=== PATIENT | female | born 1985 | race African-American/Black ===

== ENCOUNTER → 2016-09-26 11:26 | Outpatient (CLI) | payer OTHER ==
[2015-06-19 09:25] VITALS: BMI 24.8
[~2016-09-26 11:26] MED LIST: ACETAMINOPHEN325 MG PO; ADVAIR 250/501 DISK INH; ALBUTEROL2.5 MG/3 M INH; CHRONULAC30 ML PO; CLEOCIN HCL300 MG PO; CO Q-10100 MG PO; COUMADIN5 MG PO; COUMADIN7.5 MG GT; COUMADIN7.5 MG PO; CYMBALTA30 MG PO; DULCOLAX5 MG PO; GABAPENTIN100 MG PO; GENTAMICIN PREM80 M1 IVPB; GENTAMICIN SULFATE IV; HYDROCODONE-APA1 TAB PO; IPRAT-ALBUT 0.5-3 ML UPD; LACTINEX GRANUL1 PCK PO; LANOXIN125 MCG PO; LASIX20 MG PO; LASIX40 MG PO; LOVENOX40 MG/0.4 SC; MERREM 1 GM/NS 11 G1 IV; METOPROLOL TART50 MG PO; MUCINEX DM ER1 EAC1 PO; MYCELEX TROCHE10 MG PO; ONDANSETRON4 MG/2 M3 IV; PREDNISONE10 MG PO; PROTONIX40 MG PO; SALINE NASAL SP45 ML NS; SINGULAIR10 MG PO; TOPROL XL50 MG PO; VANCOMYCIN 1 GM/1 G1 IV; VITAMIN B-121000 MCG PO; VITAMIN D50000 UNIT PO; XANAX0.5 MG PO; ZANAFLEX4 MG PO
== END | disposition home or self-care (01) ==
LOC: D.RT 08-20 11:00 → D.RAD 08-20 11:00 → D.RT 11:26
DX: Z02.71 Encounter for disability determination (principal)

== ENCOUNTER → 2017-02-20 08:16 | Outpatient (CLI) | payer OTHER ==
[2015-06-19 09:25] VITALS: BMI 24.8
== END | disposition home or self-care (01) ==
LOC: D.RT 08:00
DX: Z02.71 Encounter for disability determination (principal)

== ENCOUNTER 2017-03-05 17:15 | Inpatient (IN) | payer OTHER ==
[2017-03-05] VITALS (8 sets, daily range): BP systolic 110–122; BP diastolic 77–87; BMI 32.2
[~2017-03-05] VITALS: Ht 180.3 cm; Wt 107.5 kg
--- NOTE | 2017-03-05 17:41 | NUR ---
1700- REC'D TO ICU FROM EMS. ALL CARDIAC RESP EQUIPMENT ATTACHED AND ALARMS SET. PT SOB AND ON 6LNC. ALERT AND ORIENTED ASKING FOR . BP 115/83, SR ON CM, 90% SPO2 ON 2LNC.
[2017-03-05] MEDS ORDERED: XANAX0.5 MG PO (17:47)
[2017-03-05] MEDS ORDERED: POTASSIUM CHLO10 ME1 PO (17:48)
[2017-03-05] MEDS ORDERED: LASIX40 MG PO (17:48)
[2017-03-05] MEDS ORDERED: IPRAT-ALBUT 0.5-3 ML UPD (17:51)
[2017-03-05] MEDS ORDERED: PROVENTIL/2.5 MG/3 M INH (17:51)
[2017-03-05] MEDS ORDERED: LOPRESSOR25 MG PO (17:52)
[2017-03-05] MEDS ORDERED: ADVAIR 250/501 DISK INH (17:53)
[2017-03-05] MEDS ORDERED: ELIQUIS2.5 MG PO (17:53)
[2017-03-05] MEDS ORDERED: SINGULAIR10 MG PO (17:54)
[2017-03-05] MEDS ORDERED: HYDROCODONE-APA1 TAB PO (17:56)
[2017-03-05 18:06] LABS: BASOPHILS 0.3 % (0-2); EOSINOPHILS 0.3 % (0-7); HEMATOCRIT 35.6 % (36.0-48.0); HEMOGLOBIN 11.6 g/dL (12-16); IMMATURE GRANULOCYTES 0.3 % (0-5); LYMPHOCYTES 20.6 % (15-50); MCH 27.5 pg (26.0-34.0); MCHC 32.6 g/dL (31.0-37.0); MCV 84.4 fL (80.0-100.0); MEAN PLATELET VOLUME 11.2 fL (7.4-10.4); NEUTROPHILS 70.5 % (40-80); PLATELET COUNT 234 10x3/uL (130-400); RBC 4.22 10x6/uL (4.00-5.40); RDW 17.8 % (11.5-14.5); WBC 5.7 10x3/uL (4.8-10.8)
[2017-03-05 18:13] LABS: ALBUMIN 2.7 g/dL (3.4-5.0); ALKALINE PHOSPHATASE 115 U/L (46-116); ALT (SGPT) 7 U/L (10-68); BILIRUBIN - TOTAL 1.77 mg/dL (0.2-1.3); CALC OSMOLALITY 271 mosm/kg (275-300); CALCIUM 8.5 mg/dL (8.5-10.1); CARBON DIOXIDE 28.9 mmol/L (21.0-32.0); CHLORIDE - SERUM 100 mmol/L (98-107); CREATININE - SERUM 0.9 mg/dL (0.6-1.3); GLUCOSE 89 mg/dL (74-106); POTASSIUM - SERUM 3.8 mmol/L (3.5-5.1); SODIUM 138 mmol/L (136-145); UREA NITROGEN 5 mg/dL (7-18); eGFR NON AFRICAN AMERICAN 78 mL/min (90-120)
[2017-03-05 18:24] LABS: CKMB 0.2 U/L (0.0-3.6); CREATINE KINASE 54 UL (21-215)
[2017-03-05 18:25] LABS: TROPONIN-I < 0.017 ng/mL (0.000-0.060)
[2017-03-06] VITALS (25 sets, daily range): BP systolic 89–121; BP diastolic 40–109; Ht 180.3 cm; Wt 107.5 kg
--- NOTE | 2017-03-06 04:00 | NUR ---
IV STARTED IN RIGHT WRIST AFTER MULTIPLE ATTEMPTS. PT IS AWAKE AND ALERT. BREATHING AND EDEMA IS IMPROVED.
[2017-03-06 05:04] LABS: BASOPHILS 0 % (0-2); EOSINOPHILS 0 % (0-7); HEMATOCRIT 36.8 % (36.0-48.0); IMMATURE GRANULOCYTES 0.2 % (0-5); LYMPHOCYTES 19.9 % (15-50); MCHC 32.6 g/dL (31.0-37.0); MCV 85.8 fL (80.0-100.0); MEAN PLATELET VOLUME 10.9 fL (7.4-10.4); MONOCYTES 2.2 % (2-11); NEUTROPHILS 77.7 % (40-80); PLATELET COUNT 234 10x3/uL (130-400); RBC 4.29 10x6/uL (4.00-5.40); WBC 6.4 10x3/uL (4.8-10.8)
[2017-03-06 05:20] LABS: ALBUMIN 2.7 g/dL (3.4-5.0); ANION GAP 14.8 mmol/L (8-16); BILIRUBIN - TOTAL 1.52 mg/dL (0.2-1.3); CALCIUM 8.5 mg/dL (8.5-10.1); CARBON DIOXIDE 29.4 mmol/L (21.0-32.0); MAGNESIUM - SERUM 1.8 mg/dL (1.8-2.4); POTASSIUM - SERUM 4.2 mmol/L (3.5-5.1); PROTEIN - SERUM 8.2 g/dL (6.4-8.2)
--- NOTE | 2017-03-06 13:26 | NUR ---
* Is the patient Alert and Oriented? Yes 0 * How many steps to enter\exit or inside your home? 4-5 0 * PCP Dr. Hammond 0 * Pharmacy [facility] 0 * Preadmission Environment Home with Family 0 * ADLs Partial Dependent 0 * Partial ADLs (Assistance needed) Ambulation 0 * Equipment Nebulizer Rolling Walker Wheelchair 0 * List name and contact numbers for known caregivers / representatives who currently or will assist patient after discharge: Spouse - Raina Zarate [phone] 0 * Additional services required to return to the preadmission environment? Yes 0 * Can the patient safely return to the preadmission environment? Yes 0 * Has this patient been hospitalized within the prior 30 days at any hospital? No Patient Name: FRANKI ZARATE Admission Status: Elective Accout number: [id number] Admission Date: 03-05-2017 : 1985 Admission Diagnosis:SHORTNESS OF BREATH Attending: VINEET LIN Current LOS: 1 Anticipated DC Date: 03-09-2017 Planned Disposition: Home Primary Insurance: [employer] [place] MEDICA[place] Discharge Planning Comments: CM met with patient to assess dc plans/needs. Patient states she lives at home with her , Raina. She states she has a nebulizer, and borrowed walker & WC. She does not have home O2. She states she had home health services approximately 2 years ago but unable to recall which agency. At dc, she may benefit from home O2 & home health. CM will follow & assist as needed. Expander Machine Operator: Aleah Anderson
--- NOTE | 2017-03-06 21:00 | NUR ---
FAMILY AT BEDSIDE, UPDATE PROVIDED AND QUESTOINS ANSWERED. DENIES NEEDS AT THIS TIME. VSS, CALL LIGHT WITHIN PT REACH. CPOC.
--- NOTE | 2017-03-06 23:00 | NUR ---
REASSESSMENT COMPLETE, NO NEW CHANGES AT THIS TIME. PT AOX4. VSS, SPO2 94. PT REPOSITIONED FOR COMFORT. FRESH WATER AT BEDSIDE. DENIES FURTHER NEEDS AT THIS TIME. CALL LIGHT WITHIN PT REACH. CPOC.
[2017-03-07] VITALS (16 sets, daily range): BP systolic 101–140; BP diastolic 72–884
--- NOTE | 2017-03-07 01:00 | NUR ---
PT RESTING QUIETLY, SPO2 94. PARTIAL LINEN CHANGE PROVIDED. PT REPOSITIONED FOR COMFORT. DENIES NEEDS AT THIS TIME. CALL LIGHT WITHIN PT REACH. CPOC.
--- NOTE | 2017-03-07 03:59 | NUR ---
REASSESSMENT COMPLETE, SEE FLOWSHEET FOR ALL FINDINGS. NO CHANGES NOTED AT THIS TIME. VSS, SPO2 94, 6L O2 VIA NC. PARTIAL LINEN CHANGE PROVIDED. DENIES FURTHER NEEDS AT THIS TIME. CALL LIGHT AND BEDSIDE TABLE WITHIN PT REACH. CPOC.
[2017-03-07 04:39] LABS: BASOPHILS 0 % (0-2); EOSINOPHILS 0 % (0-7); HEMATOCRIT 34.3 % (36.0-48.0); IMMATURE GRANULOCYTES 0.3 % (0-5); LYMPHOCYTES 6.7 % (15-50); MCH 27.5 pg (26.0-34.0); MCHC 32.1 g/dL (31.0-37.0); MCV 85.8 fL (80.0-100.0); MEAN PLATELET VOLUME 11.3 fL (7.4-10.4); MONOCYTES 3.7 % (2-11); NEUTROPHILS 89.3 % (40-80); PLATELET COUNT 236 10x3/uL (130-400); RDW 17.7 % (11.5-14.5); WBC 15.8 10x3/uL (4.8-10.8)
[2017-03-07 04:56] LABS: ALBUMIN 2.6 g/dL (3.4-5.0); ALKALINE PHOSPHATASE 111 U/L (46-116); ALT (SGPT) 10 U/L (10-68); BILIRUBIN - TOTAL 0.93 mg/dL (0.2-1.3); CALC OSMOLALITY 276 mosm/kg (275-300); CALCIUM 8.1 mg/dL (8.5-10.1); CARBON DIOXIDE 30.5 mmol/L (21.0-32.0); CHLORIDE - SERUM 100 mmol/L (98-107); CREATININE - SERUM 0.9 mg/dL (0.6-1.3); GLUCOSE 132 mg/dL (74-106); MAGNESIUM - SERUM 1.7 mg/dL (1.8-2.4); POTASSIUM - SERUM 4.2 mmol/L (3.5-5.1); PROTEIN - SERUM 7.5 g/dL (6.4-8.2); SODIUM 138 mmol/L (136-145); eGFR NON AFRICAN AMERICAN 78 mL/min (90-120)
[2017-03-07 04:59] LABS: UREA NITROGEN 11 mg/dL (7-18)
--- NOTE | 2017-03-07 05:23 | NUR ---
PT SLEEPING QUIETLY AT THIS TIME WITH UNLABORED RESPIRATIONS. SPO2 95, 6L O2 VIA NC. NO S/S OF PAIN AT THIS TIME. CALL LIGHT WITHIN PT REACH. PT ALLOWED TO CONTINUE SLEEPING UNDISTURBED AT THIS TIME. CPOC.
--- NOTE | 2017-03-07 16:05 | NUR ---
REPORT CALLED TO FLOOR NURSE
--- NOTE | 2017-03-07 16:23 | NUR ---
PT AOX4 RESP EVEN AND NONLABORED PT DENIES NEEDS AT THIS TIME IV TO LEFT FOREARM PATENT AND INTACT AT THIS TIME SRX2 BED IN LOWEST SETTING CALL LIGHT WITHIN REACH WILL CONTINUE TO MONITOR
--- NOTE | 2017-03-07 20:00 | NUR ---
REC'D IN BED WITH EYES CLOSED EASILY AROUSED WHEN NAME IS CALLED. RESP EVEN AND UNLABORED WITH NO DISTRESS NOTED. HAS O2 IN USE VIA N/C @ 5 L/M. ASSESSMENT COMPLETED. CL IN REACH AT BEDSIDE.
--- NOTE | 2017-03-07 22:39 | NUR ---
WAS MEDICATED WITH NORCO AT THIS TIME FOR C/O PAIN. C/L UIN REACH AT BEDSIDE.
--- NOTE | 2017-03-07 22:47 | NUR ---
WAS MEDICATED WITH NORCO PER ORDER FOR C/O GENERALIZED PAIN RATING 10/10 ON PAIN.
[2017-03-08 00:03] VITALS: BP 103/77
--- NOTE | 2017-03-08 01:52 | NUR ---
PT AWAKE EATING SANDWICH. BROUGHT ORANGE JUICE OVER ICE. NO OTHER NEEDS. NO DISTRESS NOTED. CONTINUE MASON HELPER'S PLAN OF CARE.
--- NOTE | 2017-03-08 03:07 | NUR ---
RESTING WELL AT THIS TIME NO CO NOTED OR VOICED. C/L AND AT BEDSIDE.
[2017-03-08 03:30] VITALS: BP 110/75
[2017-03-08 04:38] LABS: BASOPHILS 0 % (0-2); EOSINOPHILS 0 % (0-7); HEMATOCRIT 32.3 % (36.0-48.0); HEMOGLOBIN 10.6 g/dL (12-16); IMMATURE GRANULOCYTES 0.2 % (0-5); LYMPHOCYTES 4.8 % (15-50); MCH 28.3 pg (26.0-34.0); MCHC 32.8 g/dL (31.0-37.0); MCV 86.1 fL (80.0-100.0); MEAN PLATELET VOLUME 10.6 fL (7.4-10.4); MONOCYTES 4.5 % (2-11); NEUTROPHILS 90.5 % (40-80); PLATELET COUNT 222 10x3/uL (130-400); RBC 3.75 10x6/uL (4.00-5.40); RDW 17.7 % (11.5-14.5); WBC 15.2 10x3/uL (4.8-10.8)
[2017-03-08 04:49] LABS: ALBUMIN 2.6 g/dL (3.4-5.0); ANION GAP 10.5 mmol/L (8-16); BILIRUBIN - TOTAL 0.97 mg/dL (0.2-1.3); CALCIUM 7.9 mg/dL (8.5-10.1); CARBON DIOXIDE 31.4 mmol/L (21.0-32.0); MAGNESIUM - SERUM 1.8 mg/dL (1.8-2.4); POTASSIUM - SERUM 3.9 mmol/L (3.5-5.1); PROTEIN - SERUM 7.9 g/dL (6.4-8.2)
--- NOTE | 2017-03-08 07:30 | NUR ---
PT AOX4 RESP EVEN AND NONLABORED PT DENIES NEEDS AT THIS TIME SRX2 BED AT LOWEST SETTING CALL LIGHT WITHIN REACH WILL CONTINUE TO MONITOR
[2017-03-08 09:36] VITALS: BP 111/74
[2017-03-08 15:51] VITALS: BP 110/64
[2017-03-08 20:00] VITALS: BP 117/70
--- NOTE | 2017-03-08 20:00 | NUR ---
REC'D IN ROOM AWAKE AND ALERT. RESP EVEN AND UNLABORED WITH NO DISTRESS NOTED. CAN EXPRESS NEEDS AND WANTS. C/O PAIN RATING 10/10 ON PAIN SCALE. ASSESSMENT COMPLETED. AT BEDSIDE. C/L IN REACH AT BEDSIDE.
--- NOTE | 2017-03-08 21:04 | NUR ---
PT C/O PAIN RATIN 04/07 ON PAIN SCSLE WAS MEDICATEDWITH NORCO PER ORDERS.
[2017-03-09] VITALS: BP 106/64
--- NOTE | 2017-03-09 01:00 | NUR ---
PT RESTING EYES, CLOSED. RESP EVEN UNLABORED. NO DISTRESS NOTED. CONTINUE SLAT BASKET TOP MAKER'S PLAN OF CARE.
[2017-03-09 04:00] VITALS: BP 100/69
[2017-03-09 05:39] LABS: BASOPHILS 0 % (0-2); EOSINOPHILS 0 % (0-7); HEMATOCRIT 33.7 % (36.0-48.0); HEMOGLOBIN 10.8 g/dL (12-16); IMMATURE GRANULOCYTES 0.2 % (0-5); LYMPHOCYTES 5.1 % (15-50); MCH 27.9 pg (26.0-34.0); MCV 87.1 fL (80.0-100.0); MEAN PLATELET VOLUME 11.4 fL (7.4-10.4); MONOCYTES 4.6 % (2-11); NEUTROPHILS 90.1 % (40-80); PLATELET COUNT 246 10x3/uL (130-400); RBC 3.87 10x6/uL (4.00-5.40); RDW 17.7 % (11.5-14.5); WBC 13.2 10x3/uL (4.8-10.8)
[2017-03-09 06:29] LABS: ALBUMIN 2.8 g/dL (3.4-5.0); ALKALINE PHOSPHATASE 167 U/L (46-116); BILIRUBIN - TOTAL 1.01 mg/dL (0.2-1.3); CALC OSMOLALITY 280 mosm/kg (275-300); CALCIUM 8.3 mg/dL (8.5-10.1); CARBON DIOXIDE 32.2 mmol/L (21.0-32.0); CHLORIDE - SERUM 99 mmol/L (98-107); CREATININE - SERUM 0.9 mg/dL (0.6-1.3); GLUCOSE 117 mg/dL (74-106); MAGNESIUM - SERUM 1.7 mg/dL (1.8-2.4); POTASSIUM - SERUM 3.9 mmol/L (3.5-5.1); SODIUM 138 mmol/L (136-145); UREA NITROGEN 24 mg/dL (7-18); eGFR NON AFRICAN AMERICAN 78 mL/min (90-120)
[2017-03-09 06:40] LABS: ALT (SGPT) 18 U/L (10-68)
--- NOTE | 2017-03-09 07:30 | NUR ---
ASSESSMENT PER FLOW SHEET.PT WITHOUT DISTRESS.DENIES NEEDS.PAIN MEDS ORDERED PER MAR.MONITOR FOR NEEDS
[2017-03-09 08:54] VITALS: BP 114/76
--- NOTE | 2017-03-09 14:54 | NUR ---
OUT IN WHEELCHAIR EARLIER TODAY.SHE REMAINS WITHOUT DISTRESS.PAIN MEDS ORDERED PER MAR EARLIER.MONITOR
--- NOTE | 2017-03-09 19:15 | NUR ---
RECIEVED SHIFT REPORT. PT IS LYING IN BED. ALERT AND ORIENTED AND ABLE TO VERBALIZE NEEDS. IV IS PATENT AND FLUIDS ARE RUNNING PER ORDER. O2 @ 4 PER NASAL CANNULA. PT IS AMBULATORY WITH ASSISTANCE. PT STATES PAIN IS 10/10. NO NEEDS ARE VERBALIZED AT THIS TIME. WILL CONTINUE TO MONITOR. VISITOR IS AT THE BEDSIDE. SIDE RAILS ARE UP X 2. BED IS IN LOWEST POSITION. CALL LIGHT IS WITHIN REACH.
--- NOTE | 2017-03-09 19:20 | NUR ---
REMAINS WITHOUT NEEDS,WITHOUT CHNAGE.CONT PLAN OF CARE
[2017-03-09 20:00] VITALS: BP 110/75
--- NOTE | 2017-03-09 20:41 | NUR ---
SHIFT ASSESSMENT COMPLETED. NIGHT MEDS GIVEN WITH NO PROBLEMS. NO NEEDS ARE VOICED. WILL MONITOR. VISITOR AT BEDSIDE. SIDE RAILS X 2. BED LOW. CALL LIGHT IN REACH.
[2017-03-10] VITALS: BP 102/72
[2017-03-10 05:20] LABS: BASOPHILS 0.1 % (0-2); EOSINOPHILS 0 % (0-7); HEMATOCRIT 30.4 % (36.0-48.0); HEMOGLOBIN 9.8 g/dL (12-16); IMMATURE GRANULOCYTES 0.3 % (0-5); LYMPHOCYTES 7.7 % (15-50); MCH 27.6 pg (26.0-34.0); MCHC 32.2 g/dL (31.0-37.0); MCV 85.6 fL (80.0-100.0); MEAN PLATELET VOLUME 11.1 fL (7.4-10.4); MONOCYTES 5.9 % (2-11); PLATELET COUNT 250 10x3/uL (130-400); RBC 3.55 10x6/uL (4.00-5.40); WBC 13.1 10x3/uL (4.8-10.8)
[2017-03-10 05:37] LABS: ALBUMIN 2.6 g/dL (3.4-5.0); ANION GAP 11.2 mmol/L (8-16); BILIRUBIN - TOTAL 1.02 mg/dL (0.2-1.3); CALCIUM 8.1 mg/dL (8.5-10.1); MAGNESIUM - SERUM 1.6 mg/dL (1.8-2.4); POTASSIUM - SERUM 4.2 mmol/L (3.5-5.1); PROTEIN - SERUM 7.3 g/dL (6.4-8.2)
--- NOTE | 2017-03-10 08:00 | NUR ---
ASSESSMENT PER FLOW SHEET.PT WITHOUT DISRESS.DENIES NEEDS.CALL LIGHT IN REACH
[2017-03-10 09:18] VITALS: BP 103/71
[2017-03-10 10:46] VITALS: BP 110/69
--- NOTE | 2017-03-10 18:41 | NUR ---
REMAINS WITHOUT DISTRESS.DENIES NEEDS AT PRESENT.WITHOUT CHANGE FROM INITIAL SHIFT ASSESSMENT.CONT PLAN OF CARE
--- NOTE | 2017-03-10 19:25 | NUR ---
RECIEVED SHIFT REPORT. PT IS LYING IN BED. ALERT AND ORIENTED AND ABLE TO VERBALIZE NEEDS. IV IS PATENT AND FLUIDS ARE RUNNING PER ORDER. O2 @ 4 PER NASAL CANNULA. PT IS AMBULATORY WITH ASSISTANCE. PT STATES PAIN IS 8/10. NO NEEDS ARE VERBALIZED AT THIS TIME. WILL CONTINUE TO MONITOR. VISITOR IS AT THE BEDSIDE. SIDE RAILS ARE UP X 2. BED IS IN LOWEST POSITION. CALL LIGHT IS WITHIN REACH.
[2017-03-10 20:00] VITALS: BP 114/67
--- NOTE | 2017-03-10 20:55 | NUR ---
SHIFT ASSESSMENT COMPLETED. NIGHT MEDS GIVEN WITH NO PROBLEMS. PT C/O PAIN 04/07. ADMINISTERED PRESCRIBED PRN NORCO PER ORDER. NO FURTHER NEEDS ARE VOICED. WILL MONITOR. VISITOR AT BEDSIDE. SIDE RAILS X 2. BED LOW. CALL LIGHT IN REACH.
[2017-03-11 04:00] VITALS: BP 109/73
[2017-03-11 05:18] LABS: BASOPHILS 0 % (0-2); EOSINOPHILS 0 % (0-7); HEMATOCRIT 29.2 % (36.0-48.0); HEMOGLOBIN 9.8 g/dL (12-16); IMMATURE GRANULOCYTES 0.6 % (0-5); LYMPHOCYTES 10.3 % (15-50); MCH 28.2 pg (26.0-34.0); MCHC 33.6 g/dL (31.0-37.0); MCV 83.9 fL (80.0-100.0); MEAN PLATELET VOLUME 10.7 fL (7.4-10.4); MONOCYTES 10.8 % (2-11); NEUTROPHILS 78.3 % (40-80); PLATELET COUNT 271 10x3/uL (130-400); RBC 3.48 10x6/uL (4.00-5.40); RDW 17.1 % (11.5-14.5)
[2017-03-11 05:47] LABS: ALBUMIN 2.7 g/dL (3.4-5.0); ALKALINE PHOSPHATASE 143 U/L (46-116); ALT (SGPT) 21 U/L (10-68); CALC OSMOLALITY 288 mosm/kg (275-300); CALCIUM 8.9 mg/dL (8.5-10.1); CARBON DIOXIDE 34.5 mmol/L (21.0-32.0); CHLORIDE - SERUM 102 mmol/L (98-107); CREATININE - SERUM 0.8 mg/dL (0.6-1.3); GLUCOSE 114 mg/dL (74-106); PHOSPHOROUS 3.1 mg/dL (2.5-4.9); POTASSIUM - SERUM 4.2 mmol/L (3.5-5.1); SODIUM 141 mmol/L (136-145); UREA NITROGEN 31 mg/dL (7-18); eGFR NON AFRICAN AMERICAN 89 mL/min (90-120)
--- NOTE | 2017-03-11 07:23 | NUR ---
BACK ON UNIT FROM WHEELCHAIR RIDE.
[2017-03-11 08:18] VITALS: BP 100/65
--- NOTE | 2017-03-11 10:33 | EC ---
PATIENT:FRANKI ZARATE DATE OF SERVICE: 03/05/17 SEX: F MEDICAL RECORD: [id number] DATE OF : [birth year] LOCATION:[facility] AGE OF PATIENT: 31 ADMISSION DATE: 03/05/17 REFERRING PHYSICIAN: INTERPRETING PHYSICIAN: YINKA JONES MD ECHOCARDIOGRAM REPORT ECHO CHARGES 4 ECHO COMPLETE CLINICAL DIAGNOSIS: CHF ? - TVR ECHOCARDIOGRAPHIC MEASUREMENTS (adult normal given) AC root (d.<3.7cm) 2.3 cm LV Septum d (<1.2 cm> 0.9 cm Valve Excursion 1.8 cm LV Septum (systole) 1.1 cm Left Atria (s.<4.0cm> 5.1 cm LVPW d(<1.2cm) 0.9 cm RV (d.<2.3cm) 3.9 cm LVPW (sytole) 1.5 cm LV diastole(<5.6CM) 4.8 cm MV E-F(>70mm/sec) cm LV systole 2.9 cm LVOT Diameter 1.6 cm MV exc.(>10mm) cm Est.ejection fraction (50-75%) % Pericardial Effusion N DOPPLER: LVIT cm/sec A 45.0 cm/sec E 147 cm/sec LA cm/sec RVSP 21.2 mmHg LVOT 93.0 cm/sec AOP1/2T m/s Asc. Ao 154 cm/sec RVOT 87.0 cm/sec RA cm/sec PA 61.0 cm/sec AV Gradient Peak 9.5 mmHg AV Mean 3.6 mmHg AV Area 1.4 cm MV Gradient Peak 10.0 mmHg MV Mean 3.7 mmHg MV Area cm COMMENTS: Paid Search Manager: Tika GILLOE E Commerce Manager: 3 Dr. Hawk TAPE# PACS DATE OF SERVICE: 03/09/2017 Adequate 2D echo, color flow, spectral Doppler and M-mode. No LVH. LV internal dimensions are normal. Wall motion is normal. EF is greater than or equal to 55%. Aortic valve opens adequately, no significant AI. Left atrium is dilated at 5.1 cm. Mitral valve is mildly thickened. Moderate MR. Right-sided chamber is grossly normal. Severe TR. TRANSINT:[id number] Voice Confirmation ID: [id number] DOCUMENT ID: [id number] ECHOCARDIOGRAM REPORT [id number] FRANKI ZARATE GREGORY A MD at 1033 CC: [id number] DICTATION DATE: 03/09/17 1434 POLITICAL SCIENTIST: 03/09/17 2230 ADM IN [facility] [address] [id number]
--- NOTE | 2017-03-11 10:59 | NUR ---
NUTRITION F/U CHART REVIEWED. PT TOLERATING REG GOPAL DIET WITH 100% INTAKE BREAKFAST. CONTINUES TO BE ASSESSED AT LOW NUTRITIONAL RISK. RD FOLLOWING
[2017-03-11 14:24] VITALS: BP 112/71
[2017-03-11] MEDS ORDERED: LASIX40 MG PO (14:31)
[2017-03-11] MEDS ORDERED: ELIQUIS5 MG PO (14:31)
[2017-03-11] MEDS ORDERED: PULMICORT0.5 MG/21 UPD (14:32)
[2017-03-11] MEDS ORDERED: PREDNISONE10 MG PO (14:33)
[2017-03-11] MEDS ORDERED: LEVAQUIN750 MG PO (14:42)
--- NOTE | 2017-03-11 16:18 | NUR ---
PATIENT DISCHARGING TODAY WITH [facility] AND HOME O2. SENT ORDER TO [facility] WITH [facility] AND TO [facility]. AT BEDSIDE TO DRIVE HOME PATIENT HAD NO OTHER NEEDS FOR DISCHARGE
[2017-03-11 17:13] VITALS: BP 100/66
--- NOTE | 2017-03-11 18:48 | NUR ---
IV DCD WITH CATH INTACCT.DISCHARGE INSTRUCTIONS,STATES UNDERSTANDING.
--- NOTE | 2017-03-11 18:56 | NUR ---
LEFT UNIT VIA WHEELCHAIR
--- NOTE | 2017-03-17 16:50 | CN ---
PATIENT NAME:FRANKI ZARATE MEDICAL RECORD: [id number] : [birth year] LOCATION:D[facility] ADMIT DATE: 03/05/17 ACCOUNT: [id number] CONSULTING PHYSICIAN: ASTER MOTA MD REFERRING PHYSICIAN: BO DOCKERY MD DATE OF CONSULTATION: 03/06/2017 CONSULT REQUESTING PHYSICIAN: Bo Dockery MD. REASON FOR CONSULTATION: Worsening shortness of breath, pulmonary edema, acute flare of congestive heart failure. HISTORY OF PRESENT ILLNESS: Ms. Zarate is a 31-year-old -German female, very well known to us. According to the patient, she had worsening shortness of breath for the last couple of weeks. She has worsening swelling of the lower extremities. She was off of her diuretic for the last few weeks. She was also off of her blood thinner, Eliquis, for more than a month. She has orthopnea and PND. Also, she hears herself wheezing. REVIEW OF SYSTEMS: As in history of present illness. PAST MEDICAL HISTORY: 1. History of asthma. 2. History of bacterial endocarditis. 3. 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 The workup for coagulopathy was negative in the past by Dr. De La Torre. 4. Cardiomyopathy with ejection fraction of 35%. 5. Positive rheumatoid factor. 6. History of spontaneous pneumothorax in the past. 7. Bipolar disorder. 8. Seizure disorder. PAST SURGICAL HISTORY: 1. Appendectomy. 2. Mitral valve replacement at the [facility] in [place]. 3. Status post chest tube placement for pneumothorax in the past. ALLERGIES: SHE IS ALLERGIC TO ERYTHROMYCIN, CLINDAMYCIN, AMOXICILLIN, PENICILLIN, MORPHINE, MEPERIDINE AND SULFA. PRESENT MEDICATIONS: On plistatech was reviewed. PERSONAL AND SOCIAL HISTORY: The patient has a history of abusing recreational drugs in the past. She is not an IV drug user. FAMILY HISTORY: Significant for cardiovascular disease and cancer. PHYSICAL EXAMINATION: GENERAL: Now, the patient is lying comfortably. She is not in acute distress. VITAL SIGNS: The blood pressure is 116/77, pulse is 101, respiration is 20, temperature is 98.1, and SpO2 is 97% on 5 liters nasal cannula. HEENT: Conjunctivae are pink. Sclerae nonicteric. NECK: Supple. There is elevated JVD. CHEST: There are bilateral crackles. Decreased breath sounds at the bases. HEART: Rate and rhythm regular with grade II/ systolic murmur. CONSULT REPORT [id number] FRANKI ZARATE ABDOMEN: Soft, bowel sounds present. No hepatosplenomegaly. RECTAL: Deferred. EXTREMITIES: No cyanosis, no clubbing. There is 3+ pedal edema. SKIN: Warm, normal turgor. CENTRAL NERVOUS SYSTEM: The patient is awake and alert. There is no obvious cranial nerve abnormality. The gait was not tested. IMAGING: Chest radiograph: There are bilateral pleural effusions, right more than the left. There is a huge cardiomegaly. There is also a lower lobe atelectasis. LABORATORY DATA: CBC: WBC 5.7, hemoglobin 11.6, hematocrit 35.6, the platelet count 234. Chemistry: Sodium is 139, potassium is 4.2, carbon dioxide 29.4, BUN is 6, creatinine is 1. D-dimer is 6.27. IMPRESSION: 1. Acute hypoxic respiratory failure, which is multifactorial. A. Pulmonary edema. B. Bilateral pleural effusions. C. Possible underlying pneumonia and atelectasis. 2. Congestive heart failure with chronic systolic dysfunction with cardiomyopathy. 3. Asthma acute exacerbation secondary to #4. 4. History of pulmonary embolism and deep venous thrombosis. Now, she has elevated D-dimer, rule out PTE. RECOMMENDATION: 1. I will increase the Eliquis to 5 mg b.i.d. Increase methylprednisolone IV, albuterol/ipratropium nebulizer, Brovana, budesonide nebulizer, Singulair 10 mg a day. 2. Check ultrasound of the lower extremity to rule out DVT. Continue Lasix. Continue Levaquin IV for empiric antibiotic coverage. Dr. Dockery, thank you for involving me in the care of Ms. Zarate. The critical care time is 45 minutes. TRANSINT:[id number] Voice Confirmation ID: [id number] DOCUMENT ID: [id number] ASTER MOTA MD at 1650 CC: FABIO JORDAN M.D. [id number] DICTATION DATE: 03/06/17 1115 FIBER PICKER: 03/06/17 1244 DIS IN 03/11/[address] [id number] [facility], [place] [address]
== END 2017-03-11 18:56 | disposition home health service (06) | DRG 291 ==
LOC: D.MS 17:15 → D.ICU 17:15 → D.MS 03-07 16:05
PROVIDERS: Family Medicine; Family Medicine Adult Medicine; Internal Medicine Pulmonary Disease; ADMIT Emergency Medicine
DX: I13.0 Hypertensive heart and chronic kidney disease with heart failure and stage 1 through stage 4 chronic kidney disease, or unspecified chronic kidney disease (principal); J18.1 Lobar pneumonia, unspecified organism; I50.43 Acute on chronic combined systolic (congestive) and diastolic (congestive) heart failure; J96.01 Acute respiratory failure with hypoxia; J44.0 Chronic obstructive pulmonary disease with (acute) lower respiratory infection; J44.1 Chronic obstructive pulmonary disease with (acute) exacerbation; I42.9 Cardiomyopathy, unspecified; Z79.01 Long term (current) use of anticoagulants; Z95.2 Presence of prosthetic heart valve; F41.9 Anxiety disorder, unspecified; Z72.0 Tobacco use; D69.6 Thrombocytopenia, unspecified; E83.42 Hypomagnesemia; N18.9 Chronic kidney disease, unspecified

== ENCOUNTER → 2017-03-23 12:35 | Outpatient (CLI) | payer OTHER ==
[2017-03-06 09:06] VITALS: BMI 32.2
[~2017-03-23 12:35] MED LIST changes: +ELIQUIS2.5 MG PO; +ELIQUIS5 MG PO; +LEVAQUIN750 MG PO; +LOPRESSOR25 MG PO; +POTASSIUM CHLO10 ME1 PO; +PROVENTIL/2.5 MG/3 M INH; +PULMICORT0.5 MG/21 UPD
[2017-03-23 14:16] LABS: CALC OSMOLALITY 263 mosm/kg (275-300); CALCIUM 8.4 mg/dL (8.5-10.1); CARBON DIOXIDE 25.5 mmol/L (21.0-32.0); CHLORIDE - SERUM 100 mmol/L (98-107); CREATININE - SERUM 0.8 mg/dL (0.6-1.3); GLUCOSE 66 mg/dL (74-106); POTASSIUM - SERUM 4.1 mmol/L (3.5-5.1); PRO BNP 1076 pg/mL (0-125); SODIUM 133 mmol/L (136-145); UREA NITROGEN 13 mg/dL (7-18); eGFR NON AFRICAN AMERICAN 89 mL/min (90-120)
== END | disposition home or self-care (01) ==
LOC: D.LABREF 12:35
PROVIDERS: Family Medicine
DX: J44.9 Chronic obstructive pulmonary disease, unspecified (principal); I50.9 Heart failure, unspecified

== ENCOUNTER 2017-03-30 15:21 | Inpatient (IN) | payer MEDICAID ==
[2017-03-30 16:03] LABS: ALBUMIN 2.4 g/dL (3.4-5.0); ANION GAP 16.7 mmol/L (8-16); BILIRUBIN - TOTAL 1.62 mg/dL (0.2-1.3); CALCIUM 8.5 mg/dL (8.5-10.1); CARBON DIOXIDE 21.6 mmol/L (21.0-32.0); CREATININE - SERUM 1.1 mg/dL (0.6-1.3); MAGNESIUM - SERUM 2.3 mg/dL (1.8-2.4); POTASSIUM - SERUM 4.3 mmol/L (3.5-5.1); PROTEIN - SERUM 6.1 g/dL (6.4-8.2)
[2017-03-30 16:10] LABS: BASOPHILS 0.4 % (0-2); EOSINOPHILS 1.5 % (0-7); IMMATURE GRANULOCYTES 0.1 % (0-5); LYMPHOCYTES 29.1 % (15-50); MCH 23.6 pg (26.0-34.0); MCHC 27.9 g/dL (31.0-37.0); MCV 84.6 fL (80.0-100.0); MEAN PLATELET VOLUME 10.5 fL (7.4-10.4); MONOCYTES 10.8 % (2-11); NEUTROPHILS 58.1 % (40-80); PLATELET COUNT 252 10x3/uL (130-400); RDW 20.9 % (11.5-14.5); WBC 7.1 10x3/uL (4.8-10.8)
[2017-03-30 16:17] LABS: APTT 41.5 SECONDS (22.8-39.4); INR 2.84 (0.85-1.17)
[2017-03-30 16:36] LABS: HEMATOCRIT 10.4 % (36.0-48.0); HEMOGLOBIN 2.9 g/dL (12-16); RBC 1.23 10x6/uL (4.00-5.40)
[2017-03-30 17:08] LABS: APPEARANCE CLEAR (CLEAR); COLOR YELLOW (YELLOW)
[2017-03-30 17:09] LABS: BILIRUBIN NEGATIVE (NEGATIVE); GLUCOSE NEGATIVE (NEGATIVE); KETONE NEGATIVE (NEGATIVE); NITRITE NEGATIVE (NEGATIVE); PROTEIN TRACE mg/dL (NEGATIVE); UROBILINOGEN NORMAL (NORMAL)
[2017-03-30 17:18] LABS: UDS - AMPHET NEGATIVE QUAL (NEGATIVE); UDS - BARB NEGATIVE QUAL (NEGATIVE); UDS - BENZO POSITIVE QUAL (NEGATIVE); UDS - COCAINE NEGATIVE QUAL (NEGATIVE); UDS - OPIATE POSITIVE QUAL (NEGATIVE); UDS - PCP NEGATIVE QUAL (NEGATIVE); UDS - THC POSITIVE QUAL (NEGATIVE)
--- NOTE | 2017-03-30 19:05 | NUR ---
PATIENT RECEIVED VIA STRETCHER AND MOVED OVER TO BED 2301. PATIENT IS ALERT AND ORIENTED, AND COMMUNICATES NEEDS WELL.
--- NOTE | 2017-03-30 19:15 | NUR ---
PT LAYING IN BED AWAKE AND ALERT, IS AT BEDSIDE. SECOND UNIT OF PRBC'S ADMINISTERED VIA RT EXTERNAL JUGULAR PIV. DENIES NEEDS AT THIS TIME. CALL LIGHT WITHIN REACH. WILL CONTINUE TO MONITOR.
[2017-03-30 20:00] VITALS: BP 102/66
[2017-03-30 20:17] VITALS: BP 112/96; BMI 27.6
--- NOTE | 2017-03-30 20:17 | NUR ---
ADMISSION ASSESSMENT COMPLETED PER FLOW SHEET. PT LAYING IN BED, AT BEDSIDE. PT ALERT AND ORIENTED, BUT IS LETHARGIC. SPEECH IS CLEAR. RADIAL AND PEDAL PULSES WEAK TO PALPATION BILAT. S1S2 PRESENT. SCAR NOTED TO CHEST MIDLINE. BRUISES NOTED TO ARMS BILAT. 3 L 02 VIA NC. BREATHING IS SHALLOW AND TACHYPNEIC. LT EXTERNAL JUGULAR PIV INFUSING PRBC'S. LT WRIST PIV INFUSING NS. SEE FLOW SHEET FOR DETAILS. PT DENIES NEEDS. CALL LIGHT WITHIN REACH. BED IN LOWEST POSITION. WILL CONTINUE TO MONITOR.
[2017-03-30 21:00] VITALS: BP 98/64
--- NOTE | 2017-03-30 21:00 | NUR ---
AND SISTER AT BEDSIDE. VSS. ICE CHIPS PROVIDED. DENIES FURTHER NEEDS. CALL LIGHT WITHIN REACH. BED IN LOWEST POSITION. WILL CONTINUE TO MONITOR.
[2017-03-30 22:00] VITALS: BP 122/78; BP 91/60
--- NOTE | 2017-03-30 22:30 | NUR ---
SECOND UNIT OF PRBC'S ADMINISTERED. WILL CONTINUE TO MONITOR FOR TRANSFUSION REACTIONS. CALL LIGHT WITHIN REACH. BED IN LOWEST POSITION.
[2017-03-30 23:00] VITALS: BP 104/67
--- NOTE | 2017-03-30 23:00 | NUR ---
REASSESSMENT COMPLETED PER FLOW SHEET, SEE FOR DETAILS. NO ACUTE CHANGES NOTED. PT STILL LETHARGIC. SPEECH IS CLEAR. PT IS ALERT AND ORIENTED. DENIES NEEDS AT THIS TIME. CALL LIGHT WITHIN REACH. BED IN LOWEST POSITION. WILL CONTINUE TO MONITOR.
--- NOTE | 2017-03-30 23:45 | NUR ---
UPDATE GIVEN TO DR. BILLY, NEW ORDERS RECIEVED,
[2017-03-31] VITALS (23 sets, daily range): BP systolic 94–121; BP diastolic 65–84; BMI 28.2
--- NOTE | 2017-03-31 01:00 | NUR ---
PT LAYING IN BED, RESTING. LETHARGIC. SPEECH IS CLEAR. DENIES NEEDS AT THIS TIME. CALL LIGHT WITHIN REACH. BED IN LOWEST POSITION. WILL CONTINUE TO MONITOR.
--- NOTE | 2017-03-31 01:30 | NUR ---
FOURTH UNIT OF PRBC'S ADMINISTERED VIA LT EXTERNAL JUGULAR PIV. WILL CONTINUE TO MONITOR FOR TRANSFUSION REACTION. PT DENIES NEEDS AT THIS TIME. CALL LIGHT WITHIN REACH. BED IN LOWEST POSITION. WILL CONTINUE TO MONITOR.
--- NOTE | 2017-03-31 03:00 | NUR ---
REASSESSMENT COMPLETED PER FLOW SHEET, SEE FOR DETAILS. PT LAYING IN BED, IS MORE CONVERSANT, APPEARS LESS LETHARGIC. SPEECH IS CLEAR. DENIES NEEDS AT THIS TIME. CALL LIGHT WITHIN REACH. BED IN LOWEST POSITION. WILL CONTINUE TO MONITOR.
--- NOTE | 2017-03-31 04:20 | NUR ---
PT STARTED HAVING EXPIRATORY WHEEZING, DR. AGUSTIN LOUIE. O2 SAT IS 97 AT 3 L 02 VIA NC. RR IS 28. REPORTS NO INCREASED DIFFICULTY BREATHING. STATES THAT THE COLD AIR IS THE CAUSE OF HER WHEEZING. WILL CONTINUE TO MONITOR.
--- NOTE | 2017-03-31 04:50 | NUR ---
CHRIS BECKWITH [place] REPRESENTATIVE FOR DR. VELEZ, NEW ORDERS RECEIVED.
--- NOTE | 2017-03-31 05:30 | NUR ---
PT AWAKE, CONVERSANT, DENIES NEEDS AT THIS TIME. CALL LIGHT WITHIN REACH. BED IN LOWEST POSITION. WILL CONTINUE TO MONITOR.
[2017-03-31 06:50] LABS: BASOPHILS 0.1 % (0-2); EOSINOPHILS 1.6 % (0-7); IMMATURE GRANULOCYTES 0.1 % (0-5); LYMPHOCYTES 23.9 % (15-50); MCH 27.2 pg (26.0-34.0); MCHC 32.6 g/dL (31.0-37.0); MCV 83.7 fL (80.0-100.0); MEAN PLATELET VOLUME 11.2 fL (7.4-10.4); MONOCYTES 9.8 % (2-11); NEUTROPHILS 64.5 % (40-80); RDW 17.1 % (11.5-14.5)
[2017-03-31 07:00] LABS: HEMATOCRIT 21.5 % (36.0-48.0); PLATELET COUNT 200 10x3/uL (130-400); RBC 2.57 10x6/uL (4.00-5.40)
[2017-03-31 07:08] LABS: ALBUMIN 2.4 g/dL (3.4-5.0); ALKALINE PHOSPHATASE 100 U/L (46-116); ALT (SGPT) 21 U/L (10-68); BILIRUBIN - TOTAL 4.17 mg/dL (0.2-1.3); CALC OSMOLALITY 272 mosm/kg (275-300); CALCIUM 8.2 mg/dL (8.5-10.1); CARBON DIOXIDE 24.5 mmol/L (21.0-32.0); CHLORIDE - SERUM 101 mmol/L (98-107); CREATININE - SERUM 0.7 mg/dL (0.6-1.3); GLUCOSE 82 mg/dL (74-106); POTASSIUM - SERUM 4.1 mmol/L (3.5-5.1); PROTEIN - SERUM 5.9 g/dL (6.4-8.2); SODIUM 136 mmol/L (136-145); UREA NITROGEN 18 mg/dL (7-18); eGFR NON AFRICAN AMERICAN > 90 mL/min (90-120)
--- NOTE | 2017-03-31 07:15 | NUR ---
ASSESSMENT COMPLETED, VSS, CONSENTS FOR EGD WITH TIVA SIGNED ON CHART, SPOKE WITH DR HARRISON NEW ORDERS FOR TWO UNITS OF BLOOD, SPOKE WITH BLOOD BANK, WILL CALL WHEN BLOOD IS READY, PIV TO LEFT WRIST AND LEFT NECK, 3L O2 VIA NC, DENIES PAIN, WILL CONTINUE TO MONITOR
--- NOTE | 2017-03-31 07:50 | NUR ---
GI TEAM IN ROOM AND WILL BEGIN EGD
--- NOTE | 2017-03-31 08:15 | NUR ---
INFUSION OF PRBCS STARTED, PT AFEBRILE,
--- NOTE | 2017-03-31 09:00 | NUR ---
WHEN INTUBATED, SOFT WRIST RESTRAINTS INITIATED
--- NOTE | 2017-03-31 09:00 | NUR ---
DURING EGD PT SPO2 DROPPED AND WAS INTUBATED BY ANESTHESIA, CONSULTED DR MOTA, SPOKE WITH DR MOTA, NEW ORDERS PER MAR, IN WAITING ROOM, SPOKE WITH DR HARRISON, OGT PLACED, AT BEDSIDE, VSS, WILL CONTINUE TO MONITOR
--- NOTE | 2017-03-31 11:00 | NUR ---
SPOKE WITH DR GALO ABOUT PLACING A CENTRAL LINE, NEW ORDERS FOR PICC LINE PLACEMENT, SPOKE WITH VASCULAR ACCESS NURSE CLAYTON TELEPHNE CONSENT GIVEN BY , NO NEEDS NOTED AT THIS TIME, VSS, WILL CONTIUE TO MONITOR
[2017-03-31 11:01] LABS: HEMATOCRIT 24.3 % (36.0-48.0); HEMOGLOBIN 7.9 g/dL (12-16)
--- NOTE | 2017-03-31 13:03 | NUR ---
SECOND UNIT OF BLOOD INFUSING, PT TOLERATING WELL, NO TEMP THROUGOUT INFUSION, VSS, NO SIGNS OF PAIN, CONTINUES ON VENT, WILL CONTINUE TO MONITOR
--- NOTE | 2017-03-31 15:01 | NUR ---
PT HAD TOTAL BED BATH AND LINEN CHANGE, VSS, NO SIGNS OF PAIN, RESPIRATORY CULTURE COLLECTED, WILL CONTINUE TO MONITOR
--- NOTE | 2017-03-31 16:42 | NUR ---
PAGED DR HARRISON ABOUT HIS NOTE TO CONTINUE PROTONIX DRIP THOUGH THERE IS NO ORDER FOR A PROTONIX DRIP.
--- NOTE | 2017-03-31 17:15 | NUR ---
PT REPOSITIONED, VSS, NO SIGNS OF PAIN, DECREASED DIPROVAN TO 65MCG, WILL CONTINUE TO MONITOR
[2017-03-31 18:27] LABS: HEMATOCRIT 26.3 % (36.0-48.0); HEMOGLOBIN 8.9 g/dL (12-16)
--- NOTE | 2017-03-31 19:30 | NUR ---
REPORT RECEIVED. SHIFT ASSESSMENT COMPLETED PER FLOW SHEET. PT LAYING IN BED, SEDATED ON VENT. ETT TUBE AT 22 CM LT LIP LINE. PUPILS 3 MM BRISK REACTION. WITHDRAWS TO PAIN. OGT TO LIWS, DARK BROWN SPUTUM NOTED IN CANISTER. OGT PLACEMENT VERIFIED VIA AUSCULTATION. S1S2 PRESENT. TELEMETRY MONITORING HR OF 111. RADIAL PULSES PALP. PEDAL PULSES WEAK TO PALPATION. BS HYPOACTIVE X4. ABDOMEN SOFT TO PALPATION. COHEN CATHETER TO GRAVITY, SECURED, DRAINING CLEAR YELLOW URINE. MUCOUS MEMBRANES MOIST. SKIN WARM AND DRY. SCAR NOTED TO MIDLINE CHEST. BRUISES NOTED IN ARMS BILAT. LT NECK PIV, SALINE LOCKED. LT WRIST PIV INFUSING NS AT 10 MLS/HR AND DIPRIVAN AT 60 MCG/KG/MIN. LT UPPER ARM PICC, DRESSING CDI. SEE FLOW SHEET FOR COMPLETE ASSESSMENT. BED IN LOWEST POSITION. WILL CONTINUE TO MONITOR.
--- NOTE | 2017-03-31 21:00 | NUR ---
AND SISTER AT BEDSIDE, REPORT GIVEN, QUESTIONS ANSWERED. NO PT DISTRESS NOTED AT THIS TIME. WILL CONTINUE TO MONITOR.
--- NOTE | 2017-03-31 23:00 | NUR ---
REASSESSMENT COMPLETED PER FLOW SHEET, NO ACUTE CHANGES NOTED. SEE FLOW SHEET FOR DETAILS. SEDATED ON VENT. REPOSITIONED FOR COMFORT. ORAL CARE PROVIDED. WILL CONTINUE TO MONITOR. BED IN LOWEST POSITION.
[2017-04-01] VITALS (24 sets, daily range): BP systolic 102–189; BP diastolic 70–93
--- NOTE | 2017-04-01 01:00 | NUR ---
BED BATH GIVEN, REPOSITIONED FOR COMFORT. ORAL CARE PROVIDED. BED IN LOWEST POSITION. NO DISTRESS NOTED. WILL CONTINUE TO MONITOR.
--- NOTE | 2017-04-01 01:30 | NUR ---
REPORT GIVEN TO MARTITA ROGERS
--- NOTE | 2017-04-01 03:00 | NUR ---
REASSESSMENT COMPLETE. NO ACUTE CHANGES FROM PREVIOUS ASSESSMENT. VSS. NO DISTRESS NOTED. WILL CONTINUE TO MONITOR.
[2017-04-01 05:06] LABS: BASOPHILS 0.3 % (0-2); EOSINOPHILS 0.6 % (0-7); HEMATOCRIT 26.1 % (36.0-48.0); HEMOGLOBIN 8.9 g/dL (12-16); IMMATURE GRANULOCYTES 0.4 % (0-5); LYMPHOCYTES 14.8 % (15-50); MCHC 34.1 g/dL (31.0-37.0); MCV 82.1 fL (80.0-100.0); MEAN PLATELET VOLUME 10.8 fL (7.4-10.4); NEUTROPHILS 74.9 % (40-80); RDW 16.6 % (11.5-14.5); WBC 7.8 10x3/uL (4.8-10.8)
[2017-04-01 05:07] LABS: PLATELET COUNT 153 10x3/uL (130-400); RBC 3.18 10x6/uL (4.00-5.40)
[2017-04-01 05:40] LABS: ALBUMIN 2.4 g/dL (3.4-5.0); ALKALINE PHOSPHATASE 87 U/L (46-116); ALT (SGPT) 17 U/L (10-68); CALC OSMOLALITY 280 mosm/kg (275-300); CALCIUM 7.8 mg/dL (8.5-10.1); CARBON DIOXIDE 24.7 mmol/L (21.0-32.0); CHLORIDE - SERUM 104 mmol/L (98-107); CREATININE - SERUM 0.8 mg/dL (0.6-1.3); GLUCOSE 98 mg/dL (74-106); PHOSPHOROUS 2.7 mg/dL (2.5-4.9); PROTEIN - SERUM 5.8 g/dL (6.4-8.2); SODIUM 140 mmol/L (136-145); UREA NITROGEN 17 mg/dL (7-18); eGFR NON AFRICAN AMERICAN 89 mL/min (90-120)
[2017-04-01 05:51] LABS: MAGNESIUM - SERUM 1.7 mg/dL (1.8-2.4)
[2017-04-01 05:52] LABS: POTASSIUM - SERUM 2.4 mmol/L (3.5-5.1)
--- NOTE | 2017-04-01 06:00 | NUR ---
FAMILY AT BEDSIDE. UPDATE GIVEN. QUESTIONS ANSWERED. WANTS TO SPEAK WITH DR IN WAITING ROOM. PASSED MESSAGE TO NEXT SHIFT.
--- NOTE | 2017-04-01 07:15 | NUR ---
PT SEDATED ON VENT, VSS, PIV SALINE LOCKED TO LEFT WRIST AND LEFT NECK, PICC TO LEFT UPPER ARM WITH PROPOFOL AT 45MCG, MAG AND POTASSIUM PER ELECTROLYTE PROTOCOL, OGT TO LIS, IN PLACE PER AUSCULTATION, COHEN DRAINING CLEAR YELLOW URINE, NO SIGNS OF PAIN, REPOSITIONED, WILL CONTINUE TO MONITOR
--- NOTE | 2017-04-01 09:17 | NUR ---
IN ROOM FOR VISITATION, DISCUSSED PT CONDITION AND ALL QUESTIONS ANSWERED, VSS, NO SIGNS OF PAIN, REPOSITIONED, WILL CONTINUE TO MONITOR
[2017-04-01 10:31] LABS: HEMATOCRIT 27.6 % (36.0-48.0); HEMOGLOBIN 9.3 g/dL (12-16)
--- NOTE | 2017-04-01 10:37 | NUR ---
PATIENT IS ON THE VENT AND UNABLE TO ANSWER QUESTIONS. I HAVE NOT SEEN ANY FAMILY HERE TO INTERVIEW REGARDING DISCHARGE PLANNING.
--- NOTE | 2017-04-01 11:31 | NUR ---
PT REPOSITIONED, VSS, WILL CONTINUE TO MONITOR
--- NOTE | 2017-04-01 12:02 | NUR ---
AT BEDSIDE FOR VISITAION, AWARE OF VENT WEANING, SEDATION DECREASED THEN STOPPED, WILL CONTINUE TO MONITOR
--- NOTE | 2017-04-01 13:21 | NUR ---
PT WILL HAVE EGD TOMORROW, CONSENTS SIGNED BY , DR MOTA AWARE, WANTS TO DO CPAP TRIALS TODAY, RT AWARE
--- NOTE | 2017-04-01 15:00 | NUR ---
PT REPOSITTIONED, ORAL CARE PROVIDED, VSS, WILL CONTINUE TO MONITOR
--- NOTE | 2017-04-01 17:34 | NUR ---
PICC LINE DRESSING CHANGED, VSS, REPOSITIONED, PT ABLE TO FOLLOW COMMANDS AND ANSWER YES AND NO QUESTIONS BY SHAKING HEAD, DENIES PAIN, CONINUES ON CPAP TRIALS, WILL CONTINUE TO MONITOR
[2017-04-01 18:07] LABS: HEMATOCRIT 26.5 % (36.0-48.0); HEMOGLOBIN 8.8 g/dL (12-16)
--- NOTE | 2017-04-01 19:30 | NUR ---
SHIFT ASSESSMENT COMPLETE. PT IS AWAKE AND ABLE TO FOLLOW SIMPLE COMMANDS. CPAP TRIAL, PT IS AGITATED AT THIS TIME. S1S2 AUDIBLE HR 101, SINUS TACH. RR EVEN, CLEAR LUNG SOUNDS THROUGHOUT ALL LOBES. ABD IS FLAT, HYPOACTIVE BS X4. RADIAL AND PEDAL PULSES PALP. COMPLETE LINEN CHANGE AND BED BATH. ORAL CARE PROVIDED. REPOSITIONED FOR COMFORT. BED IN LOWEST POSITION. WILL CONT WITH POC.
--- NOTE | 2017-04-01 21:00 | NUR ---
PT IS BECOMING MORE AGITATED AND RR IS GOING UP. RT AT BEDSIDE. RESTARTED PROPOFOL @ 30 MCG/KG/MIN. VENT SETTINGS: SIMV, RATE 12, PRESSURE SUPPORT 10, FI02 40%, PEEP 5.0, TIDAL VOLUME 600. O2 SAT 99% ORAL CARE PROVIDED. REPOSITIONED FOR COMFORT. WILL CONT WITH POC.
--- NOTE | 2017-04-01 23:00 | NUR ---
ORAL CARE PROVIDED. REPOSITIONED FOR COMFORT. SERUM K+ REDRAW PER PROTOCOL. 2340: K+ 2.5 RESTARTING ELECTROLYTE PROTOCOL.
[2017-04-02] VITALS (26 sets, daily range): BP systolic 88–115; BP diastolic 52–84
--- NOTE | 2017-04-02 01:00 | NUR ---
REPOSITIONED FOR COMOFRT. ORAL CARE PROVIDED. PT IS RESTING PEACEFULLY WITH NO SIGNS OF ACUTE DISTRESS NOTED. VSS. WILL CONT TO MONITOR.
--- NOTE | 2017-04-02 03:00 | NUR ---
REASSESSMENT COMPLETE. NO CHANGES NOTED AT THIS TIME. STARTING TO WEAN OFF SEDATION. PROPOFOL INFUSING @ 30 MCG/KG/MIN. ORAL CARE PROVIDED. BED IN LOWEST POSITION. WILL CONT WITH POC.
[2017-04-02 04:46] LABS: BASOPHILS 0.2 % (0-2); EOSINOPHILS 0.9 % (0-7); HEMATOCRIT 27.2 % (36.0-48.0); IMMATURE GRANULOCYTES 0.3 % (0-5); LYMPHOCYTES 18.3 % (15-50); MCH 27.7 pg (26.0-34.0); MCHC 33.1 g/dL (31.0-37.0); MCV 83.7 fL (80.0-100.0); MEAN PLATELET VOLUME 11.5 fL (7.4-10.4); MONOCYTES 11.8 % (2-11); NEUTROPHILS 68.5 % (40-80); PLATELET COUNT 156 10x3/uL (130-400); RBC 3.25 10x6/uL (4.00-5.40); RDW 17.5 % (11.5-14.5); WBC 8.8 10x3/uL (4.8-10.8)
--- NOTE | 2017-04-02 05:00 | NUR ---
REPOSITOINED FOR COMFORT.DECREASED PROPOFOL TO 20 MCG/KG/MIN. ORAL CARE PROVIDED. REPOSITIONED FOR COMFORT. VSS. WILL CONT WITH POC.
[2017-04-02 05:13] LABS: ALBUMIN 2.4 g/dL (3.4-5.0); ALKALINE PHOSPHATASE 86 U/L (46-116); ALT (SGPT) 16 U/L (10-68); CALCIUM 8.1 mg/dL (8.5-10.1); CARBON DIOXIDE 27.3 mmol/L (21.0-32.0); CHLORIDE - SERUM 108 mmol/L (98-107); CREATININE - SERUM 0.8 mg/dL (0.6-1.3); GLUCOSE 96 mg/dL (74-106); PROTEIN - SERUM 5.9 g/dL (6.4-8.2); SODIUM 144 mmol/L (136-145); eGFR NON AFRICAN AMERICAN 89 mL/min (90-120)
[2017-04-02 05:14] LABS: CALC OSMOLALITY 285 mosm/kg (275-300); UREA NITROGEN 11 mg/dL (7-18)
[2017-04-02 05:15] LABS: POTASSIUM - SERUM 3.4 mmol/L (3.5-5.1)
--- NOTE | 2017-04-02 06:41 | NUR ---
NEW SUCTION SET UP IN ROOM. CHLORHEXIDINE BATH GIVEN. WILL CONT WITH POC.
--- NOTE | 2017-04-02 07:00 | NUR ---
REC'D REPORT AND RESUMED CARE, ETT TO VENTILATION AND SECURED, FIO2 AT 40%, SAT 98%, LEFT EJ SL, LEFT UPPER ARM PICC WITH MANIFOLD ATTACHED, PROTONIX GTT INFUSING, NS AT KVO, PROPOFAL AT 30 MCG, LEFT HAND PIV SL, COHEN TO GRAVITY WITH CLEAR YELLOW DRAINAGE TO BAG, OPENS EYES TO SPEECH, FOLLOWS COMMANDS, NODS HEAD NO TO PAIN QUESTION, ASSESSMENT COMPLETE PER FLOWSHEET
--- NOTE | 2017-04-02 07:40 | NUR ---
EGD BY DR HARRISON, PROPOFAL TITRATED TO 45 MCG, PER ORDER
[2017-04-02 07:44] LABS: INR 1.68 (0.85-1.17); PROTIME 19.8 SECONDS (11.6-15.0)
--- NOTE | 2017-04-02 08:10 | NUR ---
CPAP STARTED PROPOFAL TITRATED TO 20 MCG
--- NOTE | 2017-04-02 09:36 | NUR ---
NUTRITION F/U CHART REVIEWED. GI REC'S NOTED. WILL PROVIDE DIET WHEN STARTED. MONITOR PO INTAKE. RD FOLLOWING
[2017-04-02 10:53] LABS: HEMATOCRIT 27.3 % (36.0-48.0); HEMOGLOBIN 8.9 g/dL (12-16)
--- NOTE | 2017-04-02 11:00 | NUR ---
NO ACUTE CHANGE FROM PREVIOUS ASSESSMENT, VSS, WILL CONTINUE WITH POC
[2017-04-02 11:11] LABS: VANCOMYCIN - TROUGH 20.9 ug/mL (10.0-20.0)
[2017-04-02 11:14] LABS: POTASSIUM - SERUM 2.9 mmol/L (3.5-5.1)
--- NOTE | 2017-04-02 12:40 | NUR ---
NIF AND VC COMPLETED BY RT RESULTS GIVEN TO DR MOTA, ORDER GIVEN TO RT TO EXTUBATE
--- NOTE | 2017-04-02 12:45 | NUR ---
EXTUBATED TO 2L NC, TOLERATED WITHOUT DIFFICULTY
--- NOTE | 2017-04-02 15:00 | NUR ---
NO ACUTE CHANGE FROM PREVIOUS ASSESSMENT, VSS, ORAL CARE AND SUCTION COMPLETED, SPOUSE AT BEDSIDE, STATUS UPDATE, VOICES NO NEEDS AT THIS TIME
--- NOTE | 2017-04-02 18:00 | NUR ---
FAMILY AT BEDSIDE, STATUS UPDATED, VOICES NO NEEDS AT THIS TIME, PATIENT, LETHARGIC, SPEAKS IN A WHISPER, DENIES PAIN, WILL CONITNUE WITH POC
--- NOTE | 2017-04-02 19:20 | NUR ---
SHIFT ASSESSMENT COMPLETE. PT IS A&O X4. SPEECH IS SOFT AND GARBLED AT TIMES. PERRLA, 3 MM, BRISK REACTION TO LIGHT. V/S HR 99 NORMAL SINUS, BP 93/68, TEMP 97.5 ORAL, O2 SAT 100% NC @ 2 L/MIN, RR 16 BREATHS/MIN. S1S2 AUDIBLE, MURMUR HEARD. RR SHALLOW, CLEAR THROUGHOUT ALL LOBES. ORAL CARE PROVIDED. ABD IS FLAT AND NON TENDER TO TOUCH. BS HYPOACTIVE IN ALL QUADS. FOELY CATH INTACT DRAINING CLEAR YELLOW URINE. EMPTIED 1800 CC OF URINE. DEPENDENT EDEMA NOTED. RADIAL AND PEDAL PULSES PALP. REPOSITIONED FOR COMFORT. CALL LIGHT IN REACH. BED IN LOWEST POSITION. WILL CONT WITH POC.
[2017-04-02 20:11] LABS: HEMATOCRIT 26.8 % (36.0-48.0); HEMOGLOBIN 8.6 g/dL (12-16)
--- NOTE | 2017-04-02 21:00 | NUR ---
FAMILY AT BEDSIDE. REPOSITIONED FOR COMFORT. ICE CHIPS AT BEDSIDE. SHE STATES THAT SHE IS FEELING BETTER AND IS TALKING MORE CLEAR AT THIS TIME. VSS. WILL CONT WITH POC.
--- NOTE | 2017-04-02 23:30 | NUR ---
REASSESSMENT COMPLETE. ORAL CARE PROVIDED. ICE CHIPS DELIVERED TO BEDSIDE. VSS. SPEECH IS CLEAR. A&O X4. SHE DENIES ANY FURTHER REQUESTS. CALL LIGHT IN REACH. BED IN LOWEST POSITION. WILL CONT WITH POC.
[2017-04-03] VITALS (25 sets, daily range): BP systolic 88–105; BP diastolic 53–74
--- NOTE | 2017-04-03 01:20 | NUR ---
REPOSITIONED FOR COMFORT. ORAL CARE PROVIDED. ICE CHIPS DELIVERED PER REQUEST. CALL LIGHT IN REACH. BED IN LOWEST POSITION. WILL CONT TO MONITOR.
--- NOTE | 2017-04-03 03:00 | NUR ---
REASSESSMENT COMPLETE. NO CHANGES NOTED AT THIS TIME. PT STATES THAT SHE IS THIRSTY. GAVE SMALL SIP OF WATER, TOLERATED WELL. VSS. ORAL CARE PROVIDED. PARTIAL LINEN CHANGE. REPOSITIONED FOR COMFORT. SHE DENIES ANY FURTHER REQUESTS. WILL CONT WITH POC.
--- NOTE | 2017-04-03 05:00 | NUR ---
NO REQUESTS AT THIS TIME. PT IS A&O X4, VOICE IS MUCH STRONGER THIS MORNING. SHE STATES THAT SHE IS FEELING BETTER. CALL LIGHT IN REACH. SUCTION IN HAND. SHE IS COUGHING UP A THICK, SILVESTRE FILM. NO FURTHER CHANGES. WILL CONT WTIH POC.
--- NOTE | 2017-04-03 06:00 | NUR ---
COHEN CARE PROVIDED. WILL CONT WITH POC.
[2017-04-03 06:16] LABS: ALBUMIN 2.2 g/dL (3.4-5.0); ALKALINE PHOSPHATASE 72 U/L (46-116); ALT (SGPT) 15 U/L (10-68); CALC OSMOLALITY 276 mosm/kg (275-300); CALCIUM 8.2 mg/dL (8.5-10.1); CARBON DIOXIDE 27.8 mmol/L (21.0-32.0); CHLORIDE - SERUM 109 mmol/L (98-107); CREATININE - SERUM 0.7 mg/dL (0.6-1.3); GLUCOSE 83 mg/dL (74-106); PROTEIN - SERUM 5.6 g/dL (6.4-8.2); SODIUM 140 mmol/L (136-145); UREA NITROGEN 9 mg/dL (7-18); eGFR NON AFRICAN AMERICAN > 90 mL/min (90-120)
[2017-04-03 06:17] LABS: POTASSIUM - SERUM 3.9 mmol/L (3.5-5.1)
[2017-04-03 06:26] LABS: BASOPHILS 0.2 % (0-2); EOSINOPHILS 1.2 % (0-7); HEMATOCRIT 26.7 % (36.0-48.0); HEMOGLOBIN 8.4 g/dL (12-16); IMMATURE GRANULOCYTES 0.2 % (0-5); LYMPHOCYTES 20.8 % (15-50); MCH 27.5 pg (26.0-34.0); MCHC 31.5 g/dL (31.0-37.0); MEAN PLATELET VOLUME 12.3 fL (7.4-10.4); MONOCYTES 11.6 % (2-11); PLATELET COUNT 152 10x3/uL (130-400); RBC 3.06 10x6/uL (4.00-5.40); RDW 18.4 % (11.5-14.5); WBC 8.7 10x3/uL (4.8-10.8)
[2017-04-03 06:27] LABS: MCV 87.3 fL (80.0-100.0)
--- NOTE | 2017-04-03 07:10 | NUR ---
DR. HITCHCOCK IN TO SEE PATIENT.
--- NOTE | 2017-04-03 09:00 | NUR ---
PATIENT IS RESTING QUIETLY AT THIS TIME. CALL LIGHT WITHIN REACH, BED IN LOW POSITION.
--- NOTE | 2017-04-03 10:50 | NUR ---
PATIENT REFUSES THE CEFIPIME THAT SHE HAS BEEN ON SINCE ADMIT. TRIED TO EXPLAIN TO PATIENT THAT SHE HAS BEEN TAKING MED. PATIENT STATES SHE HASNT AND DOES NOT WANT MED. PATIENT STATES SHE HAS RIGHTS AND DOESNT HAVE TO TAKE MED.
--- NOTE | 2017-04-03 12:00 | NUR ---
PATIENT IS RESTING QUIETLY, DENIES ANY NEEDS AT THIS TIME. CALL LIGHT WITHIN REACH AND BED IN LOW POSITION. PATIENT IS TOLERATING WATER AND ICE CHIPS WELL. PATIENT IS STILL REFUSING IV ANTIBIOTIC. DR. VELEZ SPOKE WITH PATIENT ABOUT ANTIBIOTIC, BUT PATIENT DENIES THAT SHE WAS IN THERE.
--- NOTE | 2017-04-03 13:13 | NUR ---
PATIENT STILL DECLINES ANTIBIOTIC AT THIS TIME WILL TRY AGAIN LATER.
--- NOTE | 2017-04-03 13:45 | NUR ---
PATIENT STATES SHE WILL TAKE THE ANTIBIOTIC AFTER BEING ASKED AGAIN. ANTIBIOTIC STARTED AT THIS TIME.
--- NOTE | 2017-04-03 15:15 | NUR ---
SPOKE WITH PATIENT'S SISTER IN WAITING ROOM AWAY FROM PATIENT. PATIENT'S SISTER STATES THAT SHE IS CONFUSED AND MAKING INAPPROPRIATE STATEMENTS. SHE REPEATEDLY TELLS SISTER TO GO HOME.
--- NOTE | 2017-04-03 16:57 | NUR ---
DR. MCMANUS NOTIFIED FOR CENTRAL LINE PLACEMENT.
--- NOTE | 2017-04-03 17:45 | NUR ---
SPOKE WITH PATIENT SHE IS PARANOID THAT THE NURSES ARE TALKING ABOUT HER, AND THAT HER NAME IS UP ON A COMPUTER. PATIENT STATES SHE CAN SEE THE COMPUTER WITH HER NAME ON IT BECAUSE SHE HAS 20/21 VISION. TRIED TO REASSURE PATIENT THAT WE WERE JUST HERE TO TAKE CARE OF HER, PATIENT IS ORIENTED TO SURROUNDINGS, TIME, PRESIDENT, AND PERSON.
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
--- NOTE | 2017-04-03 20:49 | NUR ---
PT CALLED ME INTO ROOM, STATED HER PAIN IN HER BACK WAS 15/10. SHE STARTED ASKING TO BUY PAIN MEDS FROM HER. INFORMED HER SHE COULD NOT BUY THEM HERE AND WOULD CHECK HER MED LIST TO SEE IF SHE HAD ANY. UPON INSPECTION, NO PAIN MEDS ON FILE. WILL PAGE AGENCY SALES DIRECTOR MD TO ASK FOR SOME.
--- NOTE | 2017-04-03 20:51 | NUR ---
DR VELEZ PAGED VIA [employer] SERVICE.
--- NOTE | 2017-04-03 21:07 | NUR ---
REPAGED DR VELEZ.
--- NOTE | 2017-04-03 21:10 | NUR ---
DR VELEZ CALLED BACK, ORDERS RECIEVED.
--- NOTE | 2017-04-03 23:00 | NUR ---
REASSESSMENT COMPLETE, PLEASE SEE FLOW SHEETS FOR DETAILS. PT DENIES PAIN/NEEDS ATT. VSS, BED LOW AND LOCKED, CALL LIGHT IN REACH. SEEMS CONFUSED, THOUGH CAN ANSWER QUESTIONS APPROPRIATELY. WILL CPOC.
[2017-04-04] VITALS (18 sets, daily range): BP systolic 89–111; BP diastolic 59–89
--- NOTE | 2017-04-04 01:00 | NUR ---
SLEEPING, VSS, BED LOW AND LOCKED, CALL LIGHT IN REACH. WILL CPOC.
--- NOTE | 2017-04-04 02:31 | NUR ---
REASSESSMENT COMPLETE, PLEASE SEE FLOW SHEETS FOR DETAILS. FOELY CARE PROVIDED ATT. DENIES ANY PAIN/NEEDS ATT. BED LOW AND LOCKED, CALL LIGHT IN REACH. VSS, WILL CPOC.
--- NOTE | 2017-04-04 05:00 | NUR ---
COHEN CARE PROVIDED. DENIES PAIN/NEEDS ATT. BED LOW AND LOCKED, CALL LIGHT IN REACH. VSS, WILL CPOC.
[2017-04-04 05:24] LABS: BASOPHILS 0.2 % (0-2); EOSINOPHILS 1.9 % (0-7); HEMATOCRIT 29.4 % (36.0-48.0); HEMOGLOBIN 9.1 g/dL (12-16); IMMATURE GRANULOCYTES 0.1 % (0-5); MCH 26.9 pg (26.0-34.0); MEAN PLATELET VOLUME 11.7 fL (7.4-10.4); MONOCYTES 13.3 % (2-11); NEUTROPHILS 53.5 % (40-80); PLATELET COUNT 176 10x3/uL (130-400); RBC 3.38 10x6/uL (4.00-5.40); RDW 18.4 % (11.5-14.5); WBC 8.3 10x3/uL (4.8-10.8)
[2017-04-04 05:51] LABS: ALBUMIN 2.2 g/dL (3.4-5.0); ALKALINE PHOSPHATASE 82 U/L (46-116); ALT (SGPT) 12 U/L (10-68); BILIRUBIN - TOTAL 2.21 mg/dL (0.2-1.3); CALC OSMOLALITY 265 mosm/kg (275-300); CALCIUM 8.2 mg/dL (8.5-10.1); CARBON DIOXIDE 28.2 mmol/L (21.0-32.0); CHLORIDE - SERUM 99 mmol/L (98-107); CREATININE - SERUM 0.7 mg/dL (0.6-1.3); GLUCOSE 78 mg/dL (74-106); POTASSIUM - SERUM 4.1 mmol/L (3.5-5.1); PROTEIN - SERUM 6.2 g/dL (6.4-8.2); SODIUM 134 mmol/L (136-145); UREA NITROGEN 9 mg/dL (7-18); eGFR NON AFRICAN AMERICAN > 90 mL/min (90-120)
--- NOTE | 2017-04-04 07:15 | NUR ---
ASSESSMENT COMPLETE - PT SPEAKING IN VERY SOFT TONE OF VOICE - THIS RN ASKED SERVERAL TIMES TO REPEAT STATEMTENTS. CPOC
--- NOTE | 2017-04-04 10:30 | NUR ---
BATHED PT, CHANGED LINENS AND BED CLOTHES - PT ASKED TO HAVE COHEN REMOVED
--- NOTE | 2017-04-04 11:30 | NUR ---
ASSESSMENT COMPLETE - PT UP WITH PHYSICAL THERAPY AMBULATING - REMOVED COHEN PER MD ORDERED - PT TOLERATED PROCEDURE WELL. PT UP TO CHAIR AT BEDSDIE TO EAT LUNCH
--- NOTE | 2017-04-04 12:00 | NUR ---
REC'D ROOM NUMBER TO TRANSFERR 2215 - INFORMED PT - PT'S SISTER AT WAITING ROOM DOOR WAY CONCERNED ABOUT PT SEEING HER. (REPORTS YESTERDAY PT STATED TO 'GET THE F--- OUT OF HER ROOM'. SISTER RECEIEVED PASSWORD FROM SPOUSE - DISCUSSED PLAN OF CARE WITH SISTER - ASKED PT IF SHE WOULD LIKE TO SEE HER SISTER. PT AGREED - ESCORTED SISTER TO PT'S ROOM PT USED BED SIDE COMMODE - STATED SHE HAD LIQUID STOOL - CLEAR LIQUID IN BSC - PT INSISTED SHE HAD LIQUID STOOL. CPOC
--- NOTE | 2017-04-04 13:24 | NUR ---
REPORT GIVEN TO SUE MUSE PT TO BE TRANSFERRED TO ROOM 2211.
--- NOTE | 2017-04-04 14:12 | NUR ---
RECEIVED TO ROOM 1111 VIA WC FROM ICU. A/O X3. NO C/O AT THIS TIME. DENIES NEEDS.
--- NOTE | 2017-04-04 19:15 | NUR ---
RECEIVED CARE FROM DAY NURSE. PT UP TO BSC. SPOUSE AT SIDE. REPORTS NO NEEDS. IV INFUSING TO LEFT PICC.
--- NOTE | 2017-04-05 01:45 | NUR ---
PATIENT RESTING IN BED WITH GUEST AT BEDSIDE AND DENIES NEEDS AT THIS TIME. BED IN LOWEST POSITION AND CALL LIGHT WITHIN REACH. ENCOURAGED THE PATIENT TO CALL IF SHE HAS NEEDS.
--- NOTE | 2017-04-05 03:11 | NUR ---
PT RESTING QUITLY IN BED WITH SPOUSE. RESP EVEN AND UNLABORED. CALL LIGHT AT SIDE.
[2017-04-05 04:00] VITALS: BP 82/41
[2017-04-05 05:41] LABS: BASOPHILS 0.1 % (0-2); EOSINOPHILS 1.6 % (0-7); HEMATOCRIT 26.8 % (36.0-48.0); HEMOGLOBIN 8.6 g/dL (12-16); IMMATURE GRANULOCYTES 0.3 % (0-5); LYMPHOCYTES 34.1 % (15-50); MCH 27.9 pg (26.0-34.0); MCHC 32.1 g/dL (31.0-37.0); MEAN PLATELET VOLUME 11.4 fL (7.4-10.4); MONOCYTES 14.5 % (2-11); NEUTROPHILS 49.4 % (40-80); PLATELET COUNT 168 10x3/uL (130-400); RBC 3.08 10x6/uL (4.00-5.40); RDW 18.2 % (11.5-14.5); WBC 7.3 10x3/uL (4.8-10.8)
[2017-04-05 06:18] LABS: ALKALINE PHOSPHATASE 84 U/L (46-116); ALT (SGPT) 13 U/L (10-68); BILIRUBIN - TOTAL 1.78 mg/dL (0.2-1.3); CALC OSMOLALITY 271 mosm/kg (275-300); CALCIUM 8.1 mg/dL (8.5-10.1); CARBON DIOXIDE 29.7 mmol/L (21.0-32.0); CHLORIDE - SERUM 100 mmol/L (98-107); CREATININE - SERUM 0.7 mg/dL (0.6-1.3); GLUCOSE 80 mg/dL (74-106); PROTEIN - SERUM 5.8 g/dL (6.4-8.2); SODIUM 137 mmol/L (136-145); UREA NITROGEN 10 mg/dL (7-18); eGFR NON AFRICAN AMERICAN > 90 mL/min (90-120)
[2017-04-05 06:19] LABS: POTASSIUM - SERUM 2.8 mmol/L (3.5-5.1)
--- NOTE | 2017-04-05 07:30 | NUR ---
RECIEVED PT DURING WALKING ROUNDS, PT RESTING IN BED WITH NO COMPLAINTS OF PAIN OR DISCOMFORT AT THIS TIME. ASSESSMENT DONE PER FLOWSHEET. BED IN LOW POSITION AND CALL LIGHT WITHIN REACH. WILL CONTINUE TO MONITOR
[2017-04-05 08:10] VITALS: BP 94/66
--- NOTE | 2017-04-05 08:26 | NUR ---
SECOND POTASSIUM RIDER STARTED AT THIS TIME PER PROTOCOL. PT RESTING IN BED. CALL LIGHT WITHIN REACH. WILL CONTINUE TO MONITOR.
[2017-04-05 11:52] VITALS: BP 113/71
--- NOTE | 2017-04-05 12:00 | NUR ---
STOOL SAMPLE COLLECTED PER ORDER AT THIS TIME.
[2017-04-05 16:13] VITALS: BP 89/50
--- NOTE | 2017-04-05 20:05 | NUR ---
PATIENT RESTING IN BED AND DENIES NEEDS AT THIS TIME. NOTIFIED PATIENT THAT WE WOULD BE SWITCHING HER TO A NEW ROOM WHEN IT WAS CLEAN. PATIENT VERBALIZED UNDERSTANDING. BED IN LOWEST POSITION AND CALL LIGHT WITHIN REACH. ENCOURAGED THE PATIENT TO CALL IF SHE HAS OTHER NEEDS.
[2017-04-05 21:22] VITALS: BP 87/55
[2017-04-06] VITALS: BP 98/61
[2017-04-06 06:05] LABS: BASOPHILS 0.3 % (0-2); EOSINOPHILS 1.4 % (0-7); HEMATOCRIT 25.2 % (36.0-48.0); HEMOGLOBIN 7.7 g/dL (12-16); IMMATURE GRANULOCYTES 0.3 % (0-5); LYMPHOCYTES 33.9 % (15-50); MCH 26.5 pg (26.0-34.0); MCHC 30.6 g/dL (31.0-37.0); MCV 86.6 fL (80.0-100.0); MEAN PLATELET VOLUME 11.6 fL (7.4-10.4); MONOCYTES 18.7 % (2-11); NEUTROPHILS 45.4 % (40-80); PLATELET COUNT 151 10x3/uL (130-400); RBC 2.91 10x6/uL (4.00-5.40); RDW 18.3 % (11.5-14.5); WBC 6.9 10x3/uL (4.8-10.8)
[2017-04-06 08:30] VITALS: BP 90/55
--- NOTE | 2017-04-06 09:56 | NUR ---
PRN PAIN MEDICATIN GIVEN FOR HEADACHE AND SOME BACK PAIN
--- NOTE | 2017-04-06 11:23 | NUR ---
BLOOD FOR LAB DRAWN FRO PICC LINE WITHOUT DIFFICULTY
[2017-04-06 11:29] LABS: ALBUMIN 2.2 g/dL (3.4-5.0); ALKALINE PHOSPHATASE 91 U/L (46-116); ALT (SGPT) 14 U/L (10-68); BILIRUBIN - TOTAL 1.53 mg/dL (0.2-1.3); CALC OSMOLALITY 267 mosm/kg (275-300); CALCIUM 7.9 mg/dL (8.5-10.1); CARBON DIOXIDE 25.9 mmol/L (21.0-32.0); CHLORIDE - SERUM 100 mmol/L (98-107); CREATININE - SERUM 0.8 mg/dL (0.6-1.3); GLUCOSE 103 mg/dL (74-106); SODIUM 135 mmol/L (136-145); UREA NITROGEN 8 mg/dL (7-18); eGFR NON AFRICAN AMERICAN 89 mL/min (90-120)
[2017-04-06 13:09] VITALS: BP 85/41
--- NOTE | 2017-04-06 14:08 | NUR ---
Patient Name: FRANKI ZARATE Admission Status: ER Accout number: [id number] Admission Date: 03-30-2017 : 1985 Admission Diagnosis:GASTROINTESTINAL HEMORRHAGE, UNSPECIFIED Attending: EDUIN VELEZ Current LOS: 7 Anticipated DC Date: 04-09-2017 Planned Disposition: Home with Home Health Primary Insurance: MEDICAID [place] Discharge Planning Comments: CM MET WITH PATIENT REGARDING D/C NEEDS AND PLANS. PATIENT STATED SHE LIVES WITH HER (BRIAN ZARATE) AND SHE WILL DRIVE HER HOME AT DISCHARGE. PATIENT HAS 6 STEPS TO ENTER HOME AND NO STAIRS INSIDE. SHE IS HAVING A RAMP INSTALLED. PATIENT IS PARTIAL DEPENDENT WITH HER CARE AND HAS A WALKER, OXYGEN, NEBULIZER, PORT O2, SHOWER CHAIR, AND ELEV. T SEAT AT HOME. PATIENT IS CURRENT WITH [facility]. PATIENTS PCP IS DR. JORDAN AND PHARMACY IS [facility]. CM WILL CONTINUE TO FOLLOW PATIENT WITH D/C NEEDS AND PLANS. PCP DR[facility]ORDAN [facility] [phone] [facility]- [phone] BRIAN ZARATE () [phone] Guard Supervisor: Rosy Eckert Is the patient Alert and Oriented? Yes 0 * How many steps to enter\exit or inside your home? 6 0 * PCP DR. JORDAN 0 * Pharmacy [facility] 0 * Preadmission Environment Home with Family 0 * ADLs Partial Dependent 0 * Partial ADLs (Assistance needed) Ambulation Bathing Dressing Medication Management Toileting Transfers 0 * Equipment Elevated [place] Seat Nebulizer Oxygen Shower Chair Walker 0 * List name and contact numbers for known caregivers / representatives who currently or will assist patient after discharge: BRIAN ZARATE () [phone] 0 * Community resources currently utilized [facility] 0 * Please name any agencies selected above. [place] 0 * Additional services required to return to the preadmission environment? Yes 0 * Can the patient safely return to the preadmission environment? Yes 0 * Has this patient been hospitalized within the prior 30 days at any hospital? Yes 0 Grand Total: 0
--- NOTE | 2017-04-06 14:11 | NUR ---
PHYSICAL THERAPIST WALKING PATIENT AROUND UNIT.
[2017-04-06] MEDS ORDERED: CARAFATE1 G/10 ML PO (14:44)
--- NOTE | 2017-04-06 14:45 | NUR ---
PATIENT ALERT IN BED. NO SIGNS OF DISTRESS NOTED. DENIES NEEDS. REFUSES FLU VACCINE AT THIS TIME. WANTS TO SPEAK WITH FAMILY FIRST. SIDE RAILS UP X2. BED IN LOW POSITION. CALL LIGHT IN REACH.
[2017-04-06] MEDS ORDERED: PROTONIX40 MG PO (14:52)
--- NOTE | 2017-04-06 15:03 | NUR ---
CM REASSESSMENT NOTE: PATIENT IS DISCHARGING HOME TODAY / IS DRIVING HER. [facility] NOTIFIED. PATIENT HAD NO OTHER NEEDS FOR DISCHARGE.
--- NOTE | 2017-04-06 16:17 | NUR ---
PATIENT GIVEN DISCHARGE INSTRUCTIONS. YOUTH LIAISON OFFICER CALLED TO PULL PICC LINE. YOUTH LIAISON OFFICER TOLD THIS NURSE TO CALL [facility]ULAR NURSE PAGED
--- NOTE | 2017-04-06 16:55 | NUR ---
PICC LINE IN LEFT AC PULLED BY [facility] NURSE WITHOUT DIFFICULTY.
--- NOTE | 2017-04-06 17:11 | NUR ---
PATIENT DISCHARGED TO HOME. STAFF HELP PATIENT OUT TO HER CAR.
--- NOTE | 2017-04-13 11:43 | CN ---
PATIENT NAME:FRANKI ZARATE MEDICAL RECORD: [id number] : [birth year] LOCATION:[facility] [id number] ADMIT DATE: 03/30/17 ACCOUNT: [id number] CONSULTING PHYSICIAN: ASTER MOTA MD REFERRING PHYSICIAN: LORA VELEZ MD DATE OF CONSULTATION: 03/31/2017 CONSULT REQUESTING PHYSICIAN: Lora Velez MD REASON FOR CONSULTATION: Vent management. HISTORY OF PRESENT ILLNESS: Ms. Zarate is a 31-year-old -Welsh female, very well known to our service. The patient has history of DVT, PE and coagulopathy. She is also having mitral valve replacement. The patient on Eliquis, came in to the ER with severe anemia with hemoglobin of 2.9. Under EGD, the patient become dyspneic and the patient was intubated for the procedure. Now, the patient is orally intubated and sedated. The history was taken by reviewing the patient's note as well as talking to the nursing staff. REVIEW OF SYSTEMS: Mainly in the history of present illness. PAST MEDICAL HISTORY: 1. Asthma. 2. History of bacterial endocarditis. 3. History of deep venous thrombosis and pulmonary embolism. 4. Cardiomyopathy with ejection fraction of 35 percent. 5. Positive rheumatoid factor. 6. Bipolar disorder. 7. Seizure disorder. 8. History of spontaneous pneumothorax in the past. PAST SURGICAL HISTORY: 1. Mitral valve replacement at the [facility] in [place]. 2. Appendectomy. 3. Status post chest tube placement for pneumothorax in the past. ALLERGIES: SHE IS ALLERGIC TO ERYTHROMYCIN, CLINDAMYCIN, AMOXICILLIN, PENICILLIN, MORPHINE, MEPERIDINE, SULFA. PRESENT MEDICATIONS: On [employer] is reviewed. She is on Eliquis. 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 She is not using IV drugs. FAMILY HISTORY: Significant for cardiovascular diseases and cancer. PHYSICAL EXAMINATION: GENERAL: Now, the patient is now orally intubated and sedated. VITAL SIGNS: The blood pressure is 117/79, pulse is 102, respiration is 30, temperature is 98, SPO2 is 97 percent. She is on mechanical ventilation. HEENT: Conjunctiva is pale. Sclerae is not icteric. Pupils are equal, round and reactive. NECK: Supple, no JVD. CHEST: There are bilateral crackles. No wheezing. HEART: Rate and rhythm regular with grade II/ systolic murmur. CONSULT REPORT [id number] FRANKI ZARATE ABDOMEN: Soft. Bowel sounds present. No hepatosplenomegaly. RECTAL: Deferred. EXTREMITIES: No cyanosis, no clubbing. There are 2+ pedal edema. SKIN: Warm, normal turgor. CENTRAL NERVOUS SYSTEM: The patient is orally intubated and sedated. LABORATORY DATA: CBC, the WBC is 7.1, hemoglobin of 2.9, hematocrit is 10.4, the platelet count is 252. Posttransfusion, the hemoglobin is 7, hematocrit 21.5. Chemistry; sodium 136, potassium 4.1, BUN is 18, creatinine 0.7. ABG; the pH is 7.43, pCO2 is 35.4, pO2 is 65. CHEST RADIOGRAPH: There is increased interstitial infiltrate. There is infiltrate in right mid lung region. There is cardiomegaly. The ET tube is in good position. IMPRESSION: 1. Acute hypoxic respiratory failure post-procedure. 2. Pulmonary edema. 3. Pneumonia, most likely left lower lobe pneumonia. 4. Acute anemia secondary to upper gastrointestinal bleed. 5. History of asthma. 6. Congestive heart failure with cardiomyopathy with ejection fraction of 30 percent. 7. History of bacterial endocarditis. 8. History of pulmonary embolism and deep venous thrombosis in the past. RECOMMENDATION: 1. We will continue the mechanical ventilation, adjust the setting. 2. Gastrointestinal bleed and deep vein thrombosis prophylaxis. 3. Start her on cefepime and vancomycin to cover for gram-negative hali as well as questionable methicillin-resistant Staphylococcus aureus for hospital-acquired pneumonia with the patient's recent hospitalization. 4. Followup of labs and chest radiograph. 5. Sputum for culture and sensitivity. Discussed with RN and RT. The critical care time is 50 minutes. TRANSINT:[id number] Voice Confirmation ID: [id number] DOCUMENT ID: [id number] ASTER MOTA MD at 1143 CC: LORA VELEZ MD [id number] DICTATION DATE: 03/31/17 1019 ELECTRONICS HARDWARE DESIGN ENGINEER: 03/31/17 1216 DIS IN 04/06/17 [place] [id number]
== END 2017-04-06 17:16 | disposition home health service (06) | DRG 377 ==
LOC: D.ER 15:21 → D.ICU 18:15 → D.MS 04-04 14:08
PROVIDERS: Family Medicine; Internal Medicine Gastroenterology; Nurse Practitioner Acute Care; ADMIT Family Medicine
PROC: 02HV33Z Insertion of Infusion Device into Superior Vena Cava, Percutaneous Approach (ICD-10-PCS; 2017-03-31)
PROC: B548ZZA Ultrasonography of Superior Vena Cava, Guidance (ICD-10-PCS; 2017-03-31)
PROC: 0BH17EZ Insertion of Endotracheal Airway into Trachea, Via Natural or Artificial Opening (ICD-10-PCS; 2017-03-31)
PROC: 5A1945Z Respiratory Ventilation, 24-96 Consecutive Hours (ICD-10-PCS; 2017-03-31)
PROC: 0DJ08ZZ Inspection of Upper Intestinal Tract, Via Natural or Artificial Opening Endoscopic (ICD-10-PCS; principal; 2017-03-31 09:00)
PROC: 0DJ08ZZ Inspection of Upper Intestinal Tract, Via Natural or Artificial Opening Endoscopic (ICD-10-PCS; 2017-04-02)
DX: K29.01 Acute gastritis with bleeding (principal); J95.821 Acute postprocedural respiratory failure; J18.9 Pneumonia, unspecified organism; I50.32 Chronic diastolic (congestive) heart failure; D62 Acute posthemorrhagic anemia; I42.9 Cardiomyopathy, unspecified; Z79.01 Long term (current) use of anticoagulants; I11.0 Hypertensive heart disease with heart failure; J44.9 Chronic obstructive pulmonary disease, unspecified; F41.9 Anxiety disorder, unspecified; I07.9 Rheumatic tricuspid valve disease, unspecified; K21.9 Gastro-esophageal reflux disease without esophagitis; Z86.711 Personal history of pulmonary embolism; E87.6 Hypokalemia

== ENCOUNTER 2017-04-30 15:08 | Inpatient (IN) | payer MEDICAID ==
[~2017-04-30] VITALS: Ht 170.2 cm; Wt 81.6 kg
[~2017-04-30 15:08] MED LIST changes: +CARAFATE1 G/10 ML PO
[2017-04-30 15:53] LABS: BASOPHILS 0.5 % (0-2); HEMATOCRIT 29.8 % (36.0-48.0); HEMOGLOBIN 8.8 g/dL (12-16); IMMATURE GRANULOCYTES 0.2 % (0-5); LYMPHOCYTES 33.3 % (15-50); MCH 23.2 pg (26.0-34.0); MCHC 29.5 g/dL (31.0-37.0); MCV 78.6 fL (80.0-100.0); MEAN PLATELET VOLUME 11.1 fL (7.4-10.4); MONOCYTES 12.9 % (2-11); NEUTROPHILS 52.1 % (40-80); RBC 3.79 10x6/uL (4.00-5.40); RDW 20.7 % (11.5-14.5); WBC 6.1 10x3/uL (4.8-10.8)
[2017-04-30 16:00] LABS: PLATELET COUNT 266 10x3/uL (130-400)
[2017-04-30 16:05] LABS: INR 1.63 (0.85-1.17); PROTIME 19.3 SECONDS (11.6-15.0)
[2017-04-30 16:15] LABS: ALBUMIN 2.9 g/dL (3.4-5.0); ALKALINE PHOSPHATASE 124 U/L (46-116); ALT (SGPT) 13 U/L (10-68); CALC OSMOLALITY 273 mosm/kg (275-300); CALCIUM 8.8 mg/dL (8.5-10.1); CARBON DIOXIDE 26.7 mmol/L (21.0-32.0); CHLORIDE - SERUM 103 mmol/L (98-107); CREATININE - SERUM 0.8 mg/dL (0.6-1.3); GLUCOSE 83 mg/dL (74-106); POTASSIUM - SERUM 3.2 mmol/L (3.5-5.1); PROTEIN - SERUM 7.6 g/dL (6.4-8.2); SODIUM 139 mmol/L (136-145); UREA NITROGEN 4 mg/dL (7-18); eGFR NON AFRICAN AMERICAN 89 mL/min (90-120)
[2017-04-30 16:18] LABS: CREATINE KINASE 54 UL (21-215); MAGNESIUM - SERUM 1.8 mg/dL (1.8-2.4); PRO BNP 855 pg/mL (0-125)
[2017-04-30 16:19] LABS: TROPONIN-I < 0.017 ng/mL (0.000-0.060)
[2017-04-30 17:23] LABS: APPEARANCE HAZY (CLEAR); BILIRUBIN NEGATIVE (NEGATIVE); COLOR DK YELLOW (YELLOW); GLUCOSE NEGATIVE (NEGATIVE); KETONE NEGATIVE (NEGATIVE); NITRITE NEGATIVE (NEGATIVE); PROTEIN TRACE mg/dL (NEGATIVE); RED CELLS - URINE RARE /hpf (0-5); UROBILINOGEN NORMAL (NORMAL); WHITE CELLS - URINE 0-5 /hpf (0-5)
[2017-04-30 17:24] LABS: BACTERIA FEW /hpf (NONE SEEN)
[2017-04-30] MEDS ORDERED: FOLATE0.4 MG PO (18:09)
[2017-04-30] MEDS ORDERED: VITAMIN B-12500 MC1 PO (18:09)
[2017-04-30] MEDS ORDERED: ENULOSE10 G/15 ML PO (18:10)
[2017-04-30] MEDS ORDERED: OMEGA 3 FISH OI1 CAP PO (18:14)
[2017-04-30] MEDS ORDERED: ADVAIR 100/501 DISK INH (18:14)
[2017-04-30] MEDS ORDERED: PROTONIX40 MG PO (18:15)
[2017-04-30] MEDS ORDERED: VITAMIN D250000 UNIT PO (18:15)
[2017-04-30] MEDS ORDERED: MAGNESIUM OXID250 MG PO (18:16)
--- NOTE | 2017-04-30 18:29 | NUR ---
PT ARRIVED TO ROOM WITH FAMILY AT BEDSIDE. PT IS A&O AND C/O PAIN ALL OVER AND REQUESTING PAIN MEDICATION. MED REC COMPLETED AND REVIEWING WITH AND CHRIS TO CONTINUE THE MEDS. WILL BEGIN ADMISSION WORK-UP AND ORDERS AND CPOC.
[2017-04-30 18:35] VITALS: BP 97/63
--- NOTE | 2017-04-30 19:34 | NUR ---
PT IN BED TALKING WITH VISITOR AT BEDSIDE. REQUESTS THAT DOOR BE CLOSED UPON MY EXIT. DENIES FURTHER NEEDS AT THIS TIME.
[2017-04-30 21:18] VITALS: BP 91/58
[2017-05-01] VITALS (10 sets, daily range): BP systolic 89–123; BP diastolic 56–75
--- NOTE | 2017-05-01 05:38 | NUR ---
LYING IN BED WITH CALL LIGHT IN REACH. WILL CONTINUE WITH PLAN OF CARE.
[2017-05-01 05:53] LABS: BASOPHILS 0.3 % (0-2); EOSINOPHILS 1.3 % (0-7); HEMATOCRIT 26.3 % (36.0-48.0); IMMATURE GRANULOCYTES 0.3 % (0-5); LYMPHOCYTES 28.7 % (15-50); MCH 23.7 pg (26.0-34.0); MCHC 30.4 g/dL (31.0-37.0); MONOCYTES 13.2 % (2-11); NEUTROPHILS 56.2 % (40-80); PLATELET COUNT 248 10x3/uL (130-400); RBC 3.37 10x6/uL (4.00-5.40); RDW 21.1 % (11.5-14.5); WBC 6.9 10x3/uL (4.8-10.8)
[2017-05-01 06:24] LABS: ALBUMIN 2.5 g/dL (3.4-5.0); BILIRUBIN - TOTAL 1.18 mg/dL (0.2-1.3); CALCIUM 8.2 mg/dL (8.5-10.1); CARBON DIOXIDE 27.9 mmol/L (21.0-32.0); MAGNESIUM - SERUM 1.7 mg/dL (1.8-2.4); PROTEIN - SERUM 6.6 g/dL (6.4-8.2)
[2017-05-01 06:26] LABS: ANION GAP 12.1 mmol/L (8-16)
--- NOTE | 2017-05-01 10:22 | NUR ---
AM ROUNDS COMPLETED. INTRODUCED MYSELF TO PT PRIMARY RN FOR TODAYS SHIFT. RR NONLABORED, NO CURRENT NEEDS AT THIS TIME, WILL CHECK ORDERS AND CONTINUE WITH TODAYS PLAN OF CARE.
--- NOTE | 2017-05-01 10:58 | NUR ---
PT OOB AND WANTS TO AMBULATE WITH HER . DISCONNECTED PT FROM FLUIDS AND ALLOWED HER TO DO SO. NO CURRENT NEEDS. WILL CPOC.
--- NOTE | 2017-05-01 13:02 | NUR ---
PT CALLED REQUESTING PRN PAIN MEDICATION AND WAS PROVIDED WITH IT. DISCUSSED BLOOD TRANSFUSION WITH PT AND SHE IS VERY FAMILAR WITH PROCESS SHE HAS HAD SEVERAL IN THE PAST. WAITING ON IT FROM BLOOD BANK AND PT WOULD LIKE TO AMBULATE WITH HER SISTER BEFORE WE START IT. NO CURRENT NEEDS. WILL CPOC.
--- NOTE | 2017-05-01 14:10 | NUR ---
BLOOD CONSENTS OBTAINED AND PLACED IN CHART. PT IS TO RECIEVE ONE UNIT PRBCS. INTIATED TRANSFUSION VIA R.HAND 20 GUAGE PIV. DRSG CDI AND SWAB CAPS IN USE. WILL REMAIN IN ROOM FOR FIRST 15 MINS AND MONITER FOR REACTION.
--- NOTE | 2017-05-01 14:25 | NUR ---
AFTER FIRST 15MINS NO REACTION NOTED. VSS AND BEING RECORDED [id number] PROTOCOL. INTIATED NEW PIV TO Rosa.FA X1 STICK FOR IVPB LATER THIS AFTERNOON. PT RESTING QUIETLY IN BED AND DENIES ANY CURRENT PAIN OR NEEDS. WILL CTM.
--- NOTE | 2017-05-01 15:09 | NUR ---
BLOOD STILL TRANSFUSING AND GOING WITHOUT ANY REACTIONS NOTED. VSS AND BEING MONITERED AND RECORDED. NO CURRENT NEEDS. WILL CPOC.
--- NOTE | 2017-05-01 15:13 | NUR ---
ORDERED LASIX ONE TIME DOSE TO BE GIVEN AFTER BLOOD TRANSFUSION.
--- NOTE | 2017-05-01 17:26 | NUR ---
PTS BLOOD TRANSFUSION IS COMPLETE AND NO REACTION NOTED. VSS THROUGHOUT ENTIRE TRANSFUSION. PROVIDED PT WITH PRN NORCO REQUESTED FOR PAIN. ADMINISTERED LASIX ONE TIME DOSE ORDERED TO FOR AFTER BLOOD. PT SITTING UP IN BED ABOUT TO EAT DINNER DENIES ANY FURTHER NEEDS AT THIS TIME. WILL CPOC.
--- NOTE | 2017-05-01 19:34 | NUR ---
PT IN BED WITH VISITOR AT BEDSIDE. PT CURRENTLY HAS TWO IVs AND REQUESTED THAT THE ONE IN HER RIGHT HAND BE TAKEN OUT. IV REMOVED WITH CATH TIP INTACT. REMOVED PTs TRAY PER REQUEST. DENIES FURTHER NEEDS AT THIS TIME.
[2017-05-02 04:00] VITALS: BP 86/55
[2017-05-02 05:22] LABS: BASOPHILS 0.4 % (0-2); EOSINOPHILS 1.5 % (0-7); HEMATOCRIT 28.6 % (36.0-48.0); HEMOGLOBIN 8.7 g/dL (12-16); IMMATURE GRANULOCYTES 0.6 % (0-5); LYMPHOCYTES 20.1 % (15-50); MCH 23.7 pg (26.0-34.0); MCHC 30.4 g/dL (31.0-37.0); MCV 77.9 fL (80.0-100.0); MEAN PLATELET VOLUME 10.8 fL (7.4-10.4); MONOCYTES 13.1 % (2-11); NEUTROPHILS 64.3 % (40-80); PLATELET COUNT 203 10x3/uL (130-400); RBC 3.67 10x6/uL (4.00-5.40); RDW 20.5 % (11.5-14.5); WBC 7.1 10x3/uL (4.8-10.8)
--- NOTE | 2017-05-02 05:25 | NUR ---
PT RESTING WITH EYES CLOSED. RESP EVEN AND REGULAR. SR UP X2, CALL LIGTH WITHIN REACH.
[2017-05-02 05:47] LABS: ALBUMIN 2.6 g/dL (3.4-5.0); ALKALINE PHOSPHATASE 133 U/L (46-116); BILIRUBIN - TOTAL 1.83 mg/dL (0.2-1.3); CALC OSMOLALITY 273 mosm/kg (275-300); CALCIUM 8.5 mg/dL (8.5-10.1); CARBON DIOXIDE 26.6 mmol/L (21.0-32.0); CHLORIDE - SERUM 102 mmol/L (98-107); CREATININE - SERUM 0.8 mg/dL (0.6-1.3); GLUCOSE 94 mg/dL (74-106); MAGNESIUM - SERUM 1.7 mg/dL (1.8-2.4); POTASSIUM - SERUM 3.3 mmol/L (3.5-5.1); PROTEIN - SERUM 6.8 g/dL (6.4-8.2); SODIUM 138 mmol/L (136-145); UREA NITROGEN 6 mg/dL (7-18); eGFR NON AFRICAN AMERICAN 89 mL/min (90-120)
[2017-05-02 05:56] LABS: ALT (SGPT) 10 U/L (10-68)
--- NOTE | 2017-05-02 07:19 | NUR ---
RECEIVED REPORT. ASSUMED CARE OF PATIENT. CALL LIGHT WITHIN REACH. NO DISTRESS.
[2017-05-02 08:00] VITALS: BP 107/72
--- NOTE | 2017-05-02 10:40 | NUR ---
MEDICATED FOR PAIN AND ANXIETY. PATIENT REQUESTED INCREASE IN PAIN MEDICATION OR SOMETHING IV AND DENIED REQUEST.
[2017-05-02 12:00] VITALS: BP 93/60
--- NOTE | 2017-05-02 15:08 | NUR ---
MEDICATED FOR PAIN AT THIS TIME. PATIENT SITTING TO CHAIR AT BEDSIDE. NO DISTRESS.
[2017-05-02 16:00] VITALS: BP 100/72
--- NOTE | 2017-05-02 16:15 | NUR ---
WENT TO PATIENT ROOM TO ADMINISTER SCHEDULED MEDICATIONS AND PATIENT NOT FOUND IN ROOM AND DID NOT TELL THIS NURSE SHE WAS LEAVING UNIT AGAIN TO GO FOR A WALK.
--- NOTE | 2017-05-02 17:10 | NUR ---
PATIENT RETURNED TO ROOM. NOW RECEIVING OVERDUE MEDICATION AND IV ANTIBIOTICS THAT SHOULD HAVE BEEN ADMINISTERED AT 1600. CALL LIGHT WITHIN REACH. VISITOR AT BEDSIDE. NO DISTRESS.
--- NOTE | 2017-05-02 18:31 | NUR ---
CALLED FABIEN REED IN IMAGING TO REPORT NEW ORDER FOR CT THORACENTESIS FOR TOMORROW. FABIEN REED SAID SHE WILL LET THE RADIOLOGIST KNOW AND GET BACK WITH US.
--- NOTE | 2017-05-02 19:32 | NUR ---
PT IN BED RESTING QUIETLY. BREATHING EVEN AND UNLABORED. DENIES ANY PAIN OR NEEDS AT THIS TIME. BED IN LOW POSITION, CALL LIGHT WITHIN REACH. WILL CTM.
[2017-05-02 19:33] VITALS: BP 99/66
--- NOTE | 2017-05-02 21:04 | NUR ---
PT STATED THAT SHE IS GOING TO AMBULATE AROUND THE HOSPITAL WITH HER . REQUESTED I UNHOOK HER FROM HER IV FLUIDS. DID SO. PT STATED SHE WILL NOTIFY ME OF HER RETURN SO I CAN HOOK HER BACK UP AND RESUME HER ABX AND FLUIDS.
--- NOTE | 2017-05-02 21:40 | NUR ---
PT RETURNED TO ROOM, HOOKED BACK UP TO ABX AND IV FLUIDS.
[2017-05-02 23:27] VITALS: BP 95/60
--- NOTE | 2017-05-03 00:20 | NUR ---
PT STATED THAT SHE WAS LEAVING THE FLOOR WITH HER FREIND. STATED SHE WANTED TO WAIT TO GET HER SCHEDULED 0000 IV ABX UNTIL SHE GETS BACK. STATES SHE WILL INFORM ME WHEN SHE GETS BACK.
--- NOTE | 2017-05-03 04:09 | NUR ---
PT LEFT THE FLOOR WITHOUT INFORMING ME. RAT FARMER WAS UNABLE TO GET HER 0400 VITALS DUE TO THIS.
[2017-05-03 05:15] LABS: BASOPHILS 0.2 % (0-2); EOSINOPHILS 1.8 % (0-7); HEMATOCRIT 28.3 % (36.0-48.0); HEMOGLOBIN 8.5 g/dL (12-16); IMMATURE GRANULOCYTES 0.2 % (0-5); LYMPHOCYTES 18.6 % (15-50); MCH 23.4 pg (26.0-34.0); MEAN PLATELET VOLUME 10.5 fL (7.4-10.4); MONOCYTES 8.8 % (2-11); NEUTROPHILS 70.4 % (40-80); PLATELET COUNT 189 10x3/uL (130-400); RBC 3.63 10x6/uL (4.00-5.40); WBC 8.2 10x3/uL (4.8-10.8)
[2017-05-03 05:44] LABS: ALBUMIN 2.6 g/dL (3.4-5.0); ALKALINE PHOSPHATASE 132 U/L (46-116); ALT (SGPT) 12 U/L (10-68); BILIRUBIN - TOTAL 1.57 mg/dL (0.2-1.3); CALC OSMOLALITY 272 mosm/kg (275-300); CALCIUM 8.9 mg/dL (8.5-10.1); CARBON DIOXIDE 30.1 mmol/L (21.0-32.0); CHLORIDE - SERUM 101 mmol/L (98-107); CREATININE - SERUM 0.8 mg/dL (0.6-1.3); GLUCOSE 88 mg/dL (74-106); MAGNESIUM - SERUM 1.8 mg/dL (1.8-2.4); SODIUM 138 mmol/L (136-145); UREA NITROGEN 7 mg/dL (7-18); eGFR NON AFRICAN AMERICAN 89 mL/min (90-120)
--- NOTE | 2017-05-03 07:10 | NUR ---
RECEIVED REPORT. ASSUMED CARE OF PATIENT. PATIENT SITTING IN CHAIR AT BEDSIDE. PATIENT WITH VISITOR IN PATIENT BED WITH EYES CLOSED. ODOR IN ROOM RESEMBLING SMELL OF MARIJUANA. NO DISTRESS. CALL LIGHT WITHIN REACH. SPOKE WITH PERSONAL LINES ACCOUNT MANAGER AND MADE HER AWARE OF ODOR AND THAT PATIENT FREQUENTLY LEAVES ROOM AND IS GONE FOR EXTENDED PERIODS OF TIME. SECURITY ALSO AWARE OF ISSUE WITH THIS PATIENT.
[2017-05-03 08:00] VITALS: BP 92/60
--- NOTE | 2017-05-03 09:23 | NUR ---
AWAITING ANTIBIOTICS BE BROUGHT UP FROM PHARMACY. STILL NO ANTIBIOTIC THAT WAS SCHEDULED AT 0800
--- NOTE | 2017-05-03 09:54 | NUR ---
MEDICATED FOR PAIN AND ANXIETY. NO DISTRESS.
--- NOTE | 2017-05-03 09:58 | NUR ---
INSTRUCTED PATIENT THAT SHE IS NOT TO LEAVE THE UNIT AFTER RECEIVING PAIN AND ANXIETY MEDICATION. PATIENT VERBALIZED HER UNDERSTANDING. CONTINUE TO WAIT ON MERROPENUM TO BE BROUGHT UP FROM PHARMACY.
[2017-05-03 12:00] VITALS: BP 101/58
--- NOTE | 2017-05-03 12:48 | NUR ---
PATIENT OUT OF ROOM AMBULATING WITH IV POLE. NO DISTRESS UPON AMBULATING AROUND UNIT.
[2017-05-03 16:00] VITALS: BP 96/65
--- NOTE | 2017-05-03 16:13 | NUR ---
CLEAN HAT PROVIDED TO COLLECT URINE FOR UDS.
[2017-05-03 17:45] LABS: UDS - AMPHET NEGATIVE QUAL (NEGATIVE); UDS - BARB NEGATIVE QUAL (NEGATIVE); UDS - BENZO POSITIVE QUAL (NEGATIVE); UDS - COCAINE NEGATIVE QUAL (NEGATIVE); UDS - OPIATE POSITIVE QUAL (NEGATIVE); UDS - PCP NEGATIVE QUAL (NEGATIVE); UDS - THC POSITIVE QUAL (NEGATIVE)
--- NOTE | 2017-05-03 17:55 | NUR ---
PATIENT AMBULATING OFF UNIT AT THIS TIME WITH IV POLE. NO DISTRESS UPON LEAVING UNIT.
--- NOTE | 2017-05-03 19:57 | NUR ---
PT LEAVING THE FLOOR AT THIS TIME. INFORMED BY RESPIRATORY STAFF THAT PT WAS FOUND WITH AN 02 SATURATION OF 77 WHEN SHE LEFT THE FLOOR ON HER SHIFT LAST NIGHT. .
--- NOTE | 2017-05-03 20:25 | NUR ---
PT RETURNED TO THE FLOOR FROM OUTSIDE. SP02 85% ON RA.
--- NOTE | 2017-05-03 20:35 | NUR ---
PT RETURNED TO FLOOR. OXYGEN STAURATION 99%. NO COMPLAINTS OF SOB OR DIFFICULTY BREATHING AT THIS TIME.
[2017-05-03 20:49] VITALS: BP 95/60
[2017-05-04 01:18] VITALS: BP 108/70
--- NOTE | 2017-05-04 02:54 | NUR ---
PT LEAVING FLOOR AT THIS TIME.
--- NOTE | 2017-05-04 03:15 | NUR ---
PT NOT IN ROOM. NURSE SAID PT HAD LEFT THE FLOOR. UPDRAFT HELD AT THIS TIME.
--- NOTE | 2017-05-04 03:58 | NUR ---
PT RETURNED TO FLOOR AT THIS TIME. OXYGEN SATURATION 89%.
[2017-05-04 05:25] VITALS: BP 117/73
[2017-05-04 06:17] LABS: BASOPHILS 0.1 % (0-2); EOSINOPHILS 1.8 % (0-7); HEMOGLOBIN 8.4 g/dL (12-16); IMMATURE GRANULOCYTES 0.3 % (0-5); LYMPHOCYTES 20.4 % (15-50); MCH 23.5 pg (26.0-34.0); MCV 78.4 fL (80.0-100.0); MEAN PLATELET VOLUME 11.1 fL (7.4-10.4); MONOCYTES 13.2 % (2-11); NEUTROPHILS 64.2 % (40-80); PLATELET COUNT 187 10x3/uL (130-400); RBC 3.57 10x6/uL (4.00-5.40); RDW 21.6 % (11.5-14.5); WBC 7.3 10x3/uL (4.8-10.8)
[2017-05-04 06:36] LABS: ALBUMIN 2.6 g/dL (3.4-5.0); ALKALINE PHOSPHATASE 136 U/L (46-116); ALT (SGPT) 13 U/L (10-68); BILIRUBIN - TOTAL 1.45 mg/dL (0.2-1.3); CALC OSMOLALITY 270 mosm/kg (275-300); CALCIUM 8.7 mg/dL (8.5-10.1); CARBON DIOXIDE 29.3 mmol/L (21.0-32.0); CHLORIDE - SERUM 101 mmol/L (98-107); CREATININE - SERUM 0.9 mg/dL (0.6-1.3); GLUCOSE 72 mg/dL (74-106); MAGNESIUM - SERUM 1.5 mg/dL (1.8-2.4); POTASSIUM - SERUM 4.2 mmol/L (3.5-5.1); SODIUM 137 mmol/L (136-145); UREA NITROGEN 8 mg/dL (7-18); eGFR NON AFRICAN AMERICAN 78 mL/min (90-120)
[2017-05-04 06:37] LABS: INR 1.63 (0.85-1.17); PROTIME 19.3 SECONDS (11.6-15.0)
--- NOTE | 2017-05-04 07:25 | NUR ---
ASSESSMENT DONE. DENIES NEEDS.
[2017-05-04 08:00] VITALS: BP 95/64
--- NOTE | 2017-05-04 09:52 | NUR ---
TP IR PER BED
--- NOTE | 2017-05-04 10:03 | NUR ---
IN IR FOR THORACENTESIS. WILL CONT. PLAN OF CARE.
--- NOTE | 2017-05-04 11:02 | NUR ---
RETURN FROM IR PER BED. RT SIDE DRSG C/D/I
[2017-05-04 12:00] VITALS: BP 104/63
[2017-05-04 12:18] VITALS: Ht 170.2 cm; Wt 81.6 kg
[2017-05-04 13:19] LABS: MACROPHAGES BF 12 %; MESOTHELIALS BF 1 %; NEUT - BF 50 %
[2017-05-04 16:00] VITALS: BP 106/77
--- NOTE | 2017-05-04 16:37 | NUR ---
WITHOUT CHANGES OR DISTRESS NOTED AT THIS TIME.
[2017-05-05 00:30] VITALS: BP 108/67
[2017-05-05 05:32] LABS: BASOPHILS 0.4 % (0-2); HEMATOCRIT 26.5 % (36.0-48.0); HEMOGLOBIN 8.1 g/dL (12-16); LYMPHOCYTES 23.6 % (15-50); MCH 23.8 pg (26.0-34.0); MCHC 30.6 g/dL (31.0-37.0); MCV 77.7 fL (80.0-100.0); MEAN PLATELET VOLUME 11.5 fL (7.4-10.4); MONOCYTES 14.4 % (2-11); NEUTROPHILS 59.6 % (40-80); PLATELET COUNT 183 10x3/uL (130-400); RBC 3.41 10x6/uL (4.00-5.40); WBC 5.5 10x3/uL (4.8-10.8)
[2017-05-05 05:53] LABS: ALBUMIN 2.6 g/dL (3.4-5.0); ALKALINE PHOSPHATASE 125 U/L (46-116); ALT (SGPT) 11 U/L (10-68); BILIRUBIN - TOTAL 1.73 mg/dL (0.2-1.3); CALC OSMOLALITY 269 mosm/kg (275-300); CALCIUM 8.7 mg/dL (8.5-10.1); CARBON DIOXIDE 27.7 mmol/L (21.0-32.0); CHLORIDE - SERUM 102 mmol/L (98-107); CREATININE - SERUM 0.8 mg/dL (0.6-1.3); GLUCOSE 91 mg/dL (74-106); MAGNESIUM - SERUM 1.6 mg/dL (1.8-2.4); POTASSIUM - SERUM 3.9 mmol/L (3.5-5.1); PROTEIN - SERUM 6.9 g/dL (6.4-8.2); SODIUM 136 mmol/L (136-145); UREA NITROGEN 8 mg/dL (7-18); eGFR NON AFRICAN AMERICAN 89 mL/min (90-120)
[2017-05-05 06:03] VITALS: BP 101/60
--- NOTE | 2017-05-05 07:10 | NUR ---
RECEIVED REPORT. ASSUMED CARE OF PATIENT. CALL LIGHT WITHIN REACH. PATIENT SITTING UP IN BED. RESP EVEN AND UNLABORED. NO DISTRESS. DENIES NEEDS AT THIS TIME. NO DISTRESS.
[2017-05-05 08:07] VITALS: BP 97/62
--- NOTE | 2017-05-05 09:16 | NUR ---
PATIENT LEFT UNIT FOR A WALK AT THIS TIME. NO DISTRESS.
--- NOTE | 2017-05-05 10:30 | NUR ---
MEDICATED FOR PAIN AND ANXIETY AT THIS TIME. NO DISTRESS.
[2017-05-05 13:38] VITALS: BP 98/64
[2017-05-05 14:21] LABS: AFB SPECIMEN PROCESSING Concentration (())
--- NOTE | 2017-05-05 16:42 | NUR ---
MEDICATED FOR PAIN AND ANXIETY AT THIS TIME. NO DISTRESS.
[2017-05-05 16:52] VITALS: BP 104/58
--- NOTE | 2017-05-05 19:38 | NUR ---
PT IN BED RESTING. DENIES NEEDS AT THIS TIME.
[2017-05-05 21:53] VITALS: BP 109/76
[2017-05-06 05:16] VITALS: BP 103/75
--- NOTE | 2017-05-06 05:29 | NUR ---
PT SITTING UP IN BED, DENIES ANY NEEDS, FAMILY/FRIEND AT BEDSIDE. CONTINUE TO MONITOR CLOSELY.
--- NOTE | 2017-05-06 07:15 | NUR ---
REPORT RECEIVED. RR EVEN AND UNLABORED. FAMILY PRESENT IN ROOM WITH PT. PT REPORTS SWELLING IN HER UPPER THIGHS. GENERALIZED SWELLING NOTED IN LOWER EXTREMITIES. WILL CTM.
[2017-05-06 09:29] VITALS: BP 105/75
[2017-05-06] MEDS ORDERED: LEVAQUIN750 MG PO (11:04)
[2017-05-06 11:40] VITALS: BP 107/74
--- NOTE | 2017-05-06 12:09 | NUR ---
PT DISCHARGED. IV CATHETER REMOVED WITH CATHETER TIP INTACT. D/C INSTRUCTIONS PROVIDED TO FAMILY AND PT, BOTH VERBALIZED UNDERSTANDING. PT HAS BEEN WEARING O2 PRN SINCE SHE ARRIVED AT [facility]. REPORTS HAVING O2 AT HOME, THAT SHE WEARS PRN. ASKED PT IF SHE NEEDED O2 TO BE SENT HOME WITH, SHE DENIED THAT SHE NEEDED O2 FOR DISCHARGE. PAPERWORK SIGNED. CALLED FOR WHEELCHAIR ESCORT, WILL BE GOING HOME WITH FAMILY MEMBER IN PERSONAL VEHICHLE.
[2017-05-06 15:25] LABS: FUNGUS STAIN Final report (())
--- NOTE | 2017-05-06 18:13 | NUR ---
Patient Name: FRANKI ZARATE Admission Status: ER Accout number: [id number] Admission Date: 04-30-2017 : 1985 Admission Diagnosis:PNEUMONIA, UNSPECIFIED ORGANISM Attending: CARIDAD RON Current LOS: 6 Anticipated DC Date: 05-06-2017 Planned Disposition: Home with Home Health Primary Insurance: MEDICAID [place] PLANNED EXTERNAL PROVIDER: [facility] LATE ENTRY: Discharge Planning Comments: * Is the patient Alert and Oriented? Yes 0 * How many steps to enter\exit or inside your home? 6 0 * PCP DR. JORDAN 0 * Pharmacy [facility] 0 * Preadmission Environment Home with Family 0 * ADLs Partial Dependent 0 * Partial ADLs (Assistance needed) Bathing Medication Management 0 * Equipment Elevated [place] Seat Nebulizer Oxygen Shower Chair Walker 0 * Other Equipment [facility] - MEDICAL EQUIPMENT PROVIDER 0 * List name and contact numbers for known caregivers / representatives who currently or will assist patient after discharge: BRIAN ZARATE, , 0 * Community resources currently utilized Home Health 0 * Please name any agencies selected above. [facility] 0 * Additional services required to return to the preadmission environment? No 0 * Can the patient safely return to the preadmission environment? Yes 0 * Has this patient been hospitalized within the prior 30 days at any hospital? Yes 0 CM MET WITH PT IN ROOM TO DISCUSS DISCHARGE PLANNING AND NEEDS. PT REPORTS LIVING AT HOME INDEPENDENTLY WITH HER SPOUSE. PT HAS ALL NEEDED MEDICAL EQUIPMENT FROM [facility] AND THEY ARE WORKING ON A POWER SCOOTER. PT HAS HOME HEALTH FOR NURSING AND THERAPY WITH [facility]. CM DISCUSSED AVAILABILITY OF HOME HEALTH, REHAB SERVICES AND MEDICAL EQUIPMENT. PT DENIES DISCHARGE NEEDS OTHER THAN TO RESUME HOME HEALTH, REPORTS HER SPOUSE WILL PICK HER UP FOR DISCHARGE HOME. CM CALLED [facility], , PROVIDED DISCHARGE INFORMATION FOR RESUMPTION TO [facility] TOMORROW. CM FAXED DISCHARGE INFORMATION TO [facility] AT [phone]. Financial Investment Manager: Davon Pacheco
--- NOTE | 2017-05-13 12:12 | CN ---
PATIENT NAME:FRANKI ZARATE MEDICAL RECORD: [id number] : [birth year] LOCATION:D.M2 D.2102 ADMIT DATE: 04/30/17 ACCOUNT: [id number] CONSULTING PHYSICIAN: ASTER MOTA MD REFERRING PHYSICIAN: CARIDAD RON DO DATE OF CONSULTATION: 05/01/2017 CONSULT REQUESTING PHYSICIAN: Caridad Ron DO REASON FOR CONSULTATION: Pneumonia, shortness of breath. HISTORY OF PRESENT ILLNESS: Ms. Zarate is a 31-year-old -[place] female, very well known to our service. The patient was seen yesterday by the home health visit nurse practitioner who found out the patient was hypotensive and very weak. The patient was admitted to the hospital for possible pneumonia. On evaluation in the hospital, she was found out she was anemic, also there was right pleural effusion and right lower lobe infiltrate. There was cough without much sputum production, sometimes she hears herself wheezing. There are no night sweats. Today, she is feeling a lot better. She was on Eliquis and that has been on hold due to her gastrointestinal bleed. REVIEW OF SYSTEMS: Mainly in the history of present illness. PAST MEDICAL HISTORY: 1. Asthma. 2. History of bacterial endocarditis. 3. History of deep venous thrombosis and pulmonary embolism. 4. History of cardiomyopathy with ejection fraction of 30% to 35%. 5. History of positive rheumatoid factor. 6. History of spontaneous pneumothorax. 7. Bipolar disorder. 8. Seizure disorder. PAST SURGICAL HISTORY: 1. Appendectomy. 2. Mitral valve replacement at [facility] in [place]. 3. She has a chest tube placement in the past for pneumothorax. ALLERGIES: SHE IS ALLERGIC TO ERYTHROMYCIN, CLINDAMYCIN, AMOXICILLIN, PENICILLIN, MORPHINE, MEPERIDINE, AND SULFA. OUTPATIENT MEDICATIONS: [facility]. PERSONAL AND SOCIAL HISTORY: The patient was abusing recreational drug in the past. FAMILY HISTORY: Noncontributory. PHYSICAL EXAMINATION: GENERAL: Now, the patient is lying comfortably in bed. She is not in acute distress. VITAL SIGNS: The blood pressure is 108/66, pulse is 104, respirations 16, temperature 98.1, and SPO2 is 97% on 3 liters nasal cannula. HEENT: Conjunctivae are pale. Sclerae nonicteric. NECK: Neck is supple, no JVD. CONSULT REPORT [id number] FRANKI ZARATE CHEST: There are crackles at the right base. No wheezing. HEART: Rhythm regular, normal sound, no murmur. ABDOMEN: Abdomen is soft, bowel sounds present. No hepatosplenomegaly. RECTAL: Deferred. EXTREMITIES: No cyanosis, no clubbing, no pedal edema. SKIN: The skin is warm, normal turgor. CENTRAL NERVOUS SYSTEM: The patient is awake and alert. There is no obvious cranial nerve abnormality. The gait was not tested. CHEST RADIOGRAPH: There is infiltrate in the right lower lobe. There is right pleural effusion. LABORATORY DATA: CBC: WBC 6.9, hemoglobin 8, hematocrit 26.3, platelet 248. Chemistry: Sodium 139, potassium is 3, BUN is 5, creatinine is 1, glucose 91. IMPRESSION: 1. Pneumonia, right lower lobe, most likely hospital-acquired pneumonia with the patient's recent hospitalization. 2. Right pleural effusion, probable parapneumonic. 3. Hypotension. 4. Anemia, most likely secondary to gastrointestinal bleed. 5. Asthma without exacerbation. 6. History of pulmonary embolism. RECOMMENDATION: 1. Continue Levaquin and meropenem. 2. Albuterol and ipratropium nebulizer. 3. Start on Brovana, budesonide nebulizer. 4. We will check the right decubitus film. If there is significant pleural effusion, we will proceed with thoracentesis. 5. Dr. De La Torre is consulted for coagulopathy. Dr. Ron, thank you for involving me in the care of Ms. Zarate. TRANSINT:[id number] Voice Confirmation ID: [id number] DOCUMENT ID: [id number] ASTER MOTA MD at 1212 CC: FABIO JORDAN MD [id number] DICTATION DATE: 05/01/17 1609 RADIO COMMUNICATIONS SUPERINTENDENT: 05/01/17 1809 DIS IN 05/06/[address] [address]
[2017-05-31 15:08] LABS: FUNGUS MYCOLOGY CULTURE Final report (())
[2017-06-26 12:13] LABS: ACID FAST CULTURE Negative (()); ACID FAST SMEAR Negative (())
== END 2017-05-06 12:30 | disposition home health service (06) | DRG 194 ==
LOC: D.ER 15:08 → D.M2 17:08
PROVIDERS: Emergency Medicine; General Practice; Internal Medicine Pulmonary Disease; Nurse Practitioner Family; Radiology Diagnostic Radiology; ADMIT Family Medicine
PROC: 0W993ZZ Drainage of Right Pleural Cavity, Percutaneous Approach (ICD-10-PCS; principal; 2017-05-04 10:00)
DX: J18.9 Pneumonia, unspecified organism (principal); J90 Pleural effusion, not elsewhere classified; I50.32 Chronic diastolic (congestive) heart failure; D68.9 Coagulation defect, unspecified; I95.9 Hypotension, unspecified; I11.0 Hypertensive heart disease with heart failure; E87.6 Hypokalemia; F31.9 Bipolar disorder, unspecified; G40.909 Epilepsy, unspecified, not intractable, without status epilepticus; F12.90 Cannabis use, unspecified, uncomplicated; F11.90 Opioid use, unspecified, uncomplicated; I07.1 Rheumatic tricuspid insufficiency; Z86.711 Personal history of pulmonary embolism; Z79.01 Long term (current) use of anticoagulants; Z95.2 Presence of prosthetic heart valve; Z86.718 Personal history of other venous thrombosis and embolism

== ENCOUNTER → 2017-06-05 16:07 | Outpatient (CLI) | payer MEDICAID ==
[2017-05-04 12:18] VITALS: BMI 28.2
[~2017-06-05 16:07] MED LIST changes: +ADVAIR 100/501 DISK INH; +BROVANA15 MCG/2 M INH; +COUMADIN2.5 MG PO; +ENDOCET 10-3251 TAB PO; +ENULOSE10 G/15 ML PO; +FOLATE0.4 MG PO; +MAGNESIUM OXID250 MG PO; +OMEGA 3 FISH OI1 CAP PO; +VITAMIN B-12500 MC1 PO; +VITAMIN D250000 UNIT PO; +VITAMIN D31000 UNIT PO; +XIFAXAN550 MG PO
[2017-06-05 17:12] LABS: INR 2.7 (0.85-1.17)
== END | disposition home or self-care (01) ==
LOC: D.LABREF 16:07
PROVIDERS: Family Medicine
DX: J44.9 Chronic obstructive pulmonary disease, unspecified (principal); I50.9 Heart failure, unspecified; Z51.81 Encounter for therapeutic drug level monitoring; Z79.01 Long term (current) use of anticoagulants; Z48.812 Encounter for surgical aftercare following surgery on the circulatory system

== ENCOUNTER 2017-06-11 13:43 | Inpatient (IN) | payer MEDICAID ==
[~2017-06-11] VITALS: Ht 175.3 cm; Wt 84.9 kg
--- NOTE | ~2017-06-11 | EC ---
PATIENT:FRANKI ZARATE DATE OF SERVICE: 06/11/17 SEX: F MEDICAL RECORD: [id number] DATE OF : [birth year] LOCATION:D.MS [place] AGE OF PATIENT: 31 ADMISSION DATE: 06/11/17 REFERRING PHYSICIAN: INTERPRETING PHYSICIAN: YINKA JONES MD ECHOCARDIOGRAM REPORT ECHO CHARGES 4 ECHO COMPLETE CLINICAL DIAGNOSIS: CHF/HYPOTENSION/TACHYCARDIA/ MVR/TVR ECHOCARDIOGRAPHIC MEASUREMENTS (adult normal given) AC root (d.<3.7cm) 2.5 cm LV Septum d (<1.2 cm> 1.0 cm Valve Excursion 1.5 cm LV Septum (systole) 1.3 cm Left Atria (s.<4.0cm> 4.3 cm LVPW d(<1.2cm) 1.1 cm RV (d.<2.3cm) 4.3 cm LVPW (sytole) 1.7 cm LV diastole(<5.6CM) 4.9 cm MV E-F(>70mm/sec) cm LV systole 2.9 cm LVOT Diameter 1.6 cm MV exc.(>10mm) cm Est.ejection fraction (50-75%) % Pericardial Effusion N DOPPLER: LVIT cm/sec A 122 cm/sec E 208.0 cm/sec LA cm/sec RVSP 59.0 mmHg LVOT 190 cm/sec AOP1/2T m/s Asc. Ao 240 cm/sec RVOT 41.0 cm/sec RA cm/sec PA 68.0 cm/sec AV Gradient Peak 23.0 mmHg AV Mean 12.0 mmHg AV Area 1.4 cm MV Gradient Peak 23.3 mmHg MV Mean 8.9 mmHg MV Area cm COMMENTS: Center Manager: 2 ALIX LAURENT Risk Control Product Liability Director: 3 Dr. Hawk TAPE# PACS DATE OF SERVICE: 07/14/2017 TRANSESOPHAGEAL NOTE DESCRIPTION OF PROCEDURE: After general sedation via TIVA via anesthesia, the transesophageal Omniplane probe was placed into the distal esophagus, proximal stomach without difficulty. FINDINGS: As follows: LV internal dimension is normal. Wall motion is normal. EF is greater than or equal to 55%. Mechanical mitral valve is noted with ECHOCARDIOGRAM REPORT [id number] FRANKI ZARATE N adequate excursion and 2 trace jets of mitral regurgitation consistent with normal function of this type of valve. Aortic valve is tricuspid with good valve excursion. Right-sided chambers are markedly dilated. The tricuspid valve is well visualized. This shows no evidence of paravalvular leak and no evidence of valve thrombosis. At the end of the procedure, the plane was turned posteriorly and this showed minimal atherosclerotic debris in the descending aorta. IMPRESSION: This findings are more consistent with a primary pulmonary process given the markedly enlarged right side. This valve appears to be functioning normal. The valves were viewed under fluoroscopy as well and showed no evidence of decreased valve excursion. TRANSINT:[id number] Voice Confirmation ID: [id number] DOCUMENT ID: [id number] YINKA JONES MD at 1337 CC: [id number] DICTATION DATE: 07/14/17 1409 HYDROELECTRIC STATION CHIEF: 07/14/17 1542 [facility] IN [facility] [address] [place] [address]
--- NOTE | ~2017-06-11 | HEMODYNAMI ---
PATIENT:FRANKI ZARATE MEDICAL RECORD: [id number] : 87 LOCATION:D.MS [place]2212 ADMISSION DATE: 06/11/17 Generatedon:07/14/201715:00 Patient name: FRANKI ZARATE Patient #: [id number] SSN: : 1985 Date of study: 07/14/2017 Page: Of Hemodynamic Procedure Report Patient Data Patient Demographics Procedure consent was obtained First Name: FRANKI Gender: Female Last Name: TESSA : 1985 [facility] Initial: N Age: 31 year(s) Patient #: [id number] Race: Black Additional ID: [id number] Contact details Address: [address] [place] [address] [facility] State: [place] City: [facility] Zip code: [address] Past Medical History Allergies Allergen Reaction Date Comments Reported Other allergy 07/14/2017 Sulfa, PCN, Demerol. Admission Admission Data Admission Date: 06/11/2017 Admission Time: 21:21 Room #: D.2212 Procedure Procedure Types Cath Procedure Diagnostic Procedure APRIL Procedure Description Procedure Date Procedure Date: 07/14/2017 Procedure Start Time: 14:15 Procedure End Time: 14:22 Procedure Staff Name Function Jackie Subramanian RT Scrub Carlos Simon RN Nurse Thomas Prater COMPUTER SOFTWARE ENGINEER Additional personnel Clifton Hawk MD Performing Physician Derek Phoenix RT Monitor Alexy Irvin Animal Caretaker Supervisor Jeanette Salvador RT Monitor Procedure Data Cath Procedure Fluoroscopy Diagnostic fluoroscopy Total fluoroscopy Time: 0.7 time: 0.7 min min Diagnostic fluoroscopy Total fluoroscopy dose: 41 dose: 41 mGy mGy Contrast Material Contrast Material Type Amount (ml) Isovue 300 0 Estimated blood loss: 0 ml Procedure Complications No complications Procedure Medications Medication Administration Route Dosage Oxygen NC 2 l/min Hurricaine [place] P.O. 1 Sprays Refer to Anesthesia Notes for Sedation Medications Hemodynamics Rest Heart Rate: 102 (bpm) Snapshots Pre Cath Intra NCS Post Cath Vital Signs Time Heart Resp SPO2 etCO2 NIBP Rhythm Pain Sedation Rate (ipm) (%) (mmHg) (mmHg) Status Level (bpm) 13:50:42 102 16 95 0 97/74(86) NSR 0 (11) 10(A) , No pain 13:54:47 98 19 96 0 91/58(69) NSR 0 (11) 9(A) , No pain 14:15:00 95 16 99 0 94/57(76) NSR 0 (11) 9(A) , No pain 14:19:00 95 15 100 0 96/61(82) NSR 0 (11) 10(A) , No pain Medications Time Medication Route Dose Verified Delivered Reason Notes Effective ness by by 14:19:49 Oxygen NC 2 Clifton Jamisonie used for l/min [facility] Simon RN procedure MD 14:19:58 Hurricaine P.O. 1 Clifton Buffie Per [place] Sprays [facility] Pierre Simon RN physician 14:20:02 Refer to Clifton Gonzalez Anesthesia [facility] Simon RN Notes for MD Sedation Medications Procedure Log Time Note 12:46:38 Informed consent obtained and on chart 12:47:30 Derek Phoenix RT(R) sent for patient. Start room use. 12:47:31 Time tracking: Regular hours 12:47:35 Plan of Care:Hemodynamics will remain stable., Cardiac rhythm will remain stable., Comfort level will be maintained., Respiratory function will remain adequate., Patient/ family verbilizes understanding of procedure., Procedure tolerated without complication., Recovers from procedure without complications.. 12:50:13 Procedure delayed due to pt. being anxious. 13:34:31 Patient received from Med II to [facility] 2 Alert and oriented. Tansferred to table in Supine position. 13:34:32 Correct patient and procedure confirmed by team. 13:34:32 Warm blankets applied, and marianela hugger turned on for patient comfort. 13:34:33 ECG and BP/O2 sat monitors applied to patient. 13:40:25 Alexy Irvin Milliner Helper present for APRIL. 13:45:46 Thomas Prater CRNA present and monitoring patient for TIVA. 13:48:48 Pt. transferred to table. Fluoro of the heart was performed to visualize the mechanial Mitral and Tricuspid valves. 13:49:09 Pt. transferred back to bed for APRIL. 13:49:35 Vital chart was started 13:50:30 Baseline sample Acquired. 13:50:34 Rhythm: sinus tachycardia 13:50:36 Pre-op teaching completed and patient verbalized understanding. 13:50:36 Pre-procedure instructions explained to patient. 13:50:38 Family in patients room. 13:50:39 Patient NPO since Midnight. 13:50:52 Patient allergic to Other allergySulfa, PCN, Demerol. 13:50:55 Is the patient allergic to Iodine/contrast media? No. 13:51:17 H&P Date Dictated: 06/11/2017 Within 30 days and on chart.. 13:54:00 Is patient on blood thinner?Yes 13:54:06 Patient diabetic? No. 13:54:10 Previous problem with sedation/anesthesia? No ? 13:54:16 Airway obstruction? Yes copd 13:54:21 Dentures? Unknown ? 13:55:00 Snore? No 13:55:02 Sleep apnea? No 13:55:03 Deviated septum? No 13:55:04 Opens mouth fully? Yes 13:55:05 Sticks out tongue? Yes 13:55:06 IV patent on arrival in left forearm with 0.9% NaCl at O. 13:55:18 Lab results completed and on chart. 13:55:23 Lab results completed and on chart. 13:56:14 Alarms reviewed by Jose Antonio Putnam 13:56:15 --------ALL STOP TIME OUT------ 13:56:15 Physician arrived 13:56:16 Final Timeout: patient, procedure, and site verified with staff and physician. All members of the team are in agreement. 13:56:20 Procedure started. 13:57:00 Full Disclosure recording started 13:57:05 APRIL started. 14:00:00 Procedure ended.(Physican Out) 14:00:00 APRIL completed. 14:19:47 Fluoroscopy time 00.70 minutes. 14:19:49 Oxygen 2 l/min NC was administered by Carlos Simon RN; used for procedure; 14:19:50 Fluoroscopy dose: 41 mGy 14:19:50 Flurop Dose total: 41 14:19:52 Contrast amount:Isovue 300 0ml. 14:19:58 Hurricaine [place] 1 Sprays P.O. was administered by Carlos Simon RN; Per physician; 14:20:01 Post-procedure physical assessment completed. ASA score P 4 - A patient with severe systemic disease that is a constant threat to life as per Clifton Hawk MD. 14:20:02 Refer to Anesthesia Notes for Sedation Medications was administered by Carlos Simon RN; ; 14:20:05 Post procedure rhythm: unchanged. 14:20:36 Estimated blood loss: 0 ml 14:21:31 Post procedure instruction explained to patient.Patient verbalizes understanding. 14:21:32 Patient needs reinforcement of post procedure teaching. 14:21:51 Procedure and supply charges have been captured, reviewed, submitted and are correct. 14:21:55 Procedure Complication : No complications 14:21:57 Vital chart was stopped 14:21:59 See physician's report for complete and final results. 14:22:02 Report given to Med/Surg. 14:22:05 Patient transfered to Med/Surg with Stretcher. 14:22:06 Full Disclosure recording stopped 14:22:06 Procedure ended. 14:22:09 End room use (Document Last) Signature Audit [place] Stage Time Signature Unsigned Intra-Procedure 07/14/2017 Derek Reid Counts 2:23:48 PM RT(R) RT(R) 07/14/2017 3:00:06 PM Intra-Procedure 07/14/2017 Jeanette 3:00:42 PM Counts RT(R) Signatures Monitor : Derek Phoenix RT Signature : Date : Time : Monitor : Jeanette Signature : Counts RT Date : Time : [address] [place] [id number]
--- NOTE | ~2017-06-11 | CN ---
PATIENT NAME:FRANKI ZARATE MEDICAL RECORD: [id number] : 87 LOCATION:D. D.2103 ADMIT DATE: 06/11/17 ACCOUNT: [id number] CONSULTING PHYSICIAN: ARMIN HARRISON MD REFERRING PHYSICIAN: KERRY DRISCOLL MD DATE OF CONSULTATION: 06/12/2017 ADMITTING DIAGNOSES: 1. Anemia. 2. Coumadin anticoagulation. 3. Mitral and tricuspid valve replacement, mechanical. 4. History of pulmonary embolus. 5. Shortness of breath, dyspnea on exertion. HISTORY OF PRESENT ILLNESS: Ms. Zarate presents with fatigue, shortness of breath, found to have a hemoglobin of 7.6. She has a history of mechanical valves placed due to endocarditis 2 weeks ago at [facility]. She was previously on Eliquis for deep vein thrombosis. She had ulcers with bleeding with that, presented with hemoglobin of 2.9. She survived that episode, hence Eliquis was not restarted after her valve. Coumadin was restarted, she is on 2.5 mg a day, her INR is 3.6. PHYSICAL EXAMINATION: GENERAL APPEARANCE: Well-nourished, well-developed, appears stated age. Level of distress, comfortable. PSYCHIATRIC: Mental status, alert, normal affect. Orientation, oriented to time, place and person. EYES: Lids and conjunctiva, noninjected. No discharge, no pallor. ENT: Lips, teeth, gums, normal dentition. Oropharynx, no cyanosis, no pallor. NECK: Carotid arteries, bilateral normal upstroke, no bruits, no thrills. JUGULAR VEINS: No jugular venous pressure or distention. CERVICAL LYMPH NODES: Nontender, nonenlarged. THYROID: Not enlarged. Nontender. No nodules. LUNGS: Respiratory effort, unlabored. CHEST: Normal curvature. No thoracic deformity. No chest wall tenderness. Percussion, resonant. Auscultation, clear. No wheezes, no rales, no rhonchi. CARDIOVASCULAR: Precordial exam, nondisplaced. No heaves or pericardial thrills. Rate and rhythm, regular. Heart sounds, normal S1, normal S2. No S3, no gallop, no rub. Systolic murmur, not heard. Diastolic murmur, not heard. EXTREMITIES: No cyanosis, no edema. Peripheral pulses, full and equal in all extremities, except as noted. No bruits appreciated. ABDOMEN: Soft, nondistended. Normal aorta. No bruit. Nontender. No masses. Liver, nontender, no hepatomegaly. Spleen, nontender, no splenomegaly. MUSCULOSKELETAL: No joint tenderness. No joint swelling. No erythema. NEUROLOGICAL: Normal gait, normal strength, normal tone. SKIN: Warm and dry. OVERALL IMPRESSION: Anemia, most likely continued gastrointestinal bleeding with the valves. We would favor Coumadin over Eliquis or Xarelto and would decrease her dose even further for a goal INR of 2-2.5. Hopefully, this will be enough for the valve, but get avoid recurrent GI bleeding. We would suggest GI consult as well for optimal care from a GI standpoint. TRANSINT:[id number] Voice Confirmation ID: [id number] DOCUMENT ID: [id number] CONSULT REPORT [id number] FRANKI ZARATE JEFFREY MD at 1546 CC: [id number] DICTATION DATE: 06/12/17 1414 RADIO ANTENNA INSTALLER: 06/12/17 1514 ADM IN [facility] [address] [place] [address]
--- NOTE | ~2017-06-11 | CN ---
PATIENT NAME:FRANKI ZARATE MEDICAL RECORD: [id number] : 87 LOCATION:D.Maryellen D.2103 ADMIT DATE: 06/11/17 ACCOUNT: [id number] CONSULTING PHYSICIAN: ASTER MOTA MD REFERRING PHYSICIAN: KERRY DRISCOLL MD DATE OF CONSULTATION: 06/12/2017 CONSULT REQUESTING PHYSICIAN: Dr. Roro Driscoll. REASON FOR CONSULTATION: Right-sided pleural effusion, asthma, anemia. HISTORY OF PRESENT ILLNESS: Ms. Zarate is a 31-year-old -[place] female, who has a history of endocarditis, systolic congestive heart failure, asthma and she has tricuspid and mitral regurgitation post-endocarditis. She underwent double valve replacement, most likely with mechanical valve on 05/13/2017. She was put back on Coumadin and was told she should be on Coumadin forever. The patient came into the hospital with weakness and shortness of breath and she was anemic. She got 1 unit of blood and she is feeling a little bit better. The patient underwent CTA of the chest, which showed large right-sided pleural effusion. There are also some compressive atelectasis. REVIEW OF SYSTEMS: Mainly in the history of present illness. PAST MEDICAL HISTORY: 1. Asthma. 2. History of bacterial endocarditis. 3. History of deep venous thrombosis. 4. History of gastrointestinal bleed while on Eliquis. 5. Congestive heart failure with cardiomyopathy with ejection fraction of 30% to 35%. 6. She has a positive rheumatoid factor. 7. History of spontaneous pneumothorax. 8. Bipolar disorder. 9. Seizure disorder. PAST SURGICAL HISTORY: 1. Now she is status post double valve replacement. 2. Appendectomy. 3. She has a history of chest tube placement for spontaneous pneumothorax. ALLERGIES: SHE IS ALLERGIC TO ERYTHROMYCIN, CLINDAMYCIN, AMOXICILLIN, PENICILLIN, MORPHINE, MEPERIDINE, AND SULFA. MEDICATIONS: Her present medication on [employer] was reviewed. PERSONAL AND SOCIAL HISTORY: The patient was abusing recreational drugs in the past. FAMILY HISTORY: Noncontributory. PHYSICAL EXAMINATION: GENERAL: The patient is now lying comfortably in bed. She is not in acute distress. VITAL SIGNS: The blood pressure is 102/63, pulse is 118, respiration is 17, temperature is 97.5, SpO2 is 91% on 2 liters nasal cannula. CONSULT REPORT [id number] TATIANNA ZARATETA N HEENT: Conjunctiva is pale. Sclerae nonicteric. NECK: Neck is supple, no JVD. CHEST: The chest excursion is minimal on both sides. There is decreased breath sound at the right base. There are crackles. No wheezing. HEART: Rhythm regular. Normal heart sound. There is grade II/ systolic murmur. ABDOMEN: Abdomen is soft. Bowel sounds present. No hepatosplenomegaly. RECTAL: Deferred. EXTREMITIES: No cyanosis, no clubbing, 1+ pedal edema. SKIN: The skin is warm, normal turgor. CENTRAL NERVOUS SYSTEM: The patient is awake and alert. There is no obvious cranial nerve abnormality. The gait was not tested. IMAGING: CTA of the chest, there was no pulmonary embolism, but there is a moderate large sized right pleural effusion with right lower lobe atelectasis. OTHER LABORATORY DATA: CBC: WBC 7.3, hemoglobin 7.4, hematocrit 25.8, platelet count 403. Chemistry: Sodium 129, potassium 5.2, BUN is 26, creatinine 1.3 and glucose is 70. The INR is 3.62. IMPRESSION: 1. Acute anemia secondary to acute gastrointestinal blood loss. 2. Anticoagulation. 3. Right pleural effusion, possible secondary to congestive heart failure. She is status post double valve replacement. 4. Status post valve replacements 4 weeks ago. 5. History of asthma. 6. Congestive heart failure with chronic systolic dysfunction due to bacterial endocarditis. RECOMMENDATION: 1. Agree with the blood transfusion. 2. Hold Coumadin. 3. We will request right-sided thoracentesis by IR. 4. We will follow up labs and chest radiograph. 5. Albuterol and ipratropium nebulizer. 6. Brovana and budesonide nebulizer. 7. Supplemental oxygen as required. Dr. Driscoll, thank you for involving me in the care of Ms. Zarate. TRANSINT:[id number] Voice Confirmation ID: [id number] DOCUMENT ID: [id number] ASTER MOTA MD at 1406 CC: FABIO JORDAN MD [id number] DICTATION DATE: 06/12/17 1613 KNITTING MACHINE OPERATOR: 06/12/17 1701 [place] [address]
--- NOTE | ~2017-06-11 | EC ---
PATIENT:FRANKI ZARATE DATE OF SERVICE: 06/11/17 SEX: F MEDICAL RECORD: [id number] DATE OF : [birth year] LOCATION:D.[facility] AGE OF PATIENT: 31 ADMISSION DATE: 06/11/17 REFERRING PHYSICIAN: INTERPRETING PHYSICIAN: ALYSHA BARNETT MD ECHOCARDIOGRAM REPORT ECHO CHARGES 4 ECHO COMPLETE CLINICAL DIAGNOSIS: CHF/HYPOTENSION/TACHYCARDIA/ MVR/TVR ECHOCARDIOGRAPHIC MEASUREMENTS (adult normal given) AC root (d.<3.7cm) 2.5 cm LV Septum d (<1.2 cm> 1.0 cm Valve Excursion 1.5 cm LV Septum (systole) 1.3 cm Left Atria (s.<4.0cm> 4.3 cm LVPW d(<1.2cm) 1.1 cm RV (d.<2.3cm) 4.3 cm LVPW (sytole) 1.7 cm LV diastole(<5.6CM) 4.9 cm MV E-F(>70mm/sec) cm LV systole 2.9 cm LVOT Diameter 1.6 cm MV exc.(>10mm) cm Est.ejection fraction (50-75%) % Pericardial Effusion N DOPPLER: LVIT cm/sec A 122 cm/sec E 208.0 cm/sec LA cm/sec RVSP 59.0 mmHg LVOT 190 cm/sec AOP1/2T m/s Asc. Ao 240 cm/sec RVOT 41.0 cm/sec RA cm/sec PA 68.0 cm/sec AV Gradient Peak 23.0 mmHg AV Mean 12.0 mmHg AV Area 1.4 cm MV Gradient Peak 23.3 mmHg MV Mean 8.9 mmHg MV Area cm COMMENTS: Margin Analyst: Tika GILLOE Freight Car Builder: Job Barnett TAPE# PACS DATE OF SERVICE: 06/26/2017 PROCEDURE: Transthoracic echocardiogram. FINDINGS: 1. Left ventricle appears to be mildly hyperdynamic. The patient is known to have a mechanical mitral valve inflow into the left ventricle is not revealing because of atrial fibrillation. 2. The left atrium is mildly dilated. 3. The right ventricle is severely dilated and hypokinetic with significant ECHOCARDIOGRAM REPORT [id number] TESSAFRANKI Mckinney reduction in the systolic function. 4. The tricuspid valve is mechanical and there is considerable amount of proximal flow convergence and there does appear to be moderate tricuspid regurgitation. It is uncertain whether this is perivalvular or intravalvular. 5. The aortic valve is normal. 6. The pulmonic valve is shown to have moderate pulmonic insufficiency. 7. The right atrium is severely dilated. 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 The mitral valve and the left ventricle appears to be normal function. The right ventricle appears to be akinetic to severely dyskinetic indicating most likely significant right heart failure. The IVC was difficult to see, but appears to be dilated. Again, the most significant finding is the patient with extremely poor right ventricular function. TRANSINT:[id number] Voice Confirmation ID: [id number] DOCUMENT ID: [id number] 07/03/2017 Edited to correct date of service, dm. ALYSHA BARNETT MD at 1038 CC: [id number] DICTATION DATE: 06/27/17 1048 CLAY ARTIST: 06/27/17 1105 DIS IN 07/15/17 [place] [id number] [place] [address]
--- NOTE | ~2017-06-11 | EC ---
PATIENT:FRANKI ZARATE DATE OF SERVICE: 06/11/17 SEX: F MEDICAL RECORD: [id number] DATE OF : [birth year] LOCATION:[facility] AGE OF PATIENT: 31 ADMISSION DATE: 06/11/17 REFERRING PHYSICIAN: INTERPRETING PHYSICIAN: ARMIN PITTS MD ECHOCARDIOGRAM REPORT ECHO CHARGES 4 ECHO COMPLETE CLINICAL DIAGNOSIS: SOB S/P MVR/TVR ECHOCARDIOGRAPHIC MEASUREMENTS (adult normal given) AC root (d.<3.7cm) 2.5 cm LV Septum d (<1.2 cm> 1.1 cm Valve Excursion 1.5 cm LV Septum (systole) 1.6 cm Left Atria (s.<4.0cm> 4.1 cm LVPW d(<1.2cm) 0.9 cm RV (d.<2.3cm) 5.0 cm LVPW (sytole) 1.9 cm LV diastole(<5.6CM) 4.7 cm MV E-F(>70mm/sec) cm LV systole 2.1 cm LVOT Diameter 1.7 cm MV exc.(>10mm) cm Est.ejection fraction (50-75%) % Pericardial Effusion N DOPPLER: LVIT cm/sec A 122 cm/sec E 181 cm/sec LA cm/sec RVSP 44.0 mmHg LVOT 179 cm/sec AOP1/2T m/s Asc. Ao 291 cm/sec RVOT 76.0 cm/sec RA cm/sec PA 88.0 cm/sec AV Gradient Peak 34.0 mmHg AV Mean 19.2 mmHg AV Area 1.5 cm MV Gradient Peak 22.0 mmHg MV Mean 6.3 mmHg MV Area cm COMMENTS: Manager School: Tika GILLOE Curtain Roller Assembler: 1 Dr. Pitts TAPE# PACS DATE OF SERVICE: 06/12/2017 Echocardiogram FINDINGS: 1. Left ventricular chamber size is within normal limits. Left ventricular systolic function is normal. Overall ejection fraction estimated at 50%. 2. The left atrium is mildly dilated at 4.1 cm. Right atrium and right ventricular chamber sizes are severely dilated. 3. Valvular structures: The mitral and tricuspid valves are replaced with ECHOCARDIOGRAM REPORT [id number] FRANKI ZARATE mechanical prosthesis. Both have normal structure and function in this position. The remaining valvular structures have normal structure and motion. 4. Doppler interrogation reveals no significant valvular insufficiency or stenosis. 5. Pulmonary systolic pressure is mildly elevated estimated at 44 mmHg. 6. No evidence of pericardial effusion or left ventricular thrombus. TRANSINT:[id number] Voice Confirmation ID: [id number] DOCUMENT ID: [id number] ARMIN PITTS MD at 1323 CC: [id number] DICTATION DATE: 06/12/17 1509 GAME AGENT: 06/12/17 1540 ADM IN [place] [id number] [place] [address]
[~2017-06-11 13:43] MED LIST changes: -BROVANA15 MCG/2 M INH; -COUMADIN2.5 MG PO; -ENDOCET 10-3251 TAB PO; -VITAMIN D31000 UNIT PO; -XIFAXAN550 MG PO
[2017-06-11 15:10] LABS: INR 4.19 (0.85-1.17); PROTIME 39.6 SECONDS (11.6-15.0)
[2017-06-11 15:28] LABS: BASOPHILS 0.4 % (0-2); EOSINOPHILS 0.7 % (0-7); HEMATOCRIT 25.8 % (36.0-48.0); IMMATURE GRANULOCYTES 0.3 % (0-5); LYMPHOCYTES 19.9 % (15-50); MCH 20.7 pg (26.0-34.0); MCHC 28.7 g/dL (31.0-37.0); MCV 72.3 fL (80.0-100.0); MEAN PLATELET VOLUME 11.2 fL (7.4-10.4); MONOCYTES 12.8 % (2-11); NEUTROPHILS 65.9 % (40-80); RBC 3.57 10x6/uL (4.00-5.40); RDW 21.2 % (11.5-14.5); WBC 7.3 10x3/uL (4.8-10.8)
[2017-06-11 15:32] LABS: PLATELET COUNT 403 10x3/uL (130-400)
[2017-06-11 15:36] LABS: HEMOGLOBIN 7.4 g/dL (12-16)
[2017-06-11 15:50] LABS: ALBUMIN 3.1 g/dL (3.4-5.0); ANION GAP 16.5 mmol/L (8-16); BILIRUBIN - TOTAL 1.56 mg/dL (0.2-1.3); CALCIUM 9.1 mg/dL (8.5-10.1); CARBON DIOXIDE 22.7 mmol/L (21.0-32.0); CREATININE - SERUM 1.3 mg/dL (0.6-1.3); POTASSIUM - SERUM 5.2 mmol/L (3.5-5.1); PROTEIN - SERUM 8.4 g/dL (6.4-8.2)
[2017-06-11 21:12] LABS: CKMB 0.8 U/L (0.0-3.6); CREATINE KINASE 46 UL (21-215)
[2017-06-11 21:27] LABS: TROPONIN-I 0.074 ng/mL (0.000-0.060)
[2017-06-11] MEDS ORDERED: LASIX40 MG PO (22:44)
[2017-06-11] MEDS ORDERED: ENDOCET 10-3251 TAB PO (22:46)
[2017-06-11] MEDS ORDERED: VITAMIN D31000 UNIT PO (22:48)
[2017-06-11] MEDS ORDERED: COUMADIN2.5 MG PO (22:49)
[2017-06-12 04:00] VITALS: BP 102/65
[2017-06-12 05:54] LABS: BASOPHILS 0.4 % (0-2); EOSINOPHILS 0.8 % (0-7); HEMOGLOBIN 7.6 g/dL (12-16); IMMATURE GRANULOCYTES 0.4 % (0-5); LYMPHOCYTES 15.4 % (15-50); MCH 21.8 pg (26.0-34.0); MCHC 29.2 g/dL (31.0-37.0); MEAN PLATELET VOLUME 10.7 fL (7.4-10.4); MONOCYTES 13.3 % (2-11); NEUTROPHILS 69.7 % (40-80); PLATELET COUNT 340 10x3/uL (130-400); RBC 3.49 10x6/uL (4.00-5.40); RDW 21.5 % (11.5-14.5)
[2017-06-12 05:56] LABS: MCV 74.5 fL (80.0-100.0)
[2017-06-12 06:19] LABS: ANION GAP 12.7 mmol/L (8-16); CALCIUM 8.7 mg/dL (8.5-10.1); CARBON DIOXIDE 25.1 mmol/L (21.0-32.0); CREATININE - SERUM 1.1 mg/dL (0.6-1.3); POTASSIUM - SERUM 3.8 mmol/L (3.5-5.1)
[2017-06-12 08:50] LABS: INR 3.62 (0.85-1.17); PROTIME 35.2 SECONDS (11.6-15.0)
[2017-06-12 08:55] VITALS: BP 94/56
[2017-06-12 11:46] VITALS: BP 114/64
[2017-06-12 15:46] VITALS: BP 102/63
[2017-06-12 16:13] LABS: BASOPHILS 0.4 % (0-2); EOSINOPHILS 0.6 % (0-7); HEMATOCRIT 23.5 % (36.0-48.0); MCH 21.8 pg (26.0-34.0); MCHC 29.4 g/dL (31.0-37.0); MCV 74.4 fL (80.0-100.0); MEAN PLATELET VOLUME 10.7 fL (7.4-10.4); MONOCYTES 16.5 % (2-11); NEUTROPHILS 65.5 % (40-80); PLATELET COUNT 290 10x3/uL (130-400); RBC 3.16 10x6/uL (4.00-5.40); RDW 21.1 % (11.5-14.5); WBC 9.8 10x3/uL (4.8-10.8)
[2017-06-12 16:19] LABS: UDS - AMPHET NEGATIVE QUAL (NEGATIVE); UDS - BARB NEGATIVE QUAL (NEGATIVE); UDS - BENZO NEGATIVE QUAL (NEGATIVE); UDS - COCAINE NEGATIVE QUAL (NEGATIVE); UDS - OPIATE POSITIVE QUAL (NEGATIVE); UDS - PCP NEGATIVE QUAL (NEGATIVE); UDS - THC NEGATIVE QUAL (NEGATIVE)
[2017-06-12 17:23] LABS: HEMOGLOBIN 6.9 g/dL (12-16)
[2017-06-12 20:29] LABS: % SATURATION 4 % (15-55); IRON 18 ug/dl (35-150); TOTAL IRON BIND CAPACITY 394 ug/dl (260-445); UNSAT IRON BIND CAPACITY 376 ug/dl (150-375)
[2017-06-12 21:04] VITALS: BP 103/59
[2017-06-12 22:22] LABS: BASOPHILS 0.2 % (0-2); EOSINOPHILS 0.9 % (0-7); HEMATOCRIT 24.8 % (36.0-48.0); IMMATURE GRANULOCYTES 0.2 % (0-5); LYMPHOCYTES 16.3 % (15-50); MCH 22.1 pg (26.0-34.0); MCV 76.1 fL (80.0-100.0); MEAN PLATELET VOLUME 10.5 fL (7.4-10.4); MONOCYTES 16.1 % (2-11); NEUTROPHILS 66.3 % (40-80); PLATELET COUNT 279 10x3/uL (130-400); RBC 3.26 10x6/uL (4.00-5.40); RDW 21.6 % (11.5-14.5); WBC 8.2 10x3/uL (4.8-10.8)
[2017-06-12 22:27] LABS: HEMOGLOBIN 7.2 g/dL (12-16)
[2017-06-13 00:52] VITALS: BP 104/56
[2017-06-13 04:38] LABS: BASOPHILS 0.3 % (0-2); HEMATOCRIT 26.2 % (36.0-48.0); HEMOGLOBIN 7.7 g/dL (12-16); IMMATURE GRANULOCYTES 0.3 % (0-5); LYMPHOCYTES 17.7 % (15-50); MCH 22.3 pg (26.0-34.0); MCHC 29.4 g/dL (31.0-37.0); MCV 75.9 fL (80.0-100.0); MEAN PLATELET VOLUME 9.4 fL (7.4-10.4); MONOCYTES 16.4 % (2-11); NEUTROPHILS 64.3 % (40-80); PLATELET COUNT 273 10x3/uL (130-400); RBC 3.45 10x6/uL (4.00-5.40); RDW 20.7 % (11.5-14.5); WBC 7.7 10x3/uL (4.8-10.8)
[2017-06-13 04:56] LABS: INR 3.19 (0.85-1.17); PROTIME 31.9 SECONDS (11.6-15.0)
[2017-06-13 05:07] LABS: ALBUMIN 2.9 g/dL (3.4-5.0); ANION GAP 11.1 mmol/L (8-16); BILIRUBIN - TOTAL 1.39 mg/dL (0.2-1.3); CALCIUM 8.8 mg/dL (8.5-10.1); CARBON DIOXIDE 27.1 mmol/L (21.0-32.0); POTASSIUM - SERUM 4.2 mmol/L (3.5-5.1); PRE-ALBUMIN 5.9 mg/dL (18.0-35.7); PROTEIN - SERUM 8.2 g/dL (6.4-8.2)
[2017-06-13 05:21] VITALS: BP 90/58
[2017-06-13 08:00] VITALS: BP 94/58
[2017-06-13 10:10] LABS: BASOPHILS 0.4 % (0-2); HEMATOCRIT 26.6 % (36.0-48.0); HEMOGLOBIN 7.7 g/dL (12-16); IMMATURE GRANULOCYTES 0.4 % (0-5); LYMPHOCYTES 17.1 % (15-50); MCHC 28.9 g/dL (31.0-37.0); MEAN PLATELET VOLUME 10.6 fL (7.4-10.4); MONOCYTES 14.8 % (2-11); NEUTROPHILS 66.3 % (40-80); PLATELET COUNT 273 10x3/uL (130-400); RDW 20.7 % (11.5-14.5); WBC 7.7 10x3/uL (4.8-10.8)
[2017-06-13 12:00] VITALS: BP 112/62
[2017-06-13 17:07] LABS: BASOPHILS 0.4 % (0-2); EOSINOPHILS 0.9 % (0-7); HEMATOCRIT 26.1 % (36.0-48.0); HEMOGLOBIN 7.6 g/dL (12-16); IMMATURE GRANULOCYTES 0.6 % (0-5); LYMPHOCYTES 16.3 % (15-50); MCH 22.1 pg (26.0-34.0); MCHC 29.1 g/dL (31.0-37.0); MCV 75.9 fL (80.0-100.0); MEAN PLATELET VOLUME 10.9 fL (7.4-10.4); MONOCYTES 19.3 % (2-11); NEUTROPHILS 62.5 % (40-80); PLATELET COUNT 266 10x3/uL (130-400); RBC 3.44 10x6/uL (4.00-5.40); RDW 20.9 % (11.5-14.5); WBC 8.5 10x3/uL (4.8-10.8)
[2017-06-13 20:00] VITALS: BP 104/68
[2017-06-13 22:33] LABS: BASOPHILS 0.2 % (0-2); EOSINOPHILS 0.7 % (0-7); HEMATOCRIT 28.5 % (36.0-48.0); HEMOGLOBIN 8.1 g/dL (12-16); IMMATURE GRANULOCYTES 0.2 % (0-5); LYMPHOCYTES 14.4 % (15-50); MCH 21.9 pg (26.0-34.0); MCHC 28.4 g/dL (31.0-37.0); MEAN PLATELET VOLUME 10.9 fL (7.4-10.4); MONOCYTES 13.2 % (2-11); NEUTROPHILS 71.3 % (40-80); PLATELET COUNT 267 10x3/uL (130-400); RDW 21.2 % (11.5-14.5); WBC 8.2 10x3/uL (4.8-10.8)
[2017-06-14 04:00] VITALS: BP 102/59
[2017-06-14 05:17] LABS: INR 2.76 (0.85-1.17); PROTIME 28.4 SECONDS (11.6-15.0)
[2017-06-14 05:25] LABS: ANION GAP 13.8 mmol/L (8-16); BILIRUBIN - TOTAL 1.4 mg/dL (0.2-1.3); CALCIUM 8.9 mg/dL (8.5-10.1); CARBON DIOXIDE 26.5 mmol/L (21.0-32.0); POTASSIUM - SERUM 4.3 mmol/L (3.5-5.1); PROTEIN - SERUM 8.4 g/dL (6.4-8.2)
[2017-06-14 07:26] LABS: BILIRUBIN - DIRECT 0.85 mg/dL (0.00-0.30); BILIRUBIN - INDIRECT 0.55 mg/dL (0.00-1.00)
[2017-06-14 08:00] VITALS: BP 102/71
[2017-06-14 12:00] VITALS: BP 88/49
[2017-06-14 14:34] LABS: BASOPHILS 0.4 % (0-2); HEMATOCRIT 25.5 % (36.0-48.0); IMMATURE GRANULOCYTES 0.4 % (0-5); LYMPHOCYTES 16.1 % (15-50); MCH 21.8 pg (26.0-34.0); MCHC 28.6 g/dL (31.0-37.0); MCV 76.1 fL (80.0-100.0); MEAN PLATELET VOLUME 11.3 fL (7.4-10.4); MONOCYTES 18.2 % (2-11); NEUTROPHILS 63.9 % (40-80); PLATELET COUNT 284 10x3/uL (130-400); RBC 3.35 10x6/uL (4.00-5.40); RDW 20.8 % (11.5-14.5); WBC 8.3 10x3/uL (4.8-10.8)
[2017-06-14 14:36] LABS: HEMOGLOBIN 7.3 g/dL (12-16)
[2017-06-14 16:00] VITALS: BP 102/67
[2017-06-14 20:00] VITALS: BP 96/63
[2017-06-15] VITALS: BP 104/61
[2017-06-15 04:00] VITALS: BP 101/66
[2017-06-15 07:58] VITALS: BP 110/60
[2017-06-15 10:26] LABS: BASOPHILS 0.1 % (0-2); EOSINOPHILS 0.6 % (0-7); IMMATURE GRANULOCYTES 0.6 % (0-5); LYMPHOCYTES 12.5 % (15-50); MCH 23.8 pg (26.0-34.0); MCHC 30.2 g/dL (31.0-37.0); MEAN PLATELET VOLUME 10.8 fL (7.4-10.4); MONOCYTES 13.4 % (2-11); NEUTROPHILS 72.8 % (40-80); PLATELET COUNT 240 10x3/uL (130-400); RDW 20.6 % (11.5-14.5); WBC 8.6 10x3/uL (4.8-10.8)
[2017-06-15 10:33] LABS: HEMATOCRIT 32.5 % (36.0-48.0); HEMOGLOBIN 9.8 g/dL (12-16); INR 2.62 (0.85-1.17); MCV 79.1 fL (80.0-100.0); PROTIME 27.4 SECONDS (11.6-15.0); RBC 4.11 10x6/uL (4.00-5.40)
[2017-06-15 10:44] LABS: ALBUMIN 2.9 g/dL (3.4-5.0); ALKALINE PHOSPHATASE 134 U/L (46-116); ALT (SGPT) 13 U/L (10-68); CALC OSMOLALITY 265 mosm/kg (275-300); CARBON DIOXIDE 26.4 mmol/L (21.0-32.0); CHLORIDE - SERUM 96 mmol/L (98-107); CREATININE - SERUM 0.9 mg/dL (0.6-1.3); GLUCOSE 90 mg/dL (74-106); POTASSIUM - SERUM 3.9 mmol/L (3.5-5.1); PROTEIN - SERUM 8.4 g/dL (6.4-8.2); SODIUM 132 mmol/L (136-145); UREA NITROGEN 16 mg/dL (7-18); eGFR NON AFRICAN AMERICAN 78 mL/min (90-120)
[2017-06-15 12:22] VITALS: BP 95/77
[2017-06-15 16:35] VITALS: BP 90/63
[2017-06-16] VITALS: BP 104/69
[2017-06-16 04:00] VITALS: BP 122/70
[2017-06-16 05:18] LABS: BASOPHILS 0.2 % (0-2); EOSINOPHILS 0.5 % (0-7); HEMATOCRIT 32.5 % (36.0-48.0); HEMOGLOBIN 9.6 g/dL (12-16); IMMATURE GRANULOCYTES 0.3 % (0-5); LYMPHOCYTES 11.7 % (15-50); MCH 23.4 pg (26.0-34.0); MCHC 29.5 g/dL (31.0-37.0); MCV 79.1 fL (80.0-100.0); MONOCYTES 13.2 % (2-11); NEUTROPHILS 74.1 % (40-80); PLATELET COUNT 247 10x3/uL (130-400); RBC 4.11 10x6/uL (4.00-5.40); RDW 21.2 % (11.5-14.5); WBC 9.7 10x3/uL (4.8-10.8)
[2017-06-16 05:39] LABS: ALBUMIN 2.8 g/dL (3.4-5.0); ALKALINE PHOSPHATASE 119 U/L (46-116); ALT (SGPT) 11 U/L (10-68); CALC OSMOLALITY 261 mosm/kg (275-300); CALCIUM 9.2 mg/dL (8.5-10.1); CARBON DIOXIDE 26.3 mmol/L (21.0-32.0); CHLORIDE - SERUM 96 mmol/L (98-107); CREATININE - SERUM 0.8 mg/dL (0.6-1.3); GLUCOSE 101 mg/dL (74-106); MAGNESIUM - SERUM 1.5 mg/dL (1.8-2.4); PHOSPHOROUS 3.2 mg/dL (2.5-4.9); POTASSIUM - SERUM 3.6 mmol/L (3.5-5.1); PROTEIN - SERUM 7.9 g/dL (6.4-8.2); SODIUM 131 mmol/L (136-145); eGFR NON AFRICAN AMERICAN 89 mL/min (90-120)
[2017-06-16 05:54] LABS: INR 2.65 (0.85-1.17); PROTIME 27.5 SECONDS (11.6-15.0)
[2017-06-16 05:58] LABS: UREA NITROGEN 11 mg/dL (7-18)
[2017-06-16 07:54] VITALS: BP 98/58
[2017-06-16 12:15] VITALS: BP 101/62
[2017-06-16 12:45] VITALS: BMI 28.6
[2017-06-16 15:30] VITALS: BP 101/57
[2017-06-16 21:12] VITALS: BP 101/63
[2017-06-17 00:48] VITALS: BP 99/64
[2017-06-17 05:33] VITALS: BP 98/68
[2017-06-17 05:45] LABS: BASOPHILS 0.2 % (0-2); HEMATOCRIT 31.9 % (36.0-48.0); HEMOGLOBIN 9.4 g/dL (12-16); IMMATURE GRANULOCYTES 0.3 % (0-5); LYMPHOCYTES 17.1 % (15-50); MCH 23.4 pg (26.0-34.0); MCHC 29.5 g/dL (31.0-37.0); MCV 79.4 fL (80.0-100.0); MEAN PLATELET VOLUME 10.9 fL (7.4-10.4); MONOCYTES 16.6 % (2-11); NEUTROPHILS 64.8 % (40-80); PLATELET COUNT 231 10x3/uL (130-400); RBC 4.02 10x6/uL (4.00-5.40); RDW 22.4 % (11.5-14.5); WBC 8.8 10x3/uL (4.8-10.8)
[2017-06-17 05:55] LABS: INR 2.36 (0.85-1.17); PROTIME 25.2 SECONDS (11.6-15.0)
[2017-06-17 06:05] LABS: ALBUMIN 2.8 g/dL (3.4-5.0); ALKALINE PHOSPHATASE 121 U/L (46-116); CALC OSMOLALITY 260 mosm/kg (275-300); CALCIUM 9.4 mg/dL (8.5-10.1); CARBON DIOXIDE 28.6 mmol/L (21.0-32.0); CHLORIDE - SERUM 96 mmol/L (98-107); CREATININE - SERUM 0.8 mg/dL (0.6-1.3); GLUCOSE 74 mg/dL (74-106); POTASSIUM - SERUM 3.4 mmol/L (3.5-5.1); PROTEIN - SERUM 7.4 g/dL (6.4-8.2); SODIUM 131 mmol/L (136-145); UREA NITROGEN 10 mg/dL (7-18); eGFR NON AFRICAN AMERICAN 89 mL/min (90-120)
[2017-06-17 06:09] LABS: ALT (SGPT) 14 U/L (10-68)
[2017-06-17 07:46] VITALS: BP 92/64
[2017-06-17 12:51] VITALS: BP 100/66
[2017-06-17 15:48] VITALS: BP 94/67
[2017-06-18 00:13] VITALS: BP 115/66
[2017-06-18 06:08] LABS: BASOPHILS 0.2 % (0-2); EOSINOPHILS 0.8 % (0-7); HEMATOCRIT 32.6 % (36.0-48.0); HEMOGLOBIN 9.8 g/dL (12-16); IMMATURE GRANULOCYTES 0.3 % (0-5); LYMPHOCYTES 13.7 % (15-50); MCH 23.8 pg (26.0-34.0); MCHC 30.1 g/dL (31.0-37.0); MCV 79.1 fL (80.0-100.0); MEAN PLATELET VOLUME 10.6 fL (7.4-10.4); MONOCYTES 16.1 % (2-11); NEUTROPHILS 68.9 % (40-80); PLATELET COUNT 200 10x3/uL (130-400); RBC 4.12 10x6/uL (4.00-5.40); RDW 23.4 % (11.5-14.5); WBC 8.8 10x3/uL (4.8-10.8)
[2017-06-18 06:16] LABS: INR 2.28 (0.85-1.17); PROTIME 24.5 SECONDS (11.6-15.0)
[2017-06-18 06:26] LABS: CARBON DIOXIDE 31.9 mmol/L (21.0-32.0); CHLORIDE - SERUM 97 mmol/L (98-107); CREATININE - SERUM 0.7 mg/dL (0.6-1.3); SODIUM 136 mmol/L (136-145); eGFR NON AFRICAN AMERICAN > 90 mL/min (90-120)
[2017-06-18 06:30] LABS: CALC OSMOLALITY 267 mosm/kg (275-300); GLUCOSE 70 mg/dL (74-106); POTASSIUM - SERUM 3.1 mmol/L (3.5-5.1); UREA NITROGEN 7 mg/dL (7-18)
[2017-06-18 08:14] VITALS: BP 92/55
[2017-06-18 12:09] VITALS: BP 103/64
[2017-06-18 16:05] VITALS: BP 101/68
[2017-06-18 20:18] VITALS: BP 116/72
[2017-06-19 00:27] VITALS: BP 115/79
[2017-06-19 04:50] VITALS: BP 97/66
[2017-06-19 06:40] LABS: BASOPHILS 0.2 % (0-2); EOSINOPHILS 0.8 % (0-7); HEMATOCRIT 32.6 % (36.0-48.0); HEMOGLOBIN 9.8 g/dL (12-16); IMMATURE GRANULOCYTES 0.3 % (0-5); LYMPHOCYTES 14.5 % (15-50); MCH 24.1 pg (26.0-34.0); MCHC 30.1 g/dL (31.0-37.0); MCV 80.1 fL (80.0-100.0); NEUTROPHILS 67.2 % (40-80); PLATELET COUNT 173 10x3/uL (130-400); RBC 4.07 10x6/uL (4.00-5.40); RDW 24.2 % (11.5-14.5); WBC 8.6 10x3/uL (4.8-10.8)
[2017-06-19 07:05] LABS: INR 2.01 (0.85-1.17); PROTIME 22.2 SECONDS (11.6-15.0)
[2017-06-19 07:09] LABS: CALC OSMOLALITY 270 mosm/kg (275-300); CALCIUM 8.9 mg/dL (8.5-10.1); CARBON DIOXIDE 33.1 mmol/L (21.0-32.0); CHLORIDE - SERUM 97 mmol/L (98-107); CREATININE - SERUM 0.7 mg/dL (0.6-1.3); GLUCOSE 74 mg/dL (74-106); SODIUM 137 mmol/L (136-145); UREA NITROGEN 6 mg/dL (7-18); eGFR NON AFRICAN AMERICAN > 90 mL/min (90-120)
[2017-06-19 07:30] LABS: POTASSIUM - SERUM 2.6 mmol/L (3.5-5.1)
[2017-06-19 08:16] VITALS: BP 106/68
[2017-06-19 14:12] VITALS: BP 104/60
[2017-06-19 15:20] VITALS: BP 95/64
[2017-06-19 21:16] VITALS: BP 101/67
[2017-06-20 00:23] VITALS: BP 95/66
[2017-06-20 05:21] VITALS: BP 91/65
[2017-06-20 06:47] LABS: BASOPHILS 0.1 % (0-2); EOSINOPHILS 0.9 % (0-7); HEMATOCRIT 32.6 % (36.0-48.0); HEMOGLOBIN 9.9 g/dL (12-16); IMMATURE GRANULOCYTES 0.3 % (0-5); LYMPHOCYTES 17.9 % (15-50); MCH 24.1 pg (26.0-34.0); MCHC 30.4 g/dL (31.0-37.0); MCV 79.5 fL (80.0-100.0); MONOCYTES 19.3 % (2-11); NEUTROPHILS 61.5 % (40-80); PLATELET COUNT 168 10x3/uL (130-400); RDW 25.4 % (11.5-14.5)
[2017-06-20 07:03] LABS: INR 1.88 (0.85-1.17)
[2017-06-20 07:21] LABS: ALBUMIN 2.7 g/dL (3.4-5.0); ALKALINE PHOSPHATASE 110 U/L (46-116); ALT (SGPT) 12 U/L (10-68); BILIRUBIN - TOTAL 1.84 mg/dL (0.2-1.3); CARBON DIOXIDE 33.6 mmol/L (21.0-32.0); CHLORIDE - SERUM 95 mmol/L (98-107); CREATININE - SERUM 0.7 mg/dL (0.6-1.3); GLUCOSE 101 mg/dL (74-106); PROTEIN - SERUM 7.2 g/dL (6.4-8.2); SODIUM 136 mmol/L (136-145); eGFR NON AFRICAN AMERICAN > 90 mL/min (90-120)
[2017-06-20 07:24] LABS: CALC OSMOLALITY 268 mosm/kg (275-300); UREA NITROGEN 4 mg/dL (7-18)
[2017-06-20 07:26] LABS: POTASSIUM - SERUM 2.6 mmol/L (3.5-5.1)
[2017-06-20 08:30] VITALS: BP 104/68
[2017-06-20 11:47] VITALS: BP 92/65
[2017-06-20 16:50] VITALS: BP 96/68
[2017-06-20 20:00] VITALS: BP 101/70
[2017-06-21] VITALS: BP 93/54
[2017-06-21 04:00] VITALS: BP 95/68
[2017-06-21 05:15] LABS: CALC OSMOLALITY 264 mosm/kg (275-300); CALCIUM 8.9 mg/dL (8.5-10.1); CARBON DIOXIDE 35.6 mmol/L (21.0-32.0); CHLORIDE - SERUM 94 mmol/L (98-107); CREATININE - SERUM 0.7 mg/dL (0.6-1.3); GLUCOSE 91 mg/dL (74-106); POTASSIUM - SERUM 3.4 mmol/L (3.5-5.1); SODIUM 134 mmol/L (136-145); UREA NITROGEN 4 mg/dL (7-18); eGFR NON AFRICAN AMERICAN > 90 mL/min (90-120)
[2017-06-21 05:17] LABS: INR 1.76 (0.85-1.17)
[2017-06-21 07:54] VITALS: BP 117/83
[2017-06-21 12:46] VITALS: BP 100/67
[2017-06-21 16:11] VITALS: BP 104/71
[2017-06-21 17:15] LABS: PROTEIN - BODY FLUID 3.3 G/DL
[2017-06-21 17:34] LABS: NEUT - BF 22 %
[2017-06-21 17:35] LABS: MACROPHAGES BF 1 %
[2017-06-21 20:58] VITALS: BP 107/70
[2017-06-22 00:02] VITALS: BP 99/62
[2017-06-22 05:54] VITALS: BP 181/77
[2017-06-22 06:49] LABS: BASOPHILS 0.1 % (0-2); EOSINOPHILS 1.5 % (0-7); HEMOGLOBIN 9.9 g/dL (12-16); IMMATURE GRANULOCYTES 0.3 % (0-5); LYMPHOCYTES 13.1 % (15-50); MCH 24.5 pg (26.0-34.0); MONOCYTES 13.9 % (2-11); NEUTROPHILS 71.1 % (40-80); RBC 4.04 10x6/uL (4.00-5.40); RDW 26.7 % (11.5-14.5); WBC 8.6 10x3/uL (4.8-10.8)
[2017-06-22 06:54] LABS: MCV 81.7 fL (80.0-100.0)
[2017-06-22 06:55] LABS: PLATELET COUNT 134 10x3/uL (130-400)
[2017-06-22 07:03] LABS: INR 1.75 (0.85-1.17); PROTIME 19.9 SECONDS (11.6-15.0)
[2017-06-22 07:04] LABS: ALBUMIN 2.6 g/dL (3.4-5.0); ALKALINE PHOSPHATASE 116 U/L (46-116); ALT (SGPT) 10 U/L (10-68); BILIRUBIN - TOTAL 1.55 mg/dL (0.2-1.3); CALC OSMOLALITY 266 mosm/kg (275-300); CALCIUM 8.8 mg/dL (8.5-10.1); CARBON DIOXIDE 33.7 mmol/L (21.0-32.0); CHLORIDE - SERUM 94 mmol/L (98-107); CREATININE - SERUM 0.8 mg/dL (0.6-1.3); GLUCOSE 126 mg/dL (74-106); POTASSIUM - SERUM 3.4 mmol/L (3.5-5.1); PROTEIN - SERUM 6.9 g/dL (6.4-8.2); SODIUM 134 mmol/L (136-145); UREA NITROGEN 5 mg/dL (7-18); eGFR NON AFRICAN AMERICAN 89 mL/min (90-120)
[2017-06-22 08:49] VITALS: BP 173/81; BP 92/61
[2017-06-22 12:34] VITALS: BP 97/67
[2017-06-22 16:46] VITALS: BP 87/58
[2017-06-22 19:00] VITALS: BP 98/71
[2017-06-23 04:00] VITALS: BP 120/60
[2017-06-23 05:10] LABS: BASOPHILS 0.2 % (0-2); EOSINOPHILS 1.5 % (0-7); HEMATOCRIT 32.7 % (36.0-48.0); HEMOGLOBIN 9.8 g/dL (12-16); IMMATURE GRANULOCYTES 0.2 % (0-5); LYMPHOCYTES 14.5 % (15-50); MCH 24.5 pg (26.0-34.0); MCV 81.8 fL (80.0-100.0); MONOCYTES 14.9 % (2-11); NEUTROPHILS 68.7 % (40-80); PLATELET COUNT 127 10x3/uL (130-400); RDW 27.1 % (11.5-14.5); WBC 8.9 10x3/uL (4.8-10.8)
[2017-06-23 05:24] LABS: INR 1.56 (0.85-1.17); PROTIME 18.2 SECONDS (11.6-15.0)
[2017-06-23 05:35] LABS: ALBUMIN 2.6 g/dL (3.4-5.0); ALKALINE PHOSPHATASE 131 U/L (46-116); BILIRUBIN - TOTAL 1.39 mg/dL (0.2-1.3); CALC OSMOLALITY 267 mosm/kg (275-300); CALCIUM 8.7 mg/dL (8.5-10.1); CARBON DIOXIDE 36.5 mmol/L (21.0-32.0); CHLORIDE - SERUM 96 mmol/L (98-107); CREATININE - SERUM 0.7 mg/dL (0.6-1.3); GLUCOSE 95 mg/dL (74-106); PROTEIN - SERUM 6.8 g/dL (6.4-8.2); SODIUM 135 mmol/L (136-145); UREA NITROGEN 6 mg/dL (7-18); eGFR NON AFRICAN AMERICAN > 90 mL/min (90-120)
[2017-06-23 05:37] LABS: ALT (SGPT) 15 U/L (10-68)
[2017-06-23 08:08] VITALS: BP 99/65
[2017-06-23 12:36] VITALS: BP 101/60
[2017-06-23 17:00] VITALS: BP 95/61
[2017-06-23 21:09] VITALS: BP 101/62
[2017-06-24 01:13] VITALS: BP 92/60
[2017-06-24 05:36] VITALS: BP 108/57
[2017-06-24 05:36] LABS: HEMOGLOBIN 9.8 g/dL (12-16); MCH 24.5 pg (26.0-34.0); MCHC 29.7 g/dL (31.0-37.0); MCV 82.5 fL (80.0-100.0); PLATELET COUNT 141 10x3/uL (130-400); RDW 27.4 % (11.5-14.5); WBC 8.6 10x3/uL (4.8-10.8)
[2017-06-24 06:03] LABS: ALBUMIN 2.6 g/dL (3.4-5.0); ALKALINE PHOSPHATASE 130 U/L (46-116); ALT (SGPT) 15 U/L (10-68); BILIRUBIN - TOTAL 1.87 mg/dL (0.2-1.3); CALC OSMOLALITY 261 mosm/kg (275-300); CALCIUM 8.9 mg/dL (8.5-10.1); CARBON DIOXIDE 36.7 mmol/L (21.0-32.0); CHLORIDE - SERUM 93 mmol/L (98-107); CREATININE - SERUM 0.7 mg/dL (0.6-1.3); GLUCOSE 79 mg/dL (74-106); POTASSIUM - SERUM 3.9 mmol/L (3.5-5.1); PROTEIN - SERUM 7.1 g/dL (6.4-8.2); SODIUM 132 mmol/L (136-145); UREA NITROGEN 6 mg/dL (7-18); eGFR NON AFRICAN AMERICAN > 90 mL/min (90-120)
[2017-06-24 06:07] LABS: INR 1.58 (0.85-1.17); PROTIME 18.3 SECONDS (11.6-15.0)
[2017-06-24 06:21] LABS: ANISOCYTOSIS 1+; EOSINOPHILS 1 % (0-7); HYPOCHROMASIA 1+; LYMPHOCYTES 16 % (15-50); MONOCYTES 12 % (2-11); NEUTROPHILS 70 % (40-80); PLATELET ESTIMATE DECREASED; POIKILOCYTOSIS 1+
[2017-06-24 08:00] VITALS: BP 92/62
[2017-06-24 12:00] VITALS: BP 95/63
[2017-06-24 15:14] LABS: FUNGUS STAIN Final report (())
[2017-06-24 16:00] VITALS: BP 95/68
[2017-06-24 19:09] LABS: AFB SPECIMEN PROCESSING Not Indicated (())
[2017-06-25 03:54] VITALS: BP 96/61
[2017-06-25 06:15] LABS: BASOPHILS 0.2 % (0-2); EOSINOPHILS 1.6 % (0-7); HEMATOCRIT 33.8 % (36.0-48.0); HEMOGLOBIN 9.9 g/dL (12-16); IMMATURE GRANULOCYTES 0.2 % (0-5); LYMPHOCYTES 12.2 % (15-50); MCH 24.5 pg (26.0-34.0); MCHC 29.3 g/dL (31.0-37.0); MCV 83.7 fL (80.0-100.0); MONOCYTES 17.1 % (2-11); NEUTROPHILS 68.7 % (40-80); PLATELET COUNT 160 10x3/uL (130-400); RBC 4.04 10x6/uL (4.00-5.40); RDW 27.6 % (11.5-14.5)
[2017-06-25 06:30] LABS: ALBUMIN 2.5 g/dL (3.4-5.0); ALKALINE PHOSPHATASE 175 U/L (46-116); ALT (SGPT) 16 U/L (10-68); CALC OSMOLALITY 264 mosm/kg (275-300); CALCIUM 8.6 mg/dL (8.5-10.1); CARBON DIOXIDE 36.2 mmol/L (21.0-32.0); CHLORIDE - SERUM 94 mmol/L (98-107); CREATININE - SERUM 0.7 mg/dL (0.6-1.3); GLUCOSE 87 mg/dL (74-106); POTASSIUM - SERUM 3.9 mmol/L (3.5-5.1); PROTEIN - SERUM 6.8 g/dL (6.4-8.2); SODIUM 134 mmol/L (136-145); UREA NITROGEN 7 mg/dL (7-18); eGFR NON AFRICAN AMERICAN > 90 mL/min (90-120)
[2017-06-25 08:30] VITALS: BP 92/59
[2017-06-25 12:06] VITALS: BP 84/57
[2017-06-25 12:18] LABS: INR 1.47 (0.85-1.17); PROTIME 17.4 SECONDS (11.6-15.0)
[2017-06-25 15:09] VITALS: BP 92/66
[2017-06-25 16:06] VITALS: BP 92/56
[2017-06-25 21:25] VITALS: BP 104/65
[2017-06-26 00:36] VITALS: BP 85/49
[2017-06-26 04:45] VITALS: BP 95/44
[2017-06-26 04:49] LABS: BASOPHILS 0.4 % (0-2); HEMATOCRIT 31.3 % (36.0-48.0); HEMOGLOBIN 9.3 g/dL (12-16); IMMATURE GRANULOCYTES 0.2 % (0-5); LYMPHOCYTES 11.9 % (15-50); MCH 24.4 pg (26.0-34.0); MCHC 29.7 g/dL (31.0-37.0); MCV 82.2 fL (80.0-100.0); MONOCYTES 13.7 % (2-11); NEUTROPHILS 71.8 % (40-80); PLATELET COUNT 153 10x3/uL (130-400); RBC 3.81 10x6/uL (4.00-5.40); RDW 26.9 % (11.5-14.5); WBC 8.1 10x3/uL (4.8-10.8)
[2017-06-26 05:09] LABS: INR 1.51 (0.85-1.17); PROTIME 17.7 SECONDS (11.6-15.0)
[2017-06-26 06:27] LABS: ALBUMIN 2.5 g/dL (3.4-5.0); ANION GAP 9.2 mmol/L (8-16); BILIRUBIN - TOTAL 1.58 mg/dL (0.2-1.3); CALCIUM 8.6 mg/dL (8.5-10.1); POTASSIUM - SERUM 4.2 mmol/L (3.5-5.1); PROTEIN - SERUM 6.7 g/dL (6.4-8.2)
[2017-06-26 08:05] VITALS: BP 92/53
[2017-06-26 12:10] VITALS: BP 94/54
[2017-06-26 15:01] VITALS: BP 90/57
[2017-06-26 21:11] VITALS: BP 103/41
[2017-06-27 01:27] VITALS: BP 108/64
[2017-06-27 06:51] LABS: INR 1.43 (0.85-1.17); PROTIME 16.9 SECONDS (11.6-15.0)
[2017-06-27 07:54] VITALS: BP 105/80
[2017-06-27 12:33] VITALS: BP 91/64
[2017-06-27 14:26] LABS: BASOPHILS 0.4 % (0-2); EOSINOPHILS 1.1 % (0-7); HEMATOCRIT 30.9 % (36.0-48.0); HEMOGLOBIN 9.2 g/dL (12-16); IMMATURE GRANULOCYTES 0.3 % (0-5); LYMPHOCYTES 11.6 % (15-50); MCH 24.7 pg (26.0-34.0); MCHC 29.8 g/dL (31.0-37.0); MCV 82.8 fL (80.0-100.0); MONOCYTES 16.8 % (2-11); NEUTROPHILS 69.8 % (40-80); PLATELET COUNT 160 10x3/uL (130-400); RBC 3.73 10x6/uL (4.00-5.40); RDW 27.1 % (11.5-14.5)
[2017-06-27 14:58] LABS: CALC OSMOLALITY 270 mosm/kg (275-300); CALCIUM 8.5 mg/dL (8.5-10.1); CARBON DIOXIDE 38.2 mmol/L (21.0-32.0); CHLORIDE - SERUM 94 mmol/L (98-107); CREATININE - SERUM 0.8 mg/dL (0.6-1.3); GLUCOSE 98 mg/dL (74-106); POTASSIUM - SERUM 3.6 mmol/L (3.5-5.1); SODIUM 136 mmol/L (136-145); UREA NITROGEN 9 mg/dL (7-18); eGFR NON AFRICAN AMERICAN 89 mL/min (90-120)
[2017-06-27 16:10] VITALS: BP 99/52
[2017-06-28] VITALS: BP 103/63
[2017-06-28 06:24] VITALS: BP 97/61
[2017-06-28 07:12] LABS: BASOPHILS 0.4 % (0-2); EOSINOPHILS 1.4 % (0-7); HEMATOCRIT 31.2 % (36.0-48.0); HEMOGLOBIN 9.3 g/dL (12-16); IMMATURE GRANULOCYTES 0.2 % (0-5); LYMPHOCYTES 14.1 % (15-50); MCH 24.5 pg (26.0-34.0); MCHC 29.8 g/dL (31.0-37.0); MCV 82.1 fL (80.0-100.0); NEUTROPHILS 69.9 % (40-80); PLATELET COUNT 151 10x3/uL (130-400); RDW 27.3 % (11.5-14.5); WBC 8.3 10x3/uL (4.8-10.8)
[2017-06-28 07:25] LABS: INR 1.54 (0.85-1.17)
[2017-06-28 07:46] LABS: ALBUMIN 2.5 g/dL (3.4-5.0); ALKALINE PHOSPHATASE 175 U/L (46-116); ALT (SGPT) 20 U/L (10-68); CALC OSMOLALITY 266 mosm/kg (275-300); CALCIUM 8.7 mg/dL (8.5-10.1); CARBON DIOXIDE 35.3 mmol/L (21.0-32.0); CHLORIDE - SERUM 94 mmol/L (98-107); CREATININE - SERUM 0.7 mg/dL (0.6-1.3); GLUCOSE 79 mg/dL (74-106); PROTEIN - SERUM 7.3 g/dL (6.4-8.2); SODIUM 135 mmol/L (136-145); UREA NITROGEN 8 mg/dL (7-18); eGFR NON AFRICAN AMERICAN > 90 mL/min (90-120)
[2017-06-28 07:47] LABS: POTASSIUM - SERUM 4.7 mmol/L (3.5-5.1)
[2017-06-28 12:25] VITALS: BP 103/66
[2017-06-28 16:18] VITALS: BP 102/60
[2017-06-28 20:50] VITALS: BP 102/63
[2017-06-29 01:45] VITALS: BP 96/48
[2017-06-29 07:01] VITALS: BP 94/57
[2017-06-29 07:44] LABS: BASOPHILS 0.3 % (0-2); EOSINOPHILS 1.2 % (0-7); HEMATOCRIT 31.4 % (36.0-48.0); HEMOGLOBIN 9.3 g/dL (12-16); IMMATURE GRANULOCYTES 0.1 % (0-5); LYMPHOCYTES 15.8 % (15-50); MCH 24.7 pg (26.0-34.0); MCHC 29.6 g/dL (31.0-37.0); MCV 83.3 fL (80.0-100.0); MEAN PLATELET VOLUME 10.7 fL (7.4-10.4); MONOCYTES 13.9 % (2-11); NEUTROPHILS 68.7 % (40-80); PLATELET COUNT 238 10x3/uL (130-400); RBC 3.77 10x6/uL (4.00-5.40); RDW 27.4 % (11.5-14.5); WBC 7.3 10x3/uL (4.8-10.8)
[2017-06-29 07:52] LABS: INR 1.44 (0.85-1.17); PROTIME 17.1 SECONDS (11.6-15.0)
[2017-06-29 08:12] LABS: ALBUMIN 2.5 g/dL (3.4-5.0); ALKALINE PHOSPHATASE 158 U/L (46-116); ALT (SGPT) 18 U/L (10-68); BILIRUBIN - TOTAL 1.65 mg/dL (0.2-1.3); CALCIUM 8.4 mg/dL (8.5-10.1); CARBON DIOXIDE 34.9 mmol/L (21.0-32.0); CHLORIDE - SERUM 94 mmol/L (98-107); CREATININE - SERUM 0.7 mg/dL (0.6-1.3); GLUCOSE 107 mg/dL (74-106); PROTEIN - SERUM 6.8 g/dL (6.4-8.2); SODIUM 136 mmol/L (136-145); eGFR NON AFRICAN AMERICAN > 90 mL/min (90-120)
[2017-06-29 08:14] LABS: CALC OSMOLALITY 268 mosm/kg (275-300); POTASSIUM - SERUM 3.2 mmol/L (3.5-5.1); UREA NITROGEN 5 mg/dL (7-18)
[2017-06-29 09:25] VITALS: BP 96/53
[2017-06-29 12:43] VITALS: BP 99/52
[2017-06-29 17:32] VITALS: BP 104/71
[2017-06-29 20:00] VITALS: BP 94/55
[2017-06-30] VITALS: BP 91/62
[2017-06-30 04:00] VITALS: BP 87/46
[2017-06-30 05:31] LABS: BASOPHILS 0.5 % (0-2); EOSINOPHILS 1.3 % (0-7); HEMATOCRIT 30.4 % (36.0-48.0); HEMOGLOBIN 9.2 g/dL (12-16); IMMATURE GRANULOCYTES 0.2 % (0-5); LYMPHOCYTES 15.5 % (15-50); MCHC 30.3 g/dL (31.0-37.0); MCV 82.6 fL (80.0-100.0); MEAN PLATELET VOLUME 11.3 fL (7.4-10.4); NEUTROPHILS 65.5 % (40-80); PLATELET COUNT 272 10x3/uL (130-400); RBC 3.68 10x6/uL (4.00-5.40); RDW 27.4 % (11.5-14.5); WBC 6.4 10x3/uL (4.8-10.8)
[2017-06-30 05:42] LABS: INR 1.43 (0.85-1.17)
[2017-06-30 05:51] LABS: ALBUMIN 2.4 g/dL (3.4-5.0); ALKALINE PHOSPHATASE 151 U/L (46-116); ALT (SGPT) 17 U/L (10-68); BILIRUBIN - TOTAL 1.22 mg/dL (0.2-1.3); C-REACTIVE PROTEIN 3.5 mg/dL (0.0-0.9); CALC OSMOLALITY 267 mosm/kg (275-300); CALCIUM 8.5 mg/dL (8.5-10.1); CARBON DIOXIDE 35.2 mmol/L (21.0-32.0); CHLORIDE - SERUM 95 mmol/L (98-107); CREATININE - SERUM 0.7 mg/dL (0.6-1.3); GLUCOSE 74 mg/dL (74-106); POTASSIUM - SERUM 3.3 mmol/L (3.5-5.1); SODIUM 136 mmol/L (136-145); UREA NITROGEN 5 mg/dL (7-18); eGFR NON AFRICAN AMERICAN > 90 mL/min (90-120)
[2017-06-30 07:47] LABS: ERYTHROCYTE SEDIMENTATION RATE 35 mm/hr (0-20)
[2017-06-30 10:18] VITALS: BP 88/58
[2017-06-30 17:37] VITALS: BP 92/53
[2017-06-30 22:33] VITALS: BP 102/57
[2017-07-01 04:40] VITALS: BP 93/60
[2017-07-01 05:39] LABS: BASOPHILS 0.3 % (0-2); EOSINOPHILS 1.7 % (0-7); HEMATOCRIT 33.9 % (36.0-48.0); HEMOGLOBIN 10.1 g/dL (12-16); IMMATURE GRANULOCYTES 0.4 % (0-5); LYMPHOCYTES 14.2 % (15-50); MCH 24.9 pg (26.0-34.0); MCHC 29.8 g/dL (31.0-37.0); MCV 83.5 fL (80.0-100.0); MONOCYTES 14.3 % (2-11); NEUTROPHILS 69.1 % (40-80); PLATELET COUNT 305 10x3/uL (130-400); RBC 4.06 10x6/uL (4.00-5.40); RDW 27.6 % (11.5-14.5); WBC 7.5 10x3/uL (4.8-10.8)
[2017-07-01 06:15] LABS: ALBUMIN 2.8 g/dL (3.4-5.0); ALKALINE PHOSPHATASE 167 U/L (46-116); ALT (SGPT) 18 U/L (10-68); CALC OSMOLALITY 269 mosm/kg (275-300); CALCIUM 8.9 mg/dL (8.5-10.1); CARBON DIOXIDE 36.6 mmol/L (21.0-32.0); CHLORIDE - SERUM 94 mmol/L (98-107); CREATININE - SERUM 0.7 mg/dL (0.6-1.3); GLUCOSE 76 mg/dL (74-106); PROTEIN - SERUM 7.5 g/dL (6.4-8.2); SODIUM 137 mmol/L (136-145); UREA NITROGEN 5 mg/dL (7-18); eGFR NON AFRICAN AMERICAN > 90 mL/min (90-120)
[2017-07-01 06:21] LABS: POTASSIUM - SERUM 3.6 mmol/L (3.5-5.1)
[2017-07-01 07:57] VITALS: BP 104/72
[2017-07-01 11:19] VITALS: BP 97/61
[2017-07-01 15:54] VITALS: BP 121/073
[2017-07-01 21:44] VITALS: BP 102/61
[2017-07-02] VITALS (7 sets, daily range): BP systolic 80–108; BP diastolic 56–69
[2017-07-02 06:29] LABS: BASOPHILS 0.4 % (0-2); HEMATOCRIT 31.3 % (36.0-48.0); HEMOGLOBIN 9.5 g/dL (12-16); IMMATURE GRANULOCYTES 0.3 % (0-5); LYMPHOCYTES 14.7 % (15-50); MCH 25.5 pg (26.0-34.0); MCHC 30.4 g/dL (31.0-37.0); MCV 83.9 fL (80.0-100.0); MEAN PLATELET VOLUME 10.4 fL (7.4-10.4); MONOCYTES 13.8 % (2-11); NEUTROPHILS 68.8 % (40-80); PLATELET COUNT 327 10x3/uL (130-400); RBC 3.73 10x6/uL (4.00-5.40); RDW 27.5 % (11.5-14.5)
[2017-07-02 07:19] LABS: ALBUMIN 2.5 g/dL (3.4-5.0); ALKALINE PHOSPHATASE 158 U/L (46-116); ALT (SGPT) 18 U/L (10-68); BILIRUBIN - TOTAL 1.02 mg/dL (0.2-1.3); CALC OSMOLALITY 267 mosm/kg (275-300); CALCIUM 8.7 mg/dL (8.5-10.1); CARBON DIOXIDE 32.3 mmol/L (21.0-32.0); CHLORIDE - SERUM 96 mmol/L (98-107); CREATININE - SERUM 0.7 mg/dL (0.6-1.3); GLUCOSE 77 mg/dL (74-106); PROTEIN - SERUM 6.8 g/dL (6.4-8.2); SODIUM 136 mmol/L (136-145); UREA NITROGEN 4 mg/dL (7-18); eGFR NON AFRICAN AMERICAN > 90 mL/min (90-120)
[2017-07-03 04:49] VITALS: BP 106/64
[2017-07-03 05:51] LABS: BASOPHILS 0.1 % (0-2); EOSINOPHILS 0 % (0-7); HEMATOCRIT 33.3 % (36.0-48.0); HEMOGLOBIN 9.8 g/dL (12-16); IMMATURE GRANULOCYTES 0.1 % (0-5); LYMPHOCYTES 6.2 % (15-50); MCH 24.8 pg (26.0-34.0); MCHC 29.4 g/dL (31.0-37.0); MCV 84.3 fL (80.0-100.0); MEAN PLATELET VOLUME 11.1 fL (7.4-10.4); MONOCYTES 1.3 % (2-11); NEUTROPHILS 92.3 % (40-80); PLATELET COUNT 353 10x3/uL (130-400); RBC 3.95 10x6/uL (4.00-5.40); RDW 27.5 % (11.5-14.5); WBC 7.6 10x3/uL (4.8-10.8)
[2017-07-03 06:07] LABS: CALCIUM 9.4 mg/dL (8.5-10.1); CARBON DIOXIDE 31.8 mmol/L (21.0-32.0); CHLORIDE - SERUM 93 mmol/L (98-107); CREATININE - SERUM 0.8 mg/dL (0.6-1.3); POTASSIUM - SERUM 3.9 mmol/L (3.5-5.1); SODIUM 133 mmol/L (136-145); eGFR NON AFRICAN AMERICAN 89 mL/min (90-120)
[2017-07-03 06:13] LABS: CALC OSMOLALITY 268 mosm/kg (275-300); GLUCOSE 187 mg/dL (74-106); UREA NITROGEN 7 mg/dL (7-18)
[2017-07-03 06:51] LABS: INR 1.89 (0.85-1.17); PROTIME 21.1 SECONDS (11.6-15.0)
[2017-07-03 08:01] VITALS: BP 100/64
[2017-07-03 12:33] VITALS: BP 117/40
[2017-07-03 16:06] VITALS: BP 106/66
[2017-07-03 19:00] VITALS: BP 105/68
[2017-07-04 04:00] VITALS: BP 93/66
[2017-07-04 05:04] LABS: BASOPHILS 0 % (0-2); EOSINOPHILS 0 % (0-7); HEMATOCRIT 33.1 % (36.0-48.0); HEMOGLOBIN 9.9 g/dL (12-16); IMMATURE GRANULOCYTES 0.2 % (0-5); LYMPHOCYTES 5.2 % (15-50); MCH 25.2 pg (26.0-34.0); MCHC 29.9 g/dL (31.0-37.0); MCV 84.2 fL (80.0-100.0); MEAN PLATELET VOLUME 11.1 fL (7.4-10.4); NEUTROPHILS 88.6 % (40-80); PLATELET COUNT 402 10x3/uL (130-400); RBC 3.93 10x6/uL (4.00-5.40); RDW 27.3 % (11.5-14.5)
[2017-07-04 05:16] LABS: WBC 12.4 10x3/uL (4.8-10.8)
[2017-07-04 05:45] LABS: CALCIUM 9.4 mg/dL (8.5-10.1); CARBON DIOXIDE 32.7 mmol/L (21.0-32.0); CHLORIDE - SERUM 94 mmol/L (98-107); CREATININE - SERUM 0.8 mg/dL (0.6-1.3); SODIUM 134 mmol/L (136-145); eGFR NON AFRICAN AMERICAN 89 mL/min (90-120)
[2017-07-04 05:46] LABS: INR 2.39 (0.85-1.17); PROTIME 25.4 SECONDS (11.6-15.0)
[2017-07-04 05:56] LABS: CALC OSMOLALITY 268 mosm/kg (275-300); GLUCOSE 123 mg/dL (74-106); UREA NITROGEN 12 mg/dL (7-18)
[2017-07-04 07:43] VITALS: BP 107/75
[2017-07-04 11:53] VITALS: BP 103/67
[2017-07-04 15:52] VITALS: BP 143/66
[2017-07-04 21:26] VITALS: BP 112/70
[2017-07-05 01:29] VITALS: BP 114/54
[2017-07-05 05:35] LABS: BASOPHILS 0 % (0-2); EOSINOPHILS 0 % (0-7); HEMOGLOBIN 9.9 g/dL (12-16); IMMATURE GRANULOCYTES 0.3 % (0-5); LYMPHOCYTES 4.1 % (15-50); MCH 25.4 pg (26.0-34.0); MCV 84.6 fL (80.0-100.0); MEAN PLATELET VOLUME 10.7 fL (7.4-10.4); MONOCYTES 7.4 % (2-11); NEUTROPHILS 88.2 % (40-80); PLATELET COUNT 430 10x3/uL (130-400); RDW 27.4 % (11.5-14.5); WBC 11.8 10x3/uL (4.8-10.8)
[2017-07-05 05:52] LABS: ANION GAP 9.7 mmol/L (8-16); CALCIUM 9.3 mg/dL (8.5-10.1); CARBON DIOXIDE 32.8 mmol/L (21.0-32.0); INR 2.47 (0.85-1.17); POTASSIUM - SERUM 3.5 mmol/L (3.5-5.1); PROTIME 26.1 SECONDS (11.6-15.0)
[2017-07-05 08:22] VITALS: BP 106/71
[2017-07-05 12:55] VITALS: Ht 175.3 cm; Wt 84.9 kg
[2017-07-05 16:25] VITALS: BP 110/75
[2017-07-05 21:27] VITALS: BP 110/66
[2017-07-06 01:46] VITALS: BP 100/68
[2017-07-06 05:40] VITALS: BP 102/65
[2017-07-06 06:41] LABS: INR 2.24 (0.85-1.17); PROTIME 24.2 SECONDS (11.6-15.0)
[2017-07-06 08:49] VITALS: BP 101/70
[2017-07-06 12:52] VITALS: BP 97/58
[2017-07-06 16:14] VITALS: BP 106/73
[2017-07-06 19:00] VITALS: BP 120/80
[2017-07-07 04:00] VITALS: BP 114/79
[2017-07-07 06:27] LABS: INR 1.87 (0.85-1.17); PROTIME 20.9 SECONDS (11.6-15.0)
[2017-07-07 08:00] VITALS: BP 111/68
[2017-07-07 10:45] LABS: BASOPHILS 0 % (0-2); EOSINOPHILS 0 % (0-7); HEMATOCRIT 36.6 % (36.0-48.0); HEMOGLOBIN 10.7 g/dL (12-16); IMMATURE GRANULOCYTES 0.5 % (0-5); LYMPHOCYTES 11.5 % (15-50); MCH 25.4 pg (26.0-34.0); MCHC 29.2 g/dL (31.0-37.0); MCV 86.7 fL (80.0-100.0); MEAN PLATELET VOLUME 11.4 fL (7.4-10.4); MONOCYTES 11.3 % (2-11); NEUTROPHILS 76.7 % (40-80); PLATELET COUNT 471 10x3/uL (130-400); RBC 4.22 10x6/uL (4.00-5.40); RDW 26.8 % (11.5-14.5); WBC 10.1 10x3/uL (4.8-10.8)
[2017-07-07 10:54] LABS: ALBUMIN 3.2 g/dL (3.4-5.0); ALKALINE PHOSPHATASE 198 U/L (46-116); ALT (SGPT) 46 U/L (10-68); BILIRUBIN - TOTAL 1.08 mg/dL (0.2-1.3); CALC OSMOLALITY 275 mosm/kg (275-300); CALCIUM 9.6 mg/dL (8.5-10.1); CARBON DIOXIDE 33.7 mmol/L (21.0-32.0); CHLORIDE - SERUM 95 mmol/L (98-107); CREATININE - SERUM 0.9 mg/dL (0.6-1.3); GLUCOSE 91 mg/dL (74-106); POTASSIUM - SERUM 3.4 mmol/L (3.5-5.1); PROTEIN - SERUM 8.3 g/dL (6.4-8.2); SODIUM 136 mmol/L (136-145); UREA NITROGEN 24 mg/dL (7-18); eGFR NON AFRICAN AMERICAN 78 mL/min (90-120)
[2017-07-07 13:48] VITALS: BP 121/87
[2017-07-07 17:04] VITALS: BP 119/72
[2017-07-07 20:46] VITALS: BP 106/75
[2017-07-07 23:44] VITALS: BP 110/74
[2017-07-08 04:46] VITALS: BP 119/84
[2017-07-08 05:38] LABS: BASOPHILS 0 % (0-2); EOSINOPHILS 1.1 % (0-7); HEMATOCRIT 34.7 % (36.0-48.0); HEMOGLOBIN 10.2 g/dL (12-16); IMMATURE GRANULOCYTES 0.5 % (0-5); LYMPHOCYTES 13.6 % (15-50); MCH 25.3 pg (26.0-34.0); MCHC 29.4 g/dL (31.0-37.0); MCV 86.1 fL (80.0-100.0); MEAN PLATELET VOLUME 10.6 fL (7.4-10.4); MONOCYTES 12.3 % (2-11); NEUTROPHILS 72.5 % (40-80); PLATELET COUNT 397 10x3/uL (130-400); RBC 4.03 10x6/uL (4.00-5.40); RDW 26.5 % (11.5-14.5)
[2017-07-08 05:51] LABS: INR 1.83 (0.85-1.17); PROTIME 20.6 SECONDS (11.6-15.0)
[2017-07-08 06:21] LABS: ALBUMIN 2.9 g/dL (3.4-5.0); ALKALINE PHOSPHATASE 170 U/L (46-116); ALT (SGPT) 44 U/L (10-68); CALC OSMOLALITY 267 mosm/kg (275-300); CARBON DIOXIDE 32.9 mmol/L (21.0-32.0); CHLORIDE - SERUM 94 mmol/L (98-107); CREATININE - SERUM 0.8 mg/dL (0.6-1.3); GLUCOSE 87 mg/dL (74-106); POTASSIUM - SERUM 3.5 mmol/L (3.5-5.1); PROTEIN - SERUM 7.5 g/dL (6.4-8.2); SODIUM 133 mmol/L (136-145); UREA NITROGEN 21 mg/dL (7-18); eGFR NON AFRICAN AMERICAN 89 mL/min (90-120)
[2017-07-08 09:33] VITALS: BP 102/72
[2017-07-08 13:26] VITALS: BP 125/79
[2017-07-08 19:00] VITALS: BP 113/79
[2017-07-09] VITALS: BP 125/83
[2017-07-09 04:00] VITALS: BP 137/91
[2017-07-09 06:50] LABS: HEMOGLOBIN 11.3 g/dL (12-16); LYMPHOCYTES 11.7 % (15-50); MCH 25.2 pg (26.0-34.0); MCHC 29.7 g/dL (31.0-37.0); MCV 84.8 fL (80.0-100.0); MEAN PLATELET VOLUME 10.3 fL (7.4-10.4); PLATELET COUNT 357 10x3/uL (130-400); RBC 4.48 10x6/uL (4.00-5.40); RDW 28.1 % (11.5-14.5); WBC 8.6 10x3/uL (4.8-10.8)
[2017-07-09 06:57] LABS: INR 1.64 (0.85-1.17); PROTIME 18.9 SECONDS (11.6-15.0)
[2017-07-09 07:12] LABS: ALBUMIN 3.3 g/dL (3.4-5.0); ALKALINE PHOSPHATASE 202 U/L (46-116); ALT (SGPT) 45 U/L (10-68); CALC OSMOLALITY 280 mosm/kg (275-300); CALCIUM 9.3 mg/dL (8.5-10.1); CARBON DIOXIDE 36.6 mmol/L (21.0-32.0); CHLORIDE - SERUM 96 mmol/L (98-107); CREATININE - SERUM 0.7 mg/dL (0.6-1.3); GLUCOSE 80 mg/dL (74-106); POTASSIUM - SERUM 3.3 mmol/L (3.5-5.1); PROTEIN - SERUM 8.2 g/dL (6.4-8.2); SODIUM 141 mmol/L (136-145); UREA NITROGEN 16 mg/dL (7-18); eGFR NON AFRICAN AMERICAN > 90 mL/min (90-120)
[2017-07-09 08:32] VITALS: BP 127/84
[2017-07-09 21:52] VITALS: BP 121/79
[2017-07-10 06:17] VITALS: BP 127/73
[2017-07-10 06:37] LABS: INR 1.76 (0.85-1.17)
[2017-07-10 06:42] LABS: BASOPHILS 0 % (0-2); EOSINOPHILS 1.4 % (0-7); HEMATOCRIT 35.3 % (36.0-48.0); HEMOGLOBIN 10.5 g/dL (12-16); IMMATURE GRANULOCYTES 0.2 % (0-5); LYMPHOCYTES 14.4 % (15-50); MCH 25.5 pg (26.0-34.0); MCHC 29.7 g/dL (31.0-37.0); MCV 85.9 fL (80.0-100.0); MEAN PLATELET VOLUME 11.1 fL (7.4-10.4); MONOCYTES 10.4 % (2-11); NEUTROPHILS 73.6 % (40-80); PLATELET COUNT 314 10x3/uL (130-400); RBC 4.11 10x6/uL (4.00-5.40); RDW 26.8 % (11.5-14.5); WBC 8.3 10x3/uL (4.8-10.8)
[2017-07-10 06:53] LABS: ALBUMIN 2.9 g/dL (3.4-5.0); ALKALINE PHOSPHATASE 157 U/L (46-116); ALT (SGPT) 35 U/L (10-68); CALCIUM 9.2 mg/dL (8.5-10.1); CARBON DIOXIDE 38.8 mmol/L (21.0-32.0); CHLORIDE - SERUM 98 mmol/L (98-107); CREATININE - SERUM 0.7 mg/dL (0.6-1.3); PROTEIN - SERUM 7.3 g/dL (6.4-8.2); SODIUM 142 mmol/L (136-145); UREA NITROGEN 12 mg/dL (7-18); eGFR NON AFRICAN AMERICAN > 90 mL/min (90-120)
[2017-07-10 07:01] LABS: CALC OSMOLALITY 280 mosm/kg (275-300); GLUCOSE 66 mg/dL (74-106)
[2017-07-10 07:06] LABS: POTASSIUM - SERUM 2.9 mmol/L (3.5-5.1)
[2017-07-10 08:49] VITALS: BP 121/78
[2017-07-10 12:29] VITALS: BP 100/65
[2017-07-10 17:00] VITALS: BP 111/75
[2017-07-10 20:30] VITALS: BP 128/77
[2017-07-11] VITALS: BP 120/78
[2017-07-11 06:21] VITALS: BP 127/93
[2017-07-11 07:20] LABS: BASOPHILS 0 % (0-2); EOSINOPHILS 0.9 % (0-7); HEMATOCRIT 35.1 % (36.0-48.0); HEMOGLOBIN 10.5 g/dL (12-16); IMMATURE GRANULOCYTES 0.3 % (0-5); LYMPHOCYTES 15.6 % (15-50); MCH 25.5 pg (26.0-34.0); MCHC 29.9 g/dL (31.0-37.0); MCV 85.4 fL (80.0-100.0); MEAN PLATELET VOLUME 10.7 fL (7.4-10.4); NEUTROPHILS 69.2 % (40-80); PLATELET COUNT 319 10x3/uL (130-400); RBC 4.11 10x6/uL (4.00-5.40); RDW 26.3 % (11.5-14.5); WBC 9.5 10x3/uL (4.8-10.8)
[2017-07-11 07:30] LABS: INR 1.58 (0.85-1.17); PROTIME 18.4 SECONDS (11.6-15.0)
[2017-07-11 07:44] LABS: ALBUMIN 3.1 g/dL (3.4-5.0); ALKALINE PHOSPHATASE 154 U/L (46-116); ALT (SGPT) 34 U/L (10-68); BILIRUBIN - TOTAL 1.63 mg/dL (0.2-1.3); CALC OSMOLALITY 275 mosm/kg (275-300); CALCIUM 9.4 mg/dL (8.5-10.1); CARBON DIOXIDE 32.4 mmol/L (21.0-32.0); CHLORIDE - SERUM 96 mmol/L (98-107); CREATININE - SERUM 0.8 mg/dL (0.6-1.3); GLUCOSE 85 mg/dL (74-106); POTASSIUM - SERUM 3.6 mmol/L (3.5-5.1); PROTEIN - SERUM 7.7 g/dL (6.4-8.2); SODIUM 139 mmol/L (136-145); UREA NITROGEN 10 mg/dL (7-18); eGFR NON AFRICAN AMERICAN 89 mL/min (90-120)
[2017-07-11 08:04] VITALS: BP 130/89
[2017-07-11 17:26] VITALS: BP 110/68
[2017-07-11 22:08] VITALS: BP 101/73
[2017-07-12 04:00] VITALS: BP 106/64
[2017-07-12 06:31] LABS: BASOPHILS 0 % (0-2); EOSINOPHILS 0.7 % (0-7); HEMATOCRIT 36.5 % (36.0-48.0); HEMOGLOBIN 11.1 g/dL (12-16); IMMATURE GRANULOCYTES 0.2 % (0-5); MCHC 30.4 g/dL (31.0-37.0); MCV 85.5 fL (80.0-100.0); MEAN PLATELET VOLUME 10.3 fL (7.4-10.4); MONOCYTES 14.2 % (2-11); NEUTROPHILS 70.9 % (40-80); PLATELET COUNT 289 10x3/uL (130-400); RBC 4.27 10x6/uL (4.00-5.40); RDW 26.3 % (11.5-14.5); WBC 8.5 10x3/uL (4.8-10.8)
[2017-07-12 07:01] LABS: ALBUMIN 3.1 g/dL (3.4-5.0); ALKALINE PHOSPHATASE 137 U/L (46-116); ALT (SGPT) 32 U/L (10-68); BILIRUBIN - TOTAL 2.01 mg/dL (0.2-1.3); CALC OSMOLALITY 277 mosm/kg (275-300); CALCIUM 9.2 mg/dL (8.5-10.1); CARBON DIOXIDE 36.9 mmol/L (21.0-32.0); CHLORIDE - SERUM 96 mmol/L (98-107); CREATININE - SERUM 0.8 mg/dL (0.6-1.3); POTASSIUM - SERUM 3.1 mmol/L (3.5-5.1); PROTEIN - SERUM 7.4 g/dL (6.4-8.2); SODIUM 141 mmol/L (136-145); UREA NITROGEN 9 mg/dL (7-18); eGFR NON AFRICAN AMERICAN 89 mL/min (90-120)
[2017-07-12 07:05] LABS: GLUCOSE 66 mg/dL (74-106); INR 1.69 (0.85-1.17); PROTIME 19.3 SECONDS (11.6-15.0)
[2017-07-12 08:44] VITALS: BP 102/76
[2017-07-12 14:16] LABS: MAGNESIUM - SERUM 2.2 mg/dL (1.8-2.4); PHOSPHOROUS 3.4 mg/dL (2.5-4.9)
[2017-07-12 20:00] VITALS: BP 113/74
[2017-07-13] VITALS: BP 122/91
[2017-07-13 05:32] LABS: HEMATOCRIT 36.3 % (36.0-48.0); HEMOGLOBIN 10.8 g/dL (12-16); MCH 25.9 pg (26.0-34.0); MCHC 29.8 g/dL (31.0-37.0); MCV 87.1 fL (80.0-100.0); MEAN PLATELET VOLUME 11.2 fL (7.4-10.4); PLATELET COUNT 272 10x3/uL (130-400); RBC 4.17 10x6/uL (4.00-5.40); RDW 26.1 % (11.5-14.5); WBC 8.3 10x3/uL (4.8-10.8)
[2017-07-13 05:43] LABS: INR 1.58 (0.85-1.17); PROTIME 18.4 SECONDS (11.6-15.0)
[2017-07-13 05:50] LABS: ALBUMIN 3.2 g/dL (3.4-5.0); ALKALINE PHOSPHATASE 140 U/L (46-116); ALT (SGPT) 35 U/L (10-68); BILIRUBIN - TOTAL 1.73 mg/dL (0.2-1.3); CALCIUM 9.5 mg/dL (8.5-10.1); CARBON DIOXIDE 36.1 mmol/L (21.0-32.0); CHLORIDE - SERUM 96 mmol/L (98-107); CREATININE - SERUM 0.8 mg/dL (0.6-1.3); MAGNESIUM - SERUM 2.3 mg/dL (1.8-2.4); PHOSPHOROUS 3.7 mg/dL (2.5-4.9); PROTEIN - SERUM 7.6 g/dL (6.4-8.2); SODIUM 139 mmol/L (136-145); UREA NITROGEN 7 mg/dL (7-18); eGFR NON AFRICAN AMERICAN 89 mL/min (90-120)
[2017-07-13 05:52] LABS: CALC OSMOLALITY 273 mosm/kg (275-300); GLUCOSE 68 mg/dL (74-106); POTASSIUM - SERUM 3.8 mmol/L (3.5-5.1)
[2017-07-13 06:00] VITALS: BP 123/89
[2017-07-13 06:35] LABS: EOSINOPHILS 4 % (0-7); LYMPHOCYTES 13 % (15-50); MONOCYTES 18 % (2-11); NEUTROPHILS 61 % (40-80); PLATELET ESTIMATE NORMAL
[2017-07-13 08:04] VITALS: BP 120/90
[2017-07-13 16:55] VITALS: BP 144/84
[2017-07-14 04:00] VITALS: BP 110/75
[2017-07-14 04:19] LABS: BASOPHILS 0.1 % (0-2); EOSINOPHILS 0.6 % (0-7); HEMATOCRIT 37.1 % (36.0-48.0); IMMATURE GRANULOCYTES 0.3 % (0-5); LYMPHOCYTES 13.7 % (15-50); MCH 25.6 pg (26.0-34.0); MCHC 29.6 g/dL (31.0-37.0); MCV 86.5 fL (80.0-100.0); MEAN PLATELET VOLUME 10.8 fL (7.4-10.4); MONOCYTES 12.4 % (2-11); NEUTROPHILS 72.9 % (40-80); PLATELET COUNT 255 10x3/uL (130-400); RBC 4.29 10x6/uL (4.00-5.40); RDW 25.8 % (11.5-14.5)
[2017-07-14 04:23] LABS: WBC 10.7 10x3/uL (4.8-10.8)
[2017-07-14 04:39] LABS: INR 1.56 (0.85-1.17); PROTIME 18.2 SECONDS (11.6-15.0)
[2017-07-14 04:49] LABS: ALBUMIN 3.5 g/dL (3.4-5.0); ALKALINE PHOSPHATASE 140 U/L (46-116); CALC OSMOLALITY 268 mosm/kg (275-300); CALCIUM 9.8 mg/dL (8.5-10.1); CARBON DIOXIDE 34.3 mmol/L (21.0-32.0); CHLORIDE - SERUM 95 mmol/L (98-107); CREATININE - SERUM 0.9 mg/dL (0.6-1.3); GLUCOSE 79 mg/dL (74-106); POTASSIUM - SERUM 3.9 mmol/L (3.5-5.1); PROTEIN - SERUM 8.4 g/dL (6.4-8.2); SODIUM 136 mmol/L (136-145); UREA NITROGEN 7 mg/dL (7-18); eGFR NON AFRICAN AMERICAN 78 mL/min (90-120)
[2017-07-14 04:56] LABS: ALT (SGPT) 26 U/L (10-68)
[2017-07-14 08:35] VITALS: BP 114/73
[2017-07-14 12:30] VITALS: BP 115/79
[2017-07-14 16:45] VITALS: BP 103/71
[2017-07-14 22:07] VITALS: BP 117/78
[2017-07-15 02:03] VITALS: BP 108/73
[2017-07-15 05:50] VITALS: BP 101/66
[2017-07-15 06:03] LABS: INR 1.61 (0.85-1.17); PROTIME 18.7 SECONDS (11.6-15.0)
[2017-07-15 06:08] LABS: ALKALINE PHOSPHATASE 124 U/L (46-116); ALT (SGPT) 23 U/L (10-68); BASOPHILS 0.1 % (0-2); BILIRUBIN - TOTAL 1.76 mg/dL (0.2-1.3); C-REACTIVE PROTEIN 4.5 mg/dL (0.0-0.9); CALCIUM 9.2 mg/dL (8.5-10.1); CARBON DIOXIDE 34.7 mmol/L (21.0-32.0); CHLORIDE - SERUM 98 mmol/L (98-107); CREATININE - SERUM 0.8 mg/dL (0.6-1.3); EOSINOPHILS 0.5 % (0-7); HEMATOCRIT 34.7 % (36.0-48.0); HEMOGLOBIN 10.5 g/dL (12-16); IMMATURE GRANULOCYTES 0.2 % (0-5); LYMPHOCYTES 13.2 % (15-50); MCH 25.8 pg (26.0-34.0); MCHC 30.3 g/dL (31.0-37.0); MCV 85.3 fL (80.0-100.0); MONOCYTES 17.5 % (2-11); NEUTROPHILS 68.5 % (40-80); PLATELET COUNT 217 10x3/uL (130-400); PROTEIN - SERUM 7.5 g/dL (6.4-8.2); RBC 4.07 10x6/uL (4.00-5.40); RDW 26.1 % (11.5-14.5); SODIUM 138 mmol/L (136-145); UREA NITROGEN 7 mg/dL (7-18); WBC 8.1 10x3/uL (4.8-10.8); eGFR NON AFRICAN AMERICAN 89 mL/min (90-120)
[2017-07-15 06:10] LABS: CALC OSMOLALITY 271 mosm/kg (275-300); GLUCOSE 68 mg/dL (74-106); POTASSIUM - SERUM 3.3 mmol/L (3.5-5.1)
[2017-07-15 08:04] VITALS: BP 105/62
[2017-07-15 08:32] LABS: ERYTHROCYTE SEDIMENTATION RATE 25 mm/hr (0-20)
[2017-07-15] MEDS ORDERED: XIFAXAN550 MG PO (11:22)
[2017-07-15] MEDS ORDERED: BROVANA15 MCG/2 M INH (11:23)
[2017-07-15] MEDS ORDERED: COUMADIN2.5 MG PO (11:23)
[2017-07-15 12:17] VITALS: BP 105/55
[2017-07-16 10:16] LABS: ANA REFLEX - DIRECT Negative (Negative)
[2017-07-21 07:27] LABS: FUNGUS MYCOLOGY CULTURE Final report (())
[2017-08-11 13:16] LABS: ACID FAST CULTURE Negative (()); ACID FAST SMEAR Negative (())
== END 2017-07-15 16:19 | disposition home health service (06) | DRG 377 ==
LOC: D.ER 13:43 → D.M2 21:21 → D.MS 21:21
PROVIDERS: Emergency Medicine; Family Medicine; General Practice; Internal Medicine Gastroenterology; Internal Medicine Nephrology; Internal Medicine Pulmonary Disease; Nurse Practitioner Family; Physician Assistant; Specialist
PROC: 0W9930Z Drainage of Right Pleural Cavity with Drainage Device, Percutaneous Approach (ICD-10-PCS; principal; 2017-06-21 12:41)
DX: K25.4 Chronic or unspecified gastric ulcer with hemorrhage (principal); I50.43 Acute on chronic combined systolic (congestive) and diastolic (congestive) heart failure; D62 Acute posthemorrhagic anemia; I42.9 Cardiomyopathy, unspecified; Z79.01 Long term (current) use of anticoagulants; D50.9 Iron deficiency anemia, unspecified; J45.909 Unspecified asthma, uncomplicated; I95.9 Hypotension, unspecified; G40.909 Epilepsy, unspecified, not intractable, without status epilepticus; K59.00 Constipation, unspecified; K76.1 Chronic passive congestion of liver; F31.9 Bipolar disorder, unspecified; E55.9 Vitamin D deficiency, unspecified; E87.6 Hypokalemia; I11.0 Hypertensive heart disease with heart failure; I50.811 Acute right heart failure; K04.7 Periapical abscess without sinus; Z95.2 Presence of prosthetic heart valve; Z86.711 Personal history of pulmonary embolism; Z72.0 Tobacco use

== ENCOUNTER 2017-07-24 00:19 | Inpatient (IN) | payer MEDICAID ==
[~2017-07-24] VITALS: Ht 175.3 cm; Wt 72.1 kg
[~2017-07-24 00:19] MED LIST changes: +BROVANA15 MCG/2 M INH; +COUMADIN2.5 MG PO; +ENDOCET 10-3251 TAB PO; +VITAMIN D31000 UNIT PO; +XIFAXAN550 MG PO
[2017-07-24 01:21] LABS: APPEARANCE CLEAR (CLEAR); BILIRUBIN NEGATIVE (NEGATIVE); COLOR YELLOW (YELLOW); GLUCOSE NEGATIVE (NEGATIVE); KETONE NEGATIVE (NEGATIVE); NITRITE NEGATIVE (NEGATIVE); PROTEIN TRACE mg/dL (NEGATIVE); RED CELLS - URINE 0-5 /hpf (0-5); UROBILINOGEN NORMAL (NORMAL); WHITE CELLS - URINE RARE /hpf (0-5)
[2017-07-24 01:45] LABS: BASOPHILS 0.3 % (0-2); EOSINOPHILS 0.8 % (0-7); HEMATOCRIT 37.7 % (36.0-48.0); HEMOGLOBIN 11.6 g/dL (12-16); IMMATURE GRANULOCYTES 0.3 % (0-5); LYMPHOCYTES 12.3 % (15-50); MCH 26.4 pg (26.0-34.0); MCHC 30.8 g/dL (31.0-37.0); MCV 85.9 fL (80.0-100.0); MONOCYTES 7.7 % (2-11); NEUTROPHILS 78.6 % (40-80); PLATELET COUNT 202 10x3/uL (130-400); RBC 4.39 10x6/uL (4.00-5.40); RDW 23.2 % (11.5-14.5); WBC 7.2 10x3/uL (4.8-10.8)
[2017-07-24 01:52] LABS: KETONE - SERUM NEGATIVE (NEGATIVE)
[2017-07-24 01:53] LABS: INR 2.02 (0.85-1.17); PROTIME 22.2 SECONDS (11.6-15.0)
[2017-07-24 01:55] LABS: HCG SERUM NEGATIVE (NEGATIVE)
[2017-07-24 02:00] LABS: ALBUMIN 3.4 g/dL (3.4-5.0); ALKALINE PHOSPHATASE 146 U/L (46-116); ALT (SGPT) 17 U/L (10-68); CALCIUM 9.1 mg/dL (8.5-10.1); CARBON DIOXIDE 26.2 mmol/L (21.0-32.0); CHLORIDE - SERUM 104 mmol/L (98-107); MAGNESIUM - SERUM 2.2 mg/dL (1.8-2.4); POTASSIUM - SERUM 3.7 mmol/L (3.5-5.1); PROTEIN - SERUM 8.4 g/dL (6.4-8.2); SODIUM 142 mmol/L (136-145); UREA NITROGEN 8 mg/dL (7-18); eGFR NON AFRICAN AMERICAN 69 mL/min (90-120)
[2017-07-24 02:02] LABS: CALC OSMOLALITY 277 mosm/kg (275-300); GLUCOSE 51 mg/dL (74-106); PHENYTOIN (DILANTIN) 0.2 ug/mL (10.0-20.0)
[2017-07-24 02:15] LABS: UDS - AMPHET NEGATIVE QUAL (NEGATIVE); UDS - BARB NEGATIVE QUAL (NEGATIVE); UDS - BENZO POSITIVE QUAL (NEGATIVE); UDS - COCAINE NEGATIVE QUAL (NEGATIVE); UDS - OPIATE NEGATIVE QUAL (NEGATIVE); UDS - PCP NEGATIVE QUAL (NEGATIVE); UDS - THC NEGATIVE QUAL (NEGATIVE)
[2017-07-24] MEDS ORDERED: COUMADIN7.5 MG PO (04:25)
[2017-07-24] MEDS ORDERED: COUMADIN5 MG PO (04:29)
[2017-07-24 04:49] VITALS: BP 101/74; BMI 23.5
[2017-07-24 05:21] VITALS: BP 101/74
[2017-07-24 08:07] VITALS: BP 92/66
[2017-07-24 12:17] VITALS: BP 97/59
[2017-07-24 15:46] VITALS: BP 95/65
[2017-07-25 00:40] VITALS: BP 87/49
[2017-07-25 04:05] VITALS: BP 89/47
[2017-07-25 05:45] LABS: BASOPHILS 0.1 % (0-2); EOSINOPHILS 1.3 % (0-7); HEMATOCRIT 32.1 % (36.0-48.0); HEMOGLOBIN 9.6 g/dL (12-16); IMMATURE GRANULOCYTES 0.3 % (0-5); LYMPHOCYTES 20.9 % (15-50); MCH 25.9 pg (26.0-34.0); MCHC 29.9 g/dL (31.0-37.0); MCV 86.5 fL (80.0-100.0); MEAN PLATELET VOLUME 11.2 fL (7.4-10.4); MONOCYTES 10.8 % (2-11); NEUTROPHILS 66.6 % (40-80); PLATELET COUNT 213 10x3/uL (130-400); RBC 3.71 10x6/uL (4.00-5.40); RDW 23.2 % (11.5-14.5); WBC 6.8 10x3/uL (4.8-10.8)
[2017-07-25 05:55] LABS: PROTIME 25.9 SECONDS (11.6-15.0)
[2017-07-25 05:56] LABS: INR 2.45 (0.85-1.17)
[2017-07-25 06:01] LABS: CALC OSMOLALITY 279 mosm/kg (275-300); CALCIUM 8.8 mg/dL (8.5-10.1); CARBON DIOXIDE 28.2 mmol/L (21.0-32.0); CHLORIDE - SERUM 103 mmol/L (98-107); CREATININE - SERUM 0.9 mg/dL (0.6-1.3); GLUCOSE 92 mg/dL (74-106); POTASSIUM - SERUM 3.8 mmol/L (3.5-5.1); SODIUM 141 mmol/L (136-145); UREA NITROGEN 9 mg/dL (7-18); eGFR NON AFRICAN AMERICAN 78 mL/min (90-120)
[2017-07-25 09:46] VITALS: BP 96/57
[2017-07-25 12:34] VITALS: BP 99/62
[2017-07-25 13:27] VITALS: Ht 175.3 cm; Wt 72.1 kg
[2017-07-25 17:05] VITALS: BP 93/66
[2017-07-25 22:02] VITALS: BP 102/63
[2017-07-26 01:28] VITALS: BP 100/68
[2017-07-26 05:06] VITALS: BP 108/70
[2017-07-26 06:32] LABS: BASOPHILS 0.3 % (0-2); EOSINOPHILS 1.8 % (0-7); HEMATOCRIT 28.2 % (36.0-48.0); HEMOGLOBIN 8.4 g/dL (12-16); IMMATURE GRANULOCYTES 0.4 % (0-5); LYMPHOCYTES 14.9 % (15-50); MCH 26.6 pg (26.0-34.0); MCHC 29.8 g/dL (31.0-37.0); MEAN PLATELET VOLUME 10.9 fL (7.4-10.4); MONOCYTES 12.1 % (2-11); NEUTROPHILS 70.5 % (40-80); RBC 3.16 10x6/uL (4.00-5.40); WBC 6.8 10x3/uL (4.8-10.8)
[2017-07-26 06:36] LABS: MCV 89.2 fL (80.0-100.0); PLATELET COUNT 113 10x3/uL (130-400)
[2017-07-26 06:43] LABS: INR 2.68 (0.85-1.17); PROTIME 27.8 SECONDS (11.6-15.0)
[2017-07-26 06:55] LABS: ALBUMIN 3.3 g/dL (3.4-5.0); ANION GAP 12.5 mmol/L (8-16); BILIRUBIN - TOTAL 0.87 mg/dL (0.2-1.3); CALCIUM 8.8 mg/dL (8.5-10.1); CARBON DIOXIDE 26.4 mmol/L (21.0-32.0); POTASSIUM - SERUM 3.9 mmol/L (3.5-5.1); PROTEIN - SERUM 7.4 g/dL (6.4-8.2)
[2017-07-26 09:07] VITALS: BP 107/68
[2017-07-26 12:40] VITALS: BP 98/63
[2017-07-26 17:09] VITALS: BP 89/50
[2017-07-26 21:40] VITALS: BP 86/57
[2017-07-27 00:56] VITALS: BP 84/39
[2017-07-27 04:23] VITALS: BP 82/39
[2017-07-27 05:36] LABS: BASOPHILS 0.2 % (0-2); HEMOGLOBIN 9.6 g/dL (12-16); IMMATURE GRANULOCYTES 0.3 % (0-5); LYMPHOCYTES 9.2 % (15-50); MCH 26.1 pg (26.0-34.0); MEAN PLATELET VOLUME 10.7 fL (7.4-10.4); MONOCYTES 11.9 % (2-11); NEUTROPHILS 77.4 % (40-80); RBC 3.68 10x6/uL (4.00-5.40); RDW 22.2 % (11.5-14.5)
[2017-07-27 05:45] LABS: WBC 10.5 10x3/uL (4.8-10.8)
[2017-07-27 05:46] LABS: PLATELET COUNT 215 10x3/uL (130-400)
[2017-07-27 05:58] LABS: INR 3.75 (0.85-1.17); PROTIME 36.3 SECONDS (11.6-15.0)
[2017-07-27 06:26] LABS: ALBUMIN 3.1 g/dL (3.4-5.0); BILIRUBIN - TOTAL 0.8 mg/dL (0.2-1.3); CARBON DIOXIDE 27.9 mmol/L (21.0-32.0); CREATININE - SERUM 1.1 mg/dL (0.6-1.3); POTASSIUM - SERUM 3.9 mmol/L (3.5-5.1); PROTEIN - SERUM 7.7 g/dL (6.4-8.2)
[2017-07-27 08:15] VITALS: BP 84/33
[2017-07-27 12:53] VITALS: BP 111/46
[2017-07-27] MEDS ORDERED: ENULOSE10 G/15 ML PO (14:13)
== END 2017-07-27 15:17 | disposition home health service (06) | DRG 642 ==
LOC: D.ER 00:19 → D.MS 02:35 → OBSVTIME 02:35 → D.MS 02:35
PROVIDERS: Emergency Medicine; Family Medicine
DX: E72.20 Disorder of urea cycle metabolism, unspecified (principal); J18.9 Pneumonia, unspecified organism; I50.32 Chronic diastolic (congestive) heart failure; J90 Pleural effusion, not elsewhere classified; E16.2 Hypoglycemia, unspecified; M25.562 Pain in left knee; R56.9 Unspecified convulsions

== ENCOUNTER → 2017-07-29 15:55 | Outpatient (CLI) | payer MEDICAID ==
[2017-07-25 13:27] VITALS: BMI 23.4
[2017-07-29 16:40] LABS: INR 3.61 (0.85-1.17); PROTIME 35.2 SECONDS (11.6-15.0)
[2017-07-29 16:41] LABS: APTT 52.3 SECONDS (22.8-39.4)
== END | disposition home or self-care (01) ==
LOC: D.LABREF 15:55
PROVIDERS: Family Medicine
DX: I50.9 Heart failure, unspecified (principal); I26.99 Other pulmonary embolism without acute cor pulmonale; J44.9 Chronic obstructive pulmonary disease, unspecified; Z95.2 Presence of prosthetic heart valve

== ENCOUNTER → 2017-07-31 18:50 | Outpatient (CLI) | payer MEDICAID ==
[2017-07-25 13:27] VITALS: BMI 23.4
[2017-07-31 19:40] LABS: INR 3.34 (0.85-1.17); PROTIME 33.1 SECONDS (11.6-15.0)
== END | disposition home or self-care (01) ==
LOC: D.LABREF 18:50
PROVIDERS: Internal Medicine Cardiovascular Disease
DX: Z51.81 Encounter for therapeutic drug level monitoring (principal); Z79.01 Long term (current) use of anticoagulants; Z86.718 Personal history of other venous thrombosis and embolism; Z86.711 Personal history of pulmonary embolism

== ENCOUNTER → 2017-08-11 16:51 | Outpatient (CLI) | payer MEDICAID ==
[2017-07-25 13:27] VITALS: BMI 23.4
[2017-08-11 18:32] LABS: INR 2.47 (0.85-1.17); PROTIME 26.1 SECONDS (11.6-15.0)
== END | disposition home or self-care (01) ==
LOC: D.LABREF 16:51
PROVIDERS: Family Medicine
DX: Z51.81 Encounter for therapeutic drug level monitoring (principal); Z79.01 Long term (current) use of anticoagulants; I50.32 Chronic diastolic (congestive) heart failure; I10 Essential (primary) hypertension

== ENCOUNTER → 2017-09-04 14:58 | Outpatient (CLI) | payer MEDICAID ==
[2017-07-25 13:27] VITALS: BMI 23.4
[~2017-09-04 14:58] MED LIST changes: +BUMEX2 MG PO; +DEMADEX20 MG PO; +GAVISCON E1 TAB.CHEW PO; +LISINOPRIL10 MG PO; +MULTAQ400 MG PO; +PREDNISONE20 MG PO; +VITAMIN B-6250 MG PO
[2017-09-04 17:05] LABS: INR 3.36 (0.85-1.17); PROTIME 33.2 SECONDS (11.6-15.0)
== END | disposition home or self-care (01) ==
LOC: D.LABREF 14:58
PROVIDERS: Family Medicine
DX: Z51.81 Encounter for therapeutic drug level monitoring (principal); Z79.01 Long term (current) use of anticoagulants; E72.20 Disorder of urea cycle metabolism, unspecified; D72.829 Elevated white blood cell count, unspecified; I26.99 Other pulmonary embolism without acute cor pulmonale

== ENCOUNTER → 2017-09-08 19:42 | Outpatient (CLI) | payer MEDICAID ==
[2017-07-25 13:27] VITALS: BMI 23.4
[2017-09-09 08:15] LABS: INR 2.76 (0.85-1.17); PROTIME 28.5 SECONDS (11.6-15.0)
== END | disposition home or self-care (01) ==
LOC: D.LABREF 19:42
PROVIDERS: Family Medicine
DX: I50.9 Heart failure, unspecified (principal); I10 Essential (primary) hypertension; J96.91 Respiratory failure, unspecified with hypoxia; E72.20 Disorder of urea cycle metabolism, unspecified

== ENCOUNTER → 2017-09-12 15:13 | Outpatient (CLI) | payer MEDICAID ==
[2017-07-25 13:27] VITALS: BMI 23.4
[2017-09-12 17:07] LABS: BASOPHILS 0.7 % (0-2); EOSINOPHILS 1.6 % (0-7); HEMATOCRIT 32.5 % (36.0-48.0); HEMOGLOBIN 10.4 g/dL (12-16); IMMATURE GRANULOCYTES 0.4 % (0-5); LYMPHOCYTES 18.7 % (15-50); MCH 26.6 pg (26.0-34.0); MCV 83.1 fL (80.0-100.0); MEAN PLATELET VOLUME 11.4 fL (7.4-10.4); MONOCYTES 13.6 % (2-11); PLATELET COUNT 257 10x3/uL (130-400); RBC 3.91 10x6/uL (4.00-5.40); RDW 15.8 % (11.5-14.5); WBC 5.7 10x3/uL (4.8-10.8)
[2017-09-12 17:16] LABS: ANION GAP 12.2 mmol/L (8-16); CALCIUM 9.2 mg/dL (8.5-10.1); CARBON DIOXIDE 33.9 mmol/L (21.0-32.0); CREATININE - SERUM 1.3 mg/dL (0.6-1.3); POTASSIUM - SERUM 3.1 mmol/L (3.5-5.1)
[2017-09-12 17:18] LABS: INR 1.59 (0.85-1.17); PROTIME 18.4 SECONDS (11.6-15.0)
== END | disposition home or self-care (01) ==
LOC: D.LABREF 15:13
PROVIDERS: Family Medicine
DX: I50.9 Heart failure, unspecified (principal); M62.81 Muscle weakness (generalized); K92.2 Gastrointestinal hemorrhage, unspecified

== ENCOUNTER 2017-09-15 19:57 | Inpatient (IN) | payer MEDICAID ==
[~2017-09-15] VITALS: Ht 175.3 cm; Wt 73.9 kg
--- NOTE | ~2017-09-15 | CN ---
PATIENT NAME:FRANKI ZARATE MEDICAL RECORD: [id number] : [birth year] LOCATION:D.[facility] ADMIT DATE: 09/15/17 ACCOUNT: [id number] CONSULTING PHYSICIAN: ASTER MOTA MD REFERRING PHYSICIAN: GREY NOBLES MD DATE OF CONSULTATION: 09/16/2017 REASON FOR CONSULTATION: Hypotension, hypoxia. HISTORY OF PRESENT ILLNESS: Ms. 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 The patient now is anticoagulated. She was visited by the home nurse and found out the patient is hypoxic and she is hypotensive. The patient was brought into the ER. The chest x-ray shows bilateral infiltrate, which is not different than before. According to the patient, she had no fever or chills, no night sweats. She is just feeling weak. REVIEW OF SYSTEMS: Mainly in the history of present illness. PAST MEDICAL HISTORY: 1. Asthma. 2. History of bacterial endocarditis. 3. History of deep venous thrombosis. 4. History of bleed, on Eliquis. 5. Congestive heart failure with cardiomyopathy with ejection fraction of 30%, but now it is improved to 55% with recent cardiac echo. 6. She is positive for rheumatoid factor. 7. History of spontaneous pneumothorax. 8. Bipolar disorder. 9. Seizure disorder. PAST SURGICAL HISTORY: 1. She is status post double valve replacement in April 2017. 2. Appendectomy. 3. History of chest tube placement for spontaneous pneumothorax. ALLERGIES: SHE IS ALLERGIC TO ERYTHROMYCIN, CLINDAMYCIN, AMOXICILLIN, PENICILLIN, MORPHINE, MEPERIDINE, AND SULFA. MEDICATIONS: On ControlScan was reviewed. PERSONAL AND SOCIAL HISTORY: The patient is abusing marijuana. She is a nondrinker. FAMILY HISTORY: Noncontributory. PHYSICAL EXAMINATION: GENERAL: Now, the patient is lying comfortably, but she is a bit lethargic. VITAL SIGNS: The blood pressure is 105/51, pulse is 100, and SpO2 is 100% on 2 liters nasal cannula. HEENT: Conjunctivae is pink, sclerae nonicteric. NECK: Supple, no JVD. CHEST: The chest excursion is minimal on both sides. There is dullness on percussion. There are bilateral crackles. HEART: The rate and rhythm is regular. She was in atrial fibrillation. Grade CONSULT REPORT [id number] FRANKI ZARATE N II/ systolic murmur. ABDOMEN: Soft. Bowel sounds present. No hepatosplenomegaly. RECTAL: Deferred. EXTREMITIES: No cyanosis, no clubbing. There is 2+ pedal edema. SKIN: Warm, normal turgor. CENTRAL NERVOUS SYSTEM: The patient is awake and alert. There are no obvious cranial nerve abnormality. The gait was not tested. IMAGING: Chest radiograph, there is bilateral pleural effusion. Right pleural effusion is more than the left. There is a possible basilar consolidation. LABORATORY DATA: CBC: WBC 6.8, hemoglobin 10.5, hematocrit 34, platelet count is 248. Chemistry: Sodium 138, potassium 3.2, BUN is 30, creatinine 1.5, glucose 79. The PT/INR, the INR is 4.63. IMPRESSION: 1. Qvbis-rf-xthgwij hypoxic respiratory failure. 2. Bilateral pleural effusion. 3. Bibasilar pneumonia, possible atelectasis. 4. Acute exacerbation of asthma. 5. Hypotension. 6. Congestive heart failure, now chronic diastolic dysfunction. 7. Hypokalemia, status post mitral and tricuspid valve replacement. 8. Acute renal failure. RECOMMENDATION: 1. Check the CT scan of the chest. 2. Start on Levaquin and doxycycline IV to cover for Gram-negative rods and Gram-positive cocci. 3. Start methylprednisolone IV. 4. Albuterol, ipratropium nebulizer. 5. Brovana, budesonide nebulizer. 6. Supplemental oxygen. 7. Follow up labs and chest radiograph. Dr. Nobles, thank you for involving me in the care of Ms. Zarate. TRANSINT:[id number] Voice Confirmation ID: [id number] DOCUMENT ID: [id number] ASTER MOTA MD at 1340 CC: GREY NOBLES MD [id number] DICTATION DATE: 09/16/17 163 [facility]: 09/16/17 1853 ADM IN [place] [id number] [place] [address]
[~2017-09-15 19:57] MED LIST changes: -BUMEX2 MG PO; -DEMADEX20 MG PO; -GAVISCON E1 TAB.CHEW PO; -LISINOPRIL10 MG PO; -MULTAQ400 MG PO; -PREDNISONE20 MG PO; -VITAMIN B-6250 MG PO
[2017-09-15 21:11] LABS: BASOPHILS 0.6 % (0-2); HEMOGLOBIN 10.5 g/dL (12-16); IMMATURE GRANULOCYTES 0.3 % (0-5); LYMPHOCYTES 14.9 % (15-50); MCH 26.1 pg (26.0-34.0); MCHC 30.9 g/dL (31.0-37.0); MCV 84.6 fL (80.0-100.0); MEAN PLATELET VOLUME 11.3 fL (7.4-10.4); MONOCYTES 12.3 % (2-11); NEUTROPHILS 70.9 % (40-80); PLATELET COUNT 248 10x3/uL (130-400); RBC 4.02 10x6/uL (4.00-5.40); RDW 17.2 % (11.5-14.5); WBC 6.8 10x3/uL (4.8-10.8)
[2017-09-15 21:35] LABS: ALBUMIN 3.3 g/dL (3.4-5.0); ANION GAP 13.4 mmol/L (8-16); BILIRUBIN - TOTAL 1.21 mg/dL (0.2-1.3); CALCIUM 9.4 mg/dL (8.5-10.1); CARBON DIOXIDE 35.5 mmol/L (21.0-32.0); CREATININE - SERUM 1.8 mg/dL (0.6-1.3); POTASSIUM - SERUM 3.9 mmol/L (3.5-5.1); PROTEIN - SERUM 8.7 g/dL (6.4-8.2)
[2017-09-15 21:52] LABS: APTT 55.7 SECONDS (22.8-39.4); INR 4.63 (0.85-1.17); PROTIME 42.8 SECONDS (11.6-15.0)
[2017-09-15 22:00] LABS: MAGNESIUM - SERUM 2.2 mg/dL (1.8-2.4)
[2017-09-15 22:04] LABS: TROPONIN-I < 0.017 ng/mL (0.000-0.060)
[2017-09-16 07:24] LABS: BASOPHILS 0.5 % (0-2); EOSINOPHILS 1.1 % (0-7); HEMATOCRIT 31.3 % (36.0-48.0); HEMOGLOBIN 9.7 g/dL (12-16); IMMATURE GRANULOCYTES 0.2 % (0-5); LYMPHOCYTES 11.7 % (15-50); MCH 25.5 pg (26.0-34.0); MEAN PLATELET VOLUME 10.6 fL (7.4-10.4); MONOCYTES 13.1 % (2-11); NEUTROPHILS 73.4 % (40-80); PLATELET COUNT 266 10x3/uL (130-400); RBC 3.81 10x6/uL (4.00-5.40); WBC 6.4 10x3/uL (4.8-10.8)
[2017-09-16 07:28] LABS: MCV 82.2 fL (80.0-100.0)
[2017-09-16 08:25] LABS: ANION GAP 11.7 mmol/L (8-16); CALCIUM 9.3 mg/dL (8.5-10.1); CARBON DIOXIDE 33.5 mmol/L (21.0-32.0); CREATININE - SERUM 1.5 mg/dL (0.6-1.3); TROPONIN-I 0.017 ng/mL (0.000-0.060)
[2017-09-16 08:28] LABS: POTASSIUM - SERUM 3.2 mmol/L (3.5-5.1)
[2017-09-17] MEDS ORDERED: COUMADIN2.5 MG PO (00:13)
[2017-09-17] MEDS ORDERED: DEMADEX20 MG PO (00:16)
[2017-09-17] MEDS ORDERED: VITAMIN B-6250 MG PO (00:23)
[2017-09-17] MEDS ORDERED: GAVISCON E1 TAB.CHEW PO (00:27)
[2017-09-17 00:43] VITALS: Ht 175.3 cm; Wt 73.9 kg
[2017-09-17 04:09] VITALS: BP 82/31
[2017-09-17 06:33] LABS: BASOPHILS 0 % (0-2); EOSINOPHILS 0 % (0-7); HEMATOCRIT 32.7 % (36.0-48.0); IMMATURE GRANULOCYTES 0.2 % (0-5); LYMPHOCYTES 5.7 % (15-50); MCH 25.3 pg (26.0-34.0); MCHC 30.6 g/dL (31.0-37.0); MCV 82.8 fL (80.0-100.0); MEAN PLATELET VOLUME 10.9 fL (7.4-10.4); MONOCYTES 1.1 % (2-11); PLATELET COUNT 260 10x3/uL (130-400); RBC 3.95 10x6/uL (4.00-5.40); RDW 16.9 % (11.5-14.5); WBC 5.7 10x3/uL (4.8-10.8)
[2017-09-17 06:39] LABS: INR 4.54 (0.85-1.17); PROTIME 42.1 SECONDS (11.6-15.0)
[2017-09-17 07:05] LABS: ALBUMIN 2.7 g/dL (3.4-5.0); ANION GAP 10.7 mmol/L (8-16); BILIRUBIN - TOTAL 0.98 mg/dL (0.2-1.3); CARBON DIOXIDE 34.8 mmol/L (21.0-32.0); CREATININE - SERUM 1.7 mg/dL (0.6-1.3); POTASSIUM - SERUM 3.5 mmol/L (3.5-5.1); PROTEIN - SERUM 7.8 g/dL (6.4-8.2)
[2017-09-17 08:31] VITALS: BP 145/67; BP 92/45
[2017-09-17 13:03] VITALS: BP 95/50
[2017-09-17 16:28] VITALS: BP 92/53
[2017-09-17 20:55] VITALS: BP 89/46
[2017-09-17 23:17] VITALS: BP 89/47
[2017-09-18 04:24] VITALS: BP 85/45
[2017-09-18 06:13] LABS: BASOPHILS 0 % (0-2); EOSINOPHILS 0 % (0-7); HEMATOCRIT 30.2 % (36.0-48.0); HEMOGLOBIN 9.6 g/dL (12-16); IMMATURE GRANULOCYTES 0.3 % (0-5); LYMPHOCYTES 6.7 % (15-50); MCH 25.9 pg (26.0-34.0); MCHC 31.8 g/dL (31.0-37.0); MCV 81.4 fL (80.0-100.0); MONOCYTES 5.6 % (2-11); NEUTROPHILS 87.4 % (40-80); PLATELET COUNT 259 10x3/uL (130-400); RBC 3.71 10x6/uL (4.00-5.40); RDW 16.9 % (11.5-14.5); WBC 7.3 10x3/uL (4.8-10.8)
[2017-09-18 06:24] LABS: INR 3.74 (0.85-1.17); PROTIME 36.2 SECONDS (11.6-15.0)
[2017-09-18 06:31] LABS: ALBUMIN 2.9 g/dL (3.4-5.0); BILIRUBIN - TOTAL 0.88 mg/dL (0.2-1.3); CALCIUM 8.9 mg/dL (8.5-10.1); CARBON DIOXIDE 35.4 mmol/L (21.0-32.0); CREATININE - SERUM 1.5 mg/dL (0.6-1.3); PROTEIN - SERUM 7.8 g/dL (6.4-8.2)
[2017-09-18 06:35] LABS: ANION GAP 8.7 mmol/L (8-16); POTASSIUM - SERUM 4.1 mmol/L (3.5-5.1)
[2017-09-18 08:10] VITALS: BP 89/42
[2017-09-18 11:57] VITALS: BP 86/52
[2017-09-18 16:19] VITALS: BP 95/56
[2017-09-18 20:30] VITALS: BP 84/48
[2017-09-19 01:01] VITALS: BP 87/57
[2017-09-19 05:02] VITALS: BP 101/67
[2017-09-19 06:01] LABS: BASOPHILS 0 % (0-2); EOSINOPHILS 0 % (0-7); HEMATOCRIT 31.3 % (36.0-48.0); IMMATURE GRANULOCYTES 0.1 % (0-5); LYMPHOCYTES 4.1 % (15-50); MCH 25.8 pg (26.0-34.0); MCHC 31.9 g/dL (31.0-37.0); MCV 80.9 fL (80.0-100.0); MONOCYTES 4.7 % (2-11); NEUTROPHILS 91.1 % (40-80); PLATELET COUNT 264 10x3/uL (130-400); RBC 3.87 10x6/uL (4.00-5.40); RDW 16.8 % (11.5-14.5); WBC 7.4 10x3/uL (4.8-10.8)
[2017-09-19 06:13] LABS: INR 2.8 (0.85-1.17); PROTIME 28.8 SECONDS (11.6-15.0)
[2017-09-19 06:14] LABS: ALBUMIN 3.1 g/dL (3.4-5.0); ANION GAP 8.3 mmol/L (8-16); BILIRUBIN - TOTAL 0.95 mg/dL (0.2-1.3); CARBON DIOXIDE 36.4 mmol/L (21.0-32.0); CREATININE - SERUM 1.3 mg/dL (0.6-1.3); POTASSIUM - SERUM 3.7 mmol/L (3.5-5.1); PROTEIN - SERUM 8.4 g/dL (6.4-8.2)
[2017-09-19 07:51] VITALS: BP 91/59
[2017-09-19 11:27] VITALS: BP 96/64
[2017-09-19 16:33] VITALS: BP 91/61
[2017-09-19 22:04] VITALS: BP 100/64
[2017-09-20] VITALS: BP 105/67
[2017-09-20 06:00] VITALS: BP 165/79
[2017-09-20 06:25] LABS: BASOPHILS 0 % (0-2); EOSINOPHILS 0 % (0-7); HEMATOCRIT 33.1 % (36.0-48.0); HEMOGLOBIN 10.5 g/dL (12-16); IMMATURE GRANULOCYTES 0.2 % (0-5); LYMPHOCYTES 6.2 % (15-50); MCH 25.6 pg (26.0-34.0); MCHC 31.7 g/dL (31.0-37.0); MCV 80.7 fL (80.0-100.0); NEUTROPHILS 85.6 % (40-80); PLATELET COUNT 250 10x3/uL (130-400); RDW 16.7 % (11.5-14.5)
[2017-09-20 06:27] LABS: INR 2.24 (0.85-1.17); PROTIME 24.2 SECONDS (11.6-15.0)
[2017-09-20 07:00] LABS: ALBUMIN 3.3 g/dL (3.4-5.0); ANION GAP 10.6 mmol/L (8-16); BILIRUBIN - TOTAL 1.18 mg/dL (0.2-1.3); CALCIUM 8.8 mg/dL (8.5-10.1); CARBON DIOXIDE 37.7 mmol/L (21.0-32.0); POTASSIUM - SERUM 3.3 mmol/L (3.5-5.1); PROTEIN - SERUM 8.3 g/dL (6.4-8.2)
[2017-09-20 08:08] VITALS: BP 98/67
[2017-09-20 11:52] VITALS: BP 96/66
[2017-09-20 15:29] VITALS: BP 101/70
[2017-09-20 20:00] VITALS: BP 109/77
[2017-09-21 04:00] VITALS: BP 98/68
[2017-09-21 05:59] LABS: BASOPHILS 0 % (0-2); EOSINOPHILS 0 % (0-7); HEMATOCRIT 34.2 % (36.0-48.0); HEMOGLOBIN 10.7 g/dL (12-16); IMMATURE GRANULOCYTES 0.2 % (0-5); LYMPHOCYTES 5.3 % (15-50); MCH 25.4 pg (26.0-34.0); MCHC 31.3 g/dL (31.0-37.0); MCV 81.2 fL (80.0-100.0); MEAN PLATELET VOLUME 10.8 fL (7.4-10.4); MONOCYTES 11.2 % (2-11); NEUTROPHILS 83.3 % (40-80); PLATELET COUNT 245 10x3/uL (130-400); RBC 4.21 10x6/uL (4.00-5.40); RDW 16.7 % (11.5-14.5); WBC 6.1 10x3/uL (4.8-10.8)
[2017-09-21 06:21] LABS: ALBUMIN 3.4 g/dL (3.4-5.0); BILIRUBIN - TOTAL 1.3 mg/dL (0.2-1.3); CALCIUM 9.2 mg/dL (8.5-10.1); CARBON DIOXIDE 39.6 mmol/L (21.0-32.0); POTASSIUM - SERUM 3.6 mmol/L (3.5-5.1); PROTEIN - SERUM 8.5 g/dL (6.4-8.2)
[2017-09-21 06:22] LABS: INR 2.17 (0.85-1.17); PROTIME 23.5 SECONDS (11.6-15.0)
[2017-09-21 08:39] VITALS: BP 92/68
[2017-09-21 12:05] VITALS: BP 115/79
[2017-09-21 16:45] VITALS: BP 107/77
[2017-09-21 20:49] VITALS: BP 160/73
[2017-09-22 04:00] VITALS: BP 115/77
[2017-09-22 05:51] LABS: BASOPHILS 0 % (0-2); EOSINOPHILS 0 % (0-7); HEMATOCRIT 33.1 % (36.0-48.0); HEMOGLOBIN 10.4 g/dL (12-16); IMMATURE GRANULOCYTES 0.2 % (0-5); LYMPHOCYTES 5.7 % (15-50); MCH 25.2 pg (26.0-34.0); MCHC 31.4 g/dL (31.0-37.0); MCV 80.1 fL (80.0-100.0); MEAN PLATELET VOLUME 10.8 fL (7.4-10.4); MONOCYTES 11.7 % (2-11); NEUTROPHILS 82.4 % (40-80); PLATELET COUNT 238 10x3/uL (130-400); RBC 4.13 10x6/uL (4.00-5.40); RDW 16.9 % (11.5-14.5); WBC 5.8 10x3/uL (4.8-10.8)
[2017-09-22 06:10] LABS: INR 2.28 (0.85-1.17); PROTIME 24.5 SECONDS (11.6-15.0)
[2017-09-22 06:22] LABS: ALBUMIN 3.4 g/dL (3.4-5.0); BILIRUBIN - TOTAL 1.5 mg/dL (0.2-1.3); CALCIUM 8.9 mg/dL (8.5-10.1); POTASSIUM - SERUM 3.5 mmol/L (3.5-5.1); PROTEIN - SERUM 7.9 g/dL (6.4-8.2)
[2017-09-22 06:29] LABS: ANION GAP 9.5 mmol/L (8-16)
[2017-09-22 07:49] VITALS: BP 119/74
[2017-09-22 12:55] VITALS: BP 100/70
[2017-09-22 16:27] VITALS: BP 106/76
[2017-09-22 22:06] VITALS: BP 110/76
[2017-09-23 05:03] VITALS: BP 124/74
[2017-09-23 06:26] LABS: BASOPHILS 0 % (0-2); EOSINOPHILS 0 % (0-7); HEMOGLOBIN 10.8 g/dL (12-16); IMMATURE GRANULOCYTES 0.1 % (0-5); LYMPHOCYTES 9.1 % (15-50); MCH 25.4 pg (26.0-34.0); MCHC 31.8 g/dL (31.0-37.0); MEAN PLATELET VOLUME 10.6 fL (7.4-10.4); MONOCYTES 17.9 % (2-11); NEUTROPHILS 72.9 % (40-80); PLATELET COUNT 233 10x3/uL (130-400); RBC 4.25 10x6/uL (4.00-5.40)
[2017-09-23 06:30] LABS: WBC 8.1 10x3/uL (4.8-10.8)
[2017-09-23 06:43] LABS: ALBUMIN 3.5 g/dL (3.4-5.0); BILIRUBIN - TOTAL 1.6 mg/dL (0.2-1.3); CALCIUM 8.9 mg/dL (8.5-10.1); PHOSPHOROUS 3.3 mg/dL (2.5-4.9); POTASSIUM - SERUM 3.3 mmol/L (3.5-5.1); PROTEIN - SERUM 8.2 g/dL (6.4-8.2)
[2017-09-23 06:44] LABS: ANION GAP 9.4 mmol/L (8-16); CARBON DIOXIDE 39.9 mmol/L (21.0-32.0); MAGNESIUM - SERUM 1.1 mg/dL (1.8-2.4)
[2017-09-23 06:54] LABS: INR 2.32 (0.85-1.17); PROTIME 24.8 SECONDS (11.6-15.0)
[2017-09-23 08:02] VITALS: BP 86/55
[2017-09-23 12:00] VITALS: BP 99/71
[2017-09-23 16:35] VITALS: BP 107/76
[2017-09-23 20:30] VITALS: BP 105/75
[2017-09-24 00:52] VITALS: BP 124/78
[2017-09-24 03:58] VITALS: BP 112/76
[2017-09-24 04:35] LABS: BASOPHILS 0 % (0-2); EOSINOPHILS 0.2 % (0-7); HEMATOCRIT 32.8 % (36.0-48.0); HEMOGLOBIN 10.7 g/dL (12-16); IMMATURE GRANULOCYTES 0.1 % (0-5); LYMPHOCYTES 10.2 % (15-50); MCH 25.7 pg (26.0-34.0); MCHC 32.6 g/dL (31.0-37.0); MCV 78.8 fL (80.0-100.0); MEAN PLATELET VOLUME 10.6 fL (7.4-10.4); MONOCYTES 14.6 % (2-11); NEUTROPHILS 74.9 % (40-80); PLATELET COUNT 228 10x3/uL (130-400); RBC 4.16 10x6/uL (4.00-5.40); RDW 17.1 % (11.5-14.5); WBC 8.1 10x3/uL (4.8-10.8)
[2017-09-24 04:54] LABS: INR 2.5 (0.85-1.17); PROTIME 26.3 SECONDS (11.6-15.0)
[2017-09-24 05:11] LABS: ALBUMIN 3.5 g/dL (3.4-5.0); ANION GAP 9.4 mmol/L (8-16); BILIRUBIN - TOTAL 2.07 mg/dL (0.2-1.3); CALCIUM 8.5 mg/dL (8.5-10.1); POTASSIUM - SERUM 3.4 mmol/L (3.5-5.1); PROTEIN - SERUM 7.8 g/dL (6.4-8.2)
[2017-09-24 08:29] VITALS: BP 125/89
[2017-09-24 12:51] VITALS: BP 97/58
[2017-09-24 15:51] VITALS: BP 114/77
[2017-09-24 20:38] VITALS: BP 108/69
[2017-09-25] VITALS (7 sets, daily range): BP systolic 90–124; BP diastolic 58–74
[2017-09-25 05:15] LABS: BASOPHILS 0 % (0-2); EOSINOPHILS 0.4 % (0-7); HEMATOCRIT 33.9 % (36.0-48.0); IMMATURE GRANULOCYTES 0.2 % (0-5); LYMPHOCYTES 11.6 % (15-50); MCH 25.7 pg (26.0-34.0); MCHC 32.4 g/dL (31.0-37.0); MCV 79.2 fL (80.0-100.0); MEAN PLATELET VOLUME 10.4 fL (7.4-10.4); NEUTROPHILS 73.8 % (40-80); PLATELET COUNT 226 10x3/uL (130-400); RBC 4.28 10x6/uL (4.00-5.40); RDW 17.5 % (11.5-14.5); WBC 8.9 10x3/uL (4.8-10.8)
[2017-09-25 05:24] LABS: INR 2.68 (0.85-1.17); PROTIME 27.8 SECONDS (11.6-15.0)
[2017-09-25 05:43] LABS: ALBUMIN 3.3 g/dL (3.4-5.0); ANION GAP 11.3 mmol/L (8-16); BILIRUBIN - TOTAL 2.1 mg/dL (0.2-1.3); CALCIUM 8.8 mg/dL (8.5-10.1); CARBON DIOXIDE 39.3 mmol/L (21.0-32.0); CREATININE - SERUM 1.1 mg/dL (0.6-1.3); POTASSIUM - SERUM 3.6 mmol/L (3.5-5.1); PROTEIN - SERUM 7.2 g/dL (6.4-8.2)
[2017-09-26 04:03] VITALS: BP 90/54
[2017-09-26 05:59] LABS: BASOPHILS 0 % (0-2); EOSINOPHILS 0.7 % (0-7); HEMATOCRIT 35.6 % (36.0-48.0); HEMOGLOBIN 11.4 g/dL (12-16); IMMATURE GRANULOCYTES 0.2 % (0-5); LYMPHOCYTES 14.7 % (15-50); MCH 25.8 pg (26.0-34.0); MCV 80.5 fL (80.0-100.0); MEAN PLATELET VOLUME 11.1 fL (7.4-10.4); MONOCYTES 14.8 % (2-11); NEUTROPHILS 69.6 % (40-80); PLATELET COUNT 246 10x3/uL (130-400); RBC 4.42 10x6/uL (4.00-5.40); RDW 17.5 % (11.5-14.5); WBC 9.2 10x3/uL (4.8-10.8)
[2017-09-26 06:08] LABS: INR 2.52 (0.85-1.17); PROTIME 26.5 SECONDS (11.6-15.0)
[2017-09-26 06:21] LABS: ALBUMIN 3.9 g/dL (3.4-5.0); ANION GAP 9.5 mmol/L (8-16); BILIRUBIN - TOTAL 2.48 mg/dL (0.2-1.3); CALCIUM 9.2 mg/dL (8.5-10.1); CREATININE - SERUM 1.2 mg/dL (0.6-1.3); POTASSIUM - SERUM 3.5 mmol/L (3.5-5.1); PROTEIN - SERUM 8.4 g/dL (6.4-8.2)
[2017-09-26 20:34] VITALS: BP 91/52
[2017-09-27 00:03] VITALS: BP 109/74
[2017-09-27 04:16] VITALS: BP 94/69
[2017-09-27 05:30] LABS: BASOPHILS 0 % (0-2); EOSINOPHILS 0.5 % (0-7); HEMATOCRIT 34.9 % (36.0-48.0); HEMOGLOBIN 11.3 g/dL (12-16); IMMATURE GRANULOCYTES 0.2 % (0-5); LYMPHOCYTES 8.9 % (15-50); MCH 25.7 pg (26.0-34.0); MCHC 32.4 g/dL (31.0-37.0); MCV 79.5 fL (80.0-100.0); MEAN PLATELET VOLUME 10.2 fL (7.4-10.4); MONOCYTES 15.3 % (2-11); NEUTROPHILS 75.1 % (40-80); PLATELET COUNT 231 10x3/uL (130-400); RBC 4.39 10x6/uL (4.00-5.40); RDW 17.3 % (11.5-14.5)
[2017-09-27 05:41] LABS: WBC 12.3 10x3/uL (4.8-10.8)
[2017-09-27 05:55] LABS: ANION GAP 6.6 mmol/L (8-16); CALCIUM 9.3 mg/dL (8.5-10.1); CARBON DIOXIDE 38.7 mmol/L (21.0-32.0); CREATININE - SERUM 1.2 mg/dL (0.6-1.3); POTASSIUM - SERUM 3.3 mmol/L (3.5-5.1)
[2017-09-27 07:51] VITALS: BP 91/56
[2017-09-27 11:40] VITALS: BP 96/56
[2017-09-27 16:18] VITALS: BP 93/55
[2017-09-27 20:41] VITALS: BP 92/64
[2017-09-28 00:50] VITALS: BP 102/48
[2017-09-28 04:49] VITALS: BP 95/61
[2017-09-28 04:58] LABS: BASOPHILS 0 % (0-2); EOSINOPHILS 0.1 % (0-7); HEMATOCRIT 36.2 % (36.0-48.0); HEMOGLOBIN 11.7 g/dL (12-16); IMMATURE GRANULOCYTES 0.3 % (0-5); LYMPHOCYTES 9.1 % (15-50); MCHC 32.3 g/dL (31.0-37.0); MCV 80.4 fL (80.0-100.0); MEAN PLATELET VOLUME 11.2 fL (7.4-10.4); MONOCYTES 14.7 % (2-11); NEUTROPHILS 75.8 % (40-80); PLATELET COUNT 258 10x3/uL (130-400); RDW 17.6 % (11.5-14.5); WBC 14.2 10x3/uL (4.8-10.8)
[2017-09-28 05:14] LABS: ANION GAP 10.2 mmol/L (8-16); CALCIUM 9.6 mg/dL (8.5-10.1); CREATININE - SERUM 1.2 mg/dL (0.6-1.3)
[2017-09-28 05:16] LABS: POTASSIUM - SERUM 3.2 mmol/L (3.5-5.1)
[2017-09-28 08:19] VITALS: BP 98/65
[2017-09-28] MEDS ORDERED: LISINOPRIL10 MG PO (11:53)
[2017-09-28] MEDS ORDERED: MULTAQ400 MG PO (11:53)
[2017-09-28] MEDS ORDERED: BUMEX2 MG PO (11:54)
[2017-09-28] MEDS ORDERED: CHRONULAC30 ML PO (11:54)
[2017-09-28] MEDS ORDERED: PREDNISONE20 MG PO (11:55)
== END 2017-09-28 14:00 | disposition home health service (06) | DRG 291 ==
LOC: D.ER 19:57 → D.MS 23:15 → D.EDHOLD 23:15 → D.MS 09-16 18:50 → D.SDCHOLD 09-23 17:15 → D.MS 09-23 17:16
PROVIDERS: Emergency Medicine; Family Medicine Adult Medicine; Internal Medicine Nephrology
DX: I50.33 Acute on chronic diastolic (congestive) heart failure (principal); J96.21 Acute and chronic respiratory failure with hypoxia; J18.9 Pneumonia, unspecified organism; J45.901 Unspecified asthma with (acute) exacerbation; I42.9 Cardiomyopathy, unspecified; N17.9 Acute kidney failure, unspecified; J98.11 Atelectasis; E72.20 Disorder of urea cycle metabolism, unspecified; F31.9 Bipolar disorder, unspecified; G40.909 Epilepsy, unspecified, not intractable, without status epilepticus; E87.6 Hypokalemia; I48.91 Unspecified atrial fibrillation; Z86.711 Personal history of pulmonary embolism; D69.6 Thrombocytopenia, unspecified

== ENCOUNTER → 2017-10-14 19:39 | Outpatient (CLI) | payer MEDICAID ==
[2017-09-17 00:43] VITALS: BMI 29.0
[~2017-10-14 19:39] MED LIST changes: +BUMEX2 MG PO; +DEMADEX20 MG PO; +GAVISCON E1 TAB.CHEW PO; +LISINOPRIL10 MG PO; +MULTAQ400 MG PO; +PREDNISONE20 MG PO; +VITAMIN B-6250 MG PO
== END | disposition home or self-care (01) ==
LOC: D.LABREF 19:39
DX: I50.9 Heart failure, unspecified (principal); I27.20 Pulmonary hypertension, unspecified; Z95.2 Presence of prosthetic heart valve; Z51.81 Encounter for therapeutic drug level monitoring; Z79.01 Long term (current) use of anticoagulants

== ENCOUNTER → 2017-10-22 16:59 | Outpatient (CLI) | payer MEDICAID ==
[2017-09-17 00:43] VITALS: BMI 29.0
== END | disposition home or self-care (01) ==
LOC: D.LABREF 16:59
DX: I50.33 Acute on chronic diastolic (congestive) heart failure (principal); J96.21 Acute and chronic respiratory failure with hypoxia; E72.20 Disorder of urea cycle metabolism, unspecified; I27.20 Pulmonary hypertension, unspecified

== ENCOUNTER → 2017-12-03 14:39 | Outpatient (CLI) | payer MEDICAID ==
[2017-09-17 00:43] VITALS: BMI 29.0
== END | disposition home or self-care (01) ==
LOC: D.LABREF 14:39
DX: E87.6 Hypokalemia (principal); I50.9 Heart failure, unspecified; I48.91 Unspecified atrial fibrillation

== ENCOUNTER → 2017-12-10 15:58 | Outpatient (CLI) | payer MEDICAID ==
[2017-09-17 00:43] VITALS: BMI 29.0
== END | disposition home or self-care (01) ==
LOC: D.LABREF 15:58
DX: I48.91 Unspecified atrial fibrillation (principal); I50.32 Chronic diastolic (congestive) heart failure; E87.6 Hypokalemia

== ENCOUNTER → 2018-01-14 15:52 | Outpatient (CLI) | payer MEDICAID ==
[2017-09-17 00:43] VITALS: BMI 29.0
[2018-01-14 16:41] LABS: CALC OSMOLALITY 270 mosm/kg (275-300); CALCIUM 9.5 mg/dL (8.5-10.1); CARBON DIOXIDE 32.2 mmol/L (21.0-32.0); CHLORIDE - SERUM 96 mmol/L (98-107); CREATININE - SERUM 0.8 mg/dL (0.6-1.3); GLUCOSE 80 mg/dL (74-106); SODIUM 137 mmol/L (136-145); UREA NITROGEN 6 mg/dL (7-18); eGFR NON AFRICAN AMERICAN 89 mL/min (90-120)
== END | disposition home or self-care (01) ==
LOC: D.LABREF 15:52
PROVIDERS: Family Medicine
DX: I50.9 Heart failure, unspecified (principal); J44.9 Chronic obstructive pulmonary disease, unspecified; E87.6 Hypokalemia; Z86.711 Personal history of pulmonary embolism

== ENCOUNTER → 2018-02-02 09:38 | Outpatient (CLI) | payer MEDICAID ==
[2017-09-17 00:43] VITALS: BMI 29.0
[2018-02-02 18:34] LABS: ALBUMIN 4.3 g/dL (3.4-5.0); ANION GAP 12.2 mmol/L (8-16); BILIRUBIN - TOTAL 1.11 mg/dL (0.2-1.3); CALCIUM 9.7 mg/dL (8.5-10.1); CARBON DIOXIDE 33.3 mmol/L (21.0-32.0); PROTEIN - SERUM 8.5 g/dL (6.4-8.2)
[2018-02-02 18:37] LABS: POTASSIUM - SERUM 2.5 mmol/L (3.5-5.1)
== END | disposition home or self-care (01) ==
LOC: D.RT 09:38
PROVIDERS: Internal Medicine Pulmonary Disease
DX: J45.909 Unspecified asthma, uncomplicated (principal)

== ENCOUNTER → 2018-02-02 17:16 | Outpatient (CLI) | payer MEDICAID ==
[2017-09-17 00:43] VITALS: BMI 29.0
== END | disposition home or self-care (01) ==
LOC: D.LABREF 17:16
DX: I50.33 Acute on chronic diastolic (congestive) heart failure (principal); J44.9 Chronic obstructive pulmonary disease, unspecified; I48.91 Unspecified atrial fibrillation

== ENCOUNTER → 2018-02-05 15:15 | Outpatient (CLI) | payer MEDICAID ==
[2017-09-17 00:43] VITALS: BMI 29.0
== END | disposition home or self-care (01) ==
LOC: D.LABREF 15:15
DX: I50.9 Heart failure, unspecified (principal); I50.33 Acute on chronic diastolic (congestive) heart failure; J44.9 Chronic obstructive pulmonary disease, unspecified; I48.91 Unspecified atrial fibrillation

== ENCOUNTER → 2018-03-11 13:03 | Outpatient (CLI) | payer MEDICAID ==
[2017-09-17 00:43] VITALS: BMI 29.0
[2018-03-11 15:49] LABS: CALC OSMOLALITY 268 mosm/kg (275-300); CALCIUM 9.1 mg/dL (8.5-10.1); CARBON DIOXIDE 27.6 mmol/L (21.0-32.0); CHLORIDE - SERUM 96 mmol/L (98-107); CREATININE - SERUM 0.9 mg/dL (0.6-1.3); GLUCOSE 84 mg/dL (74-106); POTASSIUM - SERUM 3.3 mmol/L (3.5-5.1); SODIUM 135 mmol/L (136-145); UREA NITROGEN 12 mg/dL (7-18); eGFR NON AFRICAN AMERICAN 77 mL/min (90-120)
== END | disposition home or self-care (01) ==
LOC: D.LABREF 13:03
PROVIDERS: Family Medicine
DX: I50.9 Heart failure, unspecified (principal); J44.9 Chronic obstructive pulmonary disease, unspecified; I48.91 Unspecified atrial fibrillation

== ENCOUNTER → 2018-10-19 17:11 | Outpatient (CLI) | payer MEDICARE ==
[2017-09-17 00:43] VITALS: BMI 29.0
== END | disposition home or self-care (01) ==
LOC: D.RAD 17:11
PROVIDERS: ATTEND Internal Medicine Pulmonary Disease
DX: Z01.818 Encounter for other preprocedural examination (principal)

== ENCOUNTER 2018-11-05 00:46 | Emergency (ER) | payer MEDICARE ==
[~2018-11-05] VITALS: Ht 175.3 cm; Wt 71.4 kg
[2018-11-05 00:56] VITALS: Ht 175.3 cm; Wt 71.4 kg
[2018-11-05] MEDS ORDERED: COUMADIN5 MG PO (00:57)
[2018-11-05] MEDS ORDERED: DURAGESIC1 PATCH .1 TRANSDERM (00:59)
[2018-11-05] MEDS ORDERED: CIPRO250 MG PO (08:42)
[2018-11-05 08:56] VITALS: BP 118/79
== END 2018-11-05 08:57 | disposition home or self-care (01) ==
LOC: D.ER 00:46
DX: S81.812A Laceration without foreign body, left lower leg, initial encounter (principal); W18.31XA Fall on same level due to stepping on an object, initial encounter; Y93.01 Activity, walking, marching and hiking; Y92.89 Other specified places as the place of occurrence of the external cause; Z79.01 Long term (current) use of anticoagulants

== ENCOUNTER → 2018-11-18 | Emergency (ER) | payer MEDICARE ==
[~2018-11-18] VITALS: Ht 175.3 cm; Wt 71.7 kg
[~2018-11-18] MED LIST changes: +CIPRO250 MG PO; +DURAGESIC1 PATCH .1 TRANSDERM
[2018-11-18 16:07] VITALS: Ht 175.3 cm; Wt 71.7 kg
[2018-11-18 17:21] VITALS: BP 118/74
== END ==
LOC: D.ER 15:55
DX: S81.812D Laceration without foreign body, left lower leg, subsequent encounter (principal); X58.XXXD Exposure to other specified factors, subsequent encounter; Z48.02 Encounter for removal of sutures

== ENCOUNTER 2018-12-22 03:20 | Inpatient (IN) | payer MEDICARE ==
[2018-12-22] VITALS (24 sets, daily range): BP systolic 83–108; BP diastolic 55–81; Ht 175.3 cm; Wt 70.0 kg
[~2018-12-22] VITALS: Ht 175.3 cm; Wt 70.0 kg
[2018-12-22 04:40] LABS: BASOPHILS 0.2 % (0-2); EOSINOPHILS 0.2 % (0-7); HEMATOCRIT 34.6 % (36.0-48.0); HEMOGLOBIN 11.1 g/dL (12-16); IMMATURE GRANULOCYTES 0.6 % (0-5); LYMPHOCYTES 16.7 % (15-50); MCH 24.2 pg (26.0-34.0); MCHC 32.1 g/dL (31.0-37.0); MCV 75.4 fL (80.0-100.0); MEAN PLATELET VOLUME 10.6 fL (7.4-10.4); MONOCYTES 12.3 % (2-11); PLATELET COUNT 295 10x3/uL (130-400); RBC 4.59 10x6/uL (4.00-5.40); RDW 17.8 % (11.5-14.5); WBC 13.2 10x3/uL (4.8-10.8)
[2018-12-22 04:43] LABS: ALBUMIN 4.5 g/dL (3.4-5.0); ANION GAP 18.4 mmol/L (8-16); APTT 44.3 SECONDS (22.8-39.4); BILIRUBIN - TOTAL 3.83 mg/dL (0.2-1.3); CALCIUM 9.7 mg/dL (8.5-10.1); CARBON DIOXIDE 22.6 mmol/L (21.0-32.0); CREATININE - SERUM 1.3 mg/dL (0.6-1.3); INR 3.27 (0.85-1.17); PROTEIN - SERUM 8.9 g/dL (6.4-8.2); PROTIME 32.5 SECONDS (11.6-15.0)
--- NOTE | 2018-12-22 04:48 | NUR ---
PT GIVEN SANDWICH AND WATER.
[2018-12-22 04:54] LABS: CKMB 1.6 U/L (0.0-3.6); MAGNESIUM - SERUM 2.3 mg/dL (1.8-2.4); TROPONIN-I 0.018 ng/mL (0.000-0.060)
--- NOTE | 2018-12-22 06:20 | NUR ---
RECEIVED PT FROM ER TO 230. PT ATTACHED TO MONITORS. MONITORS ARE ALL WORKING. PT HAS IV ANTIBIOTICS RUNNING AT THIS TIME. NO SIGNS OF ACUTE DISTRESS. WILL CONTINUE TO MONITOR.
--- NOTE | 2018-12-22 07:30 | NUR ---
REPORT RECEIVED. PT RECEIVED TO UNIT ABOUT 0620. ASSESSMENT DONE. SALINE LOCK TO RIGHT FOREARM. PT IS GROGGY FROM CARDIOVERSION AND MEDS. PT HAS 2 MECHANICAL VALVES (TRICUSPID AND MITRAL). HAD TO REORIENT. PT VISIBLY ANXIOUS. WANTS AT BEDSIDE. LUNGS ARE CTA. ON O2 AT 2L. PT TOLD ME THAT HER WAS THE BETTER HISTORIAN AND TO SPEAK WITH HER REGARDING MEDICATIONS AND PT HISTORY.
[2018-12-22] MEDS ORDERED: VITAMIN D10000 UNI1 PO (08:54)
[2018-12-22] MEDS ORDERED: MORPHINE IMMEDI15 MG PO (08:57)
[2018-12-22] MEDS ORDERED: ALDACTONE25 MG PO (08:58)
[2018-12-22] MEDS ORDERED: ZANAFLEX4 MG PO (09:02)
[2018-12-22 09:11] LABS: CALCIUM 8.7 mg/dL (8.5-10.1); CARBON DIOXIDE 26.3 mmol/L (21.0-32.0); CREATININE - SERUM 1.3 mg/dL (0.6-1.3); POTASSIUM - SERUM 4.3 mmol/L (3.5-5.1); THYROID STIMULATING HORMONE 2.2 uIU/mL (0.36-3.74)
--- NOTE | 2018-12-22 09:15 | NUR ---
ADMISSION COMPLETED. CHEMISTRY REDRAWN. ELECTROLYTES CORRECTING THEMSELVES. DR FELICIANO HERE AND DISCUSSED WITH. BLOOD SUGAR 64. ENCOURAGED PT AND TO HELP HER TO DRINK SOME JUICES TO GET HER SUGAR UP. WILL MONITOR.
--- NOTE | 2018-12-22 11:25 | NUR ---
ATIVAN GIVEN PER ANXIETY. O2 SAT 93% ON 2L OF O2. PT ANXIOUS BECAUSE IS IN WAITING ROOM. ASSURED HER THAT SHE WOULD BE BACK AT 12. WILL CONTINUE TO MONITOR.
--- NOTE | 2018-12-22 12:00 | NUR ---
DR HARRISON ROUNDING ON PT. STARTING ON DIGOXIN.
--- NOTE | 2018-12-22 13:08 | MORECARE ---
CASE MANAGEMENT DISCHARGE SUMMARY PATIENT: FRANKI ZARATE UNIT: [id number] ADM DATE: 12/22/18 AGE: 33 : 86 SEX: F ROOM/BED: D.2301 AUTHOR: ELAINE WOODWARD PHYSICIAN: REFERRING PHYSICIAN: FABIO JORDAN MD DATE OF SERVICE: 12/22/18 Discharge Plan Patient Name: FRANKI ZARATE Facility: [facility]:[place] : 1985 Planned Disposition: Anticipated Discharge Date: Discharge Date: Expected LOS: Initial Reviewer: [email or web address] Initial Review Date: 12/22/2018 Generated: 12/22/18 2:07 pm Patient Name: FRANKI ZARATE Page [id number] at 1308 All edits/amendments must be made on the electronic document DICTATION DATE: 12/22/18 1307 MANAGER MEDICARE MARKETING: MOIRA 12/22/18 1307 RPT#: [id number] DC DATE: STATUS: ADM IN [facility] [address] [place] [address] END OF REPORT
--- NOTE | 2018-12-22 13:49 | NUR ---
O2 SAT STAYING IN LOW 90S AND UPPER 80S. INCREASED O2 TO 3L. SPOKE WITH RESP THERAPIST. GIVING PRN TREATMENT AT THIS TIME. INCENTIVE SPIROMETER GIVEN TO PT. WILL CONTINUE TO MONITOR.
--- NOTE | 2018-12-22 14:51 | NUR ---
US TECH CALLED AND ASKED PT TO BE PUT NPO AFTER MIDNIGHT FOR ABD US TOMORROW MORNING.
--- NOTE | 2018-12-22 15:54 | NUR ---
PT SLEEPING AT THIS TIME. O2 AT 90% ON 3L. PT TURNS OWN SELF. FAN ON IN ROOM. BED IN LOWEST POSITION. CALL LIGHT IN REACH.
--- NOTE | 2018-12-22 16:08 | MORECARE ---
CASE MANAGEMENT DISCHARGE SUMMARY PATIENT: FRANKI ZARATE UNIT: [id number] ADM DATE: 12/22/18 AGE: 33 : 86 SEX: F ROOM/BED: D.2301 AUTHOR: ELAINE WOODWARD PHYSICIAN: REFERRING PHYSICIAN: FABIO JORDAN MD DATE OF SERVICE: 12/22/18 Discharge Plan Patient Name: FRANKI ZARATE Facility: [facility]:[place] : 1985 Planned Disposition: Home Anticipated Discharge Date: Discharge Date: Expected LOS: Initial Reviewer: [email or web address] Initial Review Date: 12/22/2018 Generated: 12/22/18 5:08 pm DCPIA - Discharge Planning Initial Assessment Updated by [email or web address]: Zuly Israel on 12/22/18 4:06 pm * Is the patient Alert and Oriented? Yes * How many steps to enter\exit or inside your home? ramp * PCP NIKKI * Pharmacy [facility] * Preadmission Environment Home with Family * ADLs Partial Dependent * Partial ADLs (Assistance needed) Ambulation Bathing Dressing Eating Medication Management Toileting Transfers * Other Equipment HOME 02 & PORTABLE , ELECTRIC W/C * List name and contact numbers for known caregivers / representatives who currently or will assist patient after discharge: BRIAN ZARATE - [facility] - [phone] * Verbal permission to speak to the caregivers and representatives has been obtained from the patient. N/A * Community resources currently utilized None * Additional services required to return to the preadmission environment? No * Can the patient safely return to the preadmission environment? Yes * Has this patient been hospitalized within the prior 30 days at any hospital? No Last DP export: 12/22/18 12:08 p Patient Name: FRANKI ZARATE Page [id number] at 1608 All edits/amendments must be made on the electronic document DICTATION DATE: 12/22/181607 LINE CREW SUPERVISOR: MOIRA 12/22/18 160 RPT#: [id number] DC DATE: STATUS: ADM IN [facility] [address] [place] [address] END OF REPORT
--- NOTE | 2018-12-22 16:18 | MORECARE ---
CASE MANAGEMENT DISCHARGE SUMMARY PATIENT: FRANKI ZARATE UNIT: [id number] ADM DATE: 12/22/18 AGE: 33 : 86 SEX: F ROOM/BED: D.2301 AUTHOR: TRACE,DOC PHYSICIAN: REFERRING PHYSICIAN: FABIO JORDAN MD DATE OF SERVICE: 12/22/18 Discharge Plan Patient Name: FRANKI ZARATE Facility: [facility]:[place] : 1985 Planned Disposition: Home Anticipated Discharge Date: Discharge Date: Expected LOS: Initial Reviewer: [email or web address] Initial Review Date: 12/22/2018 Generated: 12/22/18 5:18 pm Comments DCP- Discharge Planning Updated by [email or web address]: Zuly Israel on 12/22/18 3:[address] Patient Name: FRANKI ZARATE Admission Status: ER Accout number: [id number] Admission Date: 12-22-2018 : 1985 Admission Diagnosis: Attending: FABIO JORDAN Current LOS: 1 Anticipated DC Date: Planned Disposition: Home Primary Insurance: MEDICARE A & B Discharge Planning Comments: CM met with patient at bedside after explaining CM role and obtaining verbal consent. Patient lives at home with her Brian and plans to return there upon discharge. Patient feels this would be a safe discharge. Patient states she has home 02/ portable 02 and electric wheelchair. She can't recall DME. Patient states she has had HH in the past but not currently. Patient denies any discharge needs at this time. CM will continue to follow and assist as needed with discharge planning / needs. Mold Worker: Zuly Israel DCPIA - Discharge Planning Initial Assessment Updated by [id number]: Zuly Israel on 12/22/18 4:06 pm * Is the patient Alert and Oriented? Yes * How many steps to enter\exit or inside your home? ramp * PCP NIKKI * Pharmacy [facility] * Preadmission Environment Home with Family * ADLs Partial Dependent * Partial ADLs (Assistance needed) Ambulation Bathing Dressing Eating Medication Management Toileting Transfers * Other Equipment HOME 02 & PORTABLE , ELECTRIC W/C * List name and contact numbers for known caregivers / representatives who currently or will assist patient after discharge: BRIAN ZARATE - [facility] - [phone] * Verbal permission to speak to the caregivers and representatives has been obtained from the patient. N/A * Community resources currently utilized None * Additional services required to return to the preadmission environment? No * Can the patient safely return to the preadmission environment? Yes * Has this patient been hospitalized within the prior 30 days at any hospital? No Last DP export: 12/22/18 3:08 p Patient Name: FRANKI ZARATE Page 87781 at 1618 All edits/amendments must be made on the electronic document DICTATION DATE: 12/22/181616 TRIBAL JUDGE: MOIRA 12/22/181616 RPT#: [id number] DC DATE: STATUS: ADM IN [facility] [address] [place] [address] END OF REPORT
--- NOTE | 2018-12-22 17:15 | NUR ---
PT ALERT. VSS. CHANGED OUT O2 MONITOR. NOW USING A FINGER SENSOR. READING 96% ON 2L OF O2. FAMILY AT BEDSIDE. PT EATING DINNER. VANCOMYCIN INFUSING INTO RIGHT FOREARM. NO NEEDS AT THIS TIME. WILL CONTINUE TO MONITOR.
--- NOTE | 2018-12-22 18:07 | EC ---
PATIENT:FRANKI ZARATE DATE OF SERVICE: 12/22/18 SEX: F MEDICAL RECORD: [id number] DATE OF : [birth year] LOCATION:[facility] D230 AGE OF PATIENT: 33 ADMISSION DATE: 12/22/18 REFERRING PHYSICIAN: INTERPRETING PHYSICIAN: ARMIN PITTS MD ECHOCARDIOGRAM REPORT ECHO CHARGES 4 ECHO COMPLETE Date: 12/22/18 CLINICAL DIAGNOSIS: SVT/CHF/PULMONARY HTN, MVR/TVR ECHOCARDIOGRAPHIC MEASUREMENTS (adult normal given) AC root (d.<3.7cm) 3.3 cm LV Septum d (<1.2 cm> 1.2 cm Valve Excursion 1.5 cm LV Septum (systole) 1.5 cm Left Atria (s.<4.0cm> 4.6 cm LVPW d(<1.2cm) 1.4 cm RV (d.<2.3cm) 5.1 cm LVPW (sytole) 1.5 cm LV diastole(<5.6CM) 4.7 cm MV E-F(>70mm/sec) cm LV systole 3.5 cm LVOT Diameter 2.0 cm MV exc.(>10mm) cm Est.ejection fraction (50-75%) % DOPPLER: LVIT cm/sec A 81.0 cm/sec E 196.0 cm/sec LA cm/sec RVSP 15 mmHg LVOT 134 cm/sec AOP1/2T m/s Asc. Ao 149 cm/sec RVOT 42 cm/sec RA cm/sec PA 90 cm/sec AV Gradient Peak 8.89 mmHg AV Mean 4.87 mmHg AV Area 2.0 cm MV Gradient Peak 13.41mmHg MV Mean 4.87 mmHg MV Area cm COMMENTS: Game Room Attendant: Parul LAURENT Marine Equipment Design Engineer: Tika Pitts TAPE# PACS Pericardial Effusion N DATE OF SERVICE: 12/22/2018 FINDINGS: 1. Left ventricular chamber size is within normal limits. Left ventricular systolic function is normal. Overall ejection fraction is estimated at 55%. 2. Left atrium, right atrium, and right ventricular size is within normal limits. 3. Valvular structures: Mitral valve was replaced with mechanical prosthesis as well as tricuspid valve. Both of these have normal structure and function in this position. ECHOCARDIOGRAM REPORT [id number] FRANKI ZARATE N 4. Doppler interrogation reveals no significant valvular insufficiency or stenosis. Pulmonary systolic pressure is estimated at 15 mmHg. 5. No evidence of pericardial effusion or left ventricular thrombus. TRANSINT:[id number] Voice Confirmation ID: [id number] DOCUMENT ID: [id number] ARMIN PITTS MD at 1807 CC: [id number] DICTATION DATE: 12/22/18 1625 CERTIFIED NEURODIAGNOSTIC TECHNOLOGIST: 12/22/18 1722 ADM IN [place] [id number] [place] [id number]
--- NOTE | 2018-12-22 18:07 | CN ---
PATIENT NAME:FRANKI ZARATE MEDICAL RECORD: [id number] : 87 LOCATION:[place].2301 ADMIT DATE: 12/22/18 ACCOUNT: [id number] CONSULTING PHYSICIAN: ARMIN HARRISON MD REFERRING PHYSICIAN: FABIO JORDAN MD DATE OF CONSULTATION: 12/22/2018 CARDIOLOGY CONSULTATION DATE OF SERVICE: 12/22/2018 DIAGNOSES: 1. Pneumonia. 2. Supraventricular tachycardia. 3. Mitral valve replacement. 4. Tricuspid valve replacement. HISTORY OF PRESENT ILLNESS: Mrs. Zarate is followed by Dr. Hans Almeida in [place], status post mitral and tricuspid valve replacement approximately 5 years ago. She presents with shortness of breath, dyspnea on exertion, found to have a supraventricular tachycardia at rate of the 180s. Adenosine was tried in the Emergency Room, this failed. She underwent DC cardioversion. She has been with sinus tachycardia since. She has had a history of the supraventricular tachycardia. She has not tolerated beta-blockers or calcium channel blockers due to her low blood pressure at baseline in the past. She was given 0.5 mg of IV digoxin. She has not had any further dysrhythmias. PHYSICAL EXAMINATION: GENERAL APPEARANCE: Well-nourished, well-developed, appears stated age. Level of distress, comfortable. PSYCHIATRIC: Mental status, alert, normal affect. Orientation, oriented to time, place and person. EYES: Lids and conjunctiva, noninjected. No discharge, no pallor. ENT: Lips, teeth, gums, normal dentition. Oropharynx, no cyanosis, no pallor. NECK: Carotid arteries, bilateral normal upstroke, no bruits, no thrills. JUGULAR VEINS: No jugular venous pressure or distention. CERVICAL LYMPH NODES: Nontender, nonenlarged. THYROID: Not enlarged. Nontender. No nodules. LUNGS: Respiratory effort, unlabored. CHEST: Normal curvature. No thoracic deformity. No chest wall tenderness. Percussion, resonant. Auscultation, clear. No wheezes, no rales, no rhonchi. CARDIOVASCULAR: Precordial exam, nondisplaced. No heaves or pericardial thrills. Rate and rhythm, regular. Heart sounds, normal S1, normal S2. No S3, no gallop, no rub. Systolic murmur, not heard. Diastolic murmur, not heard. EXTREMITIES: No cyanosis, no edema. Peripheral pulses, full and equal in all extremities, except as noted. No bruits appreciated. ABDOMEN: Soft, nondistended. Normal aorta. No bruit. Nontender. No masses. Liver, nontender, no hepatomegaly. Spleen, nontender, no splenomegaly. MUSCULOSKELETAL: No joint tenderness. No joint swelling. No erythema. NEUROLOGICAL: Normal gait, normal strength, normal tone. SKIN: Warm and dry. OVERALL IMPRESSION: Supraventricular tachycardia in relationship to the pneumonia and her previous surgeries. At this time, we will continue the digoxin at 0.25 every day. We will get an echo; other than that, no other CONSULT REPORT [id number] FRANKI ZARATE cardiac workup or treatment is necessary. TRANSINT:[id number] Voice Confirmation ID: [id number] DOCUMENT ID: [id number] ARMIN HARRISON MD at 1807 CC: [id number] DICTATION DATE: 12/22/18 1152 TELETYPIST: 12/22/18 1333 ADM IN [facility] [address] [place] [id number]
--- NOTE | 2018-12-22 21:00 | NUR ---
VSS. MEDS TAKEN WITHOUT DIFF. CALL LIGHT IN REACH
--- NOTE | 2018-12-22 23:00 | NUR ---
REASSESSEMENT COMPLETED PER FLOW SHEET WITH NO CHANGES OR ACUTE DISTRESS OBSERVED. VSS. CALL LIGHT IN REACH
[2018-12-23] VITALS (16 sets, daily range): BP systolic 84–110; BP diastolic 58–76
--- NOTE | 2018-12-23 01:00 | NUR ---
REPORT RECEIVED FROM SUE KEYES. PT IS IN BED WITH EYES CLOSED AT THIS TIME. NO NEEDS VOICED. NO SIGNS OF ACUTE DISTRESS NOTED. WILL CONTINUE TO MONITOR.
--- NOTE | 2018-12-23 03:00 | NUR ---
REASSESSMENT COMPLETED, SEE FLOWSHEET FOR DETAILS. PT IS LAYING IN BED WITH EYES CLOSED AT THIS TIME. NO NEEDS VOICED. NO SIGNS OF ACUTE DISTRESS. WILL CONTINUE TO MONITOR.
[2018-12-23 04:31] LABS: BASOPHILS 0.3 % (0-2); EOSINOPHILS 1.5 % (0-7); HEMOGLOBIN 9.8 g/dL (12-16); IMMATURE GRANULOCYTES 0.4 % (0-5); LYMPHOCYTES 19.5 % (15-50); MCH 24.3 pg (26.0-34.0); MCHC 32.7 g/dL (31.0-37.0); MCV 74.3 fL (80.0-100.0); MEAN PLATELET VOLUME 11.2 fL (7.4-10.4); MONOCYTES 16.7 % (2-11); NEUTROPHILS 61.6 % (40-80); PLATELET COUNT 261 10x3/uL (130-400); RBC 4.04 10x6/uL (4.00-5.40); RDW 17.3 % (11.5-14.5)
[2018-12-23 04:35] LABS: WBC 7.5 10x3/uL (4.8-10.8)
[2018-12-23 04:41] LABS: APTT 49.9 SECONDS (22.8-39.4); INR 2.48 (0.85-1.17); PROTIME 26.2 SECONDS (11.6-15.0)
[2018-12-23 04:48] LABS: ALBUMIN 3.9 g/dL (3.4-5.0); ANION GAP 9.4 mmol/L (8-16); BILIRUBIN - TOTAL 2.3 mg/dL (0.2-1.3); CALCIUM 8.6 mg/dL (8.5-10.1); CARBON DIOXIDE 32.4 mmol/L (21.0-32.0); CREATININE - SERUM 1.2 mg/dL (0.6-1.3); PHOSPHOROUS 2.8 mg/dL (2.5-4.9); POTASSIUM - SERUM 3.8 mmol/L (3.5-5.1); PROTEIN - SERUM 7.7 g/dL (6.4-8.2)
[2018-12-23 04:51] LABS: MAGNESIUM - SERUM 1.7 mg/dL (1.8-2.4)
--- NOTE | 2018-12-23 05:00 | NUR ---
PT IS UP AND REQUESTED TO WASH UP FOR THE DAY. CHG BATH PERFORMED BY PATIENT. COMPLETE BEDDING CHANGE DONE. NO FURTHER NEEDS VOICED. NO SIGNS OF ACUTE DISTRESS. WILL CONTINUE TO MONITOR.
[2018-12-23 07:18] LABS: HEPATITIS C ANTIBODY <0.1 S/CO RAT (0.0-0.9)
[2018-12-23 10:16] LABS: ANA REFLEX - DIRECT Negative (Negative)
--- NOTE | 2018-12-23 12:40 | NUR ---
DR JORDAN HERE FOR EVAL, NEW ORDER GIVEN FOR PATIENT TRANSFER
[2018-12-23 13:13] LABS: OSMOLALITY - SERUM 276 (275-295)
--- NOTE | 2018-12-23 17:04 | NUR ---
RECIEVED PATIENT FROM THE ICU. PLACED PATIENT ON A WHITE BED TO PLEASE PATIENT. IV INTACT AND SALINE LOCKED. O2 AT 3L. FAMILY WITH PATIENT. CALL LIGHT IN REACH BED IN LOW POSITION PATIENT DENIES ANY NEEDS AT THIS TIME
--- NOTE | 2018-12-23 19:17 | NUR ---
EVENING ROUNDS MADE. PT LAYING IN BED RESTING. BREATHING EVEN AND UNLABORED. FAMILY AT BEDSIDE. NO FURTHER CONCERNS AT THIS TIME. BED LOWERED AND LOCKED. CL IN REACH. WILL CTM.
--- NOTE | 2018-12-23 22:05 | NUR ---
PT ROAMED FERRARA WITH VIA WHEELCHAIR. AFTER BACK TO ROOM AND SETTLE PT C/O PAIN IN BACK, MORPHINE GIVEN VIA IV IN L FA. NO FURTHER CONCERNS AT THIS TIME. FALL PRECAUTIONS IN PLACE. BED LOWERED AND LOCKED. CL IN REACH. WILL CTM
--- NOTE | 2018-12-23 22:32 | NUR ---
VITALS STABLE. PT TOOK MEDS WITHOUT DIFFICULTY. DENIES FURTHER NEEDS AT THIS TIME. BED LOWERED AND LOCKED. CL IN REACH. WILL CTM.
[2018-12-24 04:30] VITALS: BP 113/63
--- NOTE | 2018-12-24 04:45 | NUR ---
I have reviewed this patient and I concur with the Shift Assessment completed by the Licensed Practical Nurse today this shift.
--- NOTE | 2018-12-24 04:45 | NUR ---
I have reviewed this patient and I concur with the Shift Assessment completed by the Licensed Practical Nurse today this shift.
[2018-12-24 06:56] LABS: BASOPHILS 0.1 % (0-2); EOSINOPHILS 1.6 % (0-7); HEMATOCRIT 29.2 % (36.0-48.0); HEMOGLOBIN 9.7 g/dL (12-16); IMMATURE GRANULOCYTES 0.3 % (0-5); LYMPHOCYTES 23.2 % (15-50); MCH 24.7 pg (26.0-34.0); MCHC 33.2 g/dL (31.0-37.0); MCV 74.3 fL (80.0-100.0); MEAN PLATELET VOLUME 10.3 fL (7.4-10.4); NEUTROPHILS 59.8 % (40-80); PLATELET COUNT 211 10x3/uL (130-400); RBC 3.93 10x6/uL (4.00-5.40); RDW 17.5 % (11.5-14.5); WBC 6.7 10x3/uL (4.8-10.8)
[2018-12-24 07:05] LABS: APTT 38.1 SECONDS (22.8-39.4); INR 1.7 (0.85-1.17); PROTIME 19.3 SECONDS (11.6-15.0)
[2018-12-24 07:06] LABS: % SATURATION 5 % (15-55); IRON 23 ug/dl (35-150); TOTAL IRON BIND CAPACITY 393 ug/dl (260-445); UNSAT IRON BIND CAPACITY 370 ug/dl (150-375)
[2018-12-24 07:17] LABS: ALBUMIN 3.7 g/dL (3.4-5.0); ANION GAP 7.6 mmol/L (8-16); BILIRUBIN - TOTAL 2.12 mg/dL (0.2-1.3); CALCIUM 8.8 mg/dL (8.5-10.1); CARBON DIOXIDE 33.8 mmol/L (21.0-32.0); MAGNESIUM - SERUM 1.7 mg/dL (1.8-2.4); PHOSPHOROUS 2.7 mg/dL (2.5-4.9); POTASSIUM - SERUM 3.4 mmol/L (3.5-5.1); PROTEIN - SERUM 7.4 g/dL (6.4-8.2)
[2018-12-24 08:12] VITALS: BP 97/67
--- NOTE | 2018-12-24 08:30 | NUR ---
PT RESTING IN BED, SHIFT ASSESSMENT PERFORMED. PT STATES THE MORPHINE IS NOT WORKING TO CONTROL HER PAIN. STILL WAITING ON CHRIS LASSITER TO CALL BACK FOR ANOTHER PT AND WILL DISCUSS WITH HER. PT AGREES. DENIES ANY FURTHER NEEDS AT THIS TIME. WILL CONT TO FOLLOW POC
--- NOTE | 2018-12-24 09:00 | NUR ---
PAGED CHRIS ALMONTE
--- NOTE | 2018-12-24 12:16 | NUR ---
PAGED CHRIS ALMONTE
--- NOTE | 2018-12-24 12:21 | NUR ---
PT PUSHING PT AROUND HOSPITAL IN WHEELCHAIR
--- NOTE | 2018-12-24 12:58 | NUR ---
Nutrition follow-up: Pt just out of ICU Diet: Low sodium due to heart failure No po intake recorded at this time Pt has been out of room with Labs reviewed Wt: 130# RDN following.
[2018-12-24 14:12] LABS: MITOCHONDRIAL ANTIBODY <20.0 Units (0.0-20.0); SMOOTH MUSCLE ABS (ACTIN) 8 Units (0-19)
[2018-12-24 15:43] VITALS: BP 116/70
--- NOTE | 2018-12-24 19:49 | NUR ---
REPROT RECIEVED AND ROUNDING COMPLETE. PATIENT REQUESTED A BREATHING TREATMENT. I ASKED RT TO PUT PATIENT ON THEIR PM SCHEDULE. PATIENT HAS NO OTHER NEEDS AT THIS TIME. CALL LIGHT WITHIN REACH AND BED IN LOWEST POSITON. PATIENT IS NO SHOWING ANY S/SX OF DISTRESS AT THIS TIME. AT BEDSIDE.PATIENT WEARING NC WITH O2 AT 2L.
[2018-12-24 20:25] VITALS: BP 101/66
[2018-12-25 00:37] VITALS: BP 101/51
--- NOTE | 2018-12-25 01:00 | NUR ---
PATIENT LAYING IN BED VISITING WITH AND FAMILY. PATIENT STATES NO NEEDS AT THIS TIME. CALL LIGHT WITHIN REACH AND BED IN LOWEST POSITION.
--- NOTE | 2018-12-25 03:27 | NUR ---
I have reviewed this patient and I concur with the Shift Assessment completed by the Licensed Practical Nurse today this shift.
[2018-12-25 06:25] LABS: BASOPHILS 0.3 % (0-2); EOSINOPHILS 1.1 % (0-7); HEMATOCRIT 33.9 % (36.0-48.0); IMMATURE GRANULOCYTES 0.3 % (0-5); LYMPHOCYTES 24.1 % (15-50); MCH 24.2 pg (26.0-34.0); MCHC 32.4 g/dL (31.0-37.0); MCV 74.5 fL (80.0-100.0); MEAN PLATELET VOLUME 11.2 fL (7.4-10.4); MONOCYTES 12.6 % (2-11); NEUTROPHILS 61.6 % (40-80); RBC 4.55 10x6/uL (4.00-5.40); RDW 17.7 % (11.5-14.5); WBC 7.3 10x3/uL (4.8-10.8)
[2018-12-25 06:30] LABS: PLATELET COUNT 264 10x3/uL (130-400)
[2018-12-25 06:38] LABS: APTT 36.2 SECONDS (22.8-39.4); INR 1.4 (0.85-1.17); PROTIME 16.6 SECONDS (11.6-15.0)
[2018-12-25 06:55] LABS: ALKALINE PHOSPHATASE 190 U/L (46-116); ALT (SGPT) 342 U/L (10-68); BILIRUBIN - TOTAL 2.14 mg/dL (0.2-1.3); CALC OSMOLALITY 272 mosm/kg (275-300); CALCIUM 9.3 mg/dL (8.5-10.1); CHLORIDE - SERUM 95 mmol/L (98-107); CREATININE - SERUM 0.9 mg/dL (0.6-1.3); GLUCOSE 74 mg/dL (74-106); MAGNESIUM - SERUM 1.7 mg/dL (1.8-2.4); PHOSPHOROUS 2.9 mg/dL (2.5-4.9); PROTEIN - SERUM 8.2 g/dL (6.4-8.2); SODIUM 137 mmol/L (136-145); UREA NITROGEN 13 mg/dL (7-18); eGFR NON AFRICAN AMERICAN 77 mL/min (90-120)
--- NOTE | 2018-12-25 07:45 | NUR ---
PT RESTING IN BED WITH , DENIES ANY NEEDS AT THIS TIME, WILL CONT TO FOLLOW POC
[2018-12-25 08:13] LABS: FOLATE (FOLIC ACID) - SERUM 7.4 ng/mL (>3.0)
[2018-12-25 08:43] VITALS: BP 102/61
--- NOTE | 2018-12-25 10:34 | NUR ---
PT LEFT FLOOR FOR NUCLEAR MED
--- NOTE | 2018-12-25 12:20 | NUR ---
PT WALKING HALLS WITH
--- NOTE | 2018-12-25 20:07 | NUR ---
RECIEVED UP IN BED WITH EYES OPEN AND SPOUSE AT BEDSIDE. A/O X4. UP AD ISHMAEL. IV TO LEFT FA SL.. O2@ 2LITERS PER N/C IN PLACE. TELEMETRY IN PLACE. REQUEST TO GO WALK WITH SPOUSE AND REQUESTING PAIN MEDICATION WHEN SHE RETURNED. RETURNED FROM WALK WITH NO SOB. OXY GIVEN PER ORDERS. DENIES ANY OTHER NEEDS.
[2018-12-25 20:20] VITALS: BP 91/54
[2018-12-26 06:23] LABS: BASOPHILS 0.4 % (0-2); EOSINOPHILS 2.9 % (0-7); HEMATOCRIT 32.5 % (36.0-48.0); HEMOGLOBIN 10.6 g/dL (12-16); IMMATURE GRANULOCYTES 0.2 % (0-5); MCH 24.1 pg (26.0-34.0); MCHC 32.6 g/dL (31.0-37.0); MEAN PLATELET VOLUME 11.4 fL (7.4-10.4); MONOCYTES 16.5 % (2-11); RBC 4.39 10x6/uL (4.00-5.40); RDW 17.3 % (11.5-14.5)
[2018-12-26 06:24] LABS: PLATELET COUNT 209 10x3/uL (130-400); WBC 5.1 10x3/uL (4.8-10.8)
[2018-12-26 06:28] LABS: APTT 29.7 SECONDS (22.8-39.4); INR 1.34 (0.85-1.17)
[2018-12-26 06:31] LABS: ALBUMIN 3.9 g/dL (3.4-5.0); ANION GAP 7.1 mmol/L (8-16); BILIRUBIN - TOTAL 2.12 mg/dL (0.2-1.3); CALCIUM 9.8 mg/dL (8.5-10.1); CARBON DIOXIDE 39.3 mmol/L (21.0-32.0); MAGNESIUM - SERUM 1.7 mg/dL (1.8-2.4); PHOSPHOROUS 3.4 mg/dL (2.5-4.9); POTASSIUM - SERUM 3.4 mmol/L (3.5-5.1)
[2018-12-26 07:53] VITALS: BP 98/57
--- NOTE | 2018-12-26 08:00 | NUR ---
PT RESTING IN BED WITH HER . DENIES ANY NEEDS AT THIS TIME, WILL CONT TO FOLLOW POC
[2018-12-26 11:17] VITALS: BP 100/52
--- NOTE | 2018-12-26 12:20 | NUR ---
PT RESTING IN BED, SHIFT ASSESSMENT PERFORMED. DENIES ANY NEEDS AT THIS TIME.
[2018-12-26 15:59] VITALS: BP 103/88
--- NOTE | 2018-12-26 16:00 | NUR ---
PT PIV TO LEFT FA INFILTRATED, PIV REMOVED WITH CATHETER TIP INTACT. 20G PIV INSERTED X1 ATTEMPT TO RIGHT FA. PT TOLERATED WELL
--- NOTE | 2018-12-26 17:46 | NUR ---
PT WALKING HALLS WITH FAMILY MEMBER.
--- NOTE | 2018-12-26 19:18 | NUR ---
RECIEVED UP IN BED WITH VISITOR AT BEDSIDE. ALERT AND ORIENTED X4. UP AD ISHMAEL. O2@ 2 ;ITERS PER N/C. IV TO RIGHT FA SL.. TELEMETRY IN PLACE. DENIES ANT NEEDS AT THIS TIME.
[2018-12-26 20:15] VITALS: BP 104/66
[2018-12-27 00:33] VITALS: BP 110/70
[2018-12-27 03:45] VITALS: BP 103/67
[2018-12-27 05:52] LABS: BASOPHILS 0.4 % (0-2); EOSINOPHILS 1.7 % (0-7); HEMATOCRIT 32.3 % (36.0-48.0); HEMOGLOBIN 10.9 g/dL (12-16); IMMATURE GRANULOCYTES 0.3 % (0-5); LYMPHOCYTES 27.5 % (15-50); MCH 24.9 pg (26.0-34.0); MCHC 33.7 g/dL (31.0-37.0); MCV 73.7 fL (80.0-100.0); MEAN PLATELET VOLUME 10.9 fL (7.4-10.4); MONOCYTES 14.6 % (2-11); NEUTROPHILS 55.5 % (40-80); RBC 4.38 10x6/uL (4.00-5.40); RDW 17.2 % (11.5-14.5)
[2018-12-27 05:58] LABS: PLATELET COUNT 259 10x3/uL (130-400); WBC 6.9 10x3/uL (4.8-10.8)
[2018-12-27 06:10] LABS: INR 1.27 (0.85-1.17); PROTIME 15.4 SECONDS (11.6-15.0)
[2018-12-27 06:11] LABS: APTT 38.2 SECONDS (22.8-39.4)
[2018-12-27 06:24] LABS: ALBUMIN 3.7 g/dL (3.4-5.0); ANION GAP 12.3 mmol/L (8-16); BILIRUBIN - TOTAL 1.54 mg/dL (0.2-1.3); MAGNESIUM - SERUM 1.8 mg/dL (1.8-2.4); POTASSIUM - SERUM 3.3 mmol/L (3.5-5.1); PROTEIN - SERUM 7.9 g/dL (6.4-8.2)
[2018-12-27 07:25] VITALS: BP 101/69
--- NOTE | 2018-12-27 07:50 | NUR ---
REPORT RECEIVED. WILL CONTINUE WITH POC. PT CURRENTLY LYING ON LEFT SIDE. PARTNER IN BED WITH PT. PT IS AAO AND UP AD ISHMAEL. RR EVEN AND UNLABORED ON 2L 02. R.FOR PIV IS SALINE LOCKED. NO S/S OF DISTRESS NOTED. PT DENIES ANY NEEDS AT THIS TIME. WILL CTM.
[2018-12-27 11:38] VITALS: BP 103/62
[2018-12-27] MEDS ORDERED: LEVAQUIN750 MG PO (13:53)
--- NOTE | 2018-12-27 15:24 | MORECARE ---
CASE MANAGEMENT DISCHARGE SUMMARY PATIENT: FRANKI ZARATE UNIT: [id number] ADM DATE: 12/22/18 AGE: 33 : 86 SEX: F ROOM/BED: D.0074 AUTHOR: TRACE,DOC PHYSICIAN: REFERRING PHYSICIAN: FABIO JORDAN MD DATE OF SERVICE: 12/27/18 Discharge Plan Patient Name: FRANKI ZARATE Facility: [facility]:[place] : 1985 Planned Disposition: Home Anticipated Discharge Date: 12/27/18 Discharge Date: Expected LOS: 5 Initial Reviewer: [id number] Initial Review Date: 12/22/2018 Generated: 12/27/18 4:24 pm DCP- Discharge Planning Updated by [email or web address]: Zuly Israel on 12/22/18 3:[address] Patient Name: FRANKI ZARATE Admission Status: ER Accout number: [id number] Admission Date: 12-22-2018 : 1985 Admission Diagnosis: Attending: FABIO JORDAN Current LOS: 1 Anticipated DC Date: Planned Disposition: Home Primary Insurance: MEDICARE A & B Discharge Planning Comments: CM met with patient at bedside after explaining CM role and obtaining verbal consent. Patient lives at home with her Brian and plans to return there upon discharge. Patient feels this would be a safe discharge. Patient states she has home 02/ portable 02 and electric wheelchair. She can't recall DME. Patient states she has had HH in the past but not currently. Patient denies any discharge needs at this time. CM will continue to follow and assist as needed with discharge planning / needs. Software Sales Manager: Zuly Israel DCPIA - Discharge Planning Initial Assessment Updated by [email or web address]: Zuly Israel on 12/22/18 4:06 pm * Is the patient Alert and Oriented? Yes * How many steps to enter\exit or inside your home? ramp * PCP NIKKI * Pharmacy [facility] * Preadmission Environment Home with Family * ADLs Partial Dependent * Partial ADLs (Assistance needed) Ambulation Bathing Dressing Eating Medication Management Toileting Transfers * Other Equipment HOME 02 & PORTABLE , ELECTRIC W/C * List name and contact numbers for known caregivers / representatives who currently or will assist patient after discharge: BRIAN ZARATE - SPOUSE - [phone] * Verbal permission to speak to the caregivers and representatives has been obtained from the patient. N/A * Community resources currently utilized None * Additional services required to return to the preadmission environment? No * Can the patient safely return to the preadmission environment? Yes * Has this patient been hospitalized within the prior 30 days at any hospital? No Coverage Notice Reviewer: [email or web address] Shiraz Pacheco Notice Issued Date-Time: 12/27/2018 15:20 Notice Type: IM Discharge Notice Notice Delivered To: Patient Relationship to Patient: Diamond Mounter Name: Delivery Method: HAND - Hand Delivered Latasha Days: Prior Verbal Notification: Recipient Understood Notice: Recipient Signature: Med Rec Note Co-signed by Attending: Coverage Notice Comment: patient not in room at 1445, 1500 and 1520 hours. patients copy left at on patient's stacked pillows on the bed. Last DP export: 12/22/18 3:18 p Patient Name: REEDKARLA Page 56952 at 1524 All edits/amendments must be made on the electronic document DICTATION DATE: 12/27/18 152 HEALTH SERVICE WORKER: MOIRA 12/27/18 152 RPT#: [id number] DC DATE: STATUS: ADM IN [facility] [address] [place] [address] END OF REPORT
--- NOTE | 2018-12-27 15:32 | MORECARE ---
CASE MANAGEMENT DISCHARGE SUMMARY PATIENT: FRANKI ZARATE UNIT: [id number] ADM DATE: 12/22/18 AGE: 33 : 86 SEX: F ROOM/BED: D.0281 AUTHOR: TRACE,DOC PHYSICIAN: REFERRING PHYSICIAN: FABIO JORDAN MD DATE OF SERVICE: 12/27/18 Discharge Plan Patient Name: FRANKI ZARATE Facility: [facility]:[place] : 1985 Planned Disposition: Home Anticipated Discharge Date: 12/27/18 Discharge Date: Expected LOS: 5 Initial Reviewer: [email or web address] Initial Review Date: 12/22/2018 Generated: 12/27/18 4:31 pm Comments DCP- Discharge Planning Updated by [email or web address]: Davon Pacheco on 12/27/18 2:[address] Patient Name: FRANKI ZARATE Encounter No: [id number] : 1985 Primary Insurance: MEDICARE A & B Anticipated DC Date: 12-27-2018 Planned Disposition: Home DCP follow-up note: CM ATTEMPTED TO MEET WITH PT IN ROOM AT 1445 HOURS, 1500 HOURS and 1520 HOURS. PT WAS NOT IN ROOM AT ANY TIME, PT'S WHEELCHAIR WAS ALSO NOT IN ROOM. CM WAS NOT ABLE TO LOCATE PT ON THE NURSING UNIT. CM LEFT PT'S COPY OF IMPORTANT MESSAGE FROM [employer] ON TOP OF PATIENTS STACKED PILLOWS ON HER BED WITH CM CONTACT INFOMATION TO CALL IF PT HAD ANY QUESTIONS. CHART REVIEWED, PT HAS BEEN SEEN BY CASE MANAGEMENT PREVIOUSLY WITH DISCHARGE PLAN OF HOME WITH NO ANTICIPATED NEEDS. RICK Ramires DCP- Discharge Planning Updated by [id number]: Zuly Israel on 12/22/18 3:[address] Patient Name: FRANKI ZARATE Admission Status: ER Accout number: [id number] Admission Date: 12-22-2018 : 1985 Admission Diagnosis: Attending: FABIO JORDAN Current LOS: 1 Anticipated DC Date: Planned Disposition: Home Primary Insurance: MEDICARE A & B Discharge Planning Comments: CM met with patient at bedside after explaining CM role and obtaining verbal consent. Patient lives at home with her Brian and plans to return there upon discharge. Patient feels this would be a safe discharge. Patient states she has home 02/ portable 02 and electric wheelchair. She can't recall DME. Patient states she has had HH in the past but not currently. Patient denies any discharge needs at this time. CM will continue to follow and assist as needed with discharge planning / needs. Electric Motor Repair Supervisor: Zuly Israel DCPIA - Discharge Planning Initial Assessment Updated by [email or web address]: Zuly Israel on 12/22/18 4:06 pm * Is the patient Alert and Oriented? Yes * How many steps to enter\exit or inside your home? ramp * PCP JORDAN * Pharmacy [facility] * Preadmission Environment Home with Family * ADLs Partial Dependent * Partial ADLs (Assistance needed) Ambulation Bathing Dressing Eating Medication Management Toileting Transfers * Other Equipment HOME 02 & PORTABLE , ELECTRIC W/C * List name and contact numbers for known caregivers / representatives who currently or will assist patient after discharge: BRIAN ZARATE - [facility] - [phone] * Verbal permission to speak to the caregivers and representatives has been obtained from the patient. N/A * Community resources currently utilized None * Additional services required to return to the preadmission environment? No * Can the patient safely return to the preadmission environment? Yes * Has this patient been hospitalized within the prior 30 days at any hospital? No Coverage Notice Reviewer: [id number] - Davon Pacheco Notice Issued Date-Time: 12/27/2018 15:20 Notice Type: IM Discharge Notice Notice Delivered To: Patient Relationship to Patient: Station Chief Name: Delivery Method: HAND - Hand Delivered Latasha Days: Prior Verbal Notification: Recipient Understood Notice: Recipient Signature: Med Rec Note Co-signed by Attending: Coverage Notice Comment: patient not in room at 1445, 1500 and 1520 hours. patients copy left at on patient's stacked pillows on the bed. Last DP export: 12/27/18 2:24 pm Patient Name: FRANKI ZARATE Page [phone] at 1532 All edits/amendments must be made on the electronic document DICTATION DATE: 12/27/18 1531 COMMERCIAL CREDIT OFFICER: MOIRA 12/27/18 1531 RPT#: [id number] DC DATE: STATUS: ADM IN [facility] [address] [facility] [place] [address] END OF REPORT
--- NOTE | 2018-12-27 15:40 | MORECARE ---
CASE MANAGEMENT DISCHARGE SUMMARY PATIENT: FRANKI ZARATE UNIT: [id number] ADM DATE: 12/22/18 AGE: 33 : 87 SEX: F ROOM/BED: D.9889 AUTHOR: TRACE,DOC PHYSICIAN: REFERRING PHYSICIAN: FABIO JORDAN MD DATE OF SERVICE: 12/27/18 Discharge Plan Patient Name: FRANKI ZARATE Facility: [facility]:[place] : 1985 Planned Disposition: Home Anticipated Discharge Date: 12/27/18 Discharge Date: Expected LOS: 5 Initial Reviewer: [email or web address] Initial Review Date: 12/22/2018 Generated: 12/27/18 4:40 pm Comments DCP- Discharge Planning Updated by [id number]: Davon Pacheco on 12/27/18 2:[address] Patient Name: FRANKI ZARATE Encounter No: [id number] : 1985 Primary Insurance: MEDICARE A & B Anticipated DC Date: 12-27-2018 Planned Disposition: Home DCP follow-up note: CM ATTEMPTED TO MEET WITH PT IN ROOM AT 1445 HOURS, 1500 HOURS and 1520 HOURS. PT WAS NOT IN ROOM AT ANY TIME, PT'S WHEELCHAIR WAS ALSO NOT IN ROOM. CM WAS NOT ABLE TO LOCATE PT ON THE NURSING UNIT. CM LEFT PT'S COPY OF IMPORTANT MESSAGE FROM [facility] ON TOP OF PATIENTS STACKED PILLOWS ON HER BED WITH CM CONTACT INFOMATION TO CALL IF PT HAD ANY QUESTIONS. CHART REVIEWED, PT HAS BEEN SEEN BY CASE MANAGEMENT PREVIOUSLY WITH DISCHARGE PLAN OF HOME WITH NO ANTICIPATED NEEDS. Davon Pacheco, CASE MANAGEMENT Appended by Davon Pacheco on 12/27/2018 15:35 CDT: CM SPOKE TO PT AT NURSES STATION, SHE BACK FROM HER WALK AT ABOUT 1530 HOURS, PT RECEIVED THE IMPORTANT MESSAGE FROM HER ROOM AND HAS NO QUESTIONS. PT SIGNED COPY FOR CHART. PT'S TO TRANSPORT HOME, PT HAS NO STATED DISCHARGE NEEDS. RICK ANTHONY DCP- Discharge Planning Updated by [id number]: Zuly Israel on 12/22/18 3:[address] Patient Name: FRANKI ZARATE Admission Status: ER Accout number: [id number] Admission Date: 12-22-2018 : 1985 Admission Diagnosis: Attending: FABIO JORDAN Current LOS: 1 Anticipated DC Date: Planned Disposition: Home Primary Insurance: MEDICARE A & B Discharge Planning Comments: CM met with patient at bedside after explaining CM role and obtaining verbal consent. Patient lives at home with her Brian and plans to return there upon discharge. Patient feels this would be a safe discharge. Patient states she has home 02/ portable 02 and electric wheelchair. She can't recall DME. Patient states she has had HH in the past but not currently. Patient denies any discharge needs at this time. CM will continue to follow and assist as needed with discharge planning / needs. Culinary Worker: Zuly MORENOA - Discharge Planning Initial Assessment Updated by [id number]: Zuly Israel on 12/22/18 4:06 pm * Is the patient Alert and Oriented? Yes * How many steps to enter\exit or inside your home? ramp * PCP NIKKI * Pharmacy [facility] * Preadmission Environment Home with Family * ADLs Partial Dependent * Partial ADLs (Assistance needed) Ambulation Bathing Dressing Eating Medication Management Toileting Transfers * Other Equipment HOME 02 & PORTABLE , ELECTRIC W/C * List name and contact numbers for known caregivers / representatives who currently or will assist patient after discharge: BRIAN ZARATE - [facility] - [phone] * Verbal permission to speak to the caregivers and representatives has been obtained from the patient. N/A * Community resources currently utilized None * Additional services required to return to the preadmission environment? No * Can the patient safely return to the preadmission environment? Yes * Has this patient been hospitalized within the prior 30 days at any hospital? No Coverage Notice Reviewer: [email or web address] Pacheco Notice Issued Date-Time: 12/27/2018 15:20 Notice Type: IM Discharge Notice Notice Delivered To: Patient Relationship to Patient: Appliance Line Assembler Name: Delivery Method: HAND - Hand Delivered Latasha Days: Prior Verbal Notification: Recipient Understood Notice: Recipient Signature: Med Rec Note Co-signed by Attending: Coverage Notice Comment: patient not in room at 1445, 1500 and 1520 hours. patients copy left at on patient's stacked pillows on the bed. Reviewer: [id number] Shiraz Pacheco Notice Issued Date-Time: 12/27/2018 15:30 Notice Type: IM Discharge Notice Notice Delivered To: Patient Relationship to Patient: Appliance Line Assembler Name: Delivery Method: HAND - Hand Delivered Latasha Days: Prior Verbal Notification: Recipient Understood Notice: Yes Recipient Signature: Yes Med Rec Note Co-signed by Attending: Coverage Notice Comment: Last DP export: 12/27/18 2:31 pm Patient Name: FRANKI ZARATE Page [id number] at 1540 All edits/amendments must be made on the electronic document DICTATION DATE: 12/27/181538 VISION CARE ASSOCIATE: MOIRA 12/27/181538 RPT#: [id number] DC DATE: STATUS: ADM IN [facility] [address] [place] [address] END OF REPORT
--- NOTE | 2018-12-27 15:52 | NUR ---
PT DISCHARGED HOME VIA WHEELCHAIR WITH FAMILY. PIV REMOVED WITH CATHETER TIP FULLY INTACT. TELEMETRY REMOVED AND RETURNED. PT SIGNED PROPER DISCHARGE INSTRUCTION AND REMOVED ALL VALUABLES FROM THE ROOM.
== END 2018-12-27 15:53 | disposition home or self-care (01) | DRG 308 ==
LOC: D.ER 03:20 → D.M2 05:32 → D.ICU 06:08 → D.M2 12-23 16:44
PROVIDERS: Family Medicine; Internal Medicine Gastroenterology; ADMIT Family Medicine; ATTEND Family Medicine
PROC: 5A2204Z Restoration of Cardiac Rhythm, Single (ICD-10-PCS; principal; 2018-12-22)
DX: I47.1 Supraventricular tachycardia (principal); J18.9 Pneumonia, unspecified organism; E87.1 Hypo-osmolality and hyponatremia; I50.22 Chronic systolic (congestive) heart failure; N17.9 Acute kidney failure, unspecified; I50.812 Chronic right heart failure; J44.9 Chronic obstructive pulmonary disease, unspecified; K80.20 Calculus of gallbladder without cholecystitis without obstruction; E87.5 Hyperkalemia; D50.0 Iron deficiency anemia secondary to blood loss (chronic); Z79.01 Long term (current) use of anticoagulants; Z86.718 Personal history of other venous thrombosis and embolism

== ENCOUNTER → 2019-02-08 11:54 | Inpatient (IN) | payer MEDICARE ==
[2019-02-02 16:03] LABS: HEMATOCRIT 32.9 % (36.0-48.0); HEMOGLOBIN 10.7 g/dL (12-16); MCHC 32.5 g/dL (31.0-37.0); MCV 73.8 fL (80.0-100.0); MEAN PLATELET VOLUME 11.5 fL (7.4-10.4); RBC 4.46 10x6/uL (4.00-5.40); RDW 17.1 % (11.5-14.5)
[2019-02-02 16:14] LABS: APTT 42.7 SECONDS (22.8-39.4); INR 1.85 (0.85-1.17); PROTIME 20.7 SECONDS (11.6-15.0)
--- NOTE | 2019-02-02 16:55 | NUR ---
RECEIVED PATIENT A DIRECT ADMIT. C/O PAIN TO LEFT THIGH/KNEE. NO S/S OF ACUTE DISTRESS NOTED. IV STARTED TO LEFT WRIST, X1 STICK. ALERT AND ORIENTED. PT DENIES ANY NEEDS. CALL LIGHT IN REACH. WILL CONTINUE TO MONITOR.
[2019-02-02 17:06] VITALS: BP 91/52
--- NOTE | 2019-02-02 18:56 | NUR ---
ALERT AND ORIENTED. C/O PAIN STILL, GAVE MORPHINE IR AT 1621. NO S/S OF ACUTE DISTRESS NOTED. PAIN COMING FROM LEFT THIGH/KNEE. PT DENIES ANY NEEDS. CALL LIGHT IN REACH. WILL CONTINUE TO MONITOR.
[2019-02-02 20:05] VITALS: BP 91/52; BMI 28.4
--- NOTE | 2019-02-02 20:40 | NUR ---
PATIENT IN BED. COMPLAINTS OF PAIN TO LEFT THIGH. PATIENT AGITATED STATES." DR WAS SUPPOSED TO COME SEE ME AND HE HASNT SHOWN UP AND IM HURTING AND MY INSURANCE IS BETTER THAN [employer]BL[employer] MOST PEOPLE HERE AND WHY DO I HAVE TO WAIT FOR SOMEONE TO SEE ME?"EXPLAINED TO NI MCMANUS HAD BEEN NOTIFIED OF HER ARRIVAL AND HAD ORDERED PAIN MED,WHICH WAS GIVEN AT THIS TIME.STATES WELL I WANT SOMEONE CALLED..INFORMED PATIENT I WOULD PLACE A CALL TO THE .
--- NOTE | 2019-02-02 21:10 | NUR ---
DR BILLY RETURNED CALL. INFORMED OF PATIENT COMPLAITNS. STATES "NOT COMING IN TO SEE PATIENT TONIGHT SINCE DR MCMANUS JUST SAW HER IN OFFICE. MAY DO ULTASOUND OF LLL IF THAT IS WHAT PATIENT IS WANTING OR IF LLL IS WITHOUT PP OR COOL TO TOUCH". LLL ASSESSED. PPP AND LEG WARM TO TOUCH. PATIENT REFUSES ULTRASOUND,STATES" I WILL WAIT FOR MY REGULAR DR TO SEE ME IN AM".
[2019-02-02 22:18] VITALS: BP 104/71
--- NOTE | 2019-02-03 02:00 | NUR ---
PTT > 200. HEPARIN DRIP STOPPED X 60 MIN PER ORDERS. WILL RESTART AT 0300.
--- NOTE | 2019-02-03 04:43 | NUR ---
I have reviewed this patient and I concur with the Shift Assessment completed by the Licensed Practical Nurse today this shift.
[2019-02-03 07:08] LABS: BASOPHILS 0.5 % (0-2); EOSINOPHILS 1.8 % (0-7); HEMATOCRIT 29.5 % (36.0-48.0); HEMOGLOBIN 9.6 g/dL (12-16); IMMATURE GRANULOCYTES 0.3 % (0-5); LYMPHOCYTES 29.7 % (15-50); MCHC 32.5 g/dL (31.0-37.0); MCV 73.8 fL (80.0-100.0); MEAN PLATELET VOLUME 12.2 fL (7.4-10.4); NEUTROPHILS 58.7 % (40-80); PLATELET COUNT 232 10x3/uL (130-400); RDW 17.2 % (11.5-14.5); WBC 7.3 10x3/uL (4.8-10.8)
[2019-02-03 07:20] LABS: INR 1.81 (0.85-1.17); PROTIME 20.3 SECONDS (11.6-15.0)
[2019-02-03 07:24] LABS: ANION GAP 14.3 mmol/L (8-16); CARBON DIOXIDE 27.2 mmol/L (21.0-32.0); CREATININE - SERUM 1.1 mg/dL (0.6-1.3); POTASSIUM - SERUM 3.5 mmol/L (3.5-5.1)
[2019-02-03 10:52] VITALS: BP 93/61
[2019-02-03 13:33] VITALS: BP 104/65
--- NOTE | 2019-02-03 14:37 | NUR ---
PATIENT AMBULATED IN [place]ERR[place] WITH NO PROBLEMS AT THIS TIME. IV SALINE LOCKED FOR 60 MIN DUE TO PTT 162.7. IV INTACT.
--- NOTE | 2019-02-03 14:50 | NUR ---
PATIENT HEPARIN GTT TURNED OFF FOR AN HOUR FOR PROTOCAL. PTT 162 AT THIS TIME.
--- NOTE | 2019-02-03 16:00 | NUR ---
PATIENT HEPARIN DRIP STARTED BACK AT 7 PER PROTOCAL. REDRAW PUT IN FOR 2199.
[2019-02-03 17:23] VITALS: BP 99/59
--- NOTE | 2019-02-03 18:40 | NUR ---
PATIENT IN BED WITH IV INTACT. N O COMPLAINTS OR SIGNS OF DISTRESS. FAMILY AT BEDSIDE. CALL LIGHT WITHIN REACH.
[2019-02-03 20:00] VITALS: BP 95/54
--- NOTE | 2019-02-03 20:55 | NUR ---
WATCHING TV QUEITLY WITH NO DISTRESS NOTED. IV INFUSING TO LEFT WRIST WITH NO REDNESS OR EDEMA NOTED. FRIEND AT BEDSIDE. NO COMPLAITNS VOICED.CL IN REACH
[2019-02-03 21:09] VITALS: BP 87/54
[2019-02-04] VITALS: BP 89/48
--- NOTE | 2019-02-04 04:00 | NUR ---
I have reviewed this patient and I concur with the Shift Assessment completed by the Licensed Practical Nurse today this shift.
[2019-02-04 05:06] LABS: APTT 54.4 SECONDS (22.8-39.4); INR 1.34 (0.85-1.17); PROTIME 16.1 SECONDS (11.6-15.0)
[2019-02-04 05:14] LABS: ANION GAP 14.8 mmol/L (8-16); CREATININE - SERUM 1.3 mg/dL (0.6-1.3); POTASSIUM - SERUM 3.8 mmol/L (3.5-5.1)
[2019-02-04 05:22] LABS: BASOPHILS 0.5 % (0-2); EOSINOPHILS 1.6 % (0-7); HEMATOCRIT 33.8 % (36.0-48.0); HEMOGLOBIN 11.1 g/dL (12-16); IMMATURE GRANULOCYTES 0.3 % (0-5); LYMPHOCYTES 29.1 % (15-50); MCH 23.8 pg (26.0-34.0); MCHC 32.8 g/dL (31.0-37.0); MCV 72.5 fL (80.0-100.0); MEAN PLATELET VOLUME 11.7 fL (7.4-10.4); MONOCYTES 11.3 % (2-11); NEUTROPHILS 57.2 % (40-80); PLATELET COUNT 252 10x3/uL (130-400); RBC 4.66 10x6/uL (4.00-5.40); WBC 7.5 10x3/uL (4.8-10.8)
[2019-02-04 08:55] VITALS: BP 107/73
--- NOTE | 2019-02-04 09:03 | NUR ---
PATIENT TO OR
[2019-02-04 14:12] VITALS: Ht 170.2 cm; Wt 82.1 kg
--- NOTE | 2019-02-04 18:46 | NUR ---
PATIENT STILL IN PAIN. PAGED DR. MCMANUS. WAITING FOR CALL BACK.
--- NOTE | 2019-02-04 19:00 | NUR ---
NEW ORDERS PUT IN FOR PAIN MEDS. STAT PTT TO BE DRAWN FOR HEPARIN DRIP TO BE TURNED BACK ON. PATIENT VS STABLE. IV INTACT. CALL LIGHT WITHIN REACH.
[2019-02-04 20:00] VITALS: BP 114/84
[2019-02-05] VITALS: BP 99/53
[2019-02-05 02:50] LABS: BASOPHILS 0.2 % (0-2); EOSINOPHILS 0.2 % (0-7); HEMATOCRIT 33.4 % (36.0-48.0); HEMOGLOBIN 10.9 g/dL (12-16); IMMATURE GRANULOCYTES 0.2 % (0-5); LYMPHOCYTES 10.3 % (15-50); MCHC 32.6 g/dL (31.0-37.0); MCV 73.4 fL (80.0-100.0); MEAN PLATELET VOLUME 11.1 fL (7.4-10.4); NEUTROPHILS 80.1 % (40-80); PLATELET COUNT 218 10x3/uL (130-400); RBC 4.55 10x6/uL (4.00-5.40); RDW 17.1 % (11.5-14.5)
[2019-02-05 02:55] LABS: INR 1.43 (0.85-1.17); PROTIME 16.9 SECONDS (11.6-15.0)
[2019-02-05 02:56] LABS: APTT 103.8 SECONDS (22.8-39.4)
[2019-02-05 03:10] LABS: ANION GAP 12.8 mmol/L (8-16); CALCIUM 9.8 mg/dL (8.5-10.1); CREATININE - SERUM 1.2 mg/dL (0.6-1.3); POTASSIUM - SERUM 3.8 mmol/L (3.5-5.1)
[2019-02-05 08:37] VITALS: BP 109/67
--- NOTE | 2019-02-05 09:00 | NUR ---
ALERT AND ORIENTED X3 WITH DRESSING INTACT TO ABDOMEN. ABDOMEN TENDER TO TOUCH WITH HYPOACTIVE BS. CONTINUES ON IST STEP OVERLAY MATTREESS AND REPOSITIONING FOR COMFORT. NO S/S OF ABNORMAL BLEEDING NOTED WITH JEPARIN GIVEN PER PROTOCOL AND MONITORED. ENCOURAGED TO USE CALL LIGHT FOR ASSSIT.
[2019-02-05 13:37] VITALS: BP 99/68
[2019-02-05 20:31] VITALS: BP 98/62
[2019-02-06 03:42] LABS: BASOPHILS 0.1 % (0-2); EOSINOPHILS 0.1 % (0-7); HEMATOCRIT 30.6 % (36.0-48.0); HEMOGLOBIN 10.1 g/dL (12-16); IMMATURE GRANULOCYTES 0.3 % (0-5); LYMPHOCYTES 8.3 % (15-50); MCH 24.1 pg (26.0-34.0); MEAN PLATELET VOLUME 11.2 fL (7.4-10.4); MONOCYTES 13.8 % (2-11); NEUTROPHILS 77.4 % (40-80); PLATELET COUNT 223 10x3/uL (130-400); RBC 4.19 10x6/uL (4.00-5.40)
[2019-02-06 03:47] LABS: INR 1.7 (0.85-1.17); PROTIME 19.3 SECONDS (11.6-15.0)
[2019-02-06 03:48] LABS: CALCIUM 9.8 mg/dL (8.5-10.1); CARBON DIOXIDE 34.8 mmol/L (21.0-32.0); POTASSIUM - SERUM 3.8 mmol/L (3.5-5.1)
[2019-02-06 03:59] LABS: WBC 12.9 10x3/uL (4.8-10.8)
[2019-02-06 04:00] VITALS: BP 91/58
--- NOTE | 2019-02-06 04:00 | NUR ---
PT C/O PAIN 04/07. GAVE DILAUDID 0.5 MG IV PUSH. LAP SITE RUQ BLEEDING THROUGH BANDAID. REINFORCED WITH GAUZE AND ANOTHER BANDAID. BLED THROUGH AGAIN. REMOVED BANDAIDS. APPLIED VASOLINE GAUZE, 4X4'S, BORDER GAUZE AND ICE PACK. REPOSITIONED IN PT IN BED. PTT DRAWN AT 0330 IS 75.0 - NO RATE CHANGE, PTT NEXT AM PER HEPARIN PROTOCOL. NO OTHER NEEDS. WILL REASSESS AND CONTINUE TO MONITOR.
[2019-02-06 08:32] VITALS: BP 100/64
--- NOTE | 2019-02-06 10:24 | NUR ---
DR. COBB HERE WITH DRESSING CHANGED TO INCISIONAL SITES TO ABDOMEN. ICE PACK APPLIED FOR BLEEDING CONTROL. DILAUDID GIVEN FOR PAIN MANAGEMENT AND EFFECTIVE. UP AMBULATING IN HALLWAY WITH W/C FOR SUPPORT. BOWEL SOUNDS NOTED WITH FLATULANCE. ENCOURAGED TO USE JANET LIGHT FOR ASSIT.
[2019-02-06 13:28] VITALS: BP 127/56
--- NOTE | 2019-02-06 19:50 | NUR ---
PT ALERT & ORIENTED. C/O LEFT THIGH PAIN 02/05. GAVE MS CONTIN AND OTHER SCHEDULED MEDS. GAVE XANAX FOR ANXIETY. NO BLEEDING NOTED - ALL DRESSING C/D/I. REFILLED ICE PACK FOR LATERAL INCISION SITE. COMPLETE ASSESSMENT PER FLOW-SHEET. NO OTHER NEEDS. WILL CONTINUE TO MONITOR.
[2019-02-06 20:00] VITALS: BP 93/57
[2019-02-07] VITALS: BP 101/69
[2019-02-07 04:00] VITALS: BP 88/55
[2019-02-07 06:04] LABS: BASOPHILS 0.1 % (0-2); EOSINOPHILS 0.5 % (0-7); HEMATOCRIT 25.7 % (36.0-48.0); HEMOGLOBIN 8.3 g/dL (12-16); IMMATURE GRANULOCYTES 0.4 % (0-5); LYMPHOCYTES 12.9 % (15-50); MCH 23.5 pg (26.0-34.0); MCHC 32.3 g/dL (31.0-37.0); MCV 72.8 fL (80.0-100.0); MONOCYTES 14.5 % (2-11); NEUTROPHILS 71.6 % (40-80); PLATELET COUNT 182 10x3/uL (130-400); RBC 3.53 10x6/uL (4.00-5.40); WBC 9.9 10x3/uL (4.8-10.8)
[2019-02-07 06:30] LABS: ANION GAP 10.8 mmol/L (8-16); CALCIUM 9.1 mg/dL (8.5-10.1); CARBON DIOXIDE 30.2 mmol/L (21.0-32.0); CREATININE - SERUM 1.1 mg/dL (0.6-1.3)
[2019-02-07 06:49] LABS: INR 1.98 (0.85-1.17); PROTIME 21.9 SECONDS (11.6-15.0)
[2019-02-07 06:55] LABS: APTT 110.2 SECONDS (22.8-39.4)
--- NOTE | 2019-02-07 07:25 | NUR ---
ALERT AND ORIENTED, SITTING UP NEXT TO THE BED. C/O PAIN, GAVE PERCOCET FOR PAIN. NO S/S OF ACUTE DISTRESS NOTED. UP AD ISHMAEL. MIDLINE INCISION WITH 5 LAP SITES, DRESSING C/D/I. ON 1ST STEP OVERLAY MATTRESS. ON 2L O2, NC. IV TO LEFT HAND, HEP INFUSING @ 10ML/HR. SITE PATENT WITHOUT REDNESS OR SWELLING. PT DENIES ANY NEEDS AT THIS TIME. CALL LIGHT IN REACH. WILL CONTINUE TO MONITOR.
[2019-02-07 08:41] VITALS: BP 95/48
[2019-02-07 14:01] VITALS: BP 120/85
--- NOTE | 2019-02-07 14:05 | NUR ---
THIS NURSE ASSISTED PATIENT UP TO BEDSIDE COMMODE, PT BECAME DIAPHORETIC AND WITH SHALLOW RESPIRATIONS. PATIENT SPEECH BECAME SLOW AND SLURRED. CALLED RAPID RESPONSE. OBTAINED VITALS ON PATIENT, VITALS STABLE. CHECKED BLOOD SUGAR, 108. PATIENT C/O SEVERE PAIN TO ABDOMEN, BACK AND LEFT LEG. ASSISTED PATIENT BACK TO BED. RAPID RESPONSE TEAM ARRIVED IN ROOM. THIS NURSE INFORMED DR. MCMANUS OF THE SITUATION AND ORDERED LABS PER PHYSICIAN ORDERS VIA TELEPHONE. CALL LIGHT IN REACH. FAMILY AT BEDSIDE. WILL CONTINUE TO MONITOR.
[2019-02-07 14:42] LABS: BASOPHILS 0.1 % (0-2); EOSINOPHILS 0.4 % (0-7); HEMATOCRIT 27.5 % (36.0-48.0); HEMOGLOBIN 9.2 g/dL (12-16); IMMATURE GRANULOCYTES 0.2 % (0-5); LYMPHOCYTES 11.8 % (15-50); MCH 23.9 pg (26.0-34.0); MCHC 33.5 g/dL (31.0-37.0); MCV 71.4 fL (80.0-100.0); MEAN PLATELET VOLUME 11.5 fL (7.4-10.4); MONOCYTES 14.2 % (2-11); NEUTROPHILS 73.3 % (40-80); PLATELET COUNT 198 10x3/uL (130-400); RBC 3.85 10x6/uL (4.00-5.40); RDW 16.6 % (11.5-14.5); WBC 9.8 10x3/uL (4.8-10.8)
--- NOTE | 2019-02-07 14:53 | MORECARE ---
CASE MANAGEMENT DISCHARGE SUMMARY PATIENT: FRANKI ZARATE UNIT: [id number] ADM DATE: 02/02/19 AGE: 33 : 87 SEX: F ROOM/BED: D.2228 AUTHOR: ELAINE WOODWARD PHYSICIAN: REFERRING PHYSICIAN: WILLOW MCMANUS MD DATE OF SERVICE: 02/07/19 Discharge Plan Patient Name: FRANKI ZARATE Facility: [facility]:[place] : 1985 Planned Disposition: Anticipated Discharge Date: Discharge Date: Expected LOS: Initial Reviewer: [email or web address] Initial Review Date: 02/07/2019 Generated: 02/07/19 3:52 pm Comments DCP- Discharge Planning Updated by [email or web address]: Aleah Adrian on 02/07/19 1:[address] Patient Name: FRANKI ZARATE Admission Status: Elective Accout number: [id number] Admission Date: 02-02-2019 : 1985 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 PATIENT IN MODERATE PAIN RIGHT NOW. STATES WOULD BE INTERESTED IN HH IF NEEDED. HILLARY SIGNED FOR CARE 4/QUANG. CM TO FOLLOW AND ASSIST. Acid Retort Operator: Aleah Adrian DCPIA - Discharge Planning Initial Assessment Updated by [id number]: Aleah Adrian on 02/07/19 2:50 pm * Is the patient Alert and Oriented? Yes * PCP JORDAN * Preadmission Environment Home with Family * ADLs Independent * Other Equipment WALKER, BC * List name and contact numbers for known caregivers / representatives who currently or will assist patient after discharge: BRIAN, SPOUSE, * Verbal permission to speak to the caregivers and representatives has been obtained from the patient. Yes * Can the patient safely return to the preadmission environment? Yes * Has this patient been hospitalized within the prior 30 days at any hospital? No Patient Name: FRANKI ZARATE Page [id number] at 1453 All edits/amendments must be made on the electronic document DICTATION DATE: 02/07/191451 MANAGER CUSTOMS: MOIRA 02/07/191451 RPT#: [id number] DC DATE: STATUS: ADM IN [facility] [address] [place] [address] END OF REPORT
[2019-02-07 15:06] LABS: ALBUMIN 3.5 g/dL (3.4-5.0); ALKALINE PHOSPHATASE 135 U/L (46-116); ALT (SGPT) 37 U/L (10-68); BILIRUBIN - TOTAL 1.03 mg/dL (0.2-1.3); CALC OSMOLALITY 259 mosm/kg (275-300); CALCIUM 10.1 mg/dL (8.5-10.1); CARBON DIOXIDE 27.1 mmol/L (21.0-32.0); CHLORIDE - SERUM 92 mmol/L (98-107); CREATININE - SERUM 1.3 mg/dL (0.6-1.3); GLUCOSE 96 mg/dL (74-106); POTASSIUM - SERUM 3.6 mmol/L (3.5-5.1); PROTEIN - SERUM 8.9 g/dL (6.4-8.2); SODIUM 128 mmol/L (136-145); UREA NITROGEN 20 mg/dL (7-18); eGFR NON AFRICAN AMERICAN 50 mL/min (90-120)
[2019-02-07 15:25] LABS: TROPONIN-I < 0.017 ng/mL (0.000-0.060)
[2019-02-07 17:15] VITALS: BP 135/90
[2019-02-07 20:00] VITALS: BP 109/75
--- NOTE | 2019-02-07 20:00 | NUR ---
ALERT RESTING IN BED, C/O ABD PAIN REQUESTING PAIN MEDS, SEE SHIFT ASSESSMENT, CALL LIGHT IN REACH
[~2019-02-08] VITALS: Ht 170.2 cm; Wt 82.1 kg
[2019-02-08 04:00] VITALS: BP 90/55
--- NOTE | 2019-02-08 08:10 | OP ---
PATIENT NAME: FRANKI ZARATE MEDICAL RECORD: [id number] :87 LOCATION:D.MS [id number] ADMISSION DATE:02/02/19 SURGEON: WILLOW MCMANUS MD DATE OF OPERATION: 02/04/2019 PREOPERATIVE DIAGNOSES: 1. Gallstones. 2. Ventral hernia. 3. Diastolic, chronic congestive heart failure. 4. Chronic anticoagulation. 5. Valvular heart disease. 6. Anemia of chronic disease. POSTOPERATIVE DIAGNOSES: 1. Gallstones. 2. Ventral hernia. 3. Diastolic, chronic congestive heart failure. 4. Chronic anticoagulation. 5. Valvular heart disease. 6. Anemia of chronic disease. PROCEDURE: 1. Laparoscopic cholecystectomy with intraoperative cholangiogram and fluoroscopic interpretation. 2. Ventral hernia repair with 4.[address] mesh. SURGEON: Willow Mcmanus MD REPORT OF PROCEDURE: The patient's abdomen was prepped and draped in sterile fashion. A cutdown was made in the midline just above the umbilicus overlying the hernia defect. We were able to dissect around this fatty tissue down to the fascial edges. The fascial defect was about 3 cm in greatest diameter. We were able to free up the surrounding tissues and bluntly entered the abdominal cavity. Once inside, 0 Vicryls were placed in the fascia bilaterally and a 12-mm trocar was placed in the abdomen. After insufflation was obtained, then a 5-mm trocar was placed in the epigastrium and 2 more 5-mm trocars were placed in the right subcostal region. The gallbladder was noted to be chronically irritated with edema to the ngo. We were able to grasp the gallbladder and elevated up. There were noted to be multiple adhesions present, which were taken down with electrocautery and blunt dissection. We attempted dissection of the cystic duct and artery, but the tissue was very dense and I could not find a decent plane. For this reason, I performed a dome down technique and took the gallbladder down off of the liver bed using electrocautery. Once we got down towards the duct and vascular structures, we were able to dissect out the structures. At the conclusion of this, I had 2 equal sized tubular structures that were present. I could not make out definitively if one of them was arterial or not. For this reason, we elected to perform an intraoperative cholangiogram. Under fluoroscopic guidance, we pushed contrast through the infundibulum of the gallbladder. I never could see good flow through the structures, even though I did see a scant amount of tubular drainage in the area of the cystic duct. I did not see evidence of 2 areas of drainage and there was extravasation of the contrast out of the dome of the gallbladder. At this point, I elected to just be on the safe side and just staple across the base of the gallbladder and leave a small portion and so for this reason, I placed a 12-mm trocar in place of the epigastric 5-mm trocar. After doing this, I OPERATIVE REPORT [id number] FRANKI ZARATE elected to try one last maneuver and this involved making a laceration over the structure, which I thought was the vascular structure closer to the infundibulum of the gallbladder. When I did this, there was noted to be a pulsatile arterial blood flow, which stopped immediately when I clamped across this tube. This showed me that this was the cystic artery. This was clipped twice distally and once proximally and ligated in standard fashion. This left me with a single structure present coming out of the gallbladder and this was clipped proximally and distally and ligated in standard fashion. At this point, the gallbladder was placed into the right upper quadrant and the liver bed was treated with electrocautery to stop any bleeding that was present. We irrigated out the abdomen thoroughly with normal saline and could see there was no sign of any active surgical bleeding. At this point, the ports and insufflation were then removed and the gallbladder was taken out through the umbilicus. The fascia of the hernia sac was cleared off above and below and a 4.[address] mesh was inserted and sutured down on all 4 sides using interrupted 0 Prolenes. We then closed the fascia transversely overlying the mesh using running 0 Vicryl. We then irrigated out the wound with normal saline and assured there was no sign of any bleeding. We then reapproximated the subcutaneous tissues with interrupted 3-0 Vicryl and all skin incisions were closed with subcutaneous 5-0 Monocryl. Then, 20 mL of 0.25% Marcaine with epinephrine was infused into the surrounding tissues. The wounds were dressed appropriately. COMPLICATIONS: None. CONDITION: Stable. ANESTHESIA: General endotracheal and local. BLOOD LOSS: 50 mL. TRANSINT:[id number] Voice Confirmation ID: [id number] DOCUMENT ID: [id number] WILLOW MCMANUS MD at 0810 CC: [id number] DICTATION DATE: 02/04/19 1153 HISTOLOGY SUPERVISOR: 02/04/19 1224 ADM IN [place] [id number] [place] [id number]
[2019-02-08 08:18] LABS: BASOPHILS 0.1 % (0-2); EOSINOPHILS 0.3 % (0-7); HEMATOCRIT 27.6 % (36.0-48.0); IMMATURE GRANULOCYTES 0.4 % (0-5); LYMPHOCYTES 10.2 % (15-50); MCH 23.6 pg (26.0-34.0); MCHC 32.6 g/dL (31.0-37.0); MCV 72.4 fL (80.0-100.0); MEAN PLATELET VOLUME 11.3 fL (7.4-10.4); MONOCYTES 14.8 % (2-11); NEUTROPHILS 74.2 % (40-80); RBC 3.81 10x6/uL (4.00-5.40)
[2019-02-08 08:21] LABS: PROTIME 25.5 SECONDS (11.6-15.0)
[2019-02-08 08:25] LABS: PLATELET COUNT 284 10x3/uL (130-400); WBC 14.8 10x3/uL (4.8-10.8)
[2019-02-08 08:32] LABS: ANION GAP 13.7 mmol/L (8-16); CALCIUM 10.3 mg/dL (8.5-10.1); CARBON DIOXIDE 30.2 mmol/L (21.0-32.0); CREATININE - SERUM 1.1 mg/dL (0.6-1.3); POTASSIUM - SERUM 3.9 mmol/L (3.5-5.1)
[2019-02-08 08:35] LABS: APTT 51.8 SECONDS (22.8-39.4); INR 2.41 (0.85-1.17)
[2019-02-08 08:59] VITALS: BP 93/61
--- NOTE | 2019-02-08 09:47 | MORECARE ---
CASE MANAGEMENT DISCHARGE SUMMARY PATIENT: FRANKI ZARATE UNIT: [id number] ADM DATE: 02/02/19 AGE: 33 : 87 SEX: F ROOM/BED: D.2228 AUTHOR: ELAINE WOODWARD PHYSICIAN: REFERRING PHYSICIAN: WILLOW MCMANUS MD DATE OF SERVICE: 02/08/19 Discharge Plan Patient Name: FRANKI ZARATE Facility: [facility]:[place] : 1985 Planned Disposition: Anticipated Discharge Date: Discharge Date: Expected LOS: Initial Reviewer: [email or web address] Initial Review Date: 02/07/2019 Generated: 02/08/19 10:47 am Comments DCP- Discharge Planning Updated by [email or web address]: Aleah Adrian on 02/08/19 8:[address] Patient Name: FRANKI ZARATE Admission Status: Elective Accout number: [id number] Admission Date: 02-02-2019 : 1985 Admission Diagnosis:OTHER CHOLELITHIASIS WITHOUT OBSTRUCTION Attending: WILLOW MCMANUS Current LOS: 6 Anticipated DC Date: Planned Disposition: Primary Insurance: MEDICARE A & B Discharge Planning Comments: CM MET WITH PATIENT AND HER SPOUSE AND THE PLAN IS TO DISCHARGE TO HOME WITH SPOUSE. IMM SIGNED. Highway Painter Helper: Aleah Adrian DCP- Discharge Planning Updated by [id number]: Aleah Adrian on 02/07/19 1:[address] Patient Name: FRANKI ZARATE Admission Status: Elective Accout number: [id number] Admission Date: 02-02-2019 : 1985 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 PATIENT IN MODERATE PAIN RIGHT NOW. STATES WOULD BE INTERESTED IN HH IF NEEDED. HILLARY SIGNED FOR CARE 4/QUANG. CM TO FOLLOW AND ASSIST. Highway Painter Helper: Aleah Adrian DCPIA - Discharge Planning Initial Assessment Updated by [email or web address]: Aleah Adrian on 02/07/19 2:50 pm * Is the patient Alert and Oriented? Yes * PCP JORDAN * Preadmission Environment Home with Family * ADLs Independent * Other Equipment WALKER, BC * List name and contact numbers for known caregivers / representatives who currently or will assist patient after discharge: BRIAN, BROCK, * Verbal permission to speak to the caregivers and representatives has been obtained from the patient. Yes * Can the patient safely return to the preadmission environment? Yes * Has this patient been hospitalized within the prior 30 days at any hospital? No Coverage Notice Reviewer: [id number] Adrian Notice Issued Date-Time: 02/07/2019 15:15 Notice Type: Patient Choice Letter Notice Delivered To: Patient Relationship to Patient: Welt Edge Rounder Name: Delivery Method: HAND - Hand Delivered Latasha Days: Prior Verbal Notification: Recipient Understood Notice: Yes Recipient Signature: Yes Med Rec Note Co-signed by Attending: Coverage Notice Comment: CARE 4 OR QUANG Reviewer: [email or web address] Shiraz Adrian Notice Issued Date-Time: 02/08/2019 9:43 Notice Type: IM Discharge Notice Notice Delivered To: Patient Relationship to Patient: Self Welt Edge Rounder Name: Delivery Method: HAND - Hand Delivered Latasha Days: Prior Verbal Notification: Recipient Understood Notice: Yes Recipient Signature: Yes Med Rec Note Co-signed by Attending: Coverage Notice Comment: Last DP export: 02/07/19 1:53 p Patient Name: FRANKI ZARATE Page [id number] at 0947 All edits/amendments must be made on the electronic document DICTATION DATE: 02/08/19946 SERVICE TECH: MOIRA 02/08/19946 RPT#: [id number] DC DATE: STATUS: ADM IN [facility] [address] [place] [address] END OF REPORT
--- NOTE | 2019-02-08 11:43 | NUR ---
I have reviewed this patient and I concur with the Shift Assessment completed by the Licensed Practical Nurse today this shift.
[~2019-02-08 11:54] MED LIST changes: +ALDACTONE25 MG PO; +MORPHINE IMMEDI15 MG PO; +PERCOCET 10-321 EAC1 PO; +VITAMIN D10000 UNI1 PO; +ZOFRAN ODT4 MG/UDTAB PO
--- NOTE | 2019-02-08 11:54 | NUR ---
DISCHARGE INSTRUCTIONS GIVEN. SEEMS TO UNDERSTAND. IV OUT TIP INTACT. LEFT WITH HOSPITAL STAFF TO GO HOME WITH FAMILY.
--- NOTE | 2019-02-09 08:33 | MORECARE ---
CASE MANAGEMENT DISCHARGE SUMMARY PATIENT: FRANKI ZARATE UNIT: [id number] ADM DATE: 02/02/19 AGE: 33 : 86 SEX: F ROOM/BED: D.2228 AUTHOR: ELAINE WOODWARD PHYSICIAN: REFERRING PHYSICIAN: WILLOW MCMANUS MD DATE OF SERVICE: 02/09/19 Discharge Plan Patient Name: FRANKI ZARATE Facility: [facility]:[place] : 1985 Planned Disposition: Anticipated Discharge Date: Discharge Date: 02/08/2019 Expected LOS: Initial Reviewer: [email or web address] Initial Review Date: 02/07/2019 Generated: 02/09/19 9:33 am Comments DCP- Discharge Planning Updated by [email or web address]: Aleah Adrian on 02/08/19 8:[address] Patient Name: FRANKI ZARATE Admission Status: Elective Accout number: [id number] Admission Date: 02-02-2019 : 1985 Admission Diagnosis:OTHER CHOLELITHIASIS WITHOUT OBSTRUCTION Attending: WILLOW MCMANUS Current LOS: 6 Anticipated DC Date: Planned Disposition: Primary Insurance: MEDICARE A & B Discharge Planning Comments: CM MET WITH PATIENT AND HER SPOUSE AND THE PLAN IS TO DISCHARGE TO HOME WITH SPOUSE. IMM SIGNED. Fire Investigation Lieutenant: Aleah Adrian DCP- Discharge Planning Updated by [email or web address]: Aleah Adrian on 02/07/19 1:[address] Patient Name: FRANKI ZARATE Admission Status: Elective Accout number: [id number] Admission Date: 02-02-2019 : 1985 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 PATIENT IN MODERATE PAIN RIGHT NOW. STATES WOULD BE INTERESTED IN HH IF NEEDED. HILLARY SIGNED FOR CARE 4/QUANG. CM TO FOLLOW AND ASSIST. Fire Investigation Lieutenant: Aleah Adrian DCPIA - Discharge Planning Initial Assessment Updated by [email or web address]: Aleah Adrian on 02/07/19 2:50 pm * Is the patient Alert and Oriented? Yes * PCP JORDAN * Preadmission Environment Home with Family * ADLs Independent * Other Equipment WALKER, BC * List name and contact numbers for known caregivers / representatives who currently or will assist patient after discharge: RBIAN, SPOUSE, * Verbal permission to speak to the caregivers and representatives has been obtained from the patient. Yes * Can the patient safely return to the preadmission environment? Yes * Has this patient been hospitalized within the prior 30 days at any hospital? No Coverage Notice Reviewer: [id number] Adrian Notice Issued Date-Time: 02/07/2019 15:15 Notice Type: Patient Choice Letter Notice Delivered To: Patient Relationship to Patient: Aerial Gunner Name: Delivery Method: HAND - Hand Delivered Latasha Days: Prior Verbal Notification: Recipient Understood Notice: Yes Recipient Signature: Yes Med Rec Note Co-signed by Attending: Coverage Notice Comment: CARE 4 OR QUANG Reviewer: [id number] Adrian Notice Issued Date-Time: 02/08/2019 9:43 Notice Type: IM Discharge Notice Notice Delivered To: Patient Relationship to Patient: Self Aerial Gunner Name: Delivery Method: HAND - Hand Delivered Latasha Days: Prior Verbal Notification: Recipient Understood Notice: Yes Recipient Signature: Yes Med Rec Note Co-signed by Attending: Coverage Notice Comment: Last DP export: 02/08/19 8:47 a Patient Name: FRANKI ZARATE Page 00589 at 0833 All edits/amendments must be made on the electronic document DICTATION DATE: 02/09/19832 LEAD BUSINESS ANALYST: MOIRA 02/09/19 0833 RPT#: [id number] DC DATE:02/08/19 STATUS: DIS IN [facility] [address] [place] [address] END OF REPORT
== END | disposition home or self-care (01) | DRG 418 ==
LOC: D.MS 02-02 14:38 → D.PAN 02-01 11:10 → D.OPS 02-01 11:10 → D.MS 02-02 14:37 → EDSTATUS 02-04 11:10 → D.OPS 02-04 11:10 → D.MS 11:54
PROVIDERS: ADMIT Surgery; ATTEND Surgery
PROC: 0FT44ZZ Resection of Gallbladder, Percutaneous Endoscopic Approach (ICD-10-PCS; principal; 2019-02-04 09:15)
PROC: 0WUF0JZ Supplement Abdominal Wall with Synthetic Substitute, Open Approach (ICD-10-PCS; 2019-02-04 09:15)
DX: K80.80 Other cholelithiasis without obstruction (principal); I50.32 Chronic diastolic (congestive) heart failure; D68.32 Hemorrhagic disorder due to extrinsic circulating anticoagulants; K43.9 Ventral hernia without obstruction or gangrene; D63.8 Anemia in other chronic diseases classified elsewhere; M62.89 Other specified disorders of muscle; I50.811 Acute right heart failure

== ENCOUNTER 2019-03-27 12:00 | Emergency (ER) | payer MEDICARE, MEDICAID ==
[~2019-03-27] VITALS: Ht 170.2 cm; Wt 70.0 kg
[2019-03-27 12:02] VITALS: Ht 170.2 cm; Wt 70.0 kg
[2019-03-27 12:39] LABS: BASOPHILS 0.4 % (0-2); EOSINOPHILS 0.8 % (0-7); HEMATOCRIT 32.5 % (36.0-48.0); HEMOGLOBIN 10.7 g/dL (12-16); IMMATURE GRANULOCYTES 0.3 % (0-5); LYMPHOCYTES 24.2 % (15-50); MCH 24.1 pg (26.0-34.0); MCHC 32.9 g/dL (31.0-37.0); MCV 73.2 fL (80.0-100.0); MONOCYTES 7.8 % (2-11); NEUTROPHILS 66.5 % (40-80); PLATELET COUNT 296 10x3/uL (130-400); RBC 4.44 10x6/uL (4.00-5.40); RDW 17.7 % (11.5-14.5); WBC 11.2 10x3/uL (4.8-10.8)
[2019-03-27 12:50] LABS: ALBUMIN 4.2 g/dL (3.4-5.0); ALKALINE PHOSPHATASE 134 U/L (46-116); ALT (SGPT) 39 U/L (10-68); BILIRUBIN - TOTAL 0.66 mg/dL (0.2-1.3); CALC OSMOLALITY 275 mosm/kg (275-300); CALCIUM 9.3 mg/dL (8.5-10.1); CARBON DIOXIDE 26.2 mmol/L (21.0-32.0); CHLORIDE - SERUM 96 mmol/L (98-107); CREATININE - SERUM 1.1 mg/dL (0.6-1.3); GLUCOSE 98 mg/dL (74-106); POTASSIUM - SERUM 3.9 mmol/L (3.5-5.1); PROTEIN - SERUM 8.7 g/dL (6.4-8.2); SODIUM 132 mmol/L (136-145); UREA NITROGEN 44 mg/dL (7-18); eGFR NON AFRICAN AMERICAN 61 mL/min (90-120)
[2019-03-27 12:53] LABS: LIPASE 224 U/L (73-393)
[2019-03-27 12:54] LABS: TROPONIN-I < 0.017 ng/mL (0.000-0.060)
[2019-03-27 12:56] LABS: HCG SERUM NEGATIVE (NEGATIVE)
[2019-03-27 15:17] LABS: APPEARANCE CLEAR (CLEAR); BILIRUBIN NEGATIVE (NEGATIVE); COLOR YELLOW (YELLOW); GLUCOSE NEGATIVE (NEGATIVE); KETONE NEGATIVE (NEGATIVE); NITRITE NEGATIVE (NEGATIVE); PROTEIN NEGATIVE (NEGATIVE); UROBILINOGEN NORMAL (NORMAL)
[2019-03-27 15:32] LABS: INR 2.28 (0.85-1.17); PROTIME 24.4 SECONDS (11.6-15.0)
[2019-03-27] MEDS ORDERED: PROTONIX40 MG PO (16:19)
[2019-03-27] MEDS ORDERED: CARAFATE1 G PO (16:19)
[2019-03-27 16:46] VITALS: BP 106/78
== END 2019-03-27 16:51 | disposition home or self-care (01) ==
LOC: D.ER 12:00
PROVIDERS: Family Medicine
DX: K25.9 Gastric ulcer, unspecified as acute or chronic, without hemorrhage or perforation (principal); D64.9 Anemia, unspecified; D68.2 Hereditary deficiency of other clotting factors; Z79.01 Long term (current) use of anticoagulants; K92.2 Gastrointestinal hemorrhage, unspecified

== ENCOUNTER 2019-03-30 17:20 | Emergency (ER) | payer MEDICARE, MEDICAID ==
[~2019-03-30] VITALS: Ht 170.2 cm; Wt 70.1 kg
[~2019-03-30 17:20] MED LIST changes: +CARAFATE1 G PO
[2019-03-30 17:39] VITALS: Ht 170.2 cm; Wt 70.1 kg
[2019-03-30 18:25] LABS: BASOPHILS 0.5 % (0-2); EOSINOPHILS 1.2 % (0-7); HEMATOCRIT 31.4 % (36.0-48.0); HEMOGLOBIN 9.9 g/dL (12-16); IMMATURE GRANULOCYTES 0.3 % (0-5); LYMPHOCYTES 29.5 % (15-50); MCHC 31.5 g/dL (31.0-37.0); MEAN PLATELET VOLUME 10.7 fL (7.4-10.4); MONOCYTES 8.4 % (2-11); NEUTROPHILS 60.1 % (40-80); PLATELET COUNT 307 10x3/uL (130-400); RBC 4.13 10x6/uL (4.00-5.40); RDW 18.4 % (11.5-14.5); WBC 9.8 10x3/uL (4.8-10.8)
[2019-03-30 18:48] LABS: ALBUMIN 4.5 g/dL (3.4-5.0); ANION GAP 13.1 mmol/L (8-16); BILIRUBIN - TOTAL 0.7 mg/dL (0.2-1.3); CALCIUM 9.7 mg/dL (8.5-10.1); CARBON DIOXIDE 29.5 mmol/L (21.0-32.0); CREATININE - SERUM 1.1 mg/dL (0.6-1.3); POTASSIUM - SERUM 3.6 mmol/L (3.5-5.1); PROTEIN - SERUM 9.1 g/dL (6.4-8.2)
[2019-03-30] MEDS ORDERED: FERROUS SULFAT325 MG PO (18:57)
[2019-03-30 19:29] VITALS: BP 118/76
[2019-04-01 16:08] LABS: SPE - A/G RATIO 1.1 (0.7-1.7); SPE - ALBUMIN 4.4 g/dL (2.9-4.4); SPE - ALPHA-1 GLOBULIN 0.4 g/dL (0.0-0.4); SPE - ALPHA-2 GLOBULIN 0.6 g/dL (0.4-1.0); SPE - BETA GLOBULIN 1.3 g/dL (0.7-1.3); SPE - GAMMA GLOBULIN 1.6 g/dL (0.4-1.8); SPE - M-SPIKE Not Observed g/dL (Not Observed); SPE - TOTAL PROTEIN 8.3 g/dL (6.0-8.5)
== END 2019-03-30 19:29 | disposition home or self-care (01) ==
LOC: D.ER 17:20
PROVIDERS: Emergency Medicine
DX: K92.2 Gastrointestinal hemorrhage, unspecified (principal); D64.9 Anemia, unspecified; F17.210 Nicotine dependence, cigarettes, uncomplicated

== ENCOUNTER 2019-04-13 11:47 | Day surgery (SDC) | payer MEDICARE, MEDICAID ==
[~2019-04-13] VITALS: Ht 170.2 cm; Wt 70.0 kg
[~2019-04-13 11:47] MED LIST changes: +FERROUS SULFAT325 MG PO
[2019-04-13 12:10] LABS: HEMATOCRIT 34.6 % (36.0-48.0); MCHC 31.8 g/dL (31.0-37.0); MCV 78.6 fL (80.0-100.0); RBC 4.4 10x6/uL (4.00-5.40); RDW 20.2 % (11.5-14.5); WBC 7.2 10x3/uL (4.8-10.8)
[2019-04-13 12:22] LABS: APTT 36.7 SECONDS (22.8-39.4); INR 1.22 (0.85-1.17); PROTIME 14.8 SECONDS (11.6-15.0)
[2019-04-13 12:23] LABS: CALCIUM 10.2 mg/dL (8.5-10.1); CARBON DIOXIDE 29.1 mmol/L (21.0-32.0); POTASSIUM - SERUM 4.1 mmol/L (3.5-5.1)
[2019-04-13] MEDS ORDERED: ASCORBIC ACID500 MG PO (12:48)
[2019-04-13 13:02] VITALS: BP 110/71; Ht 170.2 cm; Wt 70.0 kg
--- NOTE | 2019-04-14 08:34 | NUR ---
1430 PT VISIBLY SHAKING AND TEARFUL. SHE REPORTS FEELING ANXIOUS. MEDICATIONS REVIEWED. PT HAS BEEN WITHOUT OPOID PAIN MANAGEMENT FOR 2 DAYS BECAUSE SHE HAS BEEN UNABLE TO OBTAIN HER PRESCRIPTION, ANESTHESIA AND DR. HARRISON NOTIFIED. 1550 PT AWAKE AND CONVERSANT AND DENIES ANY C/O. VSS. DR HARRISON TO WRITE RX FOR 7 DAYS OF PAIN/OPIOD MANAGMENT UNTIL DR. JORDAN RETURNS [facility].
--- NOTE | 2019-04-18 11:16 | OP ---
PATIENT NAME: FRANKI ZARATE MEDICAL RECORD: [id number] :87 LOCATION:[facility] ADMISSION DATE: SURGEON: KIANA HARRISON DO DATE OF OPERATION: 04/13/2019 PROCEDURE: EGD with biopsies. INDICATIONS FOR PROCEDURE: GERD, epigastric pain, history of peptic ulcer disease, nausea, and vomiting. SCOPE: Olympus video gastroscope. MEDICATIONS: Propofol 200 mg, Versed 2 mg, Fentanyl 100 mcg; all IV per anesthesia. ESTIMATED BLOOD LOSS: Minimal. COMPLICATIONS: None. FINDINGS: Informed consent was given. The patient was made comfortable with the above medication. After reaching an adequate level of sedation by slow IV push, the patient was placed on her left side. The endoscope was advanced under direct visualization through the mouth to the second portion of the duodenum with ease. The entire esophagus appeared normal. At the GE junction, there was evidence of LA class A reflux-induced esophagitis. The endoscope was advanced beyond the GE junction into the stomach and retroflexed to view the cardia and fundus, which appeared normal. In the distal body of the stomach as well as the antrum and prepylorus, there were patchy areas of erythema and granularity as well as some scars from previous ulcerations. Appearances were consistent with mild to moderate chronic gastritis. A single cold forceps biopsy was taken from the antrum to submit for histopathology and to rule out the presence of H. pylori. The endoscope was advanced beyond the pylorus into the duodenum, which appeared normal down to the second portion. The endoscope was then withdrawn from the patient. The patient tolerated the procedure well and there were no complications. IMPRESSION: 1. LA class A reflux-induced esophagitis. 2. Gastritis. 3. Otherwise, normal EGD without ulcers or evidence of active or recent bleeding. PLAN AND RECOMMENDATIONS: 1. Discharge home when recovery parameters are met. 2. Follow up biopsy specimen results and treat if indicated for H. pylori. 3. Continue current medications including Protonix 40 mg b.i.d. and Carafate 1 g 4 times daily. 4. Recommend decreasing Protonix to once daily use. After 6 days. 5. GERD diet and reflux precautions. 6. Follow up in GI clinic as needed. TRANSINT:[id number] Voice Confirmation ID: [id number] DOCUMENT ID: [id number] OPERATIVE REPORT [id number] ZARATE,KIANA ESCAMILLA DO at 1116 CC: [id number] DICTATION DATE: 04/13/19 1518 PAINT FACTORY WORKER: 04/14/19 0005 [facility] 04/13/19 [facility] [address] [place] [address]
== END 2019-04-13 16:45 | disposition home or self-care (01) ==
LOC: D.OPS 11:47
PROVIDERS: Anesthesiology; ATTEND Internal Medicine Gastroenterology
DX: K21.0 Gastro-esophageal reflux disease with esophagitis (principal); R11.2 Nausea with vomiting, unspecified; Z87.11 Personal history of peptic ulcer disease; K29.70 Gastritis, unspecified, without bleeding

== ENCOUNTER 2019-09-13 06:30 | Inpatient (IN) | payer MEDICARE ==
[2019-09-13] VITALS (19 sets, daily range): BP systolic 88–121; BP diastolic 59–94; BMI 26.3
[~2019-09-13] VITALS: Ht 170.2 cm; Wt 76.0 kg
[~2019-09-13 06:30] MED LIST changes: +ASCORBIC ACID500 MG PO
--- NOTE | 2019-09-13 06:40 | NUR ---
PT IS COOL, DIAPHORETIC AND JOSEPH IN COLOR. ON 4L HOME O2. C/O CHEST PAIN AND RAPID HR. PT HAS HX OF TWO VALVE REPLACEMENTS AND TWO CARDIAC EVENTS.
[2019-09-13] MEDS ORDERED: COUMADIN7.5 MG PO (06:44)
--- NOTE | 2019-09-13 06:48 | NUR ---
ATTEMPTED CARDIOVERSION WITH MEDICATION, UNSUCCESSFUL. PROVIDED SHOCK WITH EDP AT BEDSIDE WITH SUCCESSFUL CARDIOVERSION. HR 98
--- NOTE | 2019-09-13 07:10 | NUR ---
ASSUMED CARE OF PT. A/OX3. RESP EVEN/UNLABORED. DENIES CP.
[2019-09-13 07:25] LABS: BASOPHILS 0.1 % (0-2); CALC OSMOLALITY 267 mosm/kg (275-300); CALCIUM 9.2 mg/dL (8.5-10.1); CARBON DIOXIDE 23.6 mmol/L (21.0-32.0); CHLORIDE - SERUM 101 mmol/L (98-107); CREATININE - SERUM 1.3 mg/dL (0.6-1.3); EOSINOPHILS 0.1 % (0-7); GLUCOSE 100 mg/dL (74-106); HEMATOCRIT 37.9 % (36.0-48.0); HEMOGLOBIN 12.1 g/dL (12-16); IMMATURE GRANULOCYTES 0.3 % (0-5); LYMPHOCYTES 5.9 % (15-50); MCH 26.1 pg (26.0-34.0); MCHC 31.9 g/dL (31.0-37.0); MCV 81.7 fL (80.0-100.0); MEAN PLATELET VOLUME 12.1 fL (7.4-10.4); MONOCYTES 7.1 % (2-11); NEUTROPHILS 86.5 % (40-80); PLATELET COUNT 262 10x3/uL (130-400); POTASSIUM - SERUM 4.1 mmol/L (3.5-5.1); RBC 4.64 10x6/uL (4.00-5.40); RDW 15.5 % (11.5-14.5); SODIUM 135 mmol/L (136-145); UREA NITROGEN 6 mg/dL (7-18); WBC 15.9 10x3/uL (4.8-10.8); eGFR NON AFRICAN AMERICAN 50 mL/min (90-120)
[2019-09-13 07:38] LABS: ALBUMIN 3.8 g/dL (3.4-5.0); ALKALINE PHOSPHATASE 173 U/L (30-120); ALT (SGPT) 63 U/L (10-68); BILIRUBIN - TOTAL 1.18 mg/dL (0.2-1.3); CREATINE KINASE 147 UL (21-215); LIPASE 80 U/L (73-393); MAGNESIUM - SERUM 1.8 mg/dL (1.8-2.4); PRO BNP 6635 pg/mL (0-125); PROTEIN - SERUM 8.1 g/dL (6.4-8.2); THYROID STIMULATING HORMONE 1.05 uIU/mL (0.36-3.74)
[2019-09-13 07:40] LABS: INR 2.58 (0.85-1.17); PROTIME 27.3 SECONDS (11.6-15.0)
[2019-09-13 07:41] LABS: APTT 48.9 SECONDS (22.8-39.4); TROPONIN-I < 0.017 ng/mL (0.000-0.060)
[2019-09-13 07:42] LABS: D-DIMER-QUANTITATIVE 0.78 ug/mLFEU (0.20-0.54)
--- NOTE | 2019-09-13 07:56 | NUR ---
BP 92/61 (69) HR 133. DR PANG NOTIFIED. ORDERED TO D/C IVF'S AND OK TO ADMIN CARDIZEM PUSH AND GTT.
--- NOTE | 2019-09-13 08:00 | NUR ---
PT RESTING UPRIGHT IN BED. AMINA C/O IS BACK PAIN
--- NOTE | 2019-09-13 08:10 | NUR ---
REPORT TO SUE HARTMANN
--- NOTE | 2019-09-13 19:00 | NUR ---
SHIFT ASSESSMENT COMPLETED. PT CARE ASSUMED, MONITORS ON AND WORKING, VITALS STABLE, PT AWAKE AND ALERT, CARDIZEM GTT INFUSING, PT IN NSR. SEE FLOW SHEET FOR FURTHER DETAILS. WILL CONTINUE TO OBSERVE.
--- NOTE | 2019-09-13 20:13 | MORECARE ---
CASE MANAGEMENT DISCHARGE SUMMARY PATIENT: FRANKI ZARATE UNIT: [id number] ADM DATE: 09/13/19 AGE: 34 : 86 SEX: F ROOM/BED: D.2310 AUTHOR: ELAINE WOODWARD PHYSICIAN: REFERRING PHYSICIAN: CHELA DIALLO MD DATE OF SERVICE: 09/13/19 Discharge Plan Patient Name: FRANKI ZARATE Facility: [facility]:[place] : 1985 Planned Disposition: Home Anticipated Discharge Date: Discharge Date: Expected LOS: Initial Reviewer: [email or web address] Initial Review Date: 09/13/2019 Generated: 09/13/19 9:13 pm Patient Name: FRANKI ZARATE Page 90553 at 2012 All edits/amendments must be made on the electronic document DICTATION DATE: 09/13/192012 MANAGER CARGO: MOIRA 09/13/19 2013 RPT#: [id number] DC DATE: STATUS: ADM IN [facility] [address] [place] [address] END OF REPORT
--- NOTE | 2019-09-13 20:20 | MORECARE ---
CASE MANAGEMENT DISCHARGE SUMMARY PATIENT: FRANKI ZARATE N UNIT: [id number] ADM DATE: 09/13/19 AGE: 34 : 86 SEX: F ROOM/BED: D.2310 AUTHOR: ELAINE WOODWARD PHYSICIAN: REFERRING PHYSICIAN: CHELA DIALLO MD DATE OF SERVICE: 09/13/19 Discharge Plan Patient Name: FRANKI ZARATE Facility: [facility]:[place] : 1985 Planned Disposition: Home Anticipated Discharge Date: Discharge Date: Expected LOS: Initial Reviewer: [email or web address] Initial Review Date: 09/13/2019 Generated: 09/13/19 9:19 pm DCPIA - Discharge Planning Initial Assessment Updated by [email or web address]: Zuly Israel on 09/13/19 8:16 pm * Is the patient Alert and Oriented? Yes * How many steps to enter\exit or inside your home? ramp * PCP JORDAN * Pharmacy [facility] * Preadmission Environment Home with Family * ADLs Partial Dependent * Partial ADLs (Assistance needed) Ambulation Bathing Dressing * Other Equipment ELECTRIC W/C - [employer], [place], BSC, HOME/ PORTABLE 02 -[facility] BARROWED NEBULIZER. * List name and contact numbers for known caregivers / representatives who currently or will assist patient after discharge: BRIAN ZARATE - [facility]- [phone] * Verbal permission to speak to the caregivers and representatives has been obtained from the patient. Yes * Community resources currently utilized None * Additional services required to return to the preadmission environment? No * Can the patient safely return to the preadmission environment? Yes * Has this patient been hospitalized within the prior 30 days at any hospital? No Last DP export: 09/13/19 7:13 p Patient Name: FRANKI ZARATE Page 73946 at 2019 All edits/amendments must be made on the electronic document DICTATION DATE: 09/13/192018 PUBLICATION DIRECTOR: MOIRA 09/13/192018 RPT#: [id number] DC DATE: STATUS: ADM IN [facility] [address] [place] [address] END OF REPORT
--- NOTE | 2019-09-13 20:26 | MORECARE ---
CASE MANAGEMENT DISCHARGE SUMMARY PATIENT: FRANKI ZARATE UNIT: [id number] ADM DATE: 09/13/19 AGE: 34 : 86 SEX: F ROOM/BED: D.2310 AUTHOR: ELAINE WOODWARD PHYSICIAN: REFERRING PHYSICIAN: CHELA DIALLO MD DATE OF SERVICE: 09/13/19 Discharge Plan Patient Name: FRANKI ZARATE Facility: [facility]:[place] : 1985 Planned Disposition: Home Anticipated Discharge Date: Discharge Date: Expected LOS: Initial Reviewer: [email or web address] Initial Review Date: 09/13/2019 Generated: 09/13/19 9:26 pm Comments DCP- Discharge Planning Updated by [email or web address]: Zuly Israel on 09/13/19 7:[address] Patient Name: FRANKI ZARATE Admission Status: ER Accout number: [id number] Admission Date: 09-13-2019 : 1985 Admission Diagnosis: Attending: CHELA DIALLO Current LOS: 1 Anticipated DC Date: Planned Disposition: Home Primary Insurance: MEDICARE A & B Discharge Planning Comments: CM met with patient to complete initial dc planning assessment. CM educated patient on the CM role and verbal consent given by patient to complete assessment. Patient lives at home with her (Brian) where she is independent but has to take frequent breaks with her care. At discharge patient plans to return home and feels this is a safe discharge. CM discussed availability of home health, rehab services, and medical equipment. Patient has home o2/ portable 02 ( [facility] ). Patient states that she isn't happy with their care. Patient states that she has a barrowed nebulizer but would like her own. Patient also states that her electric w/c is broken and they have picked it up to be fixed but haven't returned it. ([employer]) Patient stated that she may need home health when discharged but didn't want to sign HILLARY form at this time. Patient will have spouse to drive her home upon discharge. CM will continue to follow and will assist as needed with dc plans/needs. Cash Controller: Zuly Israel DCPIA - Discharge Planning Initial Assessment Updated by [email or web address]: Zuly Israel on 09/13/19 8:16 pm * Is the patient Alert and Oriented? Yes * How many steps to enter\exit or inside your home? ramp * PCP JORDAN * Pharmacy [facility] * Preadmission Environment Home with Family * ADLs Partial Dependent * Partial ADLs (Assistance needed) Ambulation Bathing Dressing * Other Equipment ELECTRIC W/C - [employer], SC, BSC, HOME/ PORTABLE 02 -[facility] BARROWED NEBULIZER. * List name and contact numbers for known caregivers / representatives who currently or will assist patient after discharge: BRIAN ZARATE - [facility]- [phone] * Verbal permission to speak to the caregivers and representatives has been obtained from the patient. Yes * Community resources currently utilized None * Additional services required to return to the preadmission environment? No * Can the patient safely return to the preadmission environment? Yes * Has this patient been hospitalized within the prior 30 days at any hospital? No Last DP export: 09/13/19 7:20 p Patient Name: FRANKI ZARATE Page [id number] at 2025 All edits/amendments must be made on the electronic document DICTATION DATE: 09/13/192025 SENIOR INSTRUCTOR: MOIRA 09/13/192025 RPT#: [id number] DC DATE: STATUS: ADM IN [facility] [address] [place] [address] END OF REPORT
--- NOTE | 2019-09-13 23:00 | NUR ---
NO CHANGES, CALL LIGHT WITHIN REACH, SEE FLOW SHEET FOR FURTHER DETAILS. WILL CONTINUE TO OBSERVE.
[2019-09-14] VITALS (14 sets, daily range): BP systolic 76–112; BP diastolic 55–83; Ht 170.2 cm; Wt 76.0 kg
--- NOTE | 2019-09-14 03:00 | NUR ---
PT LYING IN BED RESTING, MONITORS ON AND WORKING, VITALS STABLE, PT REMAINS IN NSR, CALL LIGHT WITHIN REACH, WILL CONTINUE TO OBSERVE.
[2019-09-14 04:39] LABS: BASOPHILS 0.2 % (0-2); EOSINOPHILS 0.9 % (0-7); IMMATURE GRANULOCYTES 0.2 % (0-5); LYMPHOCYTES 14.1 % (15-50); MCH 25.6 pg (26.0-34.0); MCHC 31.4 g/dL (31.0-37.0); MCV 81.4 fL (80.0-100.0); MEAN PLATELET VOLUME 12.1 fL (7.4-10.4); MONOCYTES 6.6 % (2-11); PLATELET COUNT 228 10x3/uL (130-400); RDW 15.2 % (11.5-14.5); WBC 12.8 10x3/uL (4.8-10.8)
[2019-09-14 04:43] LABS: HEMATOCRIT 29.3 % (36.0-48.0); HEMOGLOBIN 9.2 g/dL (12-16)
[2019-09-14 04:48] LABS: PROTIME 31.6 SECONDS (11.6-15.0)
[2019-09-14 04:51] LABS: INR 3.13 (0.85-1.17)
[2019-09-14 05:04] LABS: ALBUMIN 3.2 g/dL (3.4-5.0); BILIRUBIN - TOTAL 0.76 mg/dL (0.2-1.3); CALCIUM 8.4 mg/dL (8.5-10.1); CREATININE - SERUM 1.1 mg/dL (0.6-1.3)
[2019-09-14 05:05] LABS: ANION GAP 7.7 mmol/L (8-16); CARBON DIOXIDE 30.6 mmol/L (21.0-32.0); POTASSIUM - SERUM 3.3 mmol/L (3.5-5.1)
[2019-09-14 11:18] LABS: BILIRUBIN NEGATIVE (NEGATIVE); GLUCOSE NEGATIVE (NEGATIVE); KETONE NEGATIVE (NEGATIVE); NITRITE NEGATIVE (NEGATIVE); SPECIFIC GRAVITY 1.005 (1.005-1.020); UROBILINOGEN NORMAL (NORMAL)
[2019-09-14 11:23] LABS: UDS - AMPHET NEGATIVE QUAL (NEGATIVE); UDS - BARB NEGATIVE QUAL (NEGATIVE); UDS - BENZO NEGATIVE QUAL (NEGATIVE); UDS - COCAINE POSITIVE QUAL (NEGATIVE); UDS - OPIATE NEGATIVE QUAL (NEGATIVE); UDS - PCP NEGATIVE QUAL (NEGATIVE); UDS - THC POSITIVE QUAL (NEGATIVE)
[2019-09-15 04:00] VITALS: BP 96/59
--- NOTE | 2019-09-15 04:03 | NUR ---
PT RESTING IN BED. ALERT AND ORIENTED. NO SIGNS OF DISTRESS. BREATHING EVEN AND UNLABORED. IV SITE TL FA DRESSING CLEAN DRY AND INTACT. NO SIGNS OF INFECTION OR INFULTRATION. 2LO2 NASAL CANNULA. LUNG SOUNDS CLEAR. SKIN CLEAN DRY AND INTACT. PT STATES NO PROBLEMS AT THIS TIME. WILL CONTINUE PLAN OF CARE. CALL LIGHT IN REACH. BED LOWERED AND LOCKED. BED RAILS UPX2.
--- NOTE | 2019-09-15 04:22 | NUR ---
I have reviewed this patient and I concur with the Shift Assessment completed by the Licensed Practical Nurse today this shift.
[2019-09-15 04:49] LABS: BASOPHILS 0.1 % (0-2); EOSINOPHILS 1.2 % (0-7); HEMATOCRIT 33.4 % (36.0-48.0); HEMOGLOBIN 10.7 g/dL (12-16); IMMATURE GRANULOCYTES 0.2 % (0-5); LYMPHOCYTES 23.2 % (15-50); MCV 81.1 fL (80.0-100.0); MEAN PLATELET VOLUME 11.6 fL (7.4-10.4); MONOCYTES 8.9 % (2-11); NEUTROPHILS 66.4 % (40-80); RBC 4.12 10x6/uL (4.00-5.40); RDW 15.3 % (11.5-14.5)
[2019-09-15 05:08] LABS: WBC 8.1 10x3/uL (4.8-10.8)
[2019-09-15 05:09] LABS: PLATELET COUNT 277 10x3/uL (130-400)
[2019-09-15 05:27] LABS: ANION GAP 11.4 mmol/L (8-16); BILIRUBIN - TOTAL 0.85 mg/dL (0.2-1.3); CARBON DIOXIDE 30.7 mmol/L (21.0-32.0); CREATININE - SERUM 1.3 mg/dL (0.6-1.3); POTASSIUM - SERUM 3.1 mmol/L (3.5-5.1); PROTEIN - SERUM 8.4 g/dL (6.4-8.2)
[2019-09-15 08:58] VITALS: BP 109/55
[2019-09-15 12:26] VITALS: BP 104/73
--- NOTE | 2019-09-15 13:36 | MORECARE ---
CASE MANAGEMENT DISCHARGE SUMMARY PATIENT: FRANKI ZARATE UNIT: [id number] ADM DATE: 09/13/19 AGE: 34 : 87 SEX: F ROOM/BED: D.2223 AUTHOR: ELAINE WOODWARD PHYSICIAN: REFERRING PHYSICIAN: CHELA DIALLO MD DATE OF SERVICE: 09/15/19 Discharge Plan Patient Name: FRANKI ZARATE Facility: [facility]:[place] : 1985 Planned Disposition: Home Anticipated Discharge Date: Discharge Date: Expected LOS: Initial Reviewer: [email or web address] Initial Review Date: 09/13/2019 Generated: 09/15/19 2:36 pm Comments DCP- Discharge Planning Updated by [email or web address]: Alyssa Negron on 09/15/19 12:[address] Met with patient and her . She asked me to call [employer] to check on her wheelchair. I called [phone] and they start her part was on hold, but they expect to receive it within the week. I informed patient of this. She also wants me to call Dr. Castelan for a flutter. I spoke with Dr. Castelan and he spoke with Speedy DOSS, and states she does not need a flutter. I informed patient this. She plans to go home, declines other needs at this time. CM will continue to follow and assist with discharge planning/needs. DCP- Discharge Planning Updated by [email or web address]: Zuly Israel on 09/13/19 7:[address] Patient Name: FRANKI ZARATE Admission Status: ER Accout number: [id number] Admission Date: 09-13-2019 : 1985 Admission Diagnosis: Attending: CHELA DIALLO Current LOS: 1 Anticipated DC Date: Planned Disposition: Home Primary Insurance: MEDICARE A & B Discharge Planning Comments: CM met with patient to complete initial dc planning assessment. CM educated patient on the CM role and verbal consent given by patient to complete assessment. Patient lives at home with her (Brian) where she is independent but has to take frequent breaks with her care. At discharge patient plans to return home and feels this is a safe discharge. CM discussed availability of home health, rehab services, and medical equipment. Patient has home o2/ portable 02 ( [employer] ). Patient states that she isn't happy with their care. Patient states that she has a barrowed nebulizer but would like her own. Patient also states that her electric w/c is broken and they have picked it up to be fixed but haven't returned it. ([employer]) Patient stated that she may need home health when discharged but didn't want to sign [facility] form at this time. Patient will have spouse to drive her home upon discharge. CM will continue to follow and will assist as needed with dc plans/needs. Dredgemaster: Zuly Israel DCPIA - Discharge Planning Initial Assessment Updated by [email or web address]: Zuly Israel on 09/13/19 8:16 pm * Is the patient Alert and Oriented? Yes * How many steps to enter\exit or inside your home? ramp * PCP JORDAN * Pharmacy [facility] * Preadmission Environment Home with Family * ADLs Partial Dependent * Partial ADLs (Assistance needed) Ambulation Bathing Dressing * Other Equipment ELECTRIC W/C - [employer], [place], [facility], HOME/ PORTABLE 02 -[employer] BARROWED NEBULIZER. * List name and contact numbers for known caregivers / representatives who currently or will assist patient after discharge: BRIAN ZARATE - SPOUSE- [phone] * Verbal permission to speak to the caregivers and representatives has been obtained from the patient. Yes * Community resources currently utilized None * Additional services required to return to the preadmission environment? No * Can the patient safely return to the preadmission environment? Yes * Has this patient been hospitalized within the prior 30 days at any hospital? No Last DP export: 09/13/19 7:26 p Patient Name: FRANKI ZARATE Page [id number] at 1336 All edits/amendments must be made on the electronic document DICTATION DATE: 09/15/196 COLOR DEVELOPER: MOIRA 09/15/196 RPT#: [id number] DC DATE: STATUS: ADM IN [facility] [address] [place] [address] END OF REPORT
[2019-09-15] MEDS ORDERED: CARDIZEM30 MG PO (15:40)
[2019-09-15] MEDS ORDERED: FLORINEF 0.1 M0.1 MG PO (16:25)
--- NOTE | 2019-09-15 17:07 | NUR ---
PT DC HOME, WENT OVER FOLLOW UP APPOINTMENTS AND DC INSTRUCTIONS, DC IV WITH CATHETER INTACT. ALL QUESTIONS ANSWERED NO OTHER NEEDS
--- NOTE | 2019-09-16 09:33 | MORECARE ---
CASE MANAGEMENT DISCHARGE SUMMARY PATIENT: FRANKI ZARATE UNIT: [id number] ADM DATE: 09/13/19 AGE: 34 : 86 SEX: F ROOM/BED: D.2223 AUTHOR: ELAINE WOODWARD PHYSICIAN: REFERRING PHYSICIAN: CHELA DIALLO MD DATE OF SERVICE: 09/16/19 Discharge Plan Patient Name: FRANKI ZARATE Facility: [facility]:[place] : 1985 Planned Disposition: Home Anticipated Discharge Date: Discharge Date: 09/15/2019 Expected LOS: 0 Initial Reviewer: [email or web address] Initial Review Date: 09/13/2019 Generated: 09/16/19 10:33 am Comments DCP- Discharge Planning Updated by [email or web address]: Alyssa Negron on 09/15/19 12:[address] Met with patient and her . She asked me to call [employer] to check on her wheelchair. I called [phone] and they start her part was on hold, but they expect to receive it within the week. I informed patient of this. She also wants me to call Dr. Castelan for a flutter. I spoke with Dr. Castelan and he spoke with Speedy DOSS, and states she does not need a flutter. I informed patient this. She plans to go home, declines other needs at this time. CM will continue to follow and assist with discharge planning/needs. DCP- Discharge Planning Updated by [email or web address]: Zuly Furr on 09/13/19 7:[address] Patient Name: FRANKI ZARATE Admission Status: ER Accout number: [id number] Admission Date: 09-13-2019 : 1985 Admission Diagnosis: Attending: CHELA DIALLO Current LOS: 1 Anticipated DC Date: Planned Disposition: Home Primary Insurance: MEDICARE A & B Discharge Planning Comments: CM met with patient to complete initial dc planning assessment. CM educated patient on the CM role and verbal consent given by patient to complete assessment. Patient lives at home with her (Brian) where she is independent but has to take frequent breaks with her care. At discharge patient plans to return home and feels this is a safe discharge. CM discussed availability of home health, rehab services, and medical equipment. Patient has home o2/ portable 02 ( [employer] ). Patient states that she isn't happy with their care. Patient states that she has a barrowed nebulizer but would like her own. Patient also states that her electric w/c is broken and they have picked it up to be fixed but haven't returned it. ([employer]) Patient stated that she may need home health when discharged but didn't want to sign [facility] form at this time. Patient will have spouse to drive her home upon discharge. CM will continue to follow and will assist as needed with dc plans/needs. Repairer: Zuly Israel DCPIA - Discharge Planning Initial Assessment Updated by [email or web address]: Zuly Israel on 09/13/19 8:16 pm * Is the patient Alert and Oriented? Yes * How many steps to enter\exit or inside your home? ramp * PCP JORDAN * Pharmacy [facility] * Preadmission Environment Home with Family * ADLs Partial Dependent * Partial ADLs (Assistance needed) Ambulation Bathing Dressing * Other Equipment ELECTRIC W/C - [employer], [place], [employer]SC, HOME/ PORTABLE 02 -[employer] BARROWED NEBULIZER. * List name and contact numbers for known caregivers / representatives who currently or will assist patient after discharge: BRIAN ZARATE - SPOUSE- [phone] * Verbal permission to speak to the caregivers and representatives has been obtained from the patient. Yes * Community resources currently utilized None * Additional services required to return to the preadmission environment? No * Can the patient safely return to the preadmission environment? Yes * Has this patient been hospitalized within the prior 30 days at any hospital? No Last DP export: 09/15/19 12:36 p Patient Name: FRANKI ZARATE Page [id number] at 0933 All edits/amendments must be made on the electronic document DICTATION DATE: 09/16/19932 GOLD LAYER: MOIRA 09/16/19932 RPT#: [id number] DC DATE:09/15/19 STATUS: DIS IN [facility] [address] [place] [address] END OF REPORT
== END 2019-09-15 17:08 | disposition home or self-care (01) | DRG 308 ==
LOC: D.ER 06:30 → D.ICU 07:18 → D.MS 07:18
PROVIDERS: Family Medicine; ADMIT Emergency Medicine; ATTEND Emergency Medicine
DX: I47.1 Supraventricular tachycardia (principal); I50.33 Acute on chronic diastolic (congestive) heart failure; J96.21 Acute and chronic respiratory failure with hypoxia; J90 Pleural effusion, not elsewhere classified; J98.11 Atelectasis; I27.0 Primary pulmonary hypertension; E87.1 Hypo-osmolality and hyponatremia; I42.8 Other cardiomyopathies; Z95.2 Presence of prosthetic heart valve; Z79.01 Long term (current) use of anticoagulants; I11.0 Hypertensive heart disease with heart failure; I50.9 Heart failure, unspecified; K21.9 Gastro-esophageal reflux disease without esophagitis; J45.909 Unspecified asthma, uncomplicated; F31.9 Bipolar disorder, unspecified; F41.8 Other specified anxiety disorders; G40.909 Epilepsy, unspecified, not intractable, without status epilepticus; D72.829 Elevated white blood cell count, unspecified; I48.92 Unspecified atrial flutter

== ENCOUNTER 2019-11-27 17:41 | Emergency (ER) | payer MEDICARE ==
[~2019-11-27] VITALS: Ht 170.2 cm; Wt 66.4 kg
[~2019-11-27 17:41] MED LIST changes: +CARDIZEM30 MG PO; +FLORINEF 0.1 M0.1 MG PO
[2019-11-27 17:47] VITALS: Ht 170.2 cm; Wt 66.4 kg
[2019-11-27 19:22] VITALS: BP 121/73
== END 2019-11-27 19:10 | disposition home or self-care (01) ==
LOC: D.ER 17:41
DX: R04.0 Epistaxis (principal); Z99.81 Dependence on supplemental oxygen; I11.0 Hypertensive heart disease with heart failure; I50.9 Heart failure, unspecified; J45.909 Unspecified asthma, uncomplicated; K21.9 Gastro-esophageal reflux disease without esophagitis; Z72.0 Tobacco use

== ENCOUNTER → 2020-03-02 11:39 | Outpatient (CLI) | payer MEDICARE ==
[2019-11-27 17:47] VITALS: BMI 22.9
== END | disposition home or self-care (01) ==
LOC: D.LAB 11:39
PROVIDERS: ATTEND Internal Medicine Pulmonary Disease
DX: J45.909 Unspecified asthma, uncomplicated (principal)

== ENCOUNTER → 2020-03-06 15:23 | Outpatient (CLI) | payer MEDICARE ==
[2019-11-27 17:47] VITALS: BMI 22.9
== END | disposition home or self-care (01) ==
LOC: D.RT 15:00
PROVIDERS: ATTEND Internal Medicine Pulmonary Disease
DX: J45.909 Unspecified asthma, uncomplicated (principal)